=== PATIENT | male | born 1940 | race Caucasian/White ===

== ENCOUNTER 2022-04-26 09:21 | Outpatient (CLI) | payer MEDICARE, BC, SELFPAY | END 2022-04-26 09:22 | disposition home or self-care (01) | LOC: INJ CL 09:24 | PROVIDERS: PCP Family Medicine; Visit Provider Family Medicine | DX: M54.16 Radiculopathy, lumbar region (principal); M51.36 Other intervertebral disc degeneration, lumbar region | CPT/HCPCS: 64483; J1100; Q9966 ==

== ENCOUNTER 2022-07-14 05:36 | Inpatient (IN) | payer MEDICARE, BC, SELFPAY ==
[2022-07-14] VITALS (15 sets, daily range): BP systolic 120–146; BP diastolic 55–67; PULSE 73–105; RESP 16–24; TEMP 36.8–39.1; O2SAT 95–99; BMI 24.9
--- NOTE | 2022-07-14 05:47 | ED_ITS ---
HPI - General Adult General Time Seen by Provider: 05:48 Date Seen: 07/14/22 Chief complaint: Fever Stated complaint: Post Op fever Time Seen by Provider: 07/14/22 05:47 Source: patient, family, RN notes reviewed and old records reviewed Mode of arrival: ambulatory Limitations: no limitations History of Present Illness HPI narrative: The patient is a very pleasant 81-year-old male who is postop day 2. After a L3 4, L4-5 decompression diskectomy surgery at [facility] who comes to the emergency room for evaluation of fever. Patient noted that after his surgery on MondayJuly 11 he awoke on July 12 with the pain that had been present in his left leg resolved. He was very happy of that. States however he did not feel ready to go home but that he was discharged in spite of that. He notes that he started running a fever up as high as 102. Patient was intubated during his surgery. He does not think that there was a urinary cat heter placed however. Patient's fever has been associated with back pain and upon further discussion increased urination. Patient denies headache, runny nose, difficulty breathing or cough. Patient denies abdominal pain, pain with urination or blood in urine. He tested negative for COVID on MondayJuly 08. Patient denies vomiting. According to the operative report patient had the following procedures on July 11: Lateral recess L4-5 bilateral decompression L3 for bilateral decompression/tanner laminectomy/diskectomy Nine surgeries are none secondary to ooze lumbar stenosis with neurogenic claudication and lumbar radiculopathy Patient noted to have surgery in a prone position, intubated. Patient did receive antibiotics intravenously during the surgery. Related Data Home Medications Medication Instructions Recorded Confirmed acetaminophen 500 mg capsule 1,000 mg PO Q6H PRN 07/14/22 07/14/22 amlodipine 10 mg tablet 10 mg PO DAILY 07/14/22 07/14/22 aspirin 81 mg capsule 81 mg PO DAILY 07/14/22 07/14/22 atorvastatin 20 mg tablet 20 mg PO HS 07/14/22 07/14/22 blood sugar diagnostic (Contour 07/14/22 07/14/22 Next Test Strips) clopidogrel 75 mg tablet 75 mg PO DAILY 07/14/22 07/14/22 cyanocobalamin (vitamin B-12) 1,000 mcg PO DAILY 07/14/22 07/14/22 1,000 mcg tablet glimepiride 2 mg tablet 2 mg PO BID 07/14/22 07/14/22 lisinopril 20 mg tablet 20 mg PO DAILY 07/14/22 07/14/22 metformin 1,000 mg tablet 1,000 mg PO DAILY 07/14/22 07/14/22 methocarbamol 750 mg tablet 750 mg PO Q6H PRN 07/14/22 07/14/22 metoprolol succinate 100 mg 100 mg PO HS 07/14/22 07/14/22 tablet,extended release 24 hr nitroglycerin 0.4 mg sublingual 0.4 mg sublingual Q5M PRN 07/14/22 07/14/22 tablet oxycodone 10 mg tablet 10 mg PO Q4H PRN 07/14/22 07/14/22 tamsulosin 0.4 mg capsule 0.4 mg PO DAILY 07/14/22 07/14/22 Allergies Allergy/AdvReac Type Severity Reaction Status Date / Time No Known Drug Allergies Allergy Verified 07/14/22 05:53 Review of Systems Status of ROS: Reports: 10 or more systems reviewed and unremarkable except as noted in History and below Const: Reports: fever and chills Eyes: Denies: change in vision ENMT: Denies: throat pain, neck pain or difficulty swallowing Cardio: Denies: chest pain, swelling of feet/ankles or shortness of breath with exertion Resp: Denies: shortness of breath or cough GI: Denies: abdominal pain, vomiting, diarrhea or difficulty swallowing : Reports: urinary frequency and urinary urgency; Denies: painful urination or blood in urine Musculo: Reports: back pain; Denies: neck pain or extremity pain Neuro: Denies: headache or weakness in extremities PFSH PFS Medical History (Updated 07/14/22 @ 09:06 by Deyanira Hidalgo MD) Anemia of unknown etiology BPH with urinary obstruction CAD (coronary artery disease) Coronary artery disease involving [place] coronary artery of [place] heart without angina pectoris DJD (degenerative joint disease) of knee Herniation of nucleus pulposus, lumbar Hyperlipidemia Hypertension Loose right total knee arthroplasty Onychomycosis Spinal stenosis, lumbar region with neurogenic claudication Type 2 diabetes mellitus Vitamin B12 deficiency Surgical History (Updated 07/14/22 @ 06:48 by Cricket Lentz RN) H/O inguinal hernia repair H/O right knee surgery History of coronary artery stent placement History of laminectomy History of lumbar discectomy History of tonsillectomy Status post cataract extraction of both eyes with insertion of intraocular lens Social History Smoking Status: Never smoker Do you use any of these nicotine containing products: None Second hand tobacco smoke exposure: No How often do you have a drink containing alcohol: never How often do you have six or more drinks on one occasion: Never AUDIT-C Alcohol total score: 0 Non-prescribed substance use: denies use Exam Narrative: Exam Narrative: Patient is a very pleasant well-spoken gentleman. He is in no acute distress. Eyes are clear. Lips are dry but patient has moist mucous membranes. Neck is supple. Heart with a regular rate and rhythm at this time lungs are clear with the exception of few crackles in the left lower lung field that do clear with deep inspiration. Abdomen is soft nontender. Examination of the back shows surgical wound. We do uncover the dressing I do see that there is also a site of an injection at approximately L3 on the left this is not erythematous there is no drainage. I do leave Steri-Strips in place. No obvious purulent drainage and there is no excessive erythema. This area is covered once again with a clean sterile bandage. Lower extremities without edema. Patient was able to stand at the bedside to urinate. He is mentating normally. Const: Vital Signs, click to edit/add: Vital Signs - 24 hr 07/14/22 05:48 07/14/22 05:48 07/14/22 06:40 Temperature 102.2 F H 102.2 F H 102.2 F H Pulse Rate Pulse Rate [Left P ulse Oximeter] 105 H 105 H Pulse Rate [Right Pulse Oximeter] 95 Respiratory Rate 16 16 16 Blood Pressure Blood Pressure [Le ft Upper Arm] 141/66 H 141/66 H Blood Pressure [Ri ght Arm] 141/66 H Pulse Oximetry 98 98 96 Oxygen Delivery Me thod Room Air Room Air Room Air 07/14/22 06:31 07/14/22 07:00 07/14/22 07:30 Temperature 100 F H Pulse Rate 84 Pulse Rate [Left P ulse Oximeter] 80 75 Pulse Rate [Right Pulse Oximeter] Respiratory Rate 24 Blood Pressure 133/58 L Blood Pressure [Le ft Upper Arm] 140/65 H Blood Pressure [Ri ght Arm] Pulse Oximetry 96 99 95 Oxygen Delivery Me thod Room Air Room Air 07/14/22 08:50 Temperature Pulse Rate Pulse Rate [Left P ulse Oximeter] 84 Pulse Rate [Right Pulse Oximeter] Respiratory Rate Blood Pressure Blood Pressure [Le ft Upper Arm] 131/67 Blood Pressure [Ri ght Arm] Pulse Oximetry 98 Oxygen Delivery Me thod Room Air Documenting provider has reviewed patient's vital signs: yes Course Course Hospital Course: Patient is postoperative day 2. From orthopedic spinal surgery. No known complications during the surgery. Differential diagnosis includes but is not limited to for this fever includes aspiration pneumonia, bacterial pneumonia, COVID, urinary tract infection, sepsis, osteomyelitis. Our plan is to place an IV, obtain CBC, comprehensive panel, CRP, lactate, urinalysis as well as chest x-ray and COVID swab. I would like the chest x-ray to be a two view with recent intubation. 1 L of normal saline given. Patient has fever elevated to 102.2 upon his arrival with heart rate of 105. Blood pressure is appropriate and he is not hypotensive. Currently nontoxic in appearance but awaiting lactate and white count. Reevaluation(s) Reevaluation #1: Patient continues to be nontoxic and resting. He continues to have an elevated temp of greater than 100. At this time I do explain to him that is text x-ray shows no evidence of pneumonia, his urine shows no evidence of UTI but that I am of course concerned about his fever. I have spoken with hospitalist and we will be getting a CT of the lumbar spine. And will also start this patient on vancomycin and Zosyn pending blood cultures. Vital Signs Vital signs: Initial Vital Signs Temperature 102.2 F H 07/14/22 05:48 Temperature Source Temporal Artery Scan 07/14/22 05:48 Pulse Rate 105 H 07/14/22 05:48 Pulse Rhythm 07/14/22 05:48 Pulse Strength 3+ Normal 07/14/22 05:48 Respiratory Rate 16 07/14/22 05:48 Respiratory Effort Spontaneous 07/14/22 05:48 Respiratory Depth Normal 07/14/22 05:48 Respiratory Pattern 07/14/22 05:48 Blood Pressure 141/66 H 07/14/22 05:48 Blood Pressure Mean 91 07/14/22 05:48 Blood Pressure Position Sitting 07/14/22 05:48 Pulse Oximetry 98 07/14/22 05:48 Oxygen Delivery Method 07/14/22 05:48 Sepsis Recent Fever Within 48 Hours Yes 07/14/22 05:48 Sepsis New/Unexplained Change in Mental Status No 07/14/22 05:48 Sepsis Action Taken by Nursing Physician Notified 07/14/22 05:48 Vital Signs Temperature 102.2 F H 07/14/22 05:48 Pulse Rate 105 H 07/14/22 05:48 Respiratory Rate 16 07/14/22 05:48 Blood Pressure 141/66 H 07/14/22 05:48 Pulse Oximetry 98 07/14/22 05:48 Oxygen Delivery Method 07/14/22 05:48 Temperature 100 F H 07/14/22 07:00 Pulse Rate 84 07/14/22 08:50 Respiratory Rate 24 07/14/22 07:00 Blood Pressure 131/67 07/14/22 08:50 Pulse Oximetry 98 07/14/22 08:50 Oxygen Delivery Method 07/14/22 08:50 Medical Decision Making MDM Narrative Medical decision making narrative: 1. Fever of unknown origin-this occurs in the postoperative state. No identifiable source at this time. Currently clear are chest x-ray, urinalysis, benign abdominal exam. Patient will be admitted to our hospital and started on Zosyn 3.375 g and vancomycin 1.25 g. This was discussed with both pharmacy and the hospitalist. Blood cultures are pending. Fortunately white count and lactate are reassuring. We do have a 2nd lactate pending at this time. 2. Postoperative day 2 lumbar surgery-no hardware installed. This was a diskectomy/laminectomy surgery. I was able to speak to Dr. Turnre, 1 of the surgeons at [facility]. He does not note any complications during the surgery. His opinion is this is most likely not surgical related and this may be a postoperative fever. Patient currently on oxycodone and acetaminophen for discomfort. 3. Disposition-patient is admitted to the floor under the care of Dr. Blandon. At this time results of lumbar CT pending. Medical Records Medical records reviewed: Yes I reviewed the patient's medical records Lab Data Lab results reviewed: Yes I reviewed the patient's lab results Labs: Lab Results 07/14/22 07/14/22 07/14/22 Range/Units 06:00 06:00 06:00 WBC 10.89 (4.50-11.00) K/uL RBC 4.41 (4.30-5.90) m/uL Hgb 12.7 L (13.5-17.5) gm/dL Hct 37.9 (37.0-53.0) % MCV 86 (80-100) fL MCH 29 (26-34) pg MCHC 34 (32-36) gm/dL RDW Coeff of [place] 13.4 (11.5-15.5) % Plt Count 205 (140-440) K/uL Neut % (Auto) 76.6 H (42.0-72.0) % Lymph % (Auto) 12.4 L (20-44) % [place] % (Auto) 10.0 (0.0-11.0) % Eos % (Auto) 0.3 (0.0-7.0) % Baso % (Auto) 0.1 (0.0-3.0) % Neut # (Auto) 8.30 H (1.7-7.0) K/uL Lymph # (Auto) 1.40 (0.90-2.90) K/uL [place] # (Auto) 1.10 H (0.00-0.90) K/UL Eos # (Auto) 0.03 (0.00-0.50) K/uL Baso # (Auto) 0.01 (0.00-0.30) K/uL Abs Immat Gran (auto) 0.06 (0.00-0.30) K/uL Sodium 138 (135-149) mmol/L Potassium 3.9 (3.6-5.1) mmol/L Chloride 102 (96-114) mmol/L Carbon Dioxide 24 (20-32) mmol/L BUN 11 (7-30) mg/dL Creatinine 0.7 (0.5-1.5) mg/dL Estimated GFR 93 ml/min Glucose 183 H (60-115) mg/dL Venous Lactic Acid (Serial Order) Calcium 9.7 (8.4-10.6) mg/dL Total Bilirubin 0.7 (0.1-1.5) mg/dL AST 25 (12-35) U/L ALT 14 (4-50) U/L Alkaline Phosphatase 69 (40-150) U/L C-Reactive Protein 9.0 H (0.5-1.0) mg/dL Total Protein 7.3 (6.0-8.3) g/dL Albumin 4.2 (3.3-5.0) g/dL Procalcitonin Urine Color (Yellow) Urine Appearance (Clear) Urine pH (5.0-8.5) Ur Specific [place] (1.000-1.030) Urine Protein (Negative) Urine Glucose (UA) (Negative) Urine Ketones (Negative) Urine Blood (Negative) Urine Nitrite (Negative) Urine Bilirubin (Negative) Urine Urobilinogen (0.2-1.0) Ur Leukocyte Esterase (Negative) Urine RBC (0-2) Urine WBC (0-5) Ur Squamous Epith Cells (None-Few) Urine Bacteria (None) SARS-CoV-2 (PCR) (Negative) Influenza Type A (PCR) (Negative) Influenza Type B (PCR) (Negative) 07/14/22 07/14/22 07/14/22 Range/Units 06:00 06:26 07:02 WBC (4.50-11.00) K/uL RBC (4.30-5.90) m/uL Hgb (13.5-17.5) gm/dL Hct (37.0-53.0) % MCV (80-100) fL MCH (26-34) pg MCHC (32-36) gm/dL RDW Coeff of [place]am (11.5-15.5) % Plt Count (140-440) K/uL Neut % (Auto) (42.0-72.0) % Lymph % (Auto) (20-44) % [place] % (Auto) (0.0-11.0) % Eos % (Auto) (0.0-7.0) % Baso % (Auto) (0.0-3.0) % Neut # (Auto) (1.7-7.0) K/uL Lymph # (Auto) (0.90-2.90) K/uL [place] # (Auto) (0.00-0.90) K/UL Eos # (Auto) (0.00-0.50) K/uL Baso # (Auto) (0.00-0.30) K/uL Abs Immat Gran (auto) (0.00-0.30) K/uL Sodium (135-149) mmol/L Potassium (3.6-5.1) mmol/L Chloride (96-114) mmol/L Carbon Dioxide (20-32) mmol/L BUN (7-30) mg/dL Creatinine (0.5-1.5) mg/dL Estimated GFR ml/min Glucose (60-115) mg/dL Venous Lactic Acid (Serial Order) Calcium (8.4-10.6) mg/dL Total Bilirubin (0.1-1.5) mg/dL AST (12-35) U/L ALT (4-50) U/L Alkaline Phosphatase (40-150) U/L C-Reactive Protein (0.5-1.0) mg/dL Total Protein (6.0-8.3) g/dL Albumin (3.3-5.0) g/dL Procalcitonin Cancelled Urine Color Yellow (Yellow) Urine Appearance Clear (Clear) Urine pH 5.5 (5.0-8.5) Ur Specific [place] 1.015 (1.000-1.030) Urine Protein Negative (Negative) Urine Glucose (UA) Negative (Negative) Urine Ketones 2+ A (Negative) Urine Blood Negative (Negative) Urine Nitrite Negative (Negative) Urine Bilirubin Negative (Negative) Urine Urobilinogen 0.2 (0.2-1.0) Ur Leukocyte Esterase Negative (Negative) Urine RBC 0-2 (0-2) Urine WBC 0-2 (0-5) Ur Squamous Epith Cells None (None-Few) Urine Bacteria None (None) SARS-CoV-2 (PCR) Negative SARS-CoV-2 (Negative) Influenza Type A (PCR) Negative PCR FLU A (Negative) Influenza Type B (PCR) Negative PCR FLU B (Negative) Imaging Data Chest x-ray: Attestation: I have reviewed the pertinent imaging results. My impression: No obvious infiltrates. Radiologist's impression: HEART AND MEDIASTINUM: The heart size is normal. The mediastinal contour appears normal for patient age. LUNGS AND PLEURAL SPACES: The lungs appear normal.The pleural spaces are unremarkable. OSSEOUS STRUCTURES: Age-appropriate appearance. No acute focal finding. IMPRESSION: No evidence of active pulmonary disease. ECG Data Attestation: I personally reviewed and interpreted this ECG as follows: Interpretation: EKG by my read shows sinus rhythm at a rate of 83. I do not note any acute ST or T-wave changes. MS and QT intervals within normal limits Critical Care Time Critical Care Time Critical Care Time: Yes Attestation: The patient required my highest level preparedness to intervene emergently and I personally spent this critical care time directly and personally managing the patient. This critical care time included: Obtaining a history; Examining the patient; Pulse oximetry; Ordering and reviewing of studies; Arranging urgent treatment with development of a management plan; Evaluation of patients response to treatment; Frequent reassessment discussions with other providers. This critical care time was performed to assess and manage the high probability of imminent life-threatening deterioration that could result in multiorgan failure. It was exclusive of separate billable procedures and treating other patients and teaching time. Total Critical Care Time in Minutes: 60 Discharge Plan Discharge Clinical Impression: Fever of unknown origin Patient Disposition: Admitted As Inpatient Condition: Improved
--- NOTE | 2022-07-14 06:26 | CRLHL7_ITS ---
For Patients: As a result of the Cures Act, medical imaging exams and procedure reports are released immediately into your electronic medical record. You may view this report before your referring provider. If you have questions, please contact your health care provider. INDICATION: Postop fever COMPARISON: October 19, 2013 TECHNIQUE: Two views of the chest were acquired FINDINGS: TUBES AND LINES: None. HEART AND MEDIASTINUM: The heart size is normal. The mediastinal contour appears normal for patient age. LUNGS AND PLEURAL SPACES: The lungs appear normal.The pleural spaces are unremarkable. OSSEOUS STRUCTURES: Age-appropriate appearance. No acute focal finding. IMPRESSION: No evidence of active pulmonary disease. Dictated by Jairon Granger MD @ 07/14/2022 7:02:25 AM (Electronically Signed)
[2022-07-14 06:52] LABS: Basophils Absolute Auto 0.01 K/uL (0.00-0.30); Basophils Percent Auto 0.1 % (0.0-3.0); Eosinophils Absolute Auto 0.03 K/uL (0.00-0.50); Eosinophils Percent Auto 0.3 % (0.0-7.0); Hematocrit 37.9 % (37.0-53.0); Hemoglobin* 12.7 gm/dL (13.5-17.5); Immature Granulocytes Abs Auto 0.06 K/uL (0.00-0.30); Lymphocytes Percent Auto 12.4 % (20-44); Mean Corpuscular HGB Conc 34 gm/dL (32-36); Mean Corpuscular Hemoglobin 29 pg (26-34); Mean Corpuscular Volume 86 fL (80-100); Neutrophils Percent Auto 76.6 % (42.0-72.0); Platelet Count* 205 K/uL (140-440); RDW Coefficient of Variation % 13.4 % (11.5-15.5); Red Blood Count 4.41 m/uL (4.30-5.90); White Blood Count* 10.89 K/uL (4.50-11.00)
[2022-07-14 06:54] LABS: Slide Review Reflex No
[2022-07-14 07:01] LABS: Lactate Sepsis w/Reflex* 1.5 mmol/L (0.5-1.9)
[2022-07-14] MEDS: 0.9 % SODIUM CHLORIDE 1000 ml 1,000 ML IV ×2 (07:01→08:29)
--- NOTE | 2022-07-14 07:08 | ED.NURSE ---
Addendum entered by Fabienne Colorado RN 07/14/22 07:11: I concur, 23 oxycodone 10mg tablets, counted and passed on to Mark COBB on shift change. Original Note: pt. came with 23 tabs oxycodone 10mg. witnessed with Irma COBB.
[2022-07-14 07:14] LABS: Appearance Urine Clear (Clear); Bilirubin Urine Negative (Negative); Color Urine Yellow (Yellow); Glucose Urine Negative (Negative); Ketones Urine 2+ (Negative)
[2022-07-14 07:15] LABS: Blood Urine Negative (Negative); Leukocyte Esterase Urine Negative (Negative); Nitrite Urine Negative (Negative); Protein Urine Negative (Negative); RBC Urine 0-2 (0-2); Specific Gravity Urine 1.015 (1.000-1.030); Urobilinogen Urine 0.2 (0.2-1.0); WBC Urine 0-2 (0-5); pH Urine 5.5 (5.0-8.5)
--- NOTE | 2022-07-14 07:22 | ED.NURSE ---
was assisted to the side of the bed to stand and void. voided ~150 ml of urine. has pain with movement.
--- OUTSIDE RECORDS SUMMARY | 2022-07-14 07:27 | XMS_ITS | Encounter Summary ---
:1940 Author Organization [facility] Address [address] [place] [address] Care Team Providers Name Role Phone Clinic, [facility] Unavailable Unavail able Terry Junior Primary Care Provider Reason for Visit Inpatient Admission Specialty Diagnoses / Procedures Referred By Contact Refer red To Contact Procedures [id number] Referral ID Status Reason Start Date Expiration Date Visits Requ ested Visits Authorized [id number] 1 1 Encounter Details Date Type Department Care Team Description 05/04/2018 Surgery [facility] Low Hagen, PLACEMENT OF Hospital Operating MD MULTICOMPONENT PENILE Room [address] PROSTHESIS [address] [place], [place] [address] [place], [place] [phone] (Wo rk) Surgery Details Date/Time Status Location OR Service Patient Case Class Case Type Trauma Class Case? 05/04/18 7:30 AM Posted [facility] ORS 05 Urology Same Day SDS-Hold Surgery Panel 1 Procedure LRB Anes Op Region Wound Class Commen ts PLACEMENT OF MULTICOMPONENT N/A General Penis Clean Co ntaminated (II) PENILE PROSTHESIS Surgeon Surgeon Role Service Panel Low Hagen MD Primary Urology 1 documented in this encounter Social History Tobacco Use Types Packs/Day Years Used Date Smoking Tobacco: Former Cigarettes 10 04 Quit : 1979 Smokeless Tobacco: Never Alcohol Use Standard Drinks/Week Comments No 0 (1 standard drink = 0.6 oz pure alcoho l) Sex Assigned at Date Recorded Not on file documented as of this encounter Last Filed Vital Signs Vital Sign Reading Time Taken Comments Blood Pressure 109/52 05/04/2018 10:15 AM CDT Pulse 81 05/04/2018 10:15 AM CDT Temperature 36.5 ??C (97.7 ??F) 05/04/2018 9:45 AM CDT Respiratory Rate 12 05/04/2018 10:15 AM CDT Oxygen Saturation 96% 05/04/2018 10:15 AM CDT Inhaled Oxygen Concentration - - Weight 71.7 kg (158 lb) 05/04/2018 6:05 AM CDT Height 167.6 cm (5' 6) 05/02/2018 4:45 PM CDT Body Mass Index 25.5 05/02/2018 4:45 PM CDT documented in this encounter Discharge Summaries Low Hagen MD - 05/05/2018 1:20 PM CDT HOSPITAL DISCHARGE SUMMARY Patient Name: Roberto Cason Date of : 1940 Attending Provider: Low Hagen MD Admission Date: 05/04/2018 Discharge Date: 05/05/2018 He will be discharged on 05/05/2018 to home. PRINCIPAL DIAGNOSIS 1. Erectile dysfunction PROCEDURES PERFORMED DURING HOSPITALIZATION 1. Placement of a multi-component penile prosthesis BRIEF HOSPITAL COURSE: Stable postoperative course. Pt was also followed by the hospitalist for postop medical management. Pain was controlled. MARIBEL and maynard were removed on POD #1. Prior to discharge, pt was ambulating, tolerating diet, and voiding. He was thus discharged home later on POD #1 in stable condition. LABS: No Lab Results Found (last 72 hours) No Lab Results Found (last 72 hours) DISCHARGE MEDICATIONS Roberto Cason Home Medication Instructions MIRA:[id number] Printed on:05/07/18 4753 Medication Information amLODIPine (NORVASC) 10 mg oral tablet Take 10 mg by mouth at bedtime. aspirin 81 mg oral enteric coated tablet Take 81 mg by mouth once daily. atorvastatin (LIPITOR) 10 mg oral tablet Take 10 mg by mouth every morning. docusate sodium (COLACE) 100 mg oral capsule Take 1 capsule (100 mg) by mouth twice daily as needed for constipation doxycycline monohydrate (ADOXA) 100 mg oral tablet Take 1 tablet (100 mg) by mouth twice a day with breakfast and dinner. HYDROcodone-acetaminophen (NORCO) 5-325 mg oral tablet Take 1-2 tablets by mouth every 4 (four) hours as needed for Pain. lisinopril (PRINIVIL) 20 mg oral tablet Take 20 mg by mouth at bedtime. metFORMIN (GLUCOPHAGE) 1,000 mg oral tablet Take 1,000 mg by mouth twice a day with breakfast and dinner. metoprolol succinate, XL, (TOPROL XL) 100 mg oral extended release tablet 24 HR Take 100 mg by mouth at bedtime. nitroGLYCERIN (NITROSTAT) 0.4 mg sublingual tablet Take 0.4 mg under the tongue every 5 (five) minutes as needed for Chest Pain. tamsulosin (FLOMAX) 0.4 mg oral capsule Take 0.4 mg by mouth every other day. DISCHARGE PROCEDURES AND FOLLOW-UP Discharge Procedure Orders Notify Provider CONTACT the doctor if you have any of the following: Temperature of 101' or higher or chills. Prolonged nausea or vomiting. Increased drainage or bleeding. Increased tenderness or swelling. Pain not relieved by medication. Call 911 if symptoms are severe or life threatening. Discharge Instructions (Sedation/Anesthesia) Today you were given medicine for pain or sedation. This medicine can cause you to: be sleepy, not think clearly, feel less coordinated. For 24 hours after receiving the medicine: have an adult stay with you. Remain at home and rest during that time. You may not return to work. Do not smoke. Be careful when you bathe, shower, cook, or use electrical devices. Avoid rapid movement as dizziness may result. Begin eating light foods, such as cereal or toast. Resume usual diet. Do not drink alcohol for 24hours. Do not drive or operate any heavy equipment. Delay important decision-making. Don't sign any important papers. No pain meds or sleeping pills for 4 hours after last dose given before discharge. Discharge Instructions Plan on 2 full days of bed rest following surgery Remove scrotal support after 48 hrs NO LIFTING items heavier than 1 gallon of milk for 2 weeks following surgery Apply Ice Packs several times a day in 20 minute intervals for the first 4-5 days following surgery Keep MARIBEL drain site covered for 2 days---changed and needed--keep clean and dry Do NOT shower for first 48 hours following surgery------no direct water contact for 5-7 days following surgery Narcotic Pain Medication may cause constipation. Increase your water content and take stool softener--colace you have been prescribed You may experience difficulty urinating of find your stream is not of its usual strength. This is because of the inflammation in your penis and it will return to normal with time. PULL PUMP DOWN in the scrotum several times a day -this is part of rehabilitation. You will likely experience some soreness and swelling, NO SEXUAL CONTACT IS PERMITTED UNTIL GRANTED BY UROLOGIST Discharge Discharge Patient When Alert and Stable per Outpatient Criteria Disposition? Returning Home/Self Care Expected Discharge Date? 05/05/2018 Discharge Patient when Following Condition is Met: if ok with Dr Mitchell Urology Discharge Disposition? Returning Home/Self Care Expected Discharge Date? 05/05/2018 Diet: Regular Resume diabetic diet Follow Up Referral Priority: Routine Referred to Provider: LOW HAGEN Follow Up Referral Priority: Routine Referred to Provider: TERRY JUNIOR PA-C [facility] Office [phone] UROLOGY d/c note ABOVE NOTE Wilmer HAGEN MD [facility] [phone] documented in this encounter Discharge Instructions Discharge InstructionsHenrietta Fam RN - 05/05/2018 12:12 PM CDT Activity Your provider has recommended that your activity be: As ordered by your provider. Dietary Recommendations The diet that has been suggested for you is: Consistent Carbohydrate diet: In addition to a healthy diet, a consistent carbohydrate diet is recommended for people that are attempting to manage their blood sugar levels. The goal of this diet is to have a consistent amount of carbohydrates (sugars) planned for each meal. Meals should also be eaten at similar times each day to help maintain a steady blood sugar level. Guidelines for following a consistent carbohydrate diet include the following: Avoid large servings when eating the following foods: milk, fruit, starches (such as bread, cereal, potatoes and pasta); peas, corn, and sweets. Read food labels - 15 grams of carbohydrate is equal to 1 carb unit. Medications If your provider has ordered medications for you, make sure to take your medications as prescribed. Call your doctor within 24 hours if you have any of the following symptoms: ?? Increased or unexpected swelling ?? Increased or unexpected shortness of breath ?? Sudden or unexpected weight gain or loss ?? Nausea, vomiting, and/or diarrhea Seek care immediately or call 911 if: You have any of the following signs of a heart attack: ?? Squeezing, pressure, or pain in your chest that lasts longer than 5 minutes or returns ?? Discomfort or pain in your back, neck, jaw, stomach, or arm ?? Trouble breathing ?? Lightheadedness or a sudden cold sweat, especially with trouble breathing Monitor Your Weight Weigh yourself everyday in the morning and keep a record. If your weight has increased 2 pounds overnight or 4 pounds in one week, contact you primary care provider/MD. Discharge Weight Weight: 71.7 kg (158 lb) Weight: 158 lb Please keep any follow-up appointments that have been made for you. Smoking and second-hand smoke exposure: If you or anyone in your home smokes, we strongly recommend that you stop for your health and that of your family. Please talk with your health care provider about your best treatment options. No matter what your age or how long you've smoked, quitting will help you live longer. For further assistanceplease call the [employer] Helpline at 8-(161)-030-XSNL or go to their website [email or web address]. documented in this encounter Medications at Time of Discharge Medication Sig Dispensed Refills Start Date End Date amLODIPine (NORVASC) 10 Take 10 mg by mouth at 0 mg oral tablet bedtime. aspirin 81 mg oral Take 81 mg by mouth 0 enteric coated tablet once daily. atorvastatin (LIPITOR) Take 10 mg by mouth 0 10 mg oral tablet every morning. docusate sodium (COLACE) Take 1 capsule (100 60 capsule 0 100 mg oral capsule mg) by mouth twice daily as needed for constipation doxycycline monohydrate Take 1 tablet (100 mg) 20 tablet 0 05/04/2018 (ADOXA) 100 mg oral by mouth twice a day tablet with breakfast and dinner. HYDROcodone-acetaminophe Take 1-2 tablets by 40 tablet 0 n (NORCO) 5-325 mg oral mouth every 4 (four) tablet hours as needed for Pain. lisinopril (PRINIVIL) 20 Take 20 mg by mouth at 0 mg oral tablet bedtime. metFORMIN (GLUCOPHAGE) Take 1,000 mg by mouth 0 1,000 mg oral tablet twice a day with breakfast and dinner. metoprolol succinate, Take 100 mg by mouth 0 XL, (TOPROL XL) 100 mg at bedtime. oral extended release tablet 24 HR nitroGLYCERIN Take 0.4 mg under the 0 (NITROSTAT) 0.4 mg tongue every 5 (five) sublingual tablet minutes as needed for Chest Pain. tamsulosin (FLOMAX) 0.4 Take 0.4 mg by mouth 0 mg oral capsule every other day. documented as of this encounter Progress Notes Chapincito Randolph MD - 05/05/2018 1:20 PM CDT [facility] H[facility]PITAL SERVICE PROGRESS NOTE Chart reviewed. Patient is s/p penile prosthesis on 05/04/2018. SUBJECTIVE: PT doing well. Pain well controlled. ROS: Neg. OBJECTIVE: BP 119/53 Pulse 74 Temp 98.8 ??F (37.1 ??C) Resp 16 Ht 5' 6 (1.676 m) Wt 71.7 kg (158 lb) SpO2 94% BMI 25.50 kg/m?? O2 Delivery Source: Room Air Wt Readings from Last 2 Encounters: 05/04/18 71.7 kg (158 lb) Temp (24hrs), Av.5 ??F (36.9 ??C), Min:98 ??F (36.7 ??C), Max:98.8 ??F (37.1 ??C) Body mass index is 25.5 kg/m??. General Appearance: Patient is alert and oriented x3, in no apparent distress, pleasant and conversive, speaking in full sentences HEENT: Atraumatic/Normal cephalic, extraocular muscles intact, pupils equally round and reactive to light, mucous membranes are moist NECK: supple, no lymphadenopathy RESPIRATORY: Clear to auscultation bilaterally, good air movement CARDIOVASCULAR: Regular rate and rhythm, no murmurs, rubs or gallops, peripheral pulses intact GASTROINTESTINAL: Non-distended/Non tender, soft, bowel sounds present throughout, no masses or hepatosplenomegaly SKIN: Warm, dry, no rashes, mottling not present NEUROLOGIC: Without any focal deficits EXTREMITIES: Moves all extremities, no clubbing, cyanosis, or edema : Maynard in place LABS: No Lab Results Found (last 72 hours) PROCEDURES: Patient is s/p penile prosthesis on 05/04/2018. IMAGING: EKG on 05/04/2018: normal sinus rhythm Additional comments: I reviewed the patient's new clinical lab test results. I reviewed the patient's medications. ASSESSMENT: This is a 77 year old male with PMH significant for Coronary Artery Disease s/p stents to LAD and LCx, Diabetes Mellitus type 2, hypertension who is s/p penile prosthesis on 05/04/2018. PLAN: 1. Penile implant: Elective surgery on 05/04/18. Urology to manage post operative cares including diet, pain control, deep vein thrombosis prophylaxis. 2. Coronary Artery Disease: s/p JEWELS to LAD and LCx. Angiogram in 2013 with patent stents. Prior to admission Plavix and aspirin, restarted per urology. 3. Diabetes Mellitus type 2: Glucose 140s. prior to admission glimepiride, metfromin continue with SSI and accu checks. 4. Hypertension: BP stable. prior to admission on amlodipine, lisinopril, metoprolol. restart home meds at co. 5. HLD: prior to admission statin 6. Benign Prostatic Hypertrophy: prior to admission flomax 7. Clinically stable to co home. Chapincito Randolph MD [facility] Medicine Service Henrietta Fam RN - 05/05/2018 1:20 PM CDT Roberto Cason 1940 [id number] P: Discharge A: Discharged via wheelchair to home escorted by volunteer I: Discharge information and arrangements included: review of written discharge instructions, reviewof purpose and side effects of new medication, belongings list completed. R:Patient expressed understanding of information. Pt left in wheelchair. MARIBEL out. Pt voiding with no problems. Appetite good. Blood pressure stable. Pt alert and oriented. Pain meds helpful with pain. Knows when to call 911 and when to call MD. Verbalized understanding of all discharge instructions. Henrietta Fam Cliff Mitchell MD - 05/05/2018 12:09 PM CDT Urology Pain controlled Voiding without maynard AFVSS MARIBEL output low. A/ POD #1 IPP. Doing well P/ I removed dressing and MARIBEL. See discharge orders per Dr. Hagen.. Home today. Cliff Mitchell MD Susie Sanz RN - 05/05/2018 6:02 AM CDT [facility] Med-Surg Care Progression Note Type: Shift to shift summary Length of stay: 0 days Code Status: Full Code Reason for Admission: Surgery Post OP for Penile Prosthesis. F- Feeding Progression: Tolerating Diet- Diabetic diet Fluids Progression: Continue bolus and IVF- running at 125 mls/hr A- Analgesic Progression: Pain at goal with interventions, Prn Oxy given and scheduled Tylenol alongwith ice packs. Sling intact and bandages C/D/I. S- Skin Progression: Total Master Score 19: Maintaining Skin integrity Safety Progression: Hendrich II Total Score: 1; Falls risk - interventions in place Call light within reach, red slippers on. T- Telemetry Progression: Not applicable Treatment Progression: Infusions/titrating IV infusing bolus as needed D/C maynard in AM per orders, Bedrest for 48 hours. BP doing well overnight. Patient was concerned that it might be too low. E- Emotional Needs Progression: Participating in cares and Appropriate affect. A&O x3. Pleasant with staff Neuro Progression: Alert and Oriented R- Respiratory Needs Progression: On room air cont. to monitor H- Head OUT of Bed/Activity Progression: Bed Rest . Able to shift weight in bed. U- Ultimate Discharge Progression: Pain controlled and voiding Anticipated Disposition: Plan to: Home, D/C orders in for tomorrow. Friend is staying overnight andwill drive him home at discharge Anticipated Equipment/Supply Needs: None G- Glycemic Control Progression: BG QID. Will continue to monitor. B- Bowel and Bladder Care Progression: Last BM: 05/03/18; on bowel med's. Refused Colace in PM I- Indwelling/Invasive Devices Progression: Maynard catheter in place and draining clear yellow urine.PIV D- DVT/Anticoagulation Progression: SCDs Angelia Faulkner RN - 05/04/2018 10:55 PM CDT [facility] Med-Surg Care Progression Note Type: Shift to shift summary Length of stay: 0 days Code Status: Full Code Reason for Admission: Surgery Post OP for Penile Prosthesis. F- Feeding Progression: Tolerating Diet- Diabetic diet Fluids Progression: Continue bolus and IVF- running at 125 mls/hr A- Analgesic Progression: Pain at goal with interventions, Prn Oxy given and scheduled Tylenol alongwith ice packs. Sling intact and bandages C/D/I. S- Skin Progression: Total Master Score: 21: Maintaining Skin integrity Safety Progression: Hendrich II Total Score: 1; Falls risk - interventions in place Call light within reach, red slippers on. T- Telemetry Progression: Not applicable Treatment Progression: Infusions/titrating IV infusing bolus as needed D/C maynard in AM per orders, Bedrest for 48 hours. Refused scheduled metoprolol. Wanted BP cuff on for a few more readings to makesure his BP is ok overnight. E- Emotional Needs Progression: Participating in cares and Appropriate affect. A&O x3. Pleasant with staff Neuro Progression: Alert and Oriented R- Respiratory Needs Progression: On room air cont. to monitor H- Head OUT of Bed/Activity Progression: Bed Rest U- Ultimate Discharge Progression: Pain controlled and voiding Anticipated Disposition: Plan to: Home, D/C orders in for tomorrow. Friend is staying overnight andwill drive him home at discharge Anticipated Equipment/Supply Needs: None G- Glycemic Control Progression: Accuchecks before meals and HS and oral hypoglycemics. Refused PO Amaryl and Metformin and SS insulin. Told policy writer typist he isn't eating enough and his BG is low enough for overnight. He said it will drop overnight if he takes it. Will continue to monitor. B- Bowel and Bladder Care Progression: Last BM: 05/03/18; on bowel med's. Refused Colace in PM I- Indwelling/Invasive Devices Progression: Maynard catheter in place and draining clear yellow urine. D- DVT/Anticoagulation Progression: Seq Summary Henrietta Fam RN - 05/04/2018 4:16 PM CDT [facility] P. Admission A. Condition on Admit: alert. Patient/Family Concerns: Patient expressed concern about pain relief . I. Initial Interventions included: administered medication for blood pressure and pain . Orientation to Unit: Patient oriented to how to call for help, name of assigned neurocritical care physician, PatientInformation booklet, Handwashing, hourly rounding procedures. R. Patient expressed understanding of information.. Med-Surg Care Progression Note Type: Shift to shift summary Length of stay: 0 days Code Status: Full Code Reason for Admission: Surgery Post OP F- Feeding Progression: Tolerating Diet- Pt advanced as tolerated, ordered Dinner. Fluids Progression: Continue bolus and IVF- running A- Analgesic Progression: Pain at goal with interventions S- Skin Progression: Total Master Score: 21: Maintaining Skin integrity Safety Progression: Hendrich II Total Score: 1; Falls risk - interventions in place Call light within reach, red slippers on. T- Telemetry Progression: Not applicable Treatment Progression: Infusions/titrating IV infusing bolus as needed E- Emotional Needs Progression: Participating in cares and Appropriate affect. Neuro Progression: Alert and Oriented R- Respiratory Needs Progression: On room air cont. to monitor H- Head OUT of Bed/Activity Progression: Bed Rest U- Ultimate Discharge Progression: Pain controlled and voiding Anticipated Disposition: Plan to: Home Anticipated Equipment/Supply Needs: None G- Glycemic Control Progression: Accuchecks before meals and HS and oral hypoglycemics B- Bowel and Bladder Care Progression: Last BM: 05/03/18; on bowel meds. I- Indwelling/Invasive Devices Progression: Maynard catheter in place and draining clear yellow urine. D- DVT/Anticoagulation Progression: Seq Summary Pt admitted after penile implant today. His blood pressure low when arrived and MARIBEL with bloody drainage. Sand bag in place and removed at 1145. Pt having some pain ice in place and IV tylenol running now and does have dilaudid IV if needed. Tolerated lunch with no problems. called about IV fluids. Fluids ordered with boluses if needed. Blood pressure and urine output better with fluids. Ptalert and oriented. Dressing intact. MARIBEL with 60cc of bloody fluid. Chapincito Randolph MD - 05/04/2018 10:35 AM CDT [facility] HOSPITAL SERVICE PROGRESS NOTE Chart reviewed. Patient is s/p penile prosthesis on 05/04/2018. SUBJECTIVE: POD #0. Reports his pain is controlled. No nausea, vomiting, chest pain, shortness of breath, fever.He took his blood pressure medications last night. He is a former smoker, quit in . Does not drink alcohol. OBJECTIVE: BP 109/52 Pulse 81 Temp 97.7 ??F (36.5 ??C) Resp 12 Ht 5' 6 (1.676 m) Wt 71.7 kg (158 lb) SpO2 96% BMI 25.50 kg/m?? O2 Delivery Source: Face Mask Wt Readings from Last 2 Encounters: 05/04/18 71.7 kg (158 lb) Temp (24hrs), Av ??F (36.7 ??C), Min:97.7 ??F (36.5 ??C), Max:98.3 ??F (36.8 ??C) Body mass index is 25.5 kg/m??. General Appearance: Patient is alert and oriented x3, in no apparent distress, pleasant and conversive, speaking in full sentences HEENT: Atraumatic/Normal cephalic, extraocular muscles intact, pupils equally round and reactive to light, mucous membranes are moist NECK: supple, no lymphadenopathy RESPIRATORY: Clear to auscultation bilaterally, good air movement CARDIOVASCULAR: Regular rate and rhythm, no murmurs, rubs or gallops, peripheral pulses intact GASTROINTESTINAL: Non-distended/Non tender, soft, bowel sounds present throughout, no masses or hepatosplenomegaly SKIN: Warm, dry, no rashes, mottling not present NEUROLOGIC: Without any focal deficits EXTREMITIES: Moves all extremities, no clubbing, cyanosis, or edema : Maynard in place LABS: No Lab Results Found (last 72 hours) PROCEDURES: Patient is s/p penile prosthesis on 05/04/2018. IMAGING: EKG on 05/04/2018: normal sinus rhythm Additional comments: I reviewed the patient's new clinical lab test results. I reviewed the patient's medications. ASSESSMENT: This is a 77 year old male with PMH significant for Coronary Artery Disease s/p stents to LAD and LCx, Diabetes Mellitus type 2, hypertension who is s/p penile prosthesis on 05/04/2018. PLAN: 1. Penile implant: Elective surgery on 05/04/18. Urology to manage post operative cares including diet, pain control, deep vein thrombosis prophylaxis. 2. Coronary Artery Disease: s/p JEWELS to LAD and LCx. Angiogram in 2013 with patent stents. Prior to admission Plavix and aspirin, restarted per urology. 3. Diabetes Mellitus type 2: Glucose 140s. prior to admission glimepiride, metfromin continue with SSI and accu checks. 4. Hypertension: BP stable. prior to admission on amlodipine, lisinopril, metoprolol. ?? Continue metoprolol with holding parameters ?? Hold amlodipine and lisinopril, hold until tomorrow then continue with holding parameters. 5. HLD: prior to admission statin 6. Benign Prostatic Hypertrophy: prior to admission flomax Surgical Incision Lower Abdomen (Active) Incision Date/Incision Time: 05/04/18 0829 Type: Incision Orientation: Lower Location: Abdomen CODE STATUS: Full GI prophylaxis: Diet DVT prophylaxis: SCDs Disposition: Anticipated date of discharge per urology, Criteria for discharge is per urology Discussed care plan with patient and Dr Randolph Total Time: 35 minutes was spent evaluating, treating this patient with >50% spent in counsellingor coordination of care, see above Feli Cox PA-C [facility] Medicine Service Patient seen and examined by me. Agree with the PA note. A/P: 77 y.o. with 1. s/p urologic procedure: per urology. 2. CAD: cont BB 3. DM: SSI in adition to po meds. 4. HTN: cont BB, hold parameters for the others. 5. Rest per PA note. Chapincito Randolph MD [facility] Medicine Service documented in this encounter H&P Notes Rosa House MD - 05/04/2018 7:17 AM CDT History and Physical Update I have reviewed the patient's History and Physical and have examined the patient in the pre-op area.The patient denies any interval changes in medical condition since the H&P. Rosa House MD 05/04/2018 7:17 AM documented in this encounter Nursing Notes Susie Sanz RN - 05/05/2018 6:29 AM CDT Problem: Pain Goal: Exhibits reduction in pain to a level of acceptable comfort Outcome: Met this shift Patient pain /10 this shift after prn oxycodone given. Also had one dose of IV acetaminophen. Sleptmost of shift. Melissa Sandra RN - 05/04/2018 11:00 AM CDT Report given to floor nurse, and to remove sand bag at [address] Sal[place]. VSS Lungs clear sat 95% on RA Dressing to penis D/I documented in this encounter OR Notes OR Surgeon - Low Hagen MD - 05/04/2018 6:43 PM CDT CC: Date of Service: 05/04/2018 SURGEON: Low Hagen MD INDICATIONS FOR PROCEDURE: The patient is a 77-year-old gentleman who has a history of erectile dysfunction. He has failed multiple other treatments and wishes to proceed with placement of an inflatable penile prosthesis. I have discussed the risks, benefits, expected outcomes, complications and alternatives to this procedure. I have answered his questions to the best of my ability and to his satisfaction. He wished to proceed and signed consent. PREOPERATIVE DIAGNOSIS: Erectile dysfunction. POSTOPERATIVE DIAGNOSIS: Erectile dysfunction. PROCEDURE PERFORMED: Placement of a multi-component penile prosthesis. ANESTHESIA: General and pudendal nerve block and local. COMPLICATIONS: None. ESTIMATED BLOOD LOSS: 10 mL. FINDINGS: A Coloplast Titan multicomponent penile prosthesis was placed with 22 cm cylinders bilaterally with no rear tip extenders and a 125 mL reservoir placed ectopically on the left side, filled to125 mL. The Krystin pump was used and placed into the scrotum. SPECIMENS: None. The patient is stable and taken to the recovery room. ESTIMATED BLOOD LOSS: 10 mL. DRAINS: MARIBEL and Maynard catheter. OPERATIVE PROCEDURE: After proper identification of the patient, the patient was taken to the operating room and placed supine on the operating table. Next, after adequate general anesthesia, the patient was prepped and draped in sterile standard fashion per routine for penile prosthesis with the table hyperextended. The patient had voided prior to entering the operating room. After appropriate pausefor the cause, I performed bilateral pudendal nerve blocks in Alcock's canal with local anesthetic, including ropivacaine. Please see nurses' notes. Following this, I performed an artificial erection with normal saline and lidocaine mixture, approximately 40 mL. This was performed and demonstrated no e vidence of Peyronie's disease or penile curvature. I then proceeded and made an infrapubic incision approximately 3-5 cm in size. This was taken down through the subcutaneous tissue. A small amount of electrocautery was used for hemostasis. I then used blunt finger dissection down to the corpora bilaterally. I placed two stay sutures with 2-0 Monocryl, first on the right corpora, two stay sutures lateral to the dorsal nerve and vasculature. Then I identified the left corpora and placed two stay sutures on the left. Extreme care and caution was taken to denote the dorsal nerve and vasculature and stay well away from this area and place the sutures lateral to the dorsal nerve and vasculature. I thenused a 12 blade and performed a corporotomy, first on the left corpora. I then used the Felipe insertion tool to dilate and measure the proximal corpora on the left. I measured proximally on the left to be 9 cm. I then measured distally at 12 cm. Note, I first used the skye Mcdanieluer proximally tocreate the pathway. I then used the Felipe insertion tool by pulling up on the penis and measuring down and lateral and then I measured distally. Extreme care was taken in measuring the distal corpora by placing my thumb and middle finger over the fossa navicularis to avoid any chance of injury or crossover. The measurements again on the left were 9 cm proximal and 13 cm distal for a 22 cm cylinder on the left. In a similar fashion on the right, I performed a corporotomy. I then measured proximally 9 cm and 13 cm distally, again with extreme caution on an outstretched penis as I had done on the opposite side with protection of the distal urethra to avoid any crossover. I then irrigated. I then placed the 12 Hegar in the proximal corporotomy on the right on the outstretched penis and then the Felipe insertion tool on the left. This was done to denote good positioning and good goalpost orientation. I then switched it to the Felipe and the Hegar. This was also done to dilate proximally. I then irri gated copiously. I then proceeded with placement of the reservoir. I placed this in ectopically in the left lower quadrant. I used a three-inch nasal speculum to roman the transversalis fascia and then create a pocket with a 12 Hegar. This was extraperitoneal. I was able to palpate and create a nice pocket also with my middle finger. I then placed the reservoir ectopically within this location and Ifilled it to 125 mL. Again, there is no evidence that the reservoir was within the abdomen. It was placed outside the abdomen in an ectopic fashion. I then turned attention to placement of the penile prosthesis. I first changed gloves and used a copious amount of irrigation. I used the Felipe insertion tool with a Gonzales needle. I threaded the needle onto the Felipe insertion tool and then I placed the Felipe into the left corporotomy with an outstretched penis and with protection of the distal urethra by pressing on the fossa navicularis with my thumb and middle finger. I then placed a Felipe on the outstretched penis and then I deployed the needle, bringing it out the distal end of the penis through the glans well away from the meatus. I then pulled the needle through, thus bringing with it the suture which I then secured with a clamp. I then irrigated proximally and distally and then I pulled the cylinders through distally and then I placed it proximally with the aid of my finger and also by using a DeBakey. In a similar fashion, I placed the right cylinders, again with extreme care distallyto pinch the fossa navicularis and deployment of the needle. I pulled the suture through, securing it after I passed off the needle and then brought the device distal and then placed it proximally through the proximal corporotomy. Once this was done, I performed rapid inflation to evaluate function and cosmesis. I performed a rapid inflation. This demonstrated good function and cosmesis of the implant and no evidence of Peyronie's disease. I then deflated the implant and I closed the corporotomies with the stay sutures that had been placed distal to the exit tubing site. I had to place an additional suture on the left corporotomy. I did so with a 3-0 Monocryl using the safety device to protect thetubing and the device from piercing. Once I did this, I then closed all the corporotomies and there appeared to be a watertight closure. All the sutures were distal to the tubing. I then placed the pump, which was a Krystin type, in the posterior in the scrotum along Colles fascia, the median rhaphe in the most dependent portion. This was done by placing a three-inch nasal speculum down into the scrotum. I created a subdartos pouch and I pulled the pump down into this area. I then irrigated and thenconnected the tubing from the pump and the reservoir. I then copiously irrigated. I placed a drain exiting the right lower quadrant and going down into the left hemiscrotum. I then placed local anesthesia into the wound and down the left hemiscrotum. I then closed the wound with 3-0 Monocryl suture subcutaneously and then placed surgical clips to close the skin. Extreme care was done during closure to denote the position of the tubing and not roman this. I secured the drain with a Prolene suture and then one surgical clip at the skin. I then again palpated the pump in the most dependent portion ofthe scrotum. I then pumped up the prosthesis to look for cosmesis and appropriate placement and again, this looked to be in excellent position and cosmesis and good position of the implant. I palpated the cylinders on the glans, both equal. There was no evidence of meatal injury. I then deactivated the pump and placed dressings. I did pump up the prosthesis approximately 50%. I then placed a Maynard catheter at the end of the procedure, a 14 Burkinan coude, and there was clear urine noted. All sponge, lap and needle counts were correct. I did place dressings then and we also used medical surgical glue at the exit sites of where the sutures were brought through after they had been removed. Again, all lap, sponge and needle counts were correct. The patient tolerated the procedure without any complications. He received perioperative antibiotics. In addition, IV Tylenol at the end of the procedure. Estimated blood loss was 10 mL. The Coloplast Titan three-piece penile prosthesis was placed with 22 cm cylinders bilaterally. No rear tip extenders were used. The 125 mL reservoir was placed ectopically inthe left lower quadrant and this was filled. The patient was taken to the recovery room in stable condition with a ten pound sandbag. Note the MARIBEL drain was placed to bulb suction. Low Hagen MD, FACS /CW Dictation ID: [id number] OR Surgeon - Low Hagen MD - 05/04/2018 6:31 PM CDT POST-OPERATIVE NOTE Surgeon(s): Low Hagen MD Electrical Tech(s): Circulating nurse: Lis Boykin RN customer support technician: Monica Crespo Private Scrub: Jabier Tao Preoperative Diagnosis: dx: erectile dysfunction Postoperative Diagnosis: ED Procedure(s): ED Complications: None EBL: 10 ml Anesthesia: General Operative Findings: 3 piece IPP placed---22cm cylinder bilateral---no rte's 125cc reservoir-placed ectopically left lower quadrant--krystin pump in scrotum Specimen(s): * No specimens in log * Grafts and/or Implants: Implant Name Type Inv. Item Serial No. Cushion Installer Lot No. LRB No. Used Titan Assembly Kit [employer] [id number] N/A 1 Titan CL Wendell [employer] [id number] N/A 1 Titan Infrapubic Zero Degree Angle Cylinder Set with Pump [employer] [id number] N/A 1 Condition on Discharge from Operating Room: Satisfactory REPORT OF OPERATION/ PROCEDURE Please see dictated operative note. LOW HAGEN MD [facility] [phone] documented in this encounter Plan of Treatment Scheduled Referrals Name Type Priority Associated Diagnoses Order S chedule Follow Up Follow Up Routine Ordered: 2017 Follow Up Follow Up Routine Ordered: 2017 documented as of this encounter Procedures Procedure Name Priority Date/Time Associated Comments Diagnosis POCT GLU METER Routine 05/05/2018 8:05 Results fo r this AM CDT procedure are i n the results section. POCT GLU METER Routine 05/04/2018 8:48 Results fo r this PM CDT procedure are i n the results section. POCT GLU METER Routine 05/04/2018 12:33 Results f or this PM CDT procedure are i n the results section. POCT GLU METER Routine 05/04/2018 9:44 Results fo r this AM CDT procedure are i n the results section. INSERTION PENILE 05/04/2018 7:04 erectile PROSTHESIS AM CDT dysfunction POCT GLU METER STAT 05/04/2018 6:26 Results fo r this AM CDT procedure are i n the results section. ELECTROCARDIOGRAM Routine 05/04/2018 5:47 Results for this AM CDT procedure are i n the results section. documented in this encounter Results (ABNORMAL) POCT Glucose Meter (05/05/2018 8:05 AM CDT)Only the most recent of5 resultswithin the time period is included. P athologist Signature GLUCOSE WB 173 (H) 60 - 100 05/05/2018 [facility] METER mg/dL 9:15 AM CDT HEALTH LABORATORY Specimen Anatomical Collection Method Collection Time Receive d Time (Source) Location / / Volume Laterality Blood 05/05/2018 8:05 AM 8 9:15 CDT AM CDT Low Hagen MD LAB POINT OF CARE TEST RESUL TS Performing Organization Address City/State/ZIP Code Phon e Number [facility] [address] [place] [address] LABORATORY Electrocardiogram (05/04/2018 5:47 AM CDT) athologist Signature EKG [facility] Comment: ?N [facility] ? Test Date: ?2018-05-04 Pat Name: ? ROBERTO CASON ?Department: ?? [facility] ? Room: ? 528 Gender: ? M ?Medicaid Nurse: ?? [id number] : ?1940 ? Requested By: ALEJANDRA YANG MD Order Number: [id number] ?Reading : ?? A. MD Tanner ? Measurements Intervals ?[place] ? Rate: ? 75 ? P: ?12 UT: ? 150 ?QRS: ?23 QRSD: ? 88 ? T: ?24 QT: ? 353 ? QTc: ?395 ? Interpretive Statements SINUS RHYTHM No previous ECG available for comparison Electronically Signed On 05-15-2018 15:55 :39 CDT by Clive Hart MD Specimen (Source) Anatomical Collection Method Collection Time Re ceived Time Location / / Volume Laterality 05/04/2018 5:47 AM CDT Narrative This result has an attachment that is no t available. Alejandra Yang MD EKG ORDERABLE Performing Organization Address City[place]State[place] [facility] [place] [facility] [address] [facility] No [place] [id number] documented in this encounter Visit Diagnoses Not on filedocumented in this encounter Administered Medications Inactive Administered Medications - up to 3 most recent administrations Medication Order MAR Action Action Date Dose Rate Site saline FLUSH syringe 10 mL Given 05/04/2018 10:08 PM CDT 10 mL 10 mL, Intravenous, EVERY 8 HOURS, First dose on Mon05/04/18 at 0600, Until Discontinued saline FLUSH syringe 10 mL Given 05/04/2018 6:09 AM CDT 10 mL 10 mL, Intravenous, NEEDED, Starting on Mon05/04/18 at 0535, Until 05/05/18 at 1921, Line Care acetaminophen (OFIRMEV) IV infusion 1,000 Given 05/05/2018 8 :52 AM CDT 1,000 mg mg 1,000 mg, Intravenous, EVERY 6 HOURS, First dose on Mon05/04/18 at 1500, Until Discontinued, Administer over 15 Minutes Given 05/05/2018 3:12 AM CDT 1,000 mg Given 05/04/2018 10:01 PM CDT 1,000 mg amLODIPine (NORVASC) tablet 10 mg 10 mg, oral, AT BEDTIME, First dose (after last modifi cation) on Mon05/05/18 at 2200, Until Discontinued atorvastatin (LIPITOR) tablet 10 mg Given 05/05/2018 8:52 AM CDT 10 mg 10 mg, oral, EVERY MORNING, First dose on Mon05/04/18 at 1215, Until Discontinued Given 05/04/2018 2:34 PM CDT 10 mg bacitracin 50,000 Units in sodium chloride Given 05/04/2018 8:55 AM CDT 100 mL 0.9% Irrig 1,000 mL bottle INTRA-PROCEDURE NEEDED, Starting on Mon05/04/18 at 0855, Until Mon05/04/18 at 0946, Intra-Op bacitracin topical ointment Given 05/04/2018 9:24 AM CDT 1 Application INTRA-PROCEDURE NEEDED, Starting on Mon05/04/18 at 0924, Until Mon05/04/18 at 0946, Intra-Op ceFAZolin ( ANCEF ) 1 g in sodium chloride New Bag 05/04/2018 9:14 PM CDT 1 g 0.9% 100 mL IV piggyback 1 g, Intravenous, EVERY 8 HOURS (NS), 2 doses, First dose on Mon05/04/18 at 1300, Last dose on Mon05/04/18 at 2100, Post-Op, Administer over 30 Minutes New Bag 05/04/2018 2:09 PM CDT 1 g D50W IV syringe 25-50 mL 25-50 mL, Intravenous, NEEDED, Starting on 05/04 at 1222, Until Mon05/05/18 at 1921, hypoglycemia docusate sodium (COLACE) capsule 100 mg Given 05/05/2018 8:51 AM CDT 100 mg 100 mg, oral, TWICE A DAY, First dose on Mon05/04/18 at 1215, Until Discontinued, Post-Op Given 05/04/2018 2:28 PM CDT 100 mg fentaNYL (SUBLIMAZE) injection 25-50 mcg Given 05/04/2018 10:30 AM CDT 50 mcg 25-50 mcg, Intravenous, NEEDED, Starting on Mon05/04/18 at 1017, Until 05/05/18 at 1921, up to 200mcg in Pacu Given 05/04/2018 10:19 AM CDT 50 mcg gentamicin in NACL 0.9% for Given 05/04/2018 8:35 AM CDT 30 mg Procedural IRRIGATION - MIXTURE INTRA-PROCEDURE NEEDED, Starting on Mon05/04/18 at 0830, Until Mon05/04/18 at 0946, Intra-Op, per procedure Given 05/04/2018 8:30 AM CDT 30 mg Proce dural glimepiride (AMARYL) tablet 2 mg Given 05/05/2018 8:51 AM CDT 2 mg 2 mg, oral, TWICE A DAY WITH BREAKFAST AND DINNER, First dose on Mon05/04/18 at 1700, Until Discontinued Glucagon (Human Recombinant) injection ( conc: 1 mg/mL) 1 mg 1 mg, IntraMUSCULAR, EVERY 15 MINUTES NEEDED, 2 doses, Starting on Mon05/04/18 at 1222, Until 05/05/18 at 1921, for hypoglycemia insulin aspart (pen) (NovoLOG) pen Given 05/04/2018 2:16 PM CDT 2 Units Abdomen 0-10 Units 0-10 Units, Subcutaneous, THREE TIMES A DAY WITH MEALS, First dose on Mon05/04/18 at 1230, Until Discontinued insulin aspart (pen) (NovoLOG) pen 0-5 U nits 0-5 Units, Subcutaneous, AT BEDTIME, First dose on Mon05/04/18 at 2200, Until Discontinued lactated ringers (LR) IV BOLUS 500 mL 500 mL, Intravenous, ONCE NEEDED, 1 d ose, Starting on Mon05/04/18 at 1341, Until 05/05/18 at 1921, Administer over 30 Minutes lidocaine (LMX-4) topical cream 1 Applic ation topical, NEEDED, Starting on 05/04 at 0535, Until 05/05/18 at 1921, IV start or restart if patient prefers a needleless local anesthetic. lidocaine 1% / 8.4% sod bicarb (buffered lidocaine) syringe for IV starts 0.1-0.3 mL 0.1-0.3 mL, Intradermal, NEEDED, Starting on 07/12 at 0535, Until 05/05/18 at 1921, IV line placement, IV start or restar t lidocaine 1% injection (conc: 10 Given 05/04/2018 8:29 AM CDT 30 mL Procedural mg/mL) INTRA-PROCEDURE NEEDED, Starting on Mon05/04/18 at 0829, Until Mon05/04/18 at 0946, Intra-Op lidocaine 2% injection 0.1-0.3 mL Given 05/04/2018 6:11 AM CDT 0.1 mL Left Forearm 0.1-0.3 mL, Intradermal, NEEDED, Starting on Mon05/04/18 at 0535, Until 05/05/18 at 1921, IV start or restart lisinopril (PRINIVIL) tablet 20 mg 20 mg, oral, AT BEDTIME, First dose (after last modifi cation) on Mon05/05/18 at 2200, Until Discontinued metFORMIN (GLUCOPHAGE) tablet 1,000 mg Given 05/05/2018 8:51 AM CDT 1,000 mg 1,000 mg, oral, TWICE A DAY WITH BREAKFAST AND DINNER, First dose on Mon05/04/18 at 1700, Until Discontinued metoprolol succinate (XL) (TOPROL XL) ex tended release tablet 24 HR 100 mg 100 mg, oral, AT BEDTIME, First dose (af ter last modification) on Mon05/04/18 at 2200, Until Discontinued oxyCODONE (immediate release) (ROXICODONE) Given 05/05/2018 8:52 AM CDT 10 mg tablet 5-10 mg 5-10 mg, oral, EVERY 4 HOURS NEEDED, Starting on Mon05/04/18 at 1214, Until 05/05/18 at 1921, Post-Op, Pain, when taking PO Given 05/05/2018 3:13 AM CDT 10 mg Given 05/04/2018 10:11 PM CDT 5 mg rifamPIN (RIFADIN) injection (conc: 60 m g/mL) Given 05/04/2018 8:45 AM CDT 300 mg INTRA-PROCEDURE NEEDED, Starting on Mon05/04/18 at 0840, Until Mon05/04/18 at 0946, Intra-Op Given 05/04/2018 8:40 AM CDT 300 mg ropivacaine (PF) 5 mg/mL (0.5 %) Soln Given 05/04/2018 9:25 AM CDT 10 mL Proce dural INTRA-PROCEDURE NEEDED, Starting on Mon05/04/18 at 0829, Until Mon05/04/18 at 0946, Intra-Op Given 05/04/2018 8:29 AM CDT 10 mL sodium chloride 0.9 % IV solution New Bag 05/05/2018 1:21 AM CDT 125 mL/hr at 125 mL/hr, Intravenous, CONTINUOUS, Starting on Mon05/04/18 at 1415, Until 05/05/18 at 1921 New Bag 05/04/2018 2:28 PM CDT 125 mL/hr documented in this encounter Active and Recently Administered Medications Times are shown in CDT. Scheduled Medication Order 05/03/2018 05/04/2018 05/05/2018 saline FLUSH syringe 10 mL 0600 (Cance led Entry - Provider: Oma Gee RN)1400 (Canceled Entry - Provider: Henrietta Fam RN)2208 (Given - Provider: Clarissa Quintana, REZA) 0600 (Withheld - Provider: Susie santizo RN - Comment: IVF infusing) 10 mL, Intravenous, EVERY 8 HOURS, First dose on Mon05/04/18 at 0600, Until Discontinued acetaminophen (OFIRMEV) IV infusion 1,000 mg 1518 (Given - Provider: Henrietta Fam RN)2201 (Given - Provider: Clarissa Quintana RN) 0312 (Given - Provider: Susie Sanz RN)0852 (Given - Provider: Henrietta Fam RN) 1,000 mg, Intravenous, EVERY 6 HOURS, Fi rst dose on Mon05/04/18 at 1500, Until Discontinued, Administer over 15 Minutes amLODIPine (NORVASC) tablet 10 mg 10 mg, oral, AT BEDTIME, First dose on 05/05/18 at 2200, Until Discontinued atorvastatin (LIPITOR) tablet 10 mg 1434 (Given - Provider: Henrietta Fam RN) 0852 (Given - Provider: Henrietta Fam RN) 10 mg, oral, EVERY MORNING, First dose o n Mon05/04/18 at 1215, Until Discontinued ceFAZolin ( ANCEF ) 1 g in sodium chloride 0.9% 100 mL IV piggyback (COMPLETED) 1409 (New Bag - Provider: Henrietta Fam RN)2114 (New Bag - Provider: Clarissa Quintana RN) 1 g, Intravenous, EVERY 8 HOURS (NS), 2 doses, First dose on Mon05/04/18 at 1300, Last dose on Mon05/04/18 at 2100, Post-Op, Administer over 30 Minutes docusate sodium (COLACE) capsule 100 mg 1428 (Given - Provider: Henrietta Fam RN)1999 (Declined - Provider: Clarissa Quintana, REZA) 0851 (Given - Provider: Henrietta Fam RN) 100 mg, oral, TWICE A DAY, First dose on Mon05/04/18 at 1215, Until Discontinued, Post-Op gentamicin (GARAMYCIN) 110 mg in sodium chloride 0.9 % 100 mL IV piggyback (COMPLETED) 075 (New Bag - Provider: Evita Liao) 110 mg (rounded from 107.55 mg = 1.5 mg/ kg ? 71.7 kg Dosing weight), Intravenous, ONE TIME DOSE, 1 dose, Mon05/04/18 at 0900, Dosing Guidelines: 1 mg/kg (synergy dosing) 1.5 mg/kg (traditional dosing f or UTI's) 2 mg/kg (traditional dosing) 5 mg/kg (extended interval option) 7 mg/kg (extended interval option) glimepiride (AMARYL) tablet 2 mg 1700 (D eclined - Provider: Clarissa Quintana RN) 0851 (Given - Provider: Henrietta Fam RN) 2 mg, oral, TWICE A DAY WITH BREAKFAST A ND DINNER, First dose on Mon05/04/18 at 1700, Until Discontinued insulin aspart (pen) (NovoLOG) pen 0-10 Units(Linked Group 1 ) 1416 (Given - Provider: Henrietta Fam RN)1700 (Declined - Provider: Clarissa Quintana, REZA) 0853 (Declined - Provider: Henrietta Fam, REZA)1200 (Declined - Provider: Henrietta Fam RN) 0-10 Units, Subcutaneous, THREE TIMES A DAY WITH MEALS, First dose on Mon05/04/18 at 1230, Until Discontinued insulin aspart (pen) (NovoLOG) pen 0-5 Units(Linked Group 1) 2200 (Withheld - Provider: Clarissa Quintana RN) 0-5 Units, Subcutaneous, AT BEDTIME, Fir st dose on Mon05/04/18 at 2200, Until Discontinued lisinopril (PRINIVIL) tablet 20 mg 20 mg, oral, AT BEDTIME, First dose on Mon05/05/18 at 2200, Until Discontinued metFORMIN (GLUCOPHAGE) tablet 1,000 mg 1 700 (Declined - Provider: Clarissa Quintana, REZA) 0851 (Given - Provider: Henrietta Fam RN) 1,000 mg, oral, TWICE A DAY WITH BREAKFA ST AND DINNER, First dose on Mon05/04/18 at 1700, Until Discontinued metoprolol succinate (XL) (TOPROL XL) extended release table t 24 HR 100 mg 2200 (Declined - Provider: Clarissa Quintana RN) 100 mg, oral, AT BEDTIME, First dose on Mon05/04/18 at 2200, Until Discontinued tamsulosin (FLOMAX) capsule 0.4 mg 0.4 mg, oral, EVERY OTHER DAY, First dos e on Mon05/05/18 at 1700, Until Discontinued vancomycin (VANCOCIN) 1,000 mg in sodium chloride 0.9 % 250 mL IV piggyback (COMPLETED) 0751 (New Bag - Provider: Evita Liao) 1,000 mg, Intravenous, NUT CHOPPER TO OR, 1 dose, Starting Mon05/04/18 at 0738, Until Discontinued Continuous Medication Order 05/03/2018 05/04/2018 05/05/2018 sodium chloride 0.9 % IV solution 1428 ( New Bag - Provider: Henrietta Fam RN) 0121 (New Bag - Provider: Susie solis RN) at 125 mL/hr, Intravenous, CONTINUOUS, S tarting Mon05/04/18 at 1415, Until Mon05/05/18 at 1921 PRN Medication Order 05/03/2018 05/04/2018 05/05/2018 saline FLUSH syringe 10 mL 0609 (Given - Provi rica: Oma Gee RN) 10 mL, Intravenous, NEEDED, Starting Mon05/04/18 at 0535, Until 05/05/18 at 1921, Line Care bacitracin 50,000 Units in sodium chlori de 0.9% Irrig 1,000 mL bottle (CANCELED) 0855 (Given - Provider: Low jenkins MD) INTRA-PROCEDURE NEEDED, Starting Mon05/04/18 at 0855, Until Mon05/04/18 at 0946, Intra-Op bacitracin topical ointment (CANCELED) 0 924 (Given - Provider: Low Hagen MD) INTRA-PROCEDURE NEEDED, Starting Mon05/04/18 at 0924, Until Mon05/04/18 at 0946, Intra-Op bisacodyl (DULCOLAX) suppository 1 suppository 1 suppository, Rectal, DAILY NEEDED, Starting Mon05/04/18 at 1214, Until 05/05/18 at 1921, Post-Op, Constipation D50W IV syringe 25-50 mL 25-50 mL, Intravenous, NEEDED, Starti ng Mon05/04/18 at 1222, Until 05/05/18 at 1921, Hypoglycemia fentaNYL (SUBLIMAZE) injection 25-50 mcg 1019 (Given - Provider: Melissa Sandra, RN)1030 (Given - Provider: Melissa Sandra, RN) 25-50 mcg, Intravenous, NEEDED, Start ing Mon05/04/18 at 1017, Until 05/05/18 at 1921, up to 200mcg in Pacu gentamicin in NACL 0.9% for IRRIGATION - MIXTURE (CANCELED) 0830 (Given - Provider: Low Hagen MD - Comment: 30mg gentamicin + 300mg rifampin + 100mg fluconazole in 100ml NACL used to soak implants.)0835 (Given - Provider: Low Hagen MD - Comment: 30mg gentamicin + 300mg rifampin + 100mg fl INTRA-PROCEDURE NEEDED, Starting Mon05/04/18 at 0830, Until Mon05/04/18 at 0946, Intra-Op, per procedure uconazole in 400ml NACL used t o irrigation.) Glucagon (Human Recombinant) injection (conc: 1 mg/mL) 1 mg 1 mg, IntraMUSCULAR, EVERY 15 MINUTES NEEDED, 2 doses, Starting Mon05/04/18 at 1222, Until 05/05/18 at 1921, for hypoglycemia glycopyrrolate (ROBINUL) injection 0.1 mg 0.1 mg, IntraMUSCULAR, EVERY 4 HOURS NEEDED, Starting Mon05/04/18 at 1214, Until 05/05/18 at 1921, Post-Op, for bladder spasms glycopyrrolate (ROBINUL) tablet 1 mg 1 mg, oral, EVERY 4 HOURS NEEDED, Sta rting Mon05/04/18 at 1214, Until 05/05/18 at 1921, Post-Op, for bladder spasms HYDROmorphone (DILAUDID) 0.2-0.5 mg 0.2-0.5 mg, Intravenous, EVERY 2 HOURS A S NEEDED, Starting Mon05/04/18 at 1214, Until 05/05/18 at 1921, Post-Op, Pain, when NOT taking PO lactated ringers (LR) IV BOLUS 500 mL 500 mL, Intravenous, ONE TIME DOSE NE EDED, 1 dose, Starting Mon05/04/18 at 1341, Until 05/05/18 at 1921, Administer over 30 Minutes lidocaine (LMX-4) topical cream 1 Application Topical, NEEDED, Starting Mon05/04/18 at 0535, Until 05/05/18 at 192, IV start or restart if patient prefers a needleless local anesthetic. lidocaine 1% / 8.4% sod bicarb (buffered lidocaine) syringe for IV starts 0.1- 0.3 mL 0.1-0.3 mL, Intradermal, NEEDED, Star ting Mon05/04/18 at 0535, Until 05/05/18 at 1921, IV line placement, IV start or restart lidocaine 1% injection (conc: 10 mg/mL) (CANCELED) 0829 (Given - Provider: Low Hagen MD) INTRA-PROCEDURE NEEDED, Starting Mon05/04/18 at 0829, Until Mon05/04/18 at 0946, Intra-Op lidocaine 2% injection 0.1-0.3 mL 0611 (Given - Provider: Oma Gee RN) 0.1-0.3 mL, Intradermal, NEEDED, Star ting Mon05/04/18 at 0535, Until 05/05/18 at 1921, IV start or restart magnesium hydroxide (MILK OF MAGNESIA) suspension 30 mL 30 mL, oral, AT BEDTIME NEEDED, Start ing Mon05/04/18 at 2200, Until 05/05/18 at 1921, Post-Op, Constipation naloxone (NARCAN) injection 0.1 mg 0.1 mg, Intravenous, EVERY 1 MINUTE PRN, Starting Mon05/04/18 at 1214, Until 05/05/18 at 192, Post-Op, Opiate Reversal nitroGLYCERIN (NITROSTAT) tablet 0.4 mg 0.4 mg, Sublingual, EVERY 5 MINUTES N EEDED, Starting Mon05/04/18 at 1214, Until 05/05/18 at 1921, Chest Pain ondansetron (ZOFRAN) injection 4 mg 4 mg, Intravenous, EVERY 12 HOURS NEE DED, Starting Mon05/04/18 at 1214, Until 05/05/18 at 192, Post-Op, nausea oxyCODONE (immediate release) (ROXICODONE) tablet 5-10 mg 1815 (Given - Provider: Clarissa Quintana RN)2211 (Given - Provider: Clarissa Quintana RN) 0313 (Given - Provider: Susie Sanz RN)0852 (Given - Provider: Henrietta Fam RN) 5-10 mg, oral, EVERY 4 HOURS NEEDED, Starting Mon05/04/18 at 1214, Until 05/05/18 at 1921, Post-Op, Pain, when taking PO rifamPIN (RIFADIN) injection (conc: 60 mg/mL) (CANCELED) 0840 (Given - Provider: Low Hagen MD - Comment: 30mg gentamicin + 300mg rifampin + 100mg fluconazole in 100ml NACL used to soak implants.)0845 (Given - Provider: Low Hagen MD - Comment: 30mg gentamicin + 300mg rifampin + 100mg fl INTRA-PROCEDURE NEEDED, Starting Mon05/04/18 at 0840, Until Mon05/04/18 at 0946, Intra-Op uconazole in 400ml NACL used to irrigati on.) ropivacaine (PF) 5 mg/mL (0.5 %) Soln (CANCELED) 0829 (Given - Provider: Low Hagen MD)0925 (Given - Provider: Low Hagen MD) INTRA-PROCEDURE NEEDED, Starting Mon05/04/18 at 0829, Until Mon05/04/18 at 0946, Intra-Op Linked Groups Order Group 1: POCT Glucose Meter (CANCELED) Routine, 4 TIMES DAILY - BEFORE MEALS & BEDTIME, First occurrence on Mon05/04/18 at 1223, Until Specified, Ensure Accucheck completed 4 times daily, even if patient misses meal(s). And POCT Glucose Meter (CANCELED) Routine, PRN, Starting Mon05/04/18 at 12 22, Until Specified, Two Hours After Coverage of Blood Glucose 350 mg / dL or Greater, 30 Minutes After Blood Glucose Less Than 80 mg / dL; Patient is Not Symptom atic and More Than 30 Minutes Until Next Meal and For Symptoms of Hypoglycemia. And insulin aspart (pen) (NovoLOG) pen 0-10 UnitsJump to med 0-10 Units, Subcutaneous, THREE TIMES A DAY WITH MEALS, First dose on Mon05/04/18 at 1230, Until Discontinued And insulin aspart (pen) (NovoLOG) pen 0-5 UnitsJump to med 0-5 Units, Subcutaneous, AT BEDTIME, Fir st dose on Mon05/04/18 at 2200, Until Discontinued documented in this encounter Care Teams Academic Affairs Manager Relationship Specialty Start Date End Date [facility] PCP - Primary Care Clinic 04/30/18 Terry Casiano PCP - General Family Medicine 04/30/18 documented as of this encounter
--- OUTSIDE RECORDS SUMMARY | 2022-07-14 07:27 | XMS_ITS | Encounter Summary ---
:1940 Author Organization [facility] Address [address] [place] [address] Care Team Providers Name Role Phone Clinic, [facility] Unavailable Unavail able Terry Junoir Primary Care Provider Reason for Referral (Routine) - Closed Specialty Diagnoses / Procedures Referred By Contact Refer red To Contact Procedures Cliff Mitchell MD Discharge [address] [place], [place] [address] Referral ID Status Reason Start Date Expiration Date Visits Requ ested Visits Authorized [id number] Closed 05/05/2018 05/05/2019 1 1 (Routine) - Closed Specialty Diagnoses / Procedures Referred By Contact Refer red To Contact Chapincito Randolph MD Goodwin, Richard L [address] [place] [address] [address] [place] [address] [place], [place] [address] Referral ID Status Reason Start Date Expiration Date Visits Requ ested Visits Authorized [id number] Closed 05/05/2018 05/05/2019 1 1 Question Answer Specify time frame for follow up? As needed (Routine) - Closed Specialty Diagnoses / Procedures Referred By Contact Refer red To Contact Procedures Low Hagen MD Diet: Regular [address] [place], [place] [address] Referral ID Status Reason Start Date Expiration Date Visits Requ ested Visits Authorized [id number] Closed 05/04/2018 05/04/2019 1 1 (Routine) - Closed Specialty Diagnoses / Procedures Referred By Contact Refer red To Contact Procedures Low Hagen MD Discharge Instructions [address] [place], [place] [address] Referral ID Status Reason Start Date Expiration Date Visits Requ ested Visits Authorized [id number] Closed 05/04/2018 05/04/2019 1 1 (Routine) - Closed Specialty Diagnoses / Procedures Referred By Contact Refer red To Contact Procedures Low Hagen MD Discharge Instructions [address] (Sedation/Anesthesia) [address] [place], [place] [address] Referral ID Status Reason Start Date Expiration Date Visits Requ ested Visits Authorized [id number] Closed 05/04/2018 05/04/2019 1 1 (Routine) - Closed Specialty Diagnoses / Procedures Referred By Contact Refer red To Contact Low Hagen MD Tortorelis, Dean G, MD [address] [place], [place] [address] [place] [address] Fax: Referral ID Status Reason Start Date Expiration Date Visits Requ ested Visits Authorized [id number] Closed 05/04/2018 05/04/2019 1 1 Question Answer Specify time frame for follow up? 1 Week Comments Call for appt LOW HAGEN MD [facility] [phone] (Routine) - Closed Specialty Diagnoses / Procedures Referred By Contact Refer red To Contact Procedures Low Hagen MD Notify Provider [address] [place] [address] Referral ID Status Reason Start Date Expiration Date Visits Requ ested Visits Authorized [id number] Closed 05/04/2018 05/04/2019 1 1 (Routine) - Closed Specialty Diagnoses / Procedures Referred By Contact Refer red To Contact Procedures Low Hagen MD Discharge [address] [place] [address] Referral ID Status Reason Start Date Expiration Date Visits Requ ested Visits Authorized [id number] Closed 05/04/2018 05/04/2019 1 1 Reason for Visit Inpatient Admission Specialty Diagnoses / Procedures Referred By Contact Refer red To Contact Procedures [id number] Referral ID Status Reason Start Date Expiration Date Visits Requ ested Visits Authorized [id number] 1 1 Encounter Details Date Type Department Care Team Description 05/04/2018 - Hospital Encounter [facility]ugh Coronary artery 05/05/2018 3300 Ang Nugent MD disease involving N [address] am[place] coronary [place] [address] artery of [place] [address] [place] heart without [phone] angina pectoris Social History Tobacco Use Types Packs/Day Years Used Date Smoking Tobacco: Former Cigarettes 1 10 Quit : 1979 Smokeless Tobacco: Never Alcohol Use Standard Drinks/Week Comments No 0 (1 standard drink = 0.6 oz pure alcoho l) Sex Assigned at Date Recorded Not on file documented as of this encounter Last Filed Vital Signs Vital Sign Reading Time Taken Comments Blood Pressure 119/53 05/05/2018 11:50 AM CDT Pulse 74 05/05/2018 11:50 AM CDT Temperature 37.1 ??C (98.8 ??F) 05/05/2018 11:50 AM CDT Respiratory Rate 16 05/05/2018 11:50 AM CDT Oxygen Saturation 94% 05/05/2018 11:50 AM CDT Inhaled Oxygen Concentration - - Weight 71.7 kg (158 lb) 05/04/2018 6:05 AM CDT Height 167.6 cm (5' 6) 05/02/2018 4:45 PM CDT Body Mass Index 25.5 05/02/2018 4:45 PM CDT documented in this encounter Discharge Summaries Low Hagen MD - 05/05/2018 1:20 PM CDT HOSPITAL DISCHARGE SUMMARY Patient Name: Hugo La Date of : 1940 Attending Provider: Low [...] Results Found (last 72 hours) DISCHARGE MEDICATIONS Hugo La Home Medication Instructions MIRA:[id number] Printed on:05/07/18 2931 Medication Information amLODIPine (NORVASC) 10 mg oral [...] TERRY JUNIOR PA-C [facility] Office [phone] UROLOGY d/c note ABOVE NOTE Wilmer HAGEN MD [facility] [phone] documented in this encounter Discharge Instructions Discharge [...] live longer. For further assistanceplease call the [employer] Helpline at [phone] or go to their website [email or web address]. documented in this encounter Medications at Time [...] MD - 05/05/2018 1:20 PM CDT [facility] SERVICE PROGRESS NOTE [...] amlodipine, lisinopril, metoprolol. restart home meds at ok. 5. HLD: prior to admission statin 6. Benign Prostatic Hypertrophy: prior to admission flomax 7. Clinically stable to ok home. Chapincito Randolph MD [facility] Henrietta Fam RN - 05/05/2018 1:20 PM CDT Hugo La 1940 [id number] P: Discharge A: Discharged via wheelchair to [...] Amaryl and Metformin and SS insulin. Told field underwriter he isn't eating enough and his BG [...] to call for help, name of assigned child care team lead, PatientInformation booklet, Handwashing, hourly rounding procedures. R. [...] MD - 05/04/2018 10:35 AM CDT [facility] SERVICE PROGRESS NOTE [...] of care, see above Feli Cox PA-C [facility] Patient seen and examined by me. Agree with the PA note. A/P: 77 y.o. with 1. s/p urologic procedure: per urology. 2. CAD: cont BB 3. DM: SSI in adition to po meds. 4. HTN: cont BB, hold parameters for the others. 5. Rest per PA note. Chapincito Randolph MD [facility] Medicine Service documented in this encounter [...] comfort Outcome: Met this shift Patient pain 10/04 this shift after prn oxycodone given. Also [...] 12 cm. Note, I first used the pediatric Yankauer proximally tocreate the pathway. I then used [...] the end of the procedure, a 14 [place] coude, and there was clear urine noted. [...] Low Hagen MD, FACS /CW Dictation ID: [id number] OR Surgeon - Low Hagen MD - 05/04/2018 6:31 PM CDT POST-OPERATIVE NOTE Surgeon(s): Low Hagen MD Detective Bureau Chief(s): Circulating nurse: Lis Boykin RN fuel cell battery technician: Monica Crespo Private Scrub: Jabier Tao Preoperative Diagnosis: dx: erectile dysfunction Postoperative Diagnosis: ED Procedure(s): ED Complications: None EBL: 10 ml Anesthesia: General Operative Findings: 3 piece IPP placed---22cm cylinder bilateral---no rte's 125cc reservoir-placed ectopically left lower quadrant--krystin pump in scrotum Specimen(s): * No specimens in log * Grafts and/or Implants: Implant Name Type Inv. Item Serial No. Insurance Claims Analyst Lot No. [id number] No. Used Titan Assembly Kit [employer] [id number] N/A 1 Titan CL Ava [employer] [id number] N/A 1 Titan Infrapubic Zero Degree Angle Cylinder Set with Pump [employer] [id number] N/A 1 Condition on Discharge from Operating Room: Satisfactory REPORT OF OPERATION/ PROCEDURE Please see dictated operative note. LOW HAGEN MD [facility] [phone] documented in this encounter Plan of Treatment [...] WB 173 (H) 60 - 100 05/05/2018 [facility] mg/dL 9:15 AM CDT [facility] Specimen Anatomical Collection Method Collection Time Receive d Time (Source) Location / / Volume Laterality Blood 05/05/2018 8:05 AM 8 9:15 CDT AM CDT Low Hagen MD LAB POINT OF CARE TEST RESUL TS Performing Organization Address City/State/ZIP Code Phon e Number [facility] [address] [address] [phone] LABORATORY Electrocardiogram (05/04/2018 5:47 AM CDT) athologist Signature EKG HVI SAE Comment: ?N [facility] ? Test Date: ?2018-05-04 Pat Name: ? ALISACATRACHITOGARETT ANDERSENEEM ?Department: ?? PCC-Admit ? Room: ? 528 Gender: ? M ?Pearl Glue Operator: ?? [id number] : ?1940 ? Requested By: ALEJANDRA YANG MD Order Number: [id number] ?Reading : ?? A. MD Tanner ? Measurements Intervals ?[place] ? Rate: ? 75 ? P: ?12 AR: ? 150 ?QRS: ?23 QRSD: ? 88 [...] MD EKG ORDERABLE Performing Organization Address City/State/ZIP [facility] e Number [facility] [address] [facility] [place] [address] documented in this encounter Visit Diagnoses Diagnosis Coronary artery disease involving [place] coronary artery of ambler heart without angina pectoris Hypertension, unspecified type Diabetes mellitus (HCC) Type II or unspecified type diabetes austen litus without mention of complication, not stated as uncontrolled documented in this encounter Administered Medications Inactive Administered [...] Given 05/04/2018 2:34 PM CDT 10 mg ceFAZolin ( ANCEF ) 1 g in [...] NEEDED, Starting on 05/04 at 1222, Until 05/05/18 at 1921, hypoglycemia docusate sodium (COLACE) capsule [...] Given 05/04/2018 10:19 AM CDT 50 mcg glimepiride (AMARYL) tablet 2 mg Given 05/05/2018 [...] placement, IV start or restar t lidocaine 2% injection 0.1-0.3 mL Given 05/04/2018 6:11 AM CDT 0.1 mL Left Forearm 0.1-0.3 mL, Intradermal, NEEDED, Starting on Mon05/04/18 at 0535, Until 05/05/18 at 1921, IV start or restart lisinopril (PRINIVIL) tablet 20 mg 20 mg, oral, AT BEDTIME, First dose (after last modifi cation) on 05/05/18 at 2200, Until Discontinued metFORMIN (GLUCOPHAGE) tablet [...] Given 05/04/2018 10:11 PM CDT 5 mg sodium chloride 0.9 % IV solution New [...] Henrietta Fam RN)2208 (Given - Provider: Clarissa Quintana RN) 0600 (Withheld - Provider: Susie santizo RN - Comment: IVF infusing) 10 mL, Intravenous, EVERY 8 HOURS, First dose on Mon05/04/18 at 0600, Until Discontinued acetaminophen (OFIRMEV) IV infusion 1,000 mg 1518 (Given - Provider: Henrietta Fam RN)220 (Given - Provider: Clarissa Quintana RN) 0312 (Given - Provider: Susie Sanz RN)0852 (Given - Provider: Henrietta Fam RN) 1,000 mg, Intravenous, EVERY 6 HOURS, Fi rst dose on Mon05/04/18 at 1500, Until Discontinued, Administer over 15 Minutes amLODIPine (NORVASC) tablet 10 mg 10 mg, oral, AT BEDTIME, First dose on Mon05/05/18 at 2200, Until Discontinued atorvastatin [...] Henrietta Fam RN)1999 (Declined - Provider: Clarissa Quintana RN) 0851 (Given - Provider: Henrietta Fam RN) 100 mg, oral, TWICE A DAY, First dose on Mon05/04/18 at 1215, Until Discontinued, Post-Op gentamicin (GARAMYCIN) 110 mg in sodium chloride 0.9 % 100 mL IV piggyback (COMPLETED) 0759 (New Bag - Provider: Evita Liao) 110 [...] Henrietta Fam RN)1700 (Declined - Provider: Clarissa Quintana RN) 0853 (Declined - Provider: Henrietta Fam RN)1200 (Declined - Provider: Henrietta Fam RN) 0-10 [...] 1,000 mg 1 700 (Declined - Provider: Calrissa Quintana RN) 0851 (Given - Provider: Henrietta [...] - Provider: Evita Liao) 1,000 mg, Intravenous, ROLLOFF TRUCK DRIVER TO OR, 1 dose, Starting Mon05/04/18 at 0738, Until Discontinued Continuous Medication Order 05/03/2018 05/04/2018 05/05/2018 sodium chloride 0.9 % IV solution 1428 ( New Bag - Provider: Henrietta Fam, REZA) 0121 (New Bag - Provider: Susie solis RN) at 125 mL/hr, Intravenous, CONTINUOUS, S tarting 05/04/18 at 1415, Until 05/05/18 at 1921 PRN Medication Order 05/03/2018 05/04/2018 [...] mcg 1019 (Given - Provider: Melissa Sandra, REZA)1030 (Given - Provider: Melissa Sandra, REZA) 25-50 mcg, Intravenous, NEEDED, Start ing Mon05/04/18 [...] 0.1-0.3 mL 0611 (Given - Provider: Oma eGe RN) 0.1-0.3 mL, Intradermal, NEEDED, Star ting [...] at 1214, Until 05/05/18 at 1921, Post-Op, Opiate Reversal nitroGLYCERIN (NITROSTAT) tablet 0.4 mg 0.4 mg, Sublingual, EVERY 5 MINUTES N EEDED, Starting Mon05/04/18 at 1214, Until 05/05/18 at 1921, Chest Pain ondansetron (ZOFRAN) injection 4 mg 4 mg, Intravenous, EVERY 12 HOURS NEE DED, Starting Mon05/04/18 at 1214, Until 05/05/18 at 1921, Post-Op, nausea oxyCODONE (immediate release) (ROXICODONE) tablet 5-10 mg 181 (Given - Provider: Clarissa Quintana RN)221 (Given - Provider: Clarissa Quintana RN) 0313 [...] (PF) 5 mg/mL (0.5 %) Soln (CANCELED) 08 (Given - Provider: Low Hagen MD)0925 (Given [...] Discontinued documented in this encounter Care Teams Booking Agent Relationship Specialty Start Date End Date [facility] PCP - Primary Care Clinic 04/30/18 Terry Casiano PCP - General Family Medicine 04/30/18 documented as of this encounter
--- OUTSIDE RECORDS SUMMARY | 2022-07-14 07:27 | XMS_ITS | Clinical Summary ---
:1940 Author Organization [facility] Address [address] [place] [address] Care Team Providers Name Role Phone Clinic, [facility] Unavailable Unavail able Terry Junior Primary Care Provider Allergies No known active allergies Medications Medication Sig Dispensed Refills Start Date End Date Status metoprolol Take 100 mg by 0 Acti ve succinate, XL, mouth at bedtime. (TOPROL XL) 100 mg oral extended release tablet 24 HR lisinopril Take 20 mg by mouth 0 Active (PRINIVIL) 20 mg at bedtime. oral tablet amLODIPine (NORVASC) Take 10 mg by mouth 0 Active 10 mg oral tablet at bedtime. metFORMIN Take 1,000 mg by 0 Act alpesh (GLUCOPHAGE) 1,000 mouth twice a day mg oral tablet with breakfast and dinner. aspirin 81 mg oral Take 81 mg by mouth 0 Active enteric coated once daily. tablet atorvastatin Take 10 mg by mouth 0 Active (LIPITOR) 10 mg oral every morning. tablet tamsulosin (FLOMAX) Take 0.4 mg by 0 Active 0.4 mg oral capsule mouth every other day. nitroGLYCERIN Take 0.4 mg under 0 Active (NITROSTAT) 0.4 mg the tongue every 5 sublingual tablet (five) minutes as needed for Chest Pain. HYDROcodone-acetamin Take 1-2 tablets by 40 tablet 0 8 Active ophen (NORCO) 5-325 mouth every 4 mg oral tablet (four) hours as needed for Pain. docusate sodium Take 1 capsule (100 60 capsule 0 05/04/2018 Active (COLACE) 100 mg oral mg) by mouth twice capsule daily as needed for constipation doxycycline Take 1 tablet (100 20 tablet 0 05/04/2018 Active monohydrate (ADOXA) mg) by mouth twice 100 mg oral tablet a day with breakfast and dinner. Active Problems Problem Noted Date Diabetes mellitus 05/04/2018 Overview: 130-150 accu check/ A1C6.6-7.4 Coronary artery disease involving [place] coronary artery of [place] heart without angina pectoris Hypertension, unspecified type Social History Tobacco Use Types Packs/Day Years Used Date Smoking Tobacco: Former Cigarettes 1 10 Quit : 1979 Smokeless Tobacco: Never Alcohol Use Standard Drinks/Week Comments No 0 (1 standard drink = 0.6 oz pure alcoho l) Sex Assigned at Date Recorded Not on file Last Filed Vital Signs Vital Sign Reading [...] Mass Index 25.5 05/02/2018 4:45 PM CDT Plan of Treatment Health Maintenance Due Date Last Done Comments Colonoscopy 1940 Creatinine 1940 Eye Exam 1940 HgbA1C 1940 COVID-19 Vaccine (#1) 03/25/1941 Zoster Vaccine (2 of 3) 11/20/2013 2013 Yearly Review of HCD 03/19/2019 03/19/2018 Adult Tetanus Booster 10/19/2020 10/19/2010 Influenza Vaccine (#1) 2022 07/12/2016, 09/03/2015, 1 10/29/2013, Additional history exists Pneumococcal 65+ Completed 04/20/2016, 12/13/2013 Medical Devices Implanted Type Area Package Delivery Driver Device Shelf Model / Identifier Expiration Serial / Date Lot Atif Infrapubic Zero Degree Angle Cylinder Set With Pump N/A: Penis [employer] 02/04/2023 [id number] / Implanted: Qty: 1 on 05/04/[address] MD at [facility] / [id number] Description: bill with the pump Insurance Payer Benefit Plan / Subscriber ID Effective Phone Address T ype Group Dates MEDICARE MEDICARE PART [id number] 2018-Prese [address] Medicare A & B nt [place] [address] [employer] HOPI [id number] 2017-Prese [address] [place] [address] [place] [address] Advance Directives For more information, please contact: [phone] Latest Code Status on File Code Status Date Activated Date Inactivated Comments Full Code 05/04/2018 9:50 AM 05/05/2018 7:26 PM How was code status determined? Physician Determined Care Teams Manager Home Relationship Specialty Start Date End Date [facility] PCP - Primary Care Clinic 04/30/18 Irwin Terry Junior PCP - General Family Medicine 04/30/18
--- OUTSIDE RECORDS SUMMARY | 2022-07-14 07:28 | XMS_ITS | Encounter Summary ---
:1940 Author Care Team Providers Name Role Phone Terry Junior MD Primary Care Provider [phone] Reason for Visit Elevated PSA or Prostate Nodule Assessment and Plan Assessment Note 81 yoM with history of ED s/p IPP, BPH with LUTS s/p UroLift, and elevated PSA 1. Raised prostate specific antigen - PSA today 3.7 mg/mL -Recommend resuming PSA screening every 12 to 24 months ? PSA, serum or plasma 2. Lower urinary tract symptoms due to benign prostatic hypertrophy - Status post UroLift and doing great 3. Primary erectile dysfunction - Status post IPP and doing great Discussion Note: None recorded.Patient educational handouts: No information available. Plan of Care Reminders Provider Appointments Established 10 on or around [place], 06/02/2023 Lab PSA, Serum or Plasma 06/02/2022 [facility] Referral None recorded. ? ? Procedures None recorded. ? ? Surgeries None recorded. ? ? Imaging None recorded. ? ? Medications Name Start Date ? ? amlodipine 10 mg tablet ? ammonium lactate 12 % topical cream ? MASSAGE INTO INNER THIGH AND FACE ONCE TO TWICE DAILY atorvastatin 20 mg tablet ? clopidogrel 75 mg tablet ? Contour Next Test Strips ? USE 1 STRIP TO CHECK GLUCOSE TWICE DAILY cyanocobalamin (vit B-12) 1,000 mcg tablet ? glimepiride 2 mg tablet ? lisinopril 20 mg tablet ? metformin 1,000 mg tablet ? metoprolol succinate ER 100 mg tablet,extended release 24 hr ? tamsulosin 0.4 mg capsule ? Medications Administered None recorded. Vitals Height Weight BMI 5 ft 6 in 154 lbs 24.9 kg/m2 Results Lab Results Date Name Specimen Result Interpretation Description Value Range Status Address ? 06/02/2022 PSA, Serum or Serum ? Psa 3.7ng/ml 0-4.0 ? [facility]: [address] [place], [place] Allergies Code Code System Name Reaction Severity Onset NKDA ? ? ? Problems Name Status Onset Date Source ? Large Prostate Active 04/16/2018 History Impotence Active 04/17/2018 History Procedures Date Name Performed by ? ? Operative Procedure on Knee Information not available ? Tonsillectomy Information not avai lable ? Implantation of Penile Prosthesis Inform ation not available ? Hernia Repair Information not avai lable ? Cataract Surgery Information not avai lable Notes: urolift Vaccine List Vaccine Type COVID-19, mRNA, LNP-S, PF, 30 mcg/0.3 mL dose (Errund) 11/10/2020 12/01/2020 07/02/2021 COVID-19, mRNA, LNP-S, PF, 30 mcg/0.3 mL dose, sunni-sucrose (Errund) 03/25/2022 pneumococcal conjugate PCV 13 04/20/2016 pneumococcal polysaccharide PPV23 12/13/2013 Social History Tobacco Smoking Status Former Smoker What was the date of your most recent 06/02/2022 tobacco screening? What is your level of alcohol consumption? None When did you quit smoking? 16+yearssincelastcigarette Notes : 1980 Family History Relation Problem Onset Age of Age Notes Father No current problems or (No Information) N/A ( No Notes) disability Mother No current problems or (No Information) N/A ( No Notes) disability Functional Status Unknown. Past Encounters 06/02/2022 Raised Prostate Specific Antigen; Lower Urinary Tract Symptoms Due to Benign Prostatic Hypertrophy; Primary Erectile Dysfunction Fitz Preciado MD: [address] [place] [phone], Ph. History of Present Illness Note: <div>06/02/2022:</div><div>81 yoM who previously followed with Dr. Hagen s/p IPP and UroLift. Was seen by me in our [facility] office for elevated PSA to 4.51 ng/mL and normal KWAN. </div> Review of Systems ? Comprehensive General Adult ROS Reported By: Patient Constitutional: Constitutional: no fever, no chills Eyes: Eyes: no dry eyes, no vision change, no irritation Endocrine: Endocrine: no fatigue, no in creased thirst Cardiovascular: Cardiovascular: no chest yolanda n, no palpitations Integumentary: Skin: no rashes, no change i n skin color Respiratory: Respiratory: no wheezing, no cough, no shortness of breath Gastrointestinal: Gastrointestinal: no abdomin al pain, no nausea, no vomiting, no constipation, no GERD Musculoskeletal: Musculoskeletal: no neck yolanda n, no back pain Neurologic: Neurologic: no tremor, no di zziness, no numbness, no headaches Genitourinary: Genitourinary: no incontinen ce, no difficulty urinating ENMT: Ears: no ear pain. Mouth/Thr oat: no sore throat Allergic/Immunologic: Allergy/Immunologic: no itch ing, no hives Hematologic/Lymphatic: Hematologic/Lymphatic no swo llen glands, no excessive bleeding Psychiatric: Psych: no hallucinations, (n ormal) sleep disturbances: mismatch of sleep / wake diana edule with lifestyle needs Physical Exam ? Notes: <div>Constitutional: Well-no urished. No physical deformities. Normally developed. Good grooming. </ div><div>
</div><div>Neck: Neck symmetrical, not swollen. Normal tracheal position. </div><div>
</div><div>Respiratory: No labored breathing, no use of accessory muscles. </div><div>
</div><div>Sk in: No paleness, no jaundice, no cyanosis. No lesion, no ulcer, no rash. < /div><div>
</div><div>Neurologic / Psychiatric: Oriented to david e, oriented to place, oriented to person. No depression, no anxiety, no a gitation. </div><div>
</div><div>Eyes: Normal conjunctivae. Normal eyelids. </div><div>
</div><div>Ears, Nose, Mouth, and Throat: Left ear no scars, no lesions, no masses. Right ear no scars, no lesions, no masses . Nose no scars, no lesions, no masses. Normal hearing. Normal lips. </div> <div>
</div><div>Musculoskeletal: Normal gait and station of head and neck . </div><div>
</div><div>
</div>
--- OUTSIDE RECORDS SUMMARY | 2022-07-14 07:28 | XMS_ITS | Clinical Summary ---
:1940 Author Organization [facility] [place] [address] Care Team Providers Name Role Phone Terry Junior MD Primary Care Provider [phone] [facility], [place] Unavailable Allergies No known active allergies Medications Medication Sig Dispensed Refills Start End Status Date Date aspirin chewable Take 1 tablet by 90 tablet 12 Active 81 mg chewable mouth once daily 8 tabletIndications: with a meal. Coronary artery disease due to lipid rich plaque blood-glucose Inject 1 Device 0 Active meterIndications: subcutaneous. 1 Type 2 diabetes Dispense meter, mellitus without test strips, complication, lancets covered without long-term by pt ins. E11.9 current use of NIDDM type II - insulin (HC) Test 2 time/day. High A1C. lancetsIndications Dispense lancets 200 Each 3 Active : Type 2 diabetes covered by pt 1 mellitus without ins. E11.9 NIDDM complication, type II - Test 2 without long-term time/day. High current use of A1C. insulin (HC) blood sugar Dispense test 200 Each 3 Acti ve diagnostic (Blood strips covered by 1 Glucose Test) pt ins. E11.9 stripIndications: NIDDM type II - Type 2 diabetes Test 2 time/day. mellitus without High A1C. complication, without long-term current use of insulin (HC) cyanocobalamin Take 1 Tablet 90 Tablet 3 A ctive (Vitamin B-12) (1,000 mcg) by 1 1,000 mcg mouth once daily. tabletIndications: Vitamin B12 deficiency amLODIPine Take 1 Tablet (10 90 Tablet 3 A ctive (NORVASC) 10 mg mg) by mouth once 2 tabletIndications: daily. Hypertension, unspecified type ferrous sulfate Take 325 mg by 90 Tablet 3 Active 325 mg delayed mouth once every 2 release tablet other night. metFORMIN Take 1 Tablet 180 Tablet 1 Activ e (GLUCOPHAGE) 1,000 (1,000 mg) by 2 mg mouth in the tabletIndications: morning and 1 Type 2 diabetes Tablet (1,000 mg) mellitus without in the evening. complication, Take with meals. without long-term current use of insulin (HC) glimepiride TAKE 1 TABLET 180 Tablet 1 Act alpesh (AMARYL) 2 mg TWICE DAILY 2 tabletIndications: Type 2 diabetes mellitus without complication, without long-term current use of insulin (HC) metoprolol Take 1 Tablet 90 tablet. 3 Acti ve succinate (TOPROL (100 mg) by mouth 2 XL) 100 mg once daily. Sustained-Release tabletIndications: Essential hypertension lisinopriL Take 1 Tablet (20 90 tablet. 3 Active (PRINIVIL; mg) by mouth once 2 ZESTRIL) 20 mg daily. tabletIndications: Essential hypertension tamsulosin Take 1 Capsule 90 Capsule 3 Act alpesh (FLOMAX) 0.4 mg (0.4 mg) by mouth 2 capsuleIndications once daily after : BPH with urinary a meal. TAKE 1 obstruction CAPSULE ONE TIME DAILY AFTER A MEAL atorvastatin Take 1 Tablet (20 90 Tablet 3 Active (LIPITOR) 20 mg mg) by mouth at 2 tabletIndications: bedtime. Other hyperlipidemia nitroglycerin Place 1 tablet 25 tablet. 2 Active (NITROSTAT) 0.4 mg under tongue 2 sublingual every 5 minutes tabletIndications: if needed for Coronary artery chest pain. May disease involving repeat twice. pilot point heart without angina pectoris, unspecified vessel or lesion type acetaminophen Take 2 Tablets 112 Tablet 0 Active (TYLENOL EXTRA (1,000 mg) by 2 022 STRGTH) 500 mg mouth every 6 tabletIndications: hours for 14 Lumbar days. Max radiculopathy acetaminophen dose: 4000mg in 24 hrs. methocarbamoL Take 1 Tablet 30 Tablet 0 Ac tive (ROBAXIN) 750 mg (750 mg) by mouth 2 tabletIndications: every 6 hours if Lumbar needed for Muscle radiculopathy Spasm. oxyCODONE 10 mg Take 1 Tablet (10 25 Tablet 0 Active tabletIndications: mg) by mouth 2 Lumbar every 4 hours if radiculopathy needed for Pain (First choice for severe pain.). WalkerIndications: Walker with front 1 Each 0 Active Lumbar wheels for home 2 radiculopathy use for 3 months. clopidogreL Take 1 Tablet (75 0 Active (PLAVIX) 75 mg mg) by mouth once 2 tabletIndications: daily. ON HOLD Coronary artery AFTER SPINE disease due to SURGERY. Resume lipid rich plaque on post-op day #5, 07/17/[address] 1 tablet 25 tablet. 2 Discontinued (NITROSTAT) 0.4 mg under tongue 1 022 (Reorder sublingual every 5 minutes (E- cancel not tabletIndications: if needed for sent)) Coronary artery chest pain. May disease involving repeat twice. pilot point heart without angina pectoris, unspecified vessel or lesion type atorvastatin Take 1 Tablet (20 90 Tablet 3 Discontinued (LIPITOR) 20 mg mg) by mouth at 1 022 (Reorder tabletIndications: bedtime. ( E-cancel not Other sent)) hyperlipidemia clopidogreL Take 1 Tablet (75 90 tablet. 3 Discontinued (PLAVIX) 75 mg mg) by mouth 2 022 (R eorder tabletIndications: every morning. (E-cancel not Coronary artery sent )) disease due to lipid rich plaque acetaminophen Take 1,000 mg by 0 Discontinued (Tylenol Extra mouth 3 times 022 ( *IP Strength) 500 mg daily if needed. Discontinued) tablet Max acetaminophen dose: 4000mg in 24 hrs. Active Problems Problem Noted Date Spinal stenosis, lumbar region, with neurogenic claudi cation 07/12/2022 Coronary artery disease involving pilot point coronary stephanie ry of pilot point heart 07/12/2022 without angina pectoris Herniation of nucleus pulposus, lumbar, with radiculop athy 07/12/2022 Type 2 diabetes mellitus with hyperglycemia, without l hernan-term current use 07/12/2022 of insulin Lumbar radiculopathy 04/30/2022 Overview: ~ April 2022: L4-L5 epidural steroid in jection by Dr. Sykes. Bilateral lower extremity edema 09/15/2021 Anemia of unknown etiology 09/15/2021 Erectile dysfunction 09/04/2017 History of right knee joint replacement 01/19/2017 Urinary urgency 07/06/2016 Urgency incontinence 05/25/2016 Adenomatous colon polyp 10/22/2015 Overview: Colonoscopy 09/2015 polyp repeat in 5 yea rs Type 2 diabetes mellitus without complication 01/20/20 15 Hyperlipidemia 08/28/2014 Former smoker 12/03/2013 Onychomycosis 11/13/2012 Hemorrhoidal skin tag 11/13/2012 BPH with urinary obstruction 10/19/2010 CAD (coronary artery disease) 05/22/2008 Overview: -Stenting to mid LAD and mid LCx 06/2008 -PTCA to second OM 06/2008 -Stress Myoview 11/21/2013: Medium sized area of mild reversible is chemia in the anterior wall EF 65% Essential hypertension 06/06/2007 DJD (degenerative joint disease) of knee Resolved Problems Problem Noted Date Resolved Date Angina pectoris 12/03/2013 01/27/2015 Cerumen impaction 05/20/2013 11/17/2015 Inguinal hernia without mention of obstruction or gangrene, 09/20/2011 11/13/2012 unilateral or unspecified, (not specified as recurrent) Hypertriglyceridemia 05/12/2009 08/28/2014 Angina 06/26/2008 10/19/2010 ASCVD 06/26/2008 10/19/2010 Overview: 06/27/08: Angio/PCI: EF 55% Successful 2.75mm x 28mm PROMUS Stent to Mid LAD, post stenosis 0% Successful 3mm x 15mm PROMUS Stent to Mi d Circumflex, post stenosis 0% Successful 1.5mm x 6mm PTCA Balloon to 2 nd Marginal, post stenosis 20% Mixed hyperlipidemia 06/08/2007 05/12/2009 Overview: Basename 06/26/08 0945 CHOL 112 TRIGLYCER* 321H HDL 27L CHOLHDLRA* 4.15 LDLCHOL 21 Unspecified essential hypertension 06/06/200710/19 Diabetes mellitus, type 2 08/16/2002 01/19/2015 Encounters Date Type Specialty Care Team Description 07/13/2022 Telephone Mary Kay Ramirez Referral (Elly Tijerina, timber framer helper) 07/12/2022 Anesthesia Event Lilia Mosqueda, COUPLES THERAPIST Amelse, Jessica Courtney, COUPLES THERAPIST 07/12/2022 Surgery PEEWEE Perry- YESENIA Brown MD RECESS L4-5 CHECO ATERAL, DECOMPRESSION- HEMILAMINOTOMY/ DISCECTOMY L3-4 BILATATERA L 07/12/2022 - Hospital Encounter Mya Perry ra diculopathy (Primary Dx); 07/13/2022 MD Kevin Status post lum bar spine operative procedure for decompression of spinal cord; Coronary artery disease due to lipid rich plaque 07/11/2022 Travel 07/08/2022 Preop Visit Terry Junior Preoperativ e Exam (DOS: MD Sheryl 07/12/2022, DECOMPRESSION- LATERAL RECESS L4-5 CHECO ATERAL, DECOMPRESSION- HEMILAMINOTOMY/ DISCECTOMY L3-4 BILAT[address] L, Dr. Perry, [facility]) 07/07/2022 Orders Only Lab, [facility] 07/07/2022 Travel 07/05/2022 Telephone Terry Junior Lab MD Sheryl 07/04/2022 Travel 06/30/2022 Telephone Terry Junior Questions MD Sheryl 05/17/2022 Office Visit José Luis Villalba Musculoskeleta l Problem MD Greg (Follow up epid ural steroid injecti on ) 05/17/2022 Travel 04/26/2022 Office Visit Ld Sykes Procedure (Le ft L4-5 MD Abraham TFESI) 04/24/2022 Refill Terry Junior Refill Requ est MD Sheryl (Cyanocobalamin ) from Last 3 Months Immunizations Name Administration Dates Next Due AMB INFLUENZA IIV3 (AGE 65+ YRS) PF (Flu 07/26/2018, 018 Clinic Only) AMB Influenza, IIV3 (Age >=3 years)(Flu 10/24/2008 Clinic Only) COVID-19 vaccine (OTI [employer] 03/25/2022 30mcg/0.3mL) 12YO+ FINN-SUCROSE PF, MDV COVID-19 vaccine (OTI [employer] 07/02/2021 30mcg/0.3mL) PF, MDV Influenza, High-dose Inactivated 07/12/2016, 09/03/2015, 12/2013 Influenza, IIV3 (Age 6-35 mos) 10/19/2010 Influenza, IIV3 (Age >=3 years) 10/15/2013, 09/20/2011, 07/27 Influenza, Inactivated AIIV4 (Age 65+ 08/24/2021, 05/29/2020 Years) Preserv Free Influenza, Inactivated IIV3 (Age 65+ 07/04/2019, 07/27/2017 Years) Preserv Free Pneumococcal Poly,23-Valent (Pneumovax) 12/13/2013 Pneumococcal conj 13-Valent (Prevnar 13) 04/20/2016 Tdap 10/19/2010 Zoster (Zostavax-ZVL, live) 2013 Family History Medical History Relation Name Comments Hypertension Brother 3 Ali Other Brother 3 Ali PAD Stroke Brother 3 Ali Good Health Brother 4 Good Health Brother 5 Good Health Daughter 3 Good Health Daughter 4 Heart Disease Mother Good Health Sister 3 Good Health Sister 4 Good Health Son 2 Anesthesia Problem No Family History Relation Name Status Comments Brother 1 Alive Brother 2 Alive Brother 3 Ali (Age 63) Brother 4 Brother 5 Daughter 1 Alive Daughter 2 Alive Daughter 3 Daughter 4 Father (Age 83) Mother (Age 83) [place] Sister 1 Alive Sister 2 Alive Sister 3 Sister 4 Son 1 Alive Son 2 Social History Tobacco Use Types Packs/Day Years Used Date Former Smoker Cigarettes 10 04 1969 - 980 Smokeless Tobacco: Never Used Tobacco Cessation: Counseling Given: Yes Alcohol Use Standard Drinks/Week Comments No 0 (1 standard drink = 0.6 oz pure alcoho l) Sex Assigned at Date Recorded Not on file COVID-19 Exposure Response Date Recorded In the last 10 days, have you been in contact with No / Unsu re 07/11/2022 5:53 PM CDT someone who was confirmed or suspected to have Coronavirus/COVID-19? Obstetrics History Last Filed Vital Signs Vital Sign Reading Time Taken Comments Blood Pressure 115/68 07/13/2022 8:32 AM CDT Pulse 65 07/13/2022 7:50 AM CDT Temperature 36.8 ??C (98.3 ??F) 07/13/2022 7:50 AM CDT Respiratory Rate 18 07/13/2022 7:50 AM CDT Oxygen Saturation 98% 07/13/2022 7:50 AM CDT Inhaled Oxygen Concentration - - Weight 68.3 kg (150 lb 8 oz) 07/12/2022 12:28 PM CDT Height 167.6 cm (5' 6) 07/12/2022 12:28 PM CDT Body Mass Index 24.29 07/12/2022 12:28 PM CDT Plan of Treatment Health Maintenance Due Date Last Done Comments Zoster (shingles) series for age 0211/20/2013 2013 50+ (2 of 3) Tetanus booster 10/19/2020 10/19/2010 Medicare Wellness for age 65+ 03/25/2022 03/25/2021, 2018, 07/27/2017, Additional history exists COVID-19 vaccine series (5 - 05/20/2022 03/25/2022, 021, Booster for Pfizer series) 12/01/2020, Additiona l history exists Influenza for age 65+ 05/26/2022 08/24/2021, 05/29/2020, 07/04/2019, Additional history exists Depression screening for age 12+ 03/25/2023 03/25/2022, 09/2020, 01/09/2019, Additional history exists BMI (ht and wt on same day) for 07/08/2023 07/08/2022, 04/2021, age 18+ 03/25/2021, Additional history exists Tdap Completed 10/19/2010 Pneumococcal series for age 65+ Completed 04/20/2016, 11/24, 12/13/2013 Medical Devices Implanted Type Area Pricing Strategist Device Shelf Model / Identifier Expiration Serial / Lot Date Lens Iol 19.5 [employer]is - [id number] Right: Allergan 09/14/2021 [id number] / Implanted: Qty: 1 on 11/24/2015 by Nik Majano MD at [facility] [employer] 4 [id number] / Lens Iol 19.5 [employer] - [id number] Left: Allergan 02/27/2019 [id number] / Implanted: Qty: 1 on 12/29/2015 by Nik Majano MD at [facility] [employer] 5 [id number] / Procedures Procedure Name Priority Date/Time Associated Diagnosis Comme nts POTASSIUM Today 07/13/2022 3:22 Results for this PM CDT procedure are i n the results section. CREATININE Today 07/13/2022 3:22 Results for this PM CDT procedure are i n the results section. GLUCOSE METER Timed 07/13/2022 12:16 Results fo r this PM CDT procedure are i n the results section. GLUCOSE METER Timed 07/13/2022 7:10 Results for this AM CDT procedure are i n the results section. GLUCOSE METER Timed 07/12/2022 9:18 Results for this PM CDT procedure are i n the results section. GLUCOSE METER Timed 07/12/2022 8:13 Results for this PM CDT procedure are i n the results section. XR C-ARM EQUAL OR LESS Routine 07/12/2022 5:45 Re sults for this 1 HR PM CDT procedure are i n the results section. XR SPINE 1 VIEW Routine 07/12/2022 5:44 Results f or this PORTABLE PM CDT procedure are i n the results section. ENDOTRACHEAL TUBE Routine 07/12/2022 3:21 Results for this PM CDT procedure are i n the results section. ENDOTRACHEAL TUBE Routine 07/12/2022 3:21 Results for this PM CDT procedure are i n the results section. ENDOTRACHEAL TUBE Routine 07/12/2022 3:21 Results for this PM CDT procedure are i n the results section. LAMINECTOMY Tier 4 07/12/2022 2:34 Stenosis, Lumbar - MICRODISCECTOMY LEVEL PM CDT w/Neurogenic 02 Claudication M48.062 HNP w/ Radiculopathy, Lumbar M51.16 Case Notes C_Arm [facility] [facility] Special Needs WT 152 COVID 19 Routine 07/08/2022 2:45 PM Preop examination Resu lts for this CDT procedure are i n the results section. COVID 19 COLLECTION Routine 07/08/2022 2:45 PM Preop examinati on Results for this CDT procedure are i n the results section. OR ECG ROUTINE ECG Routine 07/08/2022 12:00 Coronary artery W/LEAST 12 LDS W/I&R AM CDT disease due to lipid rich plaque CBC WITH AUTO Routine 07/07/2022 11:16 Preop examination Resul ts for this DIFFERENTIAL AM CDT procedure are i n the results section. CBC WITH AUTO Routine 07/07/2022 11:16 Preop examination Resul ts for this DIFFERENTIAL AM CDT procedure are i n the results section. HEPATIC FUNCTION Routine 07/07/2022 11:16 Hyperlipidemia, Resu lts for this PANEL AM CDT unspecified procedure are i n hyperlipidemia type the resu lts section. URINE ALBUMIN TO Routine 07/07/2022 11:16 Type 2 diabetes Resu lts for this CREATININE RATIO, AM CDT mellitus without proced ure are in RANDOM complication, without the re sults long-term current use sectio n. of insulin (HC) BASIC METABOLIC Routine 07/07/2022 11:16 Type 2 diabetes Resul ts for this PANEL AM CDT mellitus without procedure a re in complication, without the re sults long-term current use sectio n. of insulin (HC) VITAMIN B12 Routine 07/07/2022 11:16 Iron deficiency Results for this AM CDT anemia, unspecified procedur e are in iron deficiency anemia the r esults type section. FERRITIN Routine 07/07/2022 11:16 Iron deficiency Results for this AM CDT anemia, unspecified procedur e are in iron deficiency anemia the r esults type section. IRON PLUS IRON Routine 07/07/2022 11:16 Iron deficiency Result s for this BINDING CAP AM CDT anemia, unspecified procedur e are in iron deficiency anemia the r esults type section. HEMOGLOBIN A1C Routine 07/07/2022 11:16 Type 2 diabetes Result s for this AM CDT mellitus without procedure a re in complication, without the re sults long-term current use sectio n. of insulin (HC) LIPID PANEL W REFLEX Routine 07/07/2022 11:16 Type 2 diabetes Results for this MEASURED LDL AM CDT mellitus without procedure a re in complication, without the re sults long-term current use sectio n. of insulin (HC) AMB EPIDURAL STEROID Routine 04/26/2022 8:01 AM Lumbar radicul opathy INJECTION CDT OR NJX AA&/STRD Routine 04/26/2022 12:00 Lumbar radiculo jakub Results for this TFRML EPI AM CDT DDD (degenerative disc proce dure are in LUMBAR/SACRAL 1 disease), lumbar the resu lts LEVEL section. from Last 3 Months Results Potassium TODAY (07/13/2022 3:22 PM CDT) athologist Signature POTASSIUM 3.7 3.5 - 5.0 07/13/2022 [email or web address] mmol/L 4:27 PM CDT LABORATORY-CENTR AL LABORATORY Specimen Anatomical Collection Method Collection Time Receive d Time (Source) Location / / Volume Laterality Blood BLOOD SPECIMEN / Line/Port / 07/13/2022 3:22 PM 07/13 4:02 Unknown Unknown CDT PM CDT Xi Dunlap MD CHEMISTRY Performing Organization Address City/State/[facility] Code Phon e Number [facility] [address] [place] [address] LABORATORY-CENTRAL 2000 LABORATORY (ABNORMAL) Creatinine TODAY (07/13/2022 3:22 PM CDT) athologist Signature CREATININE 0.80 0.72 - 1.25 07/13/2022 [email or web address] mg/dL 4:32 PM CDT LABORATORY-CENT RAL LABORATORY eGFR 89 (L) >90 07/13/2022 [facility] mL/min/1.73 4:32 PM CDT LABORATORY-CENT m2 RAL LABORATORY Comment: As of 2021, eGFR is calcu lated by the CKD-EPI creatinine equation without race adjustment. eGFR can be inf luenced by muscle mass, exercise, and diet. The reported eGFR is an estimation only and is only applicable if the renal function is stable. Specimen Anatomical Collection Method Collection Time Receive d Time (Source) Location / / Volume Laterality Blood BLOOD SPECIMEN / Line/Port / 07/13/2022 3:22 PM 07/13 4:02 Unknown Unknown CDT PM CDT Xi Dunlap MD CHEMISTRY Performing Organization Address City/State/ZIP Code Phon e Number [facility] [address] [place] [id number] LABORATORY-CENTRAL 1999 LABORATORY (ABNORMAL) GLUCOSE METER (07/13/2022 12:16 PM CDT)Only the most recent of4 resultswithin the time period is included. P athologist Signature GLUCOSE METER 138 (H) 65 - 100 07/13/2022 [facility] mg/dL 12:17 PM CDT LABORATORY-[facility] TRAL LABORATORY Specimen Anatomical Collection Method Collection Time Receive d Time (Source) Location / / Volume Laterality Blood BLOOD SPECIMEN / 07/13/2022 12:16 022 Unknown PM CDT 12:17 PM CDT Kevin Perry MD CHEMISTRY Performing Organization Address City/State/ZIP Code Phon e Number [facility] [address] [place] [address] LABORATORY-CENTRAL 1999 LABORATORY XR C-ARM EQUAL OR LESS 1 HR (07/12/2022 5:45 PM CDT) Anatomical Region Laterality Modality Other Specimen (Source) Anatomical Location Collection Method / Collectio n Time Received Time / Laterality Volume Narrative 07/12/2022 3:11 PM CDT 1 minute fluoroscopy time was provided. ??See operative/procedure report for further information. Kevin Perry MD FLUOROSCOPY XR SPINE 1 VIEW PORTABLE (07/12/2022 5:44 PM CDT) Anatomical Region Laterality Modality Spine, CERVICAL SPINE, THORACIC SPINE, LUMBAR SPINE Digital Radiography Specimen (Source) Anatomical Collection Method Collection Time Re ceived Time Location / / Volume Laterality 07/13/2022 10:51 AM CDT Narrative 07/13/2022 10:51 AM CDT For Patients: ??As a result of the Cures Act, medical imaging exams and procedure reports are released immediately into your electronic medical record. ??You may view this report before you r referring provider. ??If you have ques tions, please contact your health care provider. INDICATION: Spinal localization. TECHNIQUE: Single spot lateral image of the lower l umbar spine. FINDINGS: Assuming 5 lumbar vertebrae, posterior l ocalizers at L3 and L5. Dictated by Mark Kyle MD @ Jul 13 2022 10:51AM (Electronically Signed) ?? Procedure Note Mark Kyle MD - 2 For Patients: As a result of the ntury Cures Act, medical imaging exams and procedure reports are released immediately into your electronic medical record. You may view this report before your referring provider. If you have questions, please contact yo health care provider. INDICATION: Spinal localization. TECHNIQUE: Single spot lateral image of the lower l umbar spine. FINDINGS: Assuming 5 lumbar vertebrae, posterior l ocalizers at L3 and L5. Dictated by Mark Kyle MD @ Jul 13 2022 10:51AM (Electronically Signed) Kevin Perry MD GENERAL IMAGING HCHG TUBE PR1, HCHG STYLET PR1, HCHG MOUTHPIECE PR1 (07/12/2022 3:21 PM CDT) Narrative Lilia Mosqueda CRNA - 07/12/2022 3:2 1 PM CDT Lilia Mosqueda CRNA ? 07/12/2022 ??3:22 PM Procedure: ETT Patient location during procedure: OR ETT Properties Mask Ventilation: easy Final Technique: direct laryngoscopy and cricoid pressure Type: straight Location: oral Cuffed: yes Tube Size: 7.5 mm Stylet: yes Laryngoscope Blade: Mac Blade Size: 3 Cormack-Lehane Grade View: 1 Insertion Attempts: 1 Placement Verification: auscultation, en d tidal CO2 and symmetrical chest wall movement Assessment: pharynx clear, atraumatic an d dentition unchanged Secured at: 22 Measured From: lips Tooth guard used and removed: yes Bite Block: soft Difficulty: 0 (not difficult) Difficulty Comment: limited neck mobilit y Electronically signed by Lilia Mosqueda CRNA ? Brett Solis MD ANESTHESIA PX NOTE ORDERABLE S COVID 19 (07/08/2022 2:45 PM CDT) Analysis Performed At Patho logist Time Signature COVID 19 Negative Negative 07/10/2022 [facility] 6:32 PM CDT LABORATORY-[facility] MOLECULAR TRAL LABORATORY Specimen Anatomical Location / Collection Method Collection Pasha e Received Time (Source) Laterality / Volume Other SPECIMEN FROM Non-Blood / 07/08/2022 2:45 07/09/2022 NASOPHARYNGEAL Unknown PM CDT 12:12 PM CDT STRUCTURE / Unknown Narrative [facility] LABORATORY-CENTRAL LABORAT ORY - 07/10/2022 6:32 PM CDT All PCR tests are subject to false negative result due to variability in viral load and collection te chnique. A negative result does not rule out a SARS-CoV-2 infection. Clinical correlation required. This test has been authorized by FDA und er an Emergency Use Authorization (EUA). This test is only authorized for the duration of time the declaration that circumstances exist justifying the authorizati on of the emergency use of in vitro diag nostic tests for detection of SARS-CoV-2 virus and/or diagnosis of COVID-19 infection under section 564(b)(1) of the Act, 21 U.S.C. 360bbb-3(b) (1), unless the authorization is terminated or revoked sooner. Terry Junior MD MICROBIOLOGY Performing Organization Address City/State/ZIP Code Phon e Number [facility] [address] [place] [address] LABORATORY-CENTRAL 2000 LABORATORY COVID 19 COLLECTION (07/08/2022 2:45 PM CDT) [facility] gist Method Time Signature TESTING [facility] 07/09/2022 [facility] LABORATORY Laboratory 12:12 PM LABORATORY-CE CDT NTRAL LABORATORY Comment: Specimen submitted to [facility] for testing. Specimen Anatomical Location / Collection Method Collection Pasha e Received Time (Source) Laterality / Volume Other SPECIMEN FROM Non-Blood / 07/08/2022 2:45 07/08/2022 2:51 NASOPHARYNGEAL Unknown PM CDT PM CDT STRUCTURE / Unknown eTrry Junior MD SEND OUTS Performing Organization Address City/State/ZIP Code Phon e Number [facility] [address] [place] [address] LABORATORY-CENTRAL 2000 LABORATORY OR ECG ROUTINE ECG W/LEAST 12 LDS W/I&R (07/08/2022 12:00 AM CDT) Narrative This result has an attachment that is no t available. Terry Junior MD PB - CARDIOVASCULAR SYSTEM S ERVICES (ABNORMAL) CBC WITH AUTO DIFFERENTIAL (07/07/2022 11:16 AM CDT) [facility] Method Time Signature WHITE BLOOD 5.7 4.5 - 07/07/2022 [facility] COUNT 11.0 11:21 AM T [facility] mm RED BLOOD COUNT 4.68 4.30 - 07/07/2022 [facility] 5.90 11:21 AM T [facility] CLINIC HEMOGLOBIN 13.4 (L) 13.5 - 07/07/2022 [facility] 17.5 g/dL 11:21 AM [facility] HEMATOCRIT 39.5 37.0 - 07/07/2022 [facility] 53.0 % 11:21 AM [facility] MCV 84 80 - 100 07[facility]07/2022 [facility] fL 11:21 AM [facility] MCH 28.6 26.0 - 07/07/2022 [facility] 34.0 pg 11:21 AM [facility] MCHC 33.9 32.0 - 07/07/2022 [facility] 36.0 g/dL 11:21 AM [facility] RDW 13.8 11.5 - 07/07/2022 [facility] 15.5 % 11:21 AM [facility] PLATELET COUNT 198 140 - 440 [facility] MPV 10.6 6.5 - 07/07/2022 [facility] 11.0 fL 11:21 AM [facility] % NEUT 61.9 % 07/07/2022 [facility] 11:21 AM [facility] % LYMPH 26.8 % 07/07/2022 [facility] 11:21 AM [facility] % MONO 7.9 % 07/07/2022 [facility] 11:21 AM CDT [facility] % EOS 3.0 % 07/07/2022 [facility] 11:21 AM CDT [facility] % BASO 0.4 % 07/07/2022 [facility] 11:21 AM CDT [facility] ABSOLUTE 3.5 1.7 - 7.0 07/07/2022 [facility] NEUTROPHILS thou/cu 11:21 AM CDT [facility] ABSOLUTE 1.5 0.9 - 2.9 07/07/2022 [facility] LYMPHOCYTES thou/cu 11:21 AM CDT [facility] ABSOLUTE 0.5 <0.9 07/07/2022 [facility] MONOCYTES thou/cu 11:21 AM CDT [facility] ABSOLUTE 0.2 <0.5 07/07/2022 [facility] EOSINOPHILS thou/cu 11:21 AM CDT [facility] ABSOLUTE 0.0 <0.3 07/07/2022 [facility] BASOPHILS thou/cu 11:21 AM CDT [facility] Specimen Anatomical Collection Method / Collection Time Recei niels Time (Source) Location / Volume Laterality Blood BLOOD SPECIMEN / Venipuncture / 07/07/2022 11:16 07/07 Unknown Unknown AM CDT 11:17 AM CDT Terry Junior MD HEMATOLOGY Performing Organization Address City/State/ZIP Code Phon e Number [facility] [address] [place] [address] (ABNORMAL) LIPID PANEL W REFLEX MEASURED LDL (07/07/2022 11:16 AM CDT) [facility] Method Time Signature CHOLESTEROL,TOTAL 117 100 - 199 07/08/2022 [facility] mg/dL 3:42 PM CDT [facility] TRIGLYCERIDES 180 (H) <150 07/08/2022 [facility] mg/dL 3:42 PM CDT [facility] HDL CHOLESTEROL 33 (L) >40 mg/dL 07/08/2022 [facility] 3:42 PM CDT [facility] NON-HDL 84 <145 07/08/2022 [facility] CHOLESTEROL mg/dl 3:42 PM CDT [facility] CHOL/HDL RATIO 3.55 <4.50 07/08/2022 [facility] 3:42 PM CDT [facility] LDL CHOLESTEROL 48 <=130 07/08/2022 [facility] mg/dL 3:42 PM CDT [facility] VLDL CHOLESTEROL 36 (H) <=30 07/08/2022 [facility] mg/dL 3:42 PM CDT [facility] PROVIDER ORDERED RANDOM 07/08/2022 [facility] STATUS 3:42 PM CDT [facility] Specimen Anatomical Collection Method / Collection Time Recei niels Time (Source) Location / Volume Laterality Blood BLOOD SPECIMEN / Venipuncture / 07/07/2022 11:16 07/07 Unknown Unknown AM CDT 11:17 AM CDT Terry Junior MD CHEMISTRY Performing Organization Address [facility] Phon e Number [facility] [address] [place] [address] [place] [address] [facility] 2000 LABORATORY IRON PLUS IRON BINDING CAP (07/07/2022 11:16 AM CDT) athologist Signature IRON 120 31 - 144 07/08/2022 [facility] ug/dL 3:56 PM CDT [facility] UIBC 238 07/08/2022 [facility] (UNSATURATED) 3:56 PM CDT [facility] IRON BINDING 358 245 - 400 07/08/2022 [facility] CAPACITY ug/dL 3:56 PM CDT [facility] IRON,% 34 20 - 55 % 07/08/2022 [facility] SATURATION 3:56 PM CDT [facility] Specimen Anatomical Collection Method / Collection Time Recei niels Time (Source) Location / Volume Laterality Blood BLOOD SPECIMEN / Venipuncture / 07/07/2022 11:16 07/07 Unknown Unknown AM CDT 11:17 AM CDT Terry Junior MD CHEMISTRY Performing Organization Address City/State/ZIP Code Phon e Number [facility] [address] [place] [address] LABORATORY-CENTRAL 1999 LABORATORY MICROALBUMIN RANDOM URINE (07/07/2022 11:16 AM CDT) P athologist Signature ALB RAND URINE 10.7 mg/L 07/08/2022 [email or web address] 3:32 AM CDT [facility] CREATININE,URIN 0.78 g/L 07/08/2022 [email or web address] E 3:32 AM CDT [facility] ALBUMIN TO 13.7 <30.0 mg/g 07/08/2022 [facility] CREATININE creat 3:32 AM CDT LABORATORY-CENT RATIO,RAND UR RAL LABORATORY Specimen Anatomical Collection Method Collection Time Receive d Time (Source) Location / / Volume Laterality Urine URINE SPECIMEN / Non-Blood / 07/07/2022 11:16 022 Unknown Unknown AM CDT 11:17 AM CDT Narrative [facility] LABORATORY-CENTRAL LABORAT ORY - 07/08/2022 3:32 AM CDT If Albumin to Creatinine Ratio is elevated, consider the following: ? Elevations seen with incipient nephr opathy associated ?? with diabetes mellitus or hypertensi on. Stress, exercise, ?? hematuria, and urinary tract infecti on may also produce ?? elevated results. If clinically liz cated, confirm with ?? 24 Hour Albumin to Creatinine Ratio. Terry Junior MD URINE Performing Organization Address City/State/ZIP Code Phon e Number [facility] [address] [place], [place] [address] [address] LAB[facility]ATORY-CENTRAL 2000 LABORATORY (ABNORMAL) HEMOGLOBIN A1C MONITORING (POCT) (07/07/2022 11:16 AM CDT) Analysis Performed At Patho logist Time Signature HEMOGLOBIN A1C 7.0 (H) <=6.4 % 07/07/2022 [facility] MONITORING 11:39 AM CDT [facility] Specimen Anatomical Collection Method / Collection Time Recei niels Time (Source) Location / Volume Laterality Blood BLOOD SPECIMEN / Venipuncture / 07/07/2022 11:16 07/07 Unknown Unknown AM CDT 11:17 AM CDT Narrative [facility] - 2021 11:39 AM CDT ? (<=6.9%) ? Indicates good control ? (7.0% to 7.9%) ? Indicates fa ir control ? (>=8.0%) ? Indicates poor control ?? NOTE: ??These thresholds are guideli irma and ?individual targets may va ry. Falsely low levels may be seen with: Recent Transfusion, Recent Significant B lood Loss, Hemolytic Diseases, or Falsely elevated levels may be seen with : Untreated Anemias, Splenectomy ? Terry Junior MD CHEMISTRY Performing Organization Address City/[facility] Phon e Number [facility] [address] [place] [address] FERRITIN (07/07/2022 11:16 AM CDT) athologist Signature FERRITIN 60.2 22.0 - 07/08/2022 [facility] 275.0 ng/mL 3:41 PM CDT [facility]ENTR AL LABORATORY Specimen Anatomical Collection Method / Collection Time Recei niels Time (Source) Location / Volume Laterality Blood BLOOD SPECIMEN / Venipuncture / 07/07/2022 11:16 07/07 Unknown Unknown AM CDT 11:17 AM CDT Terry Junior MD CHEMISTRY Performing Organization Address [facility]/ZIP [facility] Phon e Number [facility] [address] [place] [address] LABORATORY-CENTRAL 2000 LABORATORY VITAMIN B12 (07/07/2022 11:16 AM CDT) athologist Signature VITAMIN B12 346 180 - 914 07/08/2022 [facility] pg/mL 1:56 PM CDT [facility] Specimen Anatomical Collection Method / Collection Time Recei niels Time (Source) Location / Volume Laterality Blood BLOOD SPECIMEN / Venipuncture / 07/07/2022 11:16 07/07 Unknown Unknown AM CDT 11:17 AM CDT Terry Junior MD CHEMISTRY Performing Organization Address City/[facility]/ZIP [facility] Phon e Number [facility] [address] [place] [address] LAB[facility]ATORY-CENTRAL 1999 LABORATORY HEPATIC FUNCTION PANEL (07/07/2022 11:16 AM CDT) athologist Signature ALBUMIN 4.2 3.2 - 4.6 07/08/2022 [email or web address] g/dL 3:42 PM CDT [facility] PROTEIN,TOTAL 7.0 6.0 - 8.0 07/08/2022 [email or web address] g/dL 3:42 PM CDT [facility] GLOBULIN 2.8 2.0 - 3.7 07/08/2022 [email or web address] g/dL 3:42 PM CDT [facility] A/G RATIO 1.5 1.0 - 2.0 07/08/2022 [email or web address] 3:42 PM CDT [facility] BILIRUBIN,TOTAL 0.6 0.2 - 1.2 07/08/2022 [email or web address] mg/dL 3:42 PM CDT [facility] BILIRUBIN,DIRECT 0.3 0.1 - 0.5 07/08/2022 [facility] mg/dL 3:42 PM CDT [facility] BILIRUBIN,INDIRE 0.3 0.2 - 0.8 [facility]08[facility] [facility]dL 3:42 PM CDT [facility] ALK PHOSPHATASE 67 50 - 136 07/08/2022 [facility] IU/L 3:42 PM CDT [facility] ALT (SGPT) 11 8 - 45 07/08/2022 [email or web address] IU/L 3:42 PM CDT [facility] AST (SGOT) 11 2 - 40 07/08/2022 [email or web address] IU/L 3:42 PM CDT [facility] Specimen Anatomical Collection Method / Collection Time Recei niels Time (Source) Location / Volume Laterality Blood BLOOD SPECIMEN / Venipuncture / 07/07/2022 11:16 07/07 Unknown Unknown AM CDT 11:17 AM CDT Terry Juinor MD CHEMISTRY Performing Organization Address City/State/ZIP Code Phon e Number [facility] [address] [place] [address] LABORATORY-CENTRAL 2000 LABORATORY (ABNORMAL) BASIC METABOLIC PANEL (07/07/2022 11:16 AM CDT) Analysis Performed At Patho logist Time Signature SODIUM 139 135 - 145 07/08/2022 [facility] mmol/L 3:41 PM CDT [facility] POTASSIUM 4.0 3.5 - 5.0 07/08/2022 [email or web address] mmol/L 3:41 PM CDT [facility] CHLORIDE 107 98 - 110 07/08/2022 [email or web address] mmol/L 3:41 PM CDT [facility] CO2,TOTAL 23 21 - 31 07/08/2022 [email or web address] mmol/L 3:41 PM CDT [facility] ANION GAP 9 5 - 18 07/08/2022 [email or web address] 3:41 PM CDT [facility] GLUCOSE 175 (H) 65 - 100 07/08/2022 [email or web address] mg/dL 3:41 PM CDT [facility] CALCIUM 9.5 8.5 - 10.5 07/08/2022 [email or web address] mg/dL 3:41 PM CDT [facility] BUN 14 8 - 25 07/08/2022 [email or web address] mg/dL 3:41 PM CDT [facility] CREATININE 0.72 0.72 - 07/08/2022 [email or web address] 1.25 mg/dL 3:41 PM CDT [facility] BUN/CREAT RATIO 19 10 - 20 07/08/2022 [email or web address] 3:41 PM CDT [facility] eGFR >90 >90 07/08/2022 [email or web address] mL/min/1.7 3:41 PM CDT [facility] 3m2 TRAL LABORATORY Comment: As of 2021, eGFR is calcu lated by the CKD-EPI creatinine equation without race adjustment. eGFR can be inf luenced by muscle mass, exercise, and diet. The reported eGFR is an estimation only and is only applicable if the renal function is stable. Specimen Anatomical Collection Method / Collection Time Recei niels Time (Source) Location / Volume Laterality Blood BLOOD SPECIMEN / Venipuncture / 07/07/2022 11:16 07/07 Unknown Unknown AM CDT 11:17 AM CDT Terry Junior MD CHEMISTRY Performing Organization Address City/State/ZIP Code Phon e Number [facility] [address] [place] [address] LABORATORY-CENTRAL 2000 LABORATORY OR NJX AA&/STRD TFRML EPI LUMBAR/SACRAL 1 LEVEL (04/26/2022 12:00 AM CDT) Narrative This result has an attachment that is no t available. Ld Sykes MD [facility] - NERVOUS SYSTEM SERVICES from Last 3 Months Insurance Payer Benefit Plan / Subscriber ID Effective Dates Phone Addre ss Type Group MEDICARE PART MEDICARE PART [id number] 2006-[place]S A - [place] USE A HB ONLY [place] [address] [place] [address] MEDICARE PPS HC MEDICARE [id number] 2006-Prese [address] X 2019 PPS nt [address] [place] [address] BLUE CROSS BLUE CROSS [id number] 2017-[place] [address] [address] [address] [place], [place] [id number] BLUE CROSS MR BLUE CROSS [id number] 2017-Presen [address] [address] [place], [place] [id number] Advance Directives Latest Code Status on File Code Status Date Activated Date Inactivated Comments Full Code 07/12/2022 7:48 PM 07/13/2022 6:33 PM Code Status Discussion: Unable to Assess Preferences, Provid er to review later Full Code 12/29/2015 7:10 AM 12/29/2015 11:13 AM Full Code 11/24/2015 7:42 AM 11/24/2015 12:22 PM Full Code 12/03/2013 7:11 AM 12/03/2013 1:25 PM Full Code 06/26/2008 8:20 AM 06/27/2008 3:46 PM Care Teams First Crusher Relationship Specialty Start Date End Date Terry Junior MD PCP - General Family Practice 06/16/17 [address] [place] [address] [address] [facility] 07/13/[address] [address]
--- OUTSIDE RECORDS SUMMARY | 2022-07-14 07:28 | XMS_ITS ---
:1940 Author Care Team Providers Name Role Phone PATRICIA SHARMA MD Primary Care Provider [phone] Allergies Code Code System Name Reaction Severity Status Onset NKDA ? Medications Name Status Start Date Stop Date ? ? amlodipine 10 mg tablet Active ? Not avai lable ammonium lactate 12 % topical cream Active ? Not available MASSAGE INTO INNER THIGH AND FACE ONCE TO TWICE DAILY atorvastatin 20 mg tablet Active ? Not av ailable clopidogrel 75 mg tablet Active ? Not miranda ilable Contour Next Test Strips Active ? Not miranda ilable USE 1 STRIP TO CHECK GLUCOSE TWICE DAILY cyanocobalamin (vit B-12) 1,000 mcg tablet Active ? Not available glimepiride 2 mg tablet Active ? Not avai lable lisinopril 20 mg tablet Active ? Not avai lable metformin 1,000 mg tablet Active ? Not av ailable metoprolol succinate ER 100 mg tablet,extended release 24 Active ? Not available hr tamsulosin 0.4 mg capsule Active ? Not av ailable Problems Name Status Onset Date Source ? Large Prostate Active 04/16/2018 History Impotence Active 04/17/2018 History Procedures Date Name Performed by ? ? Operative Procedure on Knee Information not available ? Tonsillectomy Information not avai lable ? Implantation of Penile Prosthesis Inform ation not available ? Hernia Repair Information not avai lable ? Cataract Surgery Information not avai lable Notes: [facility] Results Lab Results Date Name Specimen Result Interpretation Description Value Range Status Address ? 06/02/2022 PSA, Serum Serum ? Psa 3.7ng/ml 0-4.0 ? [facility]: [address] or [address] [facility] 06/02/2022 PSA, Serum ? No observation ? ? ? or Plasma recorded. Past Encounters 06/02/2022 Raised Prostate Specific Antigen; Lower Urinary Tract Symptoms Due to Benign Prostatic Hypertrophy; Primary Erectile Dysfunction Fitz Preciado MD: [address], [place] [address], Ph. Social History Tobacco Smoking Status Former Smoker Vaccine List Vaccine Type COVID-19, mRNA, LNP-S, PF, 30 mcg/0.3 mL dose ([employer]) 11/10/2020 12/01/2020 07/02/2021 COVID-19, mRNA, LNP-S, PF, 30 mcg/0.3 mL dose, sunni-sucrose ([employer]) 03/25/2022 pneumococcal conjugate PCV 13 04/20/2016 pneumococcal polysaccharide PPV23 12/13/2013 Plan of Care Reminders Provider Appointments None recorded. ? ? Lab None recorded. ? ? Referral None recorded. ? ? Procedures None recorded. ? ? Surgeries None recorded. ? ? Imaging None recorded. ? ? Vitals Height Weight BMI 5 ft 6 in 154 lbs 24.9 kg/m2
[2022-07-14 07:30] LABS: Albumin* 4.2 g/dL (3.3-5.0); Chloride* 102 mmol/L (96-114); Potassium* 3.9 mmol/L (3.6-5.1); Sodium* 138 mmol/L (135-149)
[2022-07-14 07:32] LABS: Creatinine* 0.7 mg/dL (0.5-1.5); Estimated Glomerular Filt Rate 93 ml/min
[2022-07-14 07:33] LABS: Alanine Aminotransferase* 14 U/L (4-50); Alkaline Phosphatase* 69 U/L (40-150); Aspartate Amino Transferase* 25 U/L (12-35); Bilirubin Total* 0.7 mg/dL (0.1-1.5); Blood Urea Nitrogen* 11 mg/dL (7-30); Carbon Dioxide* 24 mmol/L (20-32); Total Protein* 7.3 g/dL (6.0-8.3)
[2022-07-14 07:34] LABS: Calcium* 9.7 mg/dL (8.4-10.6); Glucose* 183 mg/dL (60-115)
--- NOTE | 2022-07-14 07:41 | CRLHL7_ITS ---
For Patients: As a result of the 21st Century Cures Act, medical imaging exams and procedure reports are released immediately into your electronic medical record. You may view this report before your referring provider. If you have questions, please contact your health care provider. Indication: LSPINE SURGERY ON THE 19 FEVER AND PAIN Technique: Noncontrast axial CT of the lumbar spine with coronal and sagittal reformats are provided. Comparison: No prior studies are available for comparison at this institution. Findings: There is straightening of the lumbar spine alignment. Vertebral body heights are maintained. Bilateral laminectomy postoperative changes at L3-4 level. Few foci of gas in the dorsal epidural space at L3-4 and L4-5 levels. No fractures. No lytic or blastic osseous lesion. Bilateral laminectomy postoperative changes at L3-4 level. No suspicious fluid collection along the incision site. Accessory articulation between the left L5 transverse process and sacrum. Atherosclerotic calcifications in the abdominal aorta. Partially visualized exophytic right renal cyst T11-12: No significant spinal canal stenosis or neural foramen narrowing. Bilateral facet arthrosis T12-L1: No significant spinal canal stenosis or neural foramen narrowing. L1-2: No significant spinal canal stenosis or neural foramen narrowing. L2-3: Mild disc bulge. No significant spinal canal stenosis or neural foramen narrowing. L3-4: Bilateral laminectomy postoperative changes. Bilateral facet arthrosis. Disc bulge. Few foci of gas in the dorsal epidural space. Significantly limited evaluation of the spinal canal due to loss of soft tissue contrast and potentially due to the presence of epidural fluid collection. Mild neural foramen narrowing bilaterally. L4-5: Disc bulge. Moderate left and mild right facet arthrosis. Disc bulge. Mild spinal canal stenosis. Few foci of gas in the dorsal epidural space. There is loss of normal epidural fat attenuation at the L4-5 level as well which may be due to inflammation or fluid in the epidural space. Moderate neural foramen narrowing bilaterally. L5-S1: Moderate interspace narrowing. Disc bulge. Moderate facet arthrosis. No significant spinal canal stenosis. Moderate neural foramen narrowing bilaterally. Impression: 1. Bilateral laminectomy postoperative changes at L3-4 level. Few foci of gas in the dorsal epidural space at L3-4 and L4-5 levels. Significantly limited evaluation of the spinal canal due to loss of soft tissue contrast and potentially due to the presence of epidural fluid collection. There is loss of normal epidural fat attenuation at the L4-5 level as well which may be due to inflammation or postoperative fluid in the epidural space. MRI lumbar spine is offered for further evaluation. 2. Moderate bilateral neural foramen narrowing at L4-5 and L5-S1. 3. No fractures. No aggressive osseous lesions Please note that all CT scans at this facility use dose modulation, iterative reconstruction, and/or weight-based dosing when appropriate to reduce radiation dose to as low as reasonably achievable. Dictated by Nik Colon MD @ 07/14/2022 9:23:19 AM (Electronically Signed)
[2022-07-14 07:55] LABS: PCR FLU A Negative PCR FLU A (Negative); PCR FLU B Negative PCR FLU B (Negative)
[2022-07-14 07:59] LABS: SARS PCR* Negative SARS-CoV-2 (Negative)
[2022-07-14] MEDS: PIPERACILLIN/TAZOBACTAM 3.375 GM in 0.9 % SODIUM CHLORIDE Mini-bag 100 ML IVPB ×3 (08:39→20:35)
--- NOTE | 2022-07-14 08:45 | W.PC.EDHO ---
Primary Language: Preferred Language: Orientation Status: [] Alert & Oriented [] Slight Confusion [] Known Dx Dementia Transfers By: [] Assist of 1 [] Assist of 2 [] Lift Active Medications Generic Name Dose Route Start Last Admin Trade Name Freq PRN Reason Stop Dose Admin Vancomycin HCl 1,250 mg/ 262.5 mls @ 175 mls/hr 07/14/22 08:15 07/14/22 08:17 Sodium Chloride IVPB 07/14/22 09:44 175 mls/hr ONCE ONE Administration Protocol Sodium Chloride 1,000 mls @ 1,000 mls/hr 07/14/22 07:50 07/14/22 08:29 0.9 % Sodium Chloride 1000 Ml IV 07/14/22 08:49 1,000 mls/hr .Q1H JASON Administration Discontinued Medications Generic Name Dose Route Start Last Admin Trade Name Freq PRN Reason Stop Dose Admin Sodium Chloride 1,000 mls @ 1,000 mls/hr 07/14/22 06:27 07/14/22 08:29 0.9 % Sodium Chloride 1000 Ml IV 07/14/22 07:26 Infused .Q1H JASON Infusion Piperacillin Sod/Tazobactam 100 mls @ 200 mls/hr 07/14/22 07:47 07/14/22 08:39 Sod 3.375 gm/ Sodium Chloride IVPB 07/14/22 07:48 200 mls/hr ONCE ONE Administration Description of Symptoms ED Triage Present Problem surgery 07/12 for L4-L5 decompression, Description medial facetectomy, disectomy of L3-L4 bilat. states fever 101.x. presents to this ED concerned of pain control and fever of 101.2. Pain Pain Description [Lower Medial Acute Back] Pain Intensity [Lower Medial 8 Back] Pain Intensity [Lower Medial 8 Back] Pain Intensity 7 Pain Intensity 7 Pain Intensity 7 Pain Scale Used [Lower Medial Clay-Griffith (Faces) Back] Pain Scale Used [Lower Medial Clay-Griffith (Faces) Back] Pain Scale Used Numeric (1 - 10) Pain Scale Used Clay-Griffith (Faces) Pain Scale Used Clay-Griffith (Faces) IV Insertion/Site Date of IV Line Insertion [ 07/14/22 Left Forearm] Date of IV Line Insertion [ 07/14/22 Right Wrist] Date of IV Line Insertion [ 07/14/22 Right Wrist] Oxygen Administration Pulse Oximetry 99 Pulse Oximetry 96 Pulse Oximetry 96 Pulse Oximetry 98 Pulse Oximetry 98 Oxygen Delivery Method Room Air Oxygen Delivery Method Room Air Oxygen Delivery Method Room Air Oxygen Delivery Method Room Air Cardiac Monitoring EKG Method 12 Lead
--- NOTE | 2022-07-14 09:24 | ED.NURSE ---
report was called to nikkie davis on m/s.
--- NOTE | 2022-07-14 09:27 | CRLHL7_ITS ---
For Patients: As a result of the 21st Century Cures Act, medical imaging exams and procedure reports are released immediately into your electronic medical record. You may view this report before your referring provider. If you have questions, please contact your health care provider. Indication: BACK PAIN, FOLLOW UP CT. LUMBAR LAMINECTOMY 07/12 Technique: Noncontrast sagittal and axial T1, T2, and sagittal STIR sequences are provided. Postcontrast sagittal and axial T1 weighted images were obtained after administration of 15 ml gadolinium based IV contrast. Comparison: CT lumbar spine 07/14/2022 Findings: There is straightening of cervical lordosis. Grade 1 anterolisthesis at L3-4. Vertebral body heights are maintained. No fracture. Laminectomy postoperative changes at L3-4 and L4-5. There is a epidural fluid collection at the measuring 5 cm craniocaudal that demonstrates mild rim enhancement there are 5 lumbar-type vertebral bodies. The conus medullaris is normal in signal and located at L1. Partially visualized exophytic right renal cyst T12-L1: No significant spinal canal stenosis or neural foramen narrowing. L1-2: No significant spinal canal stenosis or neural foramen narrowing. L2-3: Mild disc bulge. Mild spinal canal stenosis. Small subdural hematoma on the right side. No neural foramina narrowing L3-4: Laminectomy postoperative changes. Discectomy postoperative changes. There is an epidural fluid collection resulting in severe effacement of the thecal sac. Mild neural foramen narrowing bilaterally L4-5: Laminectomy postoperative changes. Epidural fluid collections result in severe effacement of the thecal sac. Moderate left and mild right neural foramen narrowing L5-S1: Disc bulge. Moderate left facet arthrosis. Mild right neural foramina narrowing. Findings called to Dr. Blandon at 12:52 pm Impression : 1. Postoperative changes of laminectomies at L3-4 and L4-5, and discectomy at L3-4. Epidural fluid collection at the laminectomy sites measuring 5 cm craniocaudal results in severe effacement of the thecal sac at the L3-4 and L4-5 levels. The collection demonstrates rim enhancement and could represent epidural hematoma or infected collection/abscess. Small subdural hematoma on the right side at L2-3 level. Small fluid collection tracking along the incision site to the skin surface without significant mass effect. 2. Enhancement of the epidural space at the L3-4 level likely due to posttreatment changes and venous engorgement 3. Moderate left and mild right neural from narrowing L4-5 and mild bilateral neural from narrowing at L3-4. Dictated by Nik Colon MD @ 07/14/2022 12:56:41 PM (Electronically Signed)
--- NOTE | 2022-07-14 10:41 | P.IMHP_ITS ---
Hospitalist- H&P: HPI History of Present Illness Date Seen: 07/14/22 Chief complaint: Post Op fever Narrative: Hugo La is a 81 year old male who presented to the Emergency Room this morning for evaluation of a fever. Mr. La has been checking his temperature at home, since he began feeling poorly last night. His T-max at home was 101.6 orally. He was discharged from [facility] yesterday after an uncomplicated bilateral decompression at L4-L5, hemilaminotomy/discectomy bilaterally at L3-L4 by Dr. Kevin Perry (performed 07/12). There were no operative or anesthetic complications noted during stay. ER Course and Findings: - Tmax of 102.2 - normal lactate, WBC 10.8 with PMN predominance - reassuring UA and CXR - CT results below (MRI recommended) - ER physician discussed the case with Dr. Perry's assistant printer floor covering, who did not feel that patient required transfer to [facility] for further workup/treatment - Zosyn and Vancomycin initiated Patient has a history of coronary artery disease, he had 2 stents placed in 2007 and is on lifelong Plavix per Cardiology. He is also a non-insulin dependent type 2 diabetic. His last A1c was 7.0 Other medical conditions include and essential hypertension, hyperlipidemia, DJD of knee, and spinal stenosis of lumbar region as noted above. Previous surgeries include a rate TKA, coronary stent placement, cataract extractions, inguinal hernia repairs. He has never had anesthetic or operative complications. 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 He is a nonsmoker, nonETOH user, fully COVID vaccinated. Daughter Lara Anthony would be medical decision maker if needed, he requests Full Code status. Review of Systems Status of ROS: Reports: 10 or more systems reviewed and unremarkable except as noted in History and below Narrative: + Urinary frequency. Specifically denies: headache, tooth pain, chest pain, cough, dyspnea, dysuria, diarrhea, or abdominal pain. No skin concerns or rashes. No recent dental visits. [facility] Medical History Anemia of unknown etiology BPH with urinary obstruction CAD (coronary artery disease) Coronary artery disease involving chitimacha coronary artery of chitimacha heart without angina pectoris DJD (degenerative joint disease) of knee Herniation of nucleus pulposus, lumbar Hyperlipidemia Hypertension Loose right total knee arthroplasty Onychomycosis Spinal stenosis, lumbar region with neurogenic claudication Type 2 diabetes mellitus Vitamin B12 deficiency Surgical History (Updated 07/14/22 @ 14:23 by Mikala Blandon MD) H/O inguinal hernia repair H/O right knee surgery History of coronary artery stent placement History of laminectomy History of lumbar discectomy History of tonsillectomy Status post cataract extraction of both eyes with insertion of intraocular lens Social History Highest level of school completed/degree received: Doctoral degree Smoking Status: Never smoker Do you use any of these nicotine containing products: None Second hand tobacco smoke exposure: No How often do you have a drink containing alcohol: never How often do you have six or more drinks on one occasion: Never AUDIT-C Alcohol total score: 0 Non-prescribed substance use: denies use Caffeine: Yes Meds Home Medications and Allergies Home Medications Medication Instructions Recorded Confirmed Type acetaminophen 500 mg capsule 1,000 mg PO Q6H PRN 07/14/22 07/14/22 History amlodipine 10 mg tablet 10 mg PO DAILY 07/14/22 07/14/22 History aspirin 81 mg tablet,delayed 81 mg PO DAILY 07/14/22 07/14/22 History release (Adult Aspirin Regimen) atorvastatin 20 mg tablet 20 mg PO HS 07/14/22 07/14/22 History blood sugar diagnostic (Contour 07/14/22 07/14/22 History Next Test Strips) clopidogrel 75 mg tablet 75 mg PO DAILY 07/14/22 07/14/22 History cyanocobalamin (vitamin B-12) 1,000 mcg PO DAILY 07/14/22 07/14/22 History 1,000 mcg tablet glimepiride 2 mg tablet 2 mg PO BID 07/14/22 07/14/22 History lisinopril 20 mg tablet 20 mg PO HS 07/14/22 07/14/22 History metformin 1,000 mg tablet 1,000 mg PO BIDWM 07/14/22 07/14/22 History methocarbamol 750 mg tablet 750 mg PO Q6H PRN 07/14/22 07/14/22 History metoprolol succinate 100 mg 100 mg PO HS 07/14/22 07/14/22 History tablet,extended release 24 hr nitroglycerin 0.4 mg sublingual 0.4 mg sublingual Q5M PRN 07/14/22 07/14/22 History tablet oxycodone 10 mg tablet 10 mg PO Q4H PRN 07/14/22 07/14/22 History tamsulosin 0.4 mg capsule 0.4 mg PO DAILY 07/14/22 07/14/22 History Home Medication Comments: Confirmed - Oxycodone is new (postoperatively). Holding Plavix postoperatively. Allergies Allergy/AdvReac Type Severity Reaction Status Date / Time No Known Drug Allergies Allergy Verified 07/14/22 05:53 Exam Narrative: Exam Narrative: GEN: Alert HEENT: Normal external ears, EOMIs bilaterally, no scleral icterus CV: RRR, soft systolic murmur without concerning features or radiation R: LCTA bilaterally without concerning wheezing, rales, or rhonchi Back: Mild blood-tinged drainage from surgical wound, no crepitus over this area. + ttp Ext: wwp, no concerning edema. No back discomfort with straight leg raise Skin: No concerning skin lesions or rashes on exposed skin Neuro: Nonfocal Psych: Appropriate Const: Vital Signs, click to edit/add: Vital Signs - 24 hr 07/14/22 05:48 07/14/22 05:48 07/14/22 06:40 Temperature 102.2 F H 102.2 F H 102.2 F H Pulse Rate Pulse Rate [Left P ulse Oximeter] 105 H 105 H Pulse Rate [Right Pulse Oximeter] 95 Respiratory Rate 16 16 16 Blood Pressure Blood Pressure [Le ft Upper Arm] 141/66 H 141/66 H Blood Pressure [Ri ght Arm] 141/66 H Pulse Oximetry 98 98 96 [facility] Room Air Room Air 07/14/22 06:31 07/14/22 07:00 07/14/22 07:30 Temperature 100 F H Pulse Rate 84 Pulse Rate [Left P ulse Oximeter] 80 75 Pulse Rate [Right Pulse Oximeter] Respiratory Rate 24 Blood Pressure 133/58 L Blood Pressure [Le ft Upper Arm] 140/65 H Blood Pressure [Ri ght Arm] Pulse Oximetry 96 99 95 Oxygen Delivery La thod Room Air Room Air 07/14/22 08:50 07/14/22 10:02 Temperature 102.4 F H Pulse Rate Pulse Rate [Left P ulse Oximeter] 84 Pulse Rate [Right Pulse Oximeter] 92 Respiratory Rate 20 Blood Pressure Blood Pressure [Le ft Upper Arm] 131/67 Blood Pressure [Ri ght Arm] 137/62 Pulse Oximetry 98 96 Oxygen Delivery Me thod Room Air Room Air Hospitalist - H&P: Result Labs Labs: Short CBC 07/14/22 Range/Units 06:00 WBC 10.89 (4.50-11.00) K/uL Hgb 12.7 L (13.5-17.5) gm/dL Hct 37.9 (37.0-53.0) % Plt Count 205 (140-440) K/uL BMP 07/14/22 06:00 Sodium 138 Potassium 3.9 Chloride 102 Carbon Dioxide 24 BUN 11 Creatinine 0.7 Glucose 183 H Calcium 9.7 Liver Function 07/14/22 Range/Units 06:00 Total Bilirubin 0.7 (0.1-1.5) mg/dL AST 25 (12-35) U/L ALT 14 (4-50) U/L Alkaline Phosphatase 69 (40-150) U/L Albumin 4.2 (3.3-5.0) g/dL Urine 07/14/22 Range/Units 06:26 Urine Color Yellow (Yellow) Urine Appearance Clear (Clear) Urine pH 5.5 (5.0-8.5) Ur Specific Odin 1.015 (1.000-1.030) Urine Protein Negative (Negative) Urine Glucose (UA) Negative (Negative) [place] [address] Diagnostic Imaging Report Patient: Hugo La MR#: [id number] : 1940 Acct:[id number] Loc: [id number] Service Date: 07/14/[address]: Mikala Blandon M.D. Ordering Physician: Deyanira Hidalgo MD Date of Service: 07/14/22 Procedure(s): CT lumbar spine wo con Accession Number(s): [id number] cc: Deyanira Hidalgo MD; Terry Junior MD~ For Patients:? As a result of the Cures Act, medical imaging exams and procedure reports are released immediately into your electronic medical record.? You may view this report before your referring provider.? If you have questions, please contact your health care provider. Indication: LSPINE SURGERY ON THE 18TH FEVER AND PAIN Technique: Noncontrast axial CT of the lumbar spine with coronal and sagittal reformats are provided. Comparison: No prior studies are available for comparison at this institution. Findings: There is straightening of the lumbar spine alignment. Vertebral body heights are maintained. Bilateral laminectomy postoperative changes at L3-4 level. Few foci of gas in the dorsal epidural space at L3-4 and L4-5 levels.? No fractures. No lytic or blastic osseous lesion.? Bilateral laminectomy postoperative changes at L3-4 level. No suspicious fluid collection along the incision site. Accessory articulation between the left L5 transverse process and sacrum. Atherosclerotic calcifications in the abdominal aorta. Partially visualized exophytic right renal cyst T11-12: No significant spinal canal stenosis or neural foramen narrowing. Bilateral facet arthrosis T12-L1: No significant spinal canal stenosis or neural foramen narrowing. L1-2: No significant spinal canal stenosis or neural foramen narrowing. L2-3: Mild disc bulge. No significant spinal canal stenosis or neural foramen narrowing. L3-4: Bilateral laminectomy postoperative changes. Bilateral facet arthrosis. Disc bulge. Few foci of gas in the dorsal epidural space. Significantly limited evaluation of the spinal canal due to loss of soft tissue contrast and potentially due to the presence of epidural fluid collection. Mild neural foramen narrowing bilaterally. L4-5: Disc bulge. Moderate left and mild right facet arthrosis. Disc bulge. Mild spinal canal stenosis. Few foci of gas in the dorsal epidural space. There is loss of normal epidural fat attenuation at the L4-5 level as well which may be due to inflammation or fluid in the epidural space. Moderate neural foramen narrowing bilaterally. L5-S1: Moderate interspace narrowing. Disc bulge. Moderate facet arthrosis. No significant spinal canal stenosis. Moderate neural foramen narrowing bilaterally. Impression: 1. Bilateral laminectomy postoperative changes at L3-4 level. Few foci of gas in the dorsal epidural space at L3-4 and L4-5 levels. Significantly limited evaluation of the spinal canal due to loss of soft tissue contrast and potentially due to the presence of epidural fluid collection. There is loss of normal epidural fat attenuation at the L4-5 level as well which may be due to inflammation or postoperative fluid in the epidural space. MRI lumbar spine is offered for further evaluation. 2. Moderate bilateral neural foramen narrowing at L4-5 and L5-S1. 3. No fractures. No aggressive osseous lesions Please note that all CT scans at this facility use dose modulation, iterative reconstruction, and/or weight-based dosing when appropriate to reduce radiation dose to as low as reasonably achievable. Dictated by Nik Colon MD @ 07/14/2022 9:23:19 AM (Electronically Signed) Assessment and Plan Assessment and plan (1) Fever of unknown origin: Status: Acute Assessment and Plan: - reassuring UA and chest x-ray in the ER. Negative COVID and influenza. - MRI results below - vancomycin and Zosyn initiated in the ER, will continue these given unknown fever origin and radiographic concern for infection on MRI - will also obtain BLE ultrasounds to evaluate for DVT and obtain TTE given murmur (2) History of lumbar discectomy: Problem comment: bilateral L3-L4, 07/12/22 Status: Acute Assessment and Plan: - MRI obtained: exhibits an epidural fluid collection at laminectomy sites measuring 5cm craniocaudal, resulting in severe effacement of the thecal sac at L3-L4 and L4-L5 levels, epidural hematoma vs abscess - discussed the case with Dr. Turner at [facility], he felt that the fluid collection represented blood given recent surgery. He did not feel that patient required antibiotic therapy or repeat imaging - continue to follow clinically (3) Type 2 diabetes mellitus: Status: Acute Assessment and Plan: - accuchecks and SSI Plan - per above - Lovenox for ppx - continue home medications for comorbidities as noted above - Full Code
[2022-07-14] MEDS: MORPHINE 4 MG/ML INJ IVP ×3 (10:50→19:49)
[2022-07-14] MEDS: ACETAMINOPHEN 325 MG TABLET 975 MG PO (10:51)
--- NOTE | 2022-07-14 14:30 | PC.NURSE ---
End of Shift Note: Patient was admitted this am from the ER. Patient was recently at [facility] for back surgery. Comes to us today for pain and fever. See MAR for medications given for pain and fever. He is moving a lot better since he had pain medication. he did go down for a MRI which he was able to tolerate also after having pain medication. Does appear to have trouble urinating only voids a very small amount. Will continue to monitor.
--- NOTE | 2022-07-14 14:45 | CRLHL7_ITS ---
For Patients: As a result of the Century Cures Act, medical imaging exams and procedure reports are released immediately into your electronic medical record. You may view this report before your referring provider. If you have questions, please contact your health care provider. INDICATION: FUO, LEG PAIN, RECENT SX TECHNIQUE: Ultrasound venous duplex lower extremity bilateral. Compression venous exam was performed using lópez scale, color Doppler, and spectral Doppler imaging. COMPARISON: None. FINDINGS: Sonographic imaging demonstrates the common femoral, deep femoral, superficial femoral, popliteal, posterior tibial and greater saphenous veins to be fully compressible with normal color Doppler blood flow in both lower extremities. IMPRESSION: Normal bilateral lower extremity venous ultrasound, no sign of deep venous thrombosis. Dictated by: Nik Aguilar MD @ 07/14/2022 15:53:19 (Electronically Signed)
[2022-07-14 15:17] LABS: Procalcitonin* 0.16 ng/mL (<0.50)
[2022-07-14] MEDS: OXYCODONE 5 MG TABLET PO (17:11)
[2022-07-14] MEDS: ACETAMINOPHEN 500 MG TABLET PO (17:25)
--- NOTE | 2022-07-14 19:34 | PC.NURSE ---
Patient has temp of 100.6 upon assessment. Tylenol given as ordered with some releif. PRN oxycodone/morphine given for back pain. Pt up to the BR freqently with SBA and walker.
[2022-07-14] MEDS: SODIUM CHLORIDE 0.9 % (FLUSH) 10 ML SYRINGE IVF ×2 (20:35→20:36)
[2022-07-14] MEDS: METOPROLOL SUCCINATE (XL) 100 MG TAB PO (20:36)
[2022-07-14] MEDS: ATORVASTATIN 10 MG TABLET 20 MG PO (20:36)
[2022-07-14] MEDS: TAMSULOSIN HCL 0.4 MG CAPSULE PO (20:36)
[2022-07-14] MEDS: lisinopriL 20 MG TABLET PO (20:36)
[2022-07-14] MEDS: ENOXAPARIN 40 MG/0.4 ML INJ SUBCUT (20:37)
[2022-07-15] VITALS (14 sets, daily range): BP systolic 103–133; BP diastolic 41–55; PULSE 71–78; RESP 16–18; TEMP 36.7–39.3; O2SAT 91–99
[2022-07-15] MEDS: PIPERACILLIN/TAZOBACTAM 3.375 GM in 0.9 % SODIUM CHLORIDE Mini-bag 100 ML IVPB ×4 (02:28→20:09)
[2022-07-15] MEDS: ACETAMINOPHEN 500 MG TABLET PO ×3 (03:46→23:06)
--- NOTE | 2022-07-15 05:32 | PC.NURSE ---
pt complained of pain of 7 and discomfort but unable to specify the ;location of pain. Asked to go to bathroom but unable to urinate. Bladder scan performed recorded 795 ml. Straight catheter done and 1150 ml of clear urine drained. Pt verbalized feeling comfortable and refused PRN pain medication. At 0230, temperature recorded 102.8. PRN Tylenol 500 mg given. Drainage to the dressing of lower back remained within the port gamble. A1, ROSANNE rosas.
[2022-07-15 08:03] LABS: Basophils Absolute Auto 0.02 K/uL (0.00-0.30); Basophils Percent Auto 0.2 % (0.0-3.0); Eosinophils Absolute Auto 0.08 K/uL (0.00-0.50); Eosinophils Percent Auto 0.8 % (0.0-7.0); Hematocrit 32.7 % (37.0-53.0); Hemoglobin* 10.9 gm/dL (13.5-17.5); Immature Granulocytes Abs Auto 0.02 K/uL (0.00-0.30); Lymphocytes Percent Auto 12.5 % (20-44); Mean Corpuscular HGB Conc 33 gm/dL (32-36); Mean Corpuscular Hemoglobin 29 pg (26-34); Mean Corpuscular Volume 87 fL (80-100); Monocytes Percent Auto 7.8 % (0.0-11.0); Neutrophils Percent Auto 78.5 % (42.0-72.0); Platelet Count* 158 K/uL (140-440); RDW Coefficient of Variation % 13.5 % (11.5-15.5); Red Blood Count 3.77 m/uL (4.30-5.90); White Blood Count* 9.89 K/uL (4.50-11.00)
[2022-07-15 08:04] LABS: Lactate* 0.9 mmol/L (0.5-1.9)
--- NOTE | 2022-07-15 08:04 | PM.IMPN1 ---
Progress Note: A&P Assessment and plan (1) Fever of unknown origin: Status: Acute Assessment and Plan: - source unclear, although concern for abscess on admission MRI. Surgeon felt that fluid collection represented a postoperative hematoma, not an abscess. - Blood cultures are currently no growth to date, chest x-ray and TTE reassuring, no DVT in bilateral lower extremity ultrasounds. - lactate and procalcitonin within normal limits, reassuring - Fever continues to wax and wane, blood pressure on the lower side this morning without any tachycardia, will initiate IV fluids and follow closely - Continue Vancomycin and Zosyn while awaing formal culture results (2) History of lumbar discectomy: Problem details: bilateral L3-L4, 07/12/22 Status: Acute (3) Type 2 diabetes mellitus: Status: Acute Assessment and Plan: - continue Accu-Cheks and sliding scale insulin (4) CAD (coronary artery disease): Problem details: PCI x2 2007, lifelong Plavix per Cardiology (holding postop until 07/17). Status: Acute Assessment and Plan: - quiescent Plan - per above - Lovenox for prophylaxis - restart Plavix on 07/17 - PT and OT - patient lives with son locally, plans to go back to his home when medically stable Subjective Date Seen: 07/15/22 Interval history: Tmax 102.8 overnight. Patient has no concerns for me this morning. His back pain from admission has improved. He has no chest pain or dyspnea. Echocardiogram performed yesterday, results below. Bilateral lower extremity ultrasounds negative for DVT. Hemoglobin 10.9 (12.7 on admission), white blood count 9 with PMN predominance. TTE Final Impressions: 1. Technically limited exam. 2. Normal left ventricular size, normal wall thickness, normal global systolic function, calculated EF of 74 %. 3. Right ventricular cavity size is normal, global systolic RV function is normal. 4. Moderately enlarged left atrium. 5. The aortic valve is calcified, mild stenosis and trivial regurgitation. 6. The mitral valve is normal, trace mitral regurgitation. 7. Tricuspid valve is normal. 8. Mildly increased estimated pulmonary pressures by tricuspid regurgitation velocity and right atrial pressure (33 mmHg plus RAP). 9. No pericardial effusion. Exam Narrative: Exam Narrative: GEN: Alert HEENT: Normal external ears, EOMIs bilaterally, no scleral icterus CV: RRR, No concerning murmurs, rubs, or gallops R: LCTA bilaterally without concerning wheezing, rales, or rhonchi Ext: wwp, no concerning edema Skin: No concerning skin lesions or rashes on exposed skin Neuro: Nonfocal Psych: Appropriate Const: Vital Signs, click to edit/add: Vital Signs - 24 hr 07/14/22 08:50 07/14/22 10:02 07/14/22 10:51 Temperature 102.4 F H 102.4 F H Pulse Rate Pulse Rate [Left P ulse Oximeter] 84 Pulse Rate [Right Pulse Oximeter] 92 Respiratory Rate 20 Blood Pressure [Le ft Upper Arm] 131/67 Blood Pressure [Ri ght Arm] 137/62 Pulse Oximetry 98 96 Oxygen Delivery Me thod Room Air Room Air 07/14/22 10:29 07/14/22 12:40 07/14/22 17:25 Temperature 99.4 F 100.6 F H Pulse Rate 73 Pulse Rate [Left P ulse Oximeter] Pulse Rate [Right Pulse Oximeter] Respiratory Rate Blood Pressure [Le ft Upper Arm] Blood Pressure [Ri ght Arm] Pulse Oximetry Oxygen Delivery Me thod 07/14/22 15:00 07/14/22 15:00 07/14/22 19:36 Temperature 100.6 F H 100.1 F H Pulse Rate Pulse Rate [Left P ulse Oximeter] Pulse Rate [Right Pulse Oximeter] 93 93 84 Respiratory Rate 20 20 18 Blood Pressure [Le ft Upper Arm] Blood Pressure [Ri ght Arm] 146/65 H 120/55 L Pulse Oximetry 98 95 Oxygen Delivery Me thod Room Air Room Air 07/14/22 15:00 07/14/22 23:50 07/14/22 23:50 Temperature 98.2 F Pulse Rate 73 Pulse Rate [Left P ulse Oximeter] Pulse Rate [Right Pulse Oximeter] 88 88 Respiratory Rate 20 20 Blood Pressure [Le ft Upper Arm] Blood Pressure [Ri ght Arm] 134/64 Pulse Oximetry 96 Oxygen Delivery Me thod Room Air 07/15/22 03:00 07/15/22 03:46 07/14/22 23:00 Temperature 102.8 F H 102.8 F H Pulse Rate 86 Pulse Rate [Left P ulse Oximeter] Pulse Rate [Right Pulse Oximeter] 77 Respiratory Rate 18 Blood Pressure [Le ft Upper Arm] Blood Pressure [Ri ght Arm] 120/55 L Pulse Oximetry 91 Oxygen Delivery Me thod Room Air 07/15/22 04:42 Temperature 99.7 F H Pulse Rate Pulse Rate [Left P ulse Oximeter] Pulse Rate [Right Pulse Oximeter] Respiratory Rate Blood Pressure [Le ft Upper Arm] Blood Pressure [Ri ght Arm] Pulse Oximetry Oxygen Delivery Me thod Labs Labs: Laboratory Results - last 24 hr 07/14/22 06:00 Procalcitonin 0.16
[2022-07-15 08:08] LABS: Slide Review Reflex No
[2022-07-15] MEDS: SODIUM CHLORIDE 0.9 % (FLUSH) 10 ML SYRINGE IVF ×2 (08:24→20:51)
[2022-07-15 08:25] LABS: Albumin* 3.2 g/dL (3.3-5.0); Chloride* 103 mmol/L (96-114); Sodium* 136 mmol/L (135-149)
[2022-07-15 08:26] LABS: Potassium* 3.5 mmol/L (3.6-5.1)
[2022-07-15 08:28] LABS: Bilirubin Total* 0.7 mg/dL (0.1-1.5); Creatinine* 0.7 mg/dL (0.5-1.5); Est. Creatinine Clearance* 53.17; Estimated Glomerular Filt Rate 93 ml/min
[2022-07-15 08:29] LABS: Alanine Aminotransferase* 10 U/L (4-50); Alkaline Phosphatase* 55 U/L (40-150); Aspartate Amino Transferase* 17 U/L (12-35); Blood Urea Nitrogen* 11 mg/dL (7-30); Calcium* 8.5 mg/dL (8.4-10.6); Carbon Dioxide* 23 mmol/L (20-32); Glucose* 155 mg/dL (60-115); Total Protein* 5.9 g/dL (6.0-8.3)
[2022-07-15 08:47] LABS: C Reactive Protein* 25.1 mg/dL (0.5-1.0)
[2022-07-15] MEDS: TAMSULOSIN HCL 0.4 MG CAPSULE PO (09:11)
--- NOTE | 2022-07-15 10:11 | NUTR.NU ---
VIPULN with nutrition screen related to diabetic diet and hx of diabetes type 2. RDN visited with patient whom reported he has been managing his diabetes well at home. He reports his recent A1C level was ~6.7%. RDN offered diet education related to diabetes, however he declined at this time. RDN encourage patient to let staff know if he has any questions or concerns.
[2022-07-15] MEDS: 0.9 % SODIUM CHLORIDE 1000 ml 1,000 ML 125 ML IV ×2 (11:04→18:57)
[2022-07-15] MEDS: OXYCODONE 5 MG TABLET PO ×2 (15:27→20:10)
[2022-07-15 15:37] LABS: Erythrocyte SedimentationRate* 40 mm/hr (2-15)
--- NOTE | 2022-07-15 17:25 | PC.NURSE ---
Addendum entered by Joie Nguyen RN 07/15/22 19:18: Patient refusing PRN docusate , passing gas frequently, bowel sounds active. Reyes cath placed @ 1840 due to poor urine output. Original Note: Shift Summary: Patient pleasant and cooperative. Denied back pain most of day, c/o pain 5/10 x1, relieved with PRN oxycodone. Patient voiding small amounts, bladder scan done around 1500 and showed 444cc, patient refusing straight cath, verbalized he's still having pain from when he last had a straight cath placed, the pain is causing him to hold his urine. Has voided since bladder scan. Bp soft earlier with poor urine output, updated and ordered IV fluids. T-max 100.4, managed with PRN acetaminophen and encouraged oral fluid intake. Up with SBA and walker. Tolerating regular diet.
[2022-07-15] MEDS: MORPHINE 4 MG/ML INJ IVP (18:28)
[2022-07-15] MEDS: lidocaine HCL 2 % JELLY (TOP) STERILE 6 ML UR (18:31)
[2022-07-15] MEDS: ENOXAPARIN 40 MG/0.4 ML INJ SUBCUT (20:47)
[2022-07-15] MEDS: ATORVASTATIN 10 MG TABLET 20 MG PO (20:49)
[2022-07-15] MEDS: METOPROLOL SUCCINATE (XL) 100 MG TAB PO (20:50)
[2022-07-16] VITALS (9 sets, daily range): BP systolic 113–146; BP diastolic 50–73; PULSE 63–91; RESP 16–18; TEMP 37–37.5; O2SAT 93–97
[2022-07-16] MEDS: PIPERACILLIN/TAZOBACTAM 3.375 GM in 0.9 % SODIUM CHLORIDE Mini-bag 100 ML IVPB ×4 (02:34→20:42)
[2022-07-16] MEDS: 0.9 % SODIUM CHLORIDE 1000 ml 1,000 ML 125 ML IV (04:48)
--- NOTE | 2022-07-16 06:40 | PC.NURSE ---
END OF SHIFT NOTE: PT PLEASANT AND COOPERATIVE WITH CARES. PT ANXIOUS ABOUT MEDICATIONS. THIS NURSE UTILIZED THERAPEUTIC COMMUNICATION TO EDUCATE PT AND EASE NERVES; THIS WAS EFFECTIVE. PT RATES LOWER BACK PAIN 0/10 AT REST AND 5/10 WITH MOVEMENT. PRN OXYCODONE GIVEN AT HS TO RELIEVE BACK PAIN AND ALLOW PT TO SLEEP. PRN TYLENOL ADMINISTERED FOR SLIGHTLY ELEVATED TEMP OF 100.2. PT TEMP 99.5, 99.6.
[2022-07-16 07:15] LABS: Lactate* 0.7 mmol/L (0.5-1.9)
[2022-07-16 07:18] LABS: Basophils Absolute Auto 0.02 K/uL (0.00-0.30); Basophils Percent Auto 0.3 % (0.0-3.0); Eosinophils Absolute Auto 0.13 K/uL (0.00-0.50); Eosinophils Percent Auto 1.8 % (0.0-7.0); Hematocrit 29.3 % (37.0-53.0); Hemoglobin* 9.8 gm/dL (13.5-17.5); Immature Granulocytes Abs Auto 0.02 K/uL (0.00-0.30); Mean Corpuscular HGB Conc 33 gm/dL (32-36); Mean Corpuscular Hemoglobin 29 pg (26-34); Mean Corpuscular Volume 86 fL (80-100); Monocytes Percent Auto 8.1 % (0.0-11.0); Neutrophils Percent Auto 78.5 % (42.0-72.0); Platelet Count* 149 K/uL (140-440); RDW Coefficient of Variation % 13.3 % (11.5-15.5); Red Blood Count 3.42 m/uL (4.30-5.90); White Blood Count* 7.15 K/uL (4.50-11.00)
[2022-07-16 07:32] LABS: Slide Review Reflex No
[2022-07-16 07:35] LABS: Albumin* 2.9 g/dL (3.3-5.0); Chloride* 104 mmol/L (96-114); Sodium* 134 mmol/L (135-149)
[2022-07-16 07:36] LABS: Potassium* 3.3 mmol/L (3.6-5.1)
[2022-07-16 07:37] LABS: Creatinine* 0.6 mg/dL (0.5-1.5); Est. Creatinine Clearance* 53.17; Estimated Glomerular Filt Rate 98 ml/min
[2022-07-16 07:38] LABS: Alanine Aminotransferase* 9 U/L (4-50); Alkaline Phosphatase* 51 U/L (40-150); Aspartate Amino Transferase* 15 U/L (12-35); Bilirubin Total* 0.5 mg/dL (0.1-1.5); Blood Urea Nitrogen* 8 mg/dL (7-30); Carbon Dioxide* 19 mmol/L (20-32); Total Protein* 5.6 g/dL (6.0-8.3)
[2022-07-16 07:39] LABS: Calcium* 7.7 mg/dL (8.4-10.6); Glucose* 138 mg/dL (60-115)
[2022-07-16 07:52] LABS: C Reactive Protein* 20.1 mg/dL (0.5-1.0)
[2022-07-16 08:25] LABS: Erythrocyte SedimentationRate* 58 mm/hr (2-15)
[2022-07-16] MEDS: AMLODIPINE 10 MG TABLET PO (08:30)
[2022-07-16] MEDS: TAMSULOSIN HCL 0.4 MG CAPSULE PO (08:30)
[2022-07-16] MEDS: SODIUM CHLORIDE 0.9 % (FLUSH) 10 ML SYRINGE IVF ×2 (08:31→20:56)
[2022-07-16] MEDS: OXYCODONE 5 MG TABLET PO ×4 (08:31→22:16)
--- NOTE | 2022-07-16 14:54 | P.IMPN_ITS ---
Progress Note: A&P Assessment and plan (1) Fever of unknown origin: Status: Acute Assessment and Plan: ?- concern for abscess on admission MRI.? Surgeon felt that fluid collection represented postoperative hematoma, not abscess. ?- Blood cultures remain no growth to date, chest x-ray and TTE reassuring, no DVT on bilateral lower extremity ultrasounds. ?- lactate and procalcitonin within normal limits, reassuring ?- Fever continues, last noted 07/15 am ?- Continue Vancomycin and Zosyn (2) History of lumbar discectomy: Problem details: bilateral L3-L4, 07/12/[address] Perry at [facility] Status: Acute (3) Type 2 diabetes mellitus: Status: Acute Assessment and Plan: - sugars 150-200 (4) CAD (coronary artery disease): Problem details: PCI x2 2007, lifelong Plavix per Cardiology (holding postop until 07/17). Status: Acute Assessment and Plan: - restart Plavix 07/17 (5) Urinary retention: Status: Acute Assessment and Plan: - discussed indications for catheter; after discussion, patient is amenable to removing this today. He was able to urinate after removal without difficulty - continue Flomax Subjective Date Seen: 07/16/22 Interval history: Tmax 100.2 overnight. Hemoglobin 9.8 (12.7 on admission, then 10.9) Back pain continues to improve. Mr. La had some urinary retention requiring catheterization on hospital night 1, requested a maynard last night. TTE Final Impressions: 1. Technically limited exam. 2. Normal left ventricular size, normal wall thickness, normal global systolic function, calculated EF of 74 %. 3. Right ventricular cavity size is normal, global systolic RV function is normal. 4. Moderately enlarged left atrium. 5. The aortic valve is calcified, mild stenosis and trivial regurgitation. 6. The mitral valve is normal, trace mitral regurgitation. 7. Tricuspid valve is normal. 8. Mildly increased estimated pulmonary pressures by tricuspid regurgitation velocity and right atrial pressure (33 mmHg plus RAP). 9. No pericardial effusion. Exam Narrative: Exam Narrative: GEN: Alert HEENT: Normal external ears, EOMIs bilaterally CV: RRR, soft systolic murmur without concerning features R: LCTA bilaterally without concerning wheezing, rales, or rhonchi Back: Surgical wound covered with no change to dressing (small amount of blood tinged fluid), no crepitus to area around wound, no fluid collection or tenderness to palpation over incision site Ext: wwp, no concerning edema Skin: No concerning skin lesions or rashes on exposed skin Neuro: Nonfocal Psych: Appropriate Const: Vital Signs, click to edit/add: Vital Signs - 24 hr 07/15/22 15:30 07/15/22 16:11 07/15/22 20:00 Temperature 98.4 F 99.1 F Pulse Rate 78 Pulse Rate [Right Pulse Oximeter] 74 78 Respiratory Rate 16 18 Blood Pressure [Ri ght Arm] 120/55 L 133/54 L Pulse Oximetry 99 98 Oxygen Delivery Me thod Room Air Room Air 07/15/22 23:06 07/15/22 23:00 07/15/22 23:00 Temperature 100.2 F H 100.2 F H Pulse Rate Pulse Rate [Right Pulse Oximeter] 71 71 Respiratory Rate 16 16 Blood Pressure [Ri ght Arm] 116/44 L Pulse Oximetry 95 Oxygen Delivery Me thod Room Air 07/16/22 00:45 07/16/22 00:10 07/16/22 03:00 Temperature 99.5 F 99.5 F Pulse Rate 63 Pulse Rate [Right Pulse Oximeter] 69 Respiratory Rate 16 Blood Pressure [Ri ght Arm] 113/50 L Pulse Oximetry 94 Oxygen Delivery Me thod Room Air 07/16/22 08:01 07/16/22 09:16 07/16/22 11:40 Temperature 98.6 F 98.9 F Pulse Rate 91 Pulse Rate [Right Pulse Oximeter] 78 69 Respiratory Rate 18 18 Blood Pressure [Ri ght Arm] 146/58 H 125/57 L Pulse Oximetry 95 93 Oxygen Delivery Me thod Room Air Room Air Labs Labs: Laboratory Results - last 24 hr 07/15/22 07/16/22 07/16/22 07:50 07:03 07:03 WBC 7.15 RBC 3.42 L Hgb 9.8 L Hct 29.3 L MCV 86 MCH 29 MCHC 33 RDW Coeff of Poonam 13.3 Plt Count 149 Neut % (Auto) 78.5 H Lymph % (Auto) 11.0 L [place] % (Auto) 8.1 Eos % (Auto) 1.8 Baso % (Auto) 0.3 Neut # (Auto) 5.60 Lymph # (Auto) 0.80 L [place] # (Auto) 0.60 Eos # (Auto) 0.13 Baso # (Auto) 0.02 Abs Immat Gran (auto) 0.02 ESR 40 H 58 H Sodium Potassium Chloride Carbon Dioxide BUN Creatinine Estimated Creat Clear Estimated GFR Glucose Lactate Calcium Total Bilirubin AST ALT Alkaline Phosphatase C-Reactive Protein Total Protein Albumin 07/16/22 07/16/22 07:03 07:03 WBC RBC Hgb Hct MCV MCH MCHC RDW Coeff of Pooanm Plt Count Neut % (Auto) Lymph % (Auto) [place] % (Auto) Eos % (Auto) Baso % (Auto) Neut # (Auto) Lymph # (Auto) [place] # (Auto) Eos # (Auto) Baso # (Auto) Abs Immat Gran (auto) ESR Sodium 134 L Potassium 3.3 L Chloride 104 Carbon Dioxide 19 L BUN 8 Creatinine 0.6 Estimated Creat Clear 53.17 Estimated GFR 98 Glucose 138 H Lactate 0.7 Calcium 7.7 L Total Bilirubin 0.5 AST 15 ALT 9 Alkaline Phosphatase 51 C-Reactive Protein 20.1 H Total Protein 5.6 L Albumin 2.9 L
--- NOTE | 2022-07-16 17:13 | PC.NURSE ---
Addendum entered by Joie Nguyen RN 07/16/22 18:47: patient c/o nausea after dinner. ate 25% of pizza and stated it wasn't sitting well with him. Denied need for medication or aroma therapy patch at this time, accepted diet radha jean claude and placed back in bed in high fowlers. Original Note: Shift Summary: patient pleasant and cooperative. IV saline locked now, maynard cath removed this AM and patient has been voiding small frequent amounts. States pain with urination is much better compared to yesterday. Patient able to use urinal per self and calls staff when it needs to be emptied. Up walking in halls with SBA and walker. Dressing over lower back remains the same as yesterday.
[2022-07-16] MEDS: POTASSIUM CHLORIDE 10 MEQ CAPSULE ER 20 MEQ PO (17:41)
[2022-07-16] MEDS: ATORVASTATIN 10 MG TABLET 20 MG PO (20:54)
[2022-07-16] MEDS: METOPROLOL SUCCINATE (XL) 100 MG TAB PO (20:54)
[2022-07-16] MEDS: lisinopriL 20 MG TABLET PO (20:54)
[2022-07-16] MEDS: ENOXAPARIN 40 MG/0.4 ML INJ SUBCUT (20:56)
[2022-07-17] VITALS (7 sets, daily range): BP systolic 118–129; BP diastolic 43–65; PULSE 64–80; RESP 16–18; TEMP 36.9–37.6; O2SAT 94–97
[2022-07-17] MEDS: PIPERACILLIN/TAZOBACTAM 3.375 GM in 0.9 % SODIUM CHLORIDE Mini-bag 100 ML IVPB ×2 (02:37→08:35)
--- NOTE | 2022-07-17 06:11 | PC.NURSE ---
END OF SHIFT NOTE: PT PLEASANT AND COOPERATIVE. VSS ON RA; TEMP 99.3, 98.9, 99.6; LOWER BACK PAIN RATED 3-5/10 WITH RELIEF FROM PRN OXYCODONE x1. PT CONCERNED ABOUT DISCOMFORT WITH MICTURITION; NO HEMATURIA NOTED; PT ALL RECENTLY D/C?D (07/16). PT WALKED HALLWAY x1 THIS SHIFT.
[2022-07-17 07:23] LABS: Lactate* 1.2 mmol/L (0.5-1.9)
[2022-07-17 07:24] LABS: Basophils Absolute Auto 0.01 K/uL (0.00-0.30); Basophils Percent Auto 0.2 % (0.0-3.0); Eosinophils Absolute Auto 0.16 K/uL (0.00-0.50); Eosinophils Percent Auto 2.5 % (0.0-7.0); Hematocrit 31.3 % (37.0-53.0); Hemoglobin* 10.6 gm/dL (13.5-17.5); Immature Granulocytes Abs Auto 0.02 K/uL (0.00-0.30); Mean Corpuscular HGB Conc 34 gm/dL (32-36); Mean Corpuscular Hemoglobin 29 pg (26-34); Mean Corpuscular Volume 84 fL (80-100); Monocytes Percent Auto 8.6 % (0.0-11.0); Neutrophils Percent Auto 72.4 % (42.0-72.0); Platelet Count* 208 K/uL (140-440); Red Blood Count 3.71 m/uL (4.30-5.90)
[2022-07-17 07:31] LABS: Slide Review Reflex No
[2022-07-17 07:40] LABS: Chloride* 103 mmol/L (96-114); Potassium* 3.9 mmol/L (3.6-5.1); Sodium* 134 mmol/L (135-149)
[2022-07-17 07:43] LABS: Creatinine* 0.6 mg/dL (0.5-1.5); Est. Creatinine Clearance* 53.17; Estimated Glomerular Filt Rate 98 ml/min
[2022-07-17 07:44] LABS: Blood Urea Nitrogen* 7 mg/dL (7-30); Calcium* 8.5 mg/dL (8.4-10.6); Carbon Dioxide* 24 mmol/L (20-32); Glucose* 193 mg/dL (60-115)
[2022-07-17 08:02] LABS: C Reactive Protein* 17.3 mg/dL (0.5-1.0)
[2022-07-17] MEDS: AMLODIPINE 10 MG TABLET PO (08:35)
[2022-07-17] MEDS: TAMSULOSIN HCL 0.4 MG CAPSULE PO (08:35)
[2022-07-17] MEDS: CLOPIDOGREL 75 MG TABLET PO (08:35)
[2022-07-17] MEDS: POTASSIUM CHLORIDE 10 MEQ CAPSULE ER 20 MEQ PO ×2 (08:35→17:43)
[2022-07-17] MEDS: SODIUM CHLORIDE 0.9 % (FLUSH) 10 ML SYRINGE IVF ×2 (08:35→21:11)
[2022-07-17] MEDS: OXYCODONE 5 MG TABLET PO ×2 (08:43→16:33)
--- NOTE | 2022-07-17 14:48 | PM.IMPN1 ---
Progress Note: A&P Assessment and plan (1) Fever of unknown origin: Problem details: Differential diagnosis: Postoperative fever, abscess at surgical site, other unrelated conditions. Status: Acute Assessment and Plan: 1. Currently on piperacillin with tazobactam, plus vancomycin IV. 2. Will presently discontinue both of these medications and monitor his response. 3. If fever recurs, we may need to re-culture and restart antibiotics and possibly look for another source. 4. If fever does not recur, then he may be in a position to be discharged home possibly as early as tomorrow. (2) History of lumbar discectomy: Problem details: bilateral L3-L4, 07/12/[address] Perry at [facility] Status: Acute (3) Type 2 diabetes mellitus: Status: Acute Assessment and Plan: 1. Continue with monitoring and interventions. (4) CAD (coronary artery disease): Problem details: PCI x2 2007, lifelong Plavix per Cardiology (holding postop until 07/17). Status: Acute (5) Urinary retention: Status: Acute Assessment and Plan: This has been more of a problem since postoperative state. Plan 1. Patient agreeable with above stated plans and recommendations. 2. Patient it rates the entire history of how he eventually was admitted here to this hospital. I did recommend that he consider speaking with the patient advocate at [facility]. 3. Patient agreeable with above stated plans and recommendations. Time Spent With Patient Total time spent: 40 Subjective Time Seen by Provider: 12:00 Date Seen: 07/17/22 Interval history: Hospital day 4. He beginning to feel little better than when he 1st presented to the hospital. Has not had a fever in the last 24+ hours. Pain under slightly better control. Able to care for himself with more certainty and confidence now. Tolerating oral intake without nausea or vomiting. Passing stool and urine. Still has a sense of sudden urinary urgency which he is now able to respond to more appropriately such as by transferring himself from supine position in bed to sitting at bedside to standing at bedside and use the bedside urinal. Denies dyspnea at rest, paroxysmal nocturnal dyspnea, or orthopnea. Denies chest heaviness, pressure, tightness, or pain. Denies syncope, near syncope, orthostasis, lightheadedness. Exam Narrative: Exam Narrative: Appears comfortable and in no acute distress. Alert, oriented to self, place, time, situation. Rather talkative, articulate, cooperative. Mood and affect are congruent. Lungs remain clear to auscultation. Heart tones with regular rhythm, normal S1-S2. Abdomen with active bowel sounds, soft, nontender. No CVA discomfort. Extremities without edema. Skin is warm, dry, intact. Independent transfers, station, and gait. No focal motor neurologic symptoms or signs. Const: Vital Signs, click to edit/add: Vital Signs - 24 hr 07/16/22 15:35 07/16/22 20:50 07/16/22 23:10 Temperature 99 F 99.3 F Pulse Rate [Right Pulse Oximeter] 76 81 65 Respiratory Rate 16 18 18 Blood Pressure [Ri ght Arm] 124/54 L 142/73 H Pulse Oximetry 93 97 Oxygen Delivery Me thod Room Air Room Air 07/16/22 23:10 07/17/22 03:00 07/17/22 09:00 Temperature 98.9 F 99.6 F 98.5 F Pulse Rate [Right Pulse Oximeter] 65 67 72 Respiratory Rate 18 16 16 Blood Pressure [Ri ght Arm] 128/56 L 128/59 L 118/52 L Pulse Oximetry 97 94 94 Oxygen Delivery Me thod Room Air Room Air Room Air 07/17/22 12:00 Temperature 98.6 F Pulse Rate [Right Pulse Oximeter] 64 Respiratory Rate 16 Blood Pressure [Ri ght Arm] 129/58 L Pulse Oximetry 95 Oxygen Delivery Me thod Room Air Documenting provider has reviewed patient's vital signs: yes Labs Labs: Laboratory Results - last 24 hr 07/17/22 07/17/22 07/17/22 07:12 07:12 07:12 WBC 6.30 RBC 3.71 L Hgb 10.6 L Hct 31.3 L MCV 84 MCH 29 MCHC 34 RDW Coeff of Poonam 13.0 Plt Count 208 Neut % (Auto) 72.4 H Lymph % (Auto) 16.0 L [place] % (Auto) 8.6 Eos % (Auto) 2.5 Baso % (Auto) 0.2 Neut # (Auto) 4.60 Lymph # (Auto) 1.00 [place] # (Auto) 0.50 Eos # (Auto) 0.16 Baso # (Auto) 0.01 Abs Immat Gran (auto) 0.02 Sodium 134 L Potassium 3.9 Chloride 103 Carbon Dioxide 24 BUN 7 Creatinine 0.6 Estimated Creat Clear 53.17 Estimated GFR 98 Glucose 193 H Lactate 1.2 Calcium 8.5 C-Reactive Protein 17.3 H
--- NOTE | 2022-07-17 17:31 | PC.NURSE ---
Shift Summary: Patient pleasant and cooperative. Up independently in room, walks with SBA in hallway for safety. Pain well managed with T&R side to side in bed and PRN oxycodone. Voiding well today with minimal pain this morning. Tolerating regular diet, blood glucose elevated however patient refused insulin, education given on importance of managing blood glucose. Patients abdomen is distended and chart states no BM since 07/11, has been refusing stool softener for past three days, encouraged prune juice with meals and has been refusing as well. Bowel sounds active and passing gas, patient denies any abdominal pain. Given education on constipation treatment however patient still refuses treatment.
[2022-07-17] MEDS: ATORVASTATIN 10 MG TABLET 20 MG PO (21:05)
[2022-07-17] MEDS: METOPROLOL SUCCINATE (XL) 100 MG TAB PO (21:05)
[2022-07-17] MEDS: lisinopriL 20 MG TABLET PO (21:05)
[2022-07-17] MEDS: ENOXAPARIN 40 MG/0.4 ML INJ SUBCUT (21:06)
[2022-07-17] MEDS: ACETAMINOPHEN 500 MG TABLET PO (21:06)
[2022-07-18 01:30] VITALS: TEMP 36.8
[2022-07-18 03:00] VITALS: BP 131/53; PULSE 68; RESP 16; TEMP 37.5; O2SAT 95
--- NOTE | 2022-07-18 05:30 | PC.NURSE ---
END OF SHIFT NOTE: PT PLEASANT AND COOPERATIVE. USES BEDSIDE URINAL INDEPENDENTLY. AMBULATES WITH WALKER INDEPENDENTLY. VSS ON RA; TEMPS 98.2-99.7. PT DENIES CP, SOB, N/V. UNEVENTFUL NIGHT. PT STATES NO BM SINCE 07/11; PT REFUSED PRUNE JUICE AND STOOL SOFTENER. PT EDUCATED ON CONSTIPATION, INACTIVITY, INCREASED NARCOTIC MED USE. PT AGREED TO ?THINK ABOUT? HAVING PRUNE JUICE IN THE MORNING.
[2022-07-18 07:00] VITALS: BP 154/70; PULSE 77; RESP 16; RESP 18; TEMP 36.8; O2SAT 97
[2022-07-18] MEDS: POTASSIUM CHLORIDE 10 MEQ CAPSULE ER 20 MEQ PO (09:36)
[2022-07-18] MEDS: CLOPIDOGREL 75 MG TABLET PO (09:36)
[2022-07-18] MEDS: TAMSULOSIN HCL 0.4 MG CAPSULE PO (09:36)
[2022-07-18] MEDS: AMLODIPINE 10 MG TABLET PO (09:37)
[2022-07-18] MEDS: SODIUM CHLORIDE 0.9 % (FLUSH) 10 ML SYRINGE IVF (09:37)
[2022-07-18] MEDS: OXYCODONE 5 MG TABLET PO (09:42)
[2022-07-18] MEDS: lidocaine HCL 2 % JELLY (TOP) STERILE 6 ML UR (10:43)
[2022-07-18] MEDS: MORPHINE 4 MG/ML INJ IVP (10:57)
[2022-07-18 11:00] VITALS: BP 150/56; PULSE 78; RESP 18; TEMP 36.8; O2SAT 98
--- NOTE | 2022-07-18 11:24 | PC.NURSE ---
16F coude 30 cc catheter placed via sterile technique at 1100 with a total of 1075 clear yellow urine out with insertion. Towel Weaver emptied bag for 500 cc, clamped tube and allowed 20 minutes before emptying bladder. pt tolerated procedure well. oxy 5mg given 1 hr prior and morphine 4mg IV given just prior to insertin. Lidocaine jelly used and allowed to sit in urethra x15 minutes before procedure. a #20 IV was inserted to LAC for IV pain medication per patient request. Pt resting comfortably in bed after procedure. .
--- NOTE | 2022-07-18 11:29 | PC.SOCIAL ---
Met with pt. to discuss discharge plans. Pt. lives with his in their own home in [place]. Pt. had just discharged from [place] last week. Pt. states [facility] out of [place] was set up for nursing, PT and OT from his [place] discharge. Called [facility] at [phone] and they never opened pt. to home care as when they contacted pt. he was already back in the hospital in [place]. They need new orders to open pt. to home care but can send a nurse, PT and OT out. Orders to [facility] should be faxed to [phone]. Updated the physician that a new face to face order is needed.
--- NOTE | 2022-07-18 17:33 | PC.NURSE ---
Magaly RN to assist with d/c education. Reyes cath in place at d/c and reviewed changing to leg bag and proper cleaning techniques for cath. Son present at d/c. pt monique lane further concerns, Home health to follow up with cath. pt d/c'd at [phone]
--- NOTE | 2022-07-25 13:19 | PM.DS1 ---
DS: Providers Provider Time Seen by Provider: 10:00 Date Seen: 07/18/22 Date of admission: 07/14/22 10:29 Primary care physician: Terry Junior MD Admitting Clinician: Mikala Blandon MD Consults: 07/14/22 10:29 Consult to Physical Therapy [CONS] Routine Comment: Reason(s) for PT Consult:: Evaluate and Treat Any Restrictions?:: Wt Bearing as Tolerated 07/14/22 10:34 Consult to Occupational Therapy [CONS] Routine Comment: Reason(s) for OT Consult:: Evaluate and Treat Any Restrictions?:: Wt Bearing as Tolerated Attending Physician on discharge: Teodoro Jarrell MD Date of Discharge: 07/18/22 DS: Diagnosis Discharge Diagnosis (1) Fever of unknown origin: Status: Acute Problem details: Differential diagnosis: Postoperative fever, abscess at surgical site, other unrelated conditions. (2) History of lumbar discectomy: Status: Acute Problem details: bilateral L3-L4, 07/12/[address] Perry at [facility] (3) Urinary retention: Status: Acute Problem details: Occurred postoperatively status post neurosurgery on 07/12/2022. Reyes catheter placed 07/18/2022. (4) CAD (coronary artery disease): Status: Acute Problem details: PCI x2 2007, lifelong Plavix per Cardiology. Due to bleeding will hold antiplatelet therapy temporarily (5) Hypertension: Status: Acute Problem details: Blood pressure is relatively low so will withhold amlodipine for now (6) Type 2 diabetes mellitus: Status: Acute (7) Hyperlipidemia: Status: Acute DS: Summary Hospital Course Hospital Course: Hugo La is a 81 year old male who presented to the Emergency Room this morning for evaluation of a fever.? Mr. La has been checking his temperature at home, since he began feeling poorly last night.? His T-max at home was 101.6 orally. He was discharged from [facility] yesterday after an uncomplicated bilateral decompression at L4-L5, hemilaminotomy/discectomy bilaterally at L3-L4 by Dr. Kevin Perry (performed 07/12). There were no operative or anesthetic complications noted during stay. ER Course and Findings: ?- Tmax of 102.2 ?- normal lactate, WBC 10.8 with PMN predominance ?- reassuring UA and CXR ?- CT results below (MRI recommended) ?- ER physician discussed the case with Dr. Perry's neurosurgical nurse practitioner, who did not feel that patient required transfer to [facility] for further workup/treatment ?- Zosyn and Vancomycin initiated Patient has a history of coronary artery disease, he had 2 stents placed in 2007 and is on lifelong Plavix per Cardiology. He is also a non-insulin dependent type 2 diabetic.? His last A1c was 7.0 Other medical conditions include and essential hypertension, hyperlipidemia, DJD of knee, and spinal stenosis of lumbar region as noted above. Previous surgeries include a rate TKA, coronary stent placement, cataract extractions, inguinal hernia repairs.? He has never had anesthetic or operative complications. 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 He is a nonsmoker, nonETOH user, fully COVID vaccinated. Daughter Lara Anthony would be medical decision maker if needed, he requests Full Code status. ?- MRI obtained: exhibits an epidural fluid collection at laminectomy sites measuring 5cm craniocaudal, resulting in severe effacement of the thecal sac at L3-L4 and L4-L5 levels, epidural hematoma vs abscess ?- discussed the case with Dr. Turner at [facility], he felt that the fluid collection represented blood given recent surgery. He did not feel that patient required antibiotic therapy or repeat imaging - vancomycin and Zosyn initiated in the ER, will continue these given unknown fever origin and radiographic concern for infection on MRI. His fever resolved while in hospital. We then stopped the IV antibiotics. He continued to be afebrile thereafter. He had urinary retention on admission. Intial straight cath remarkable for post-void residual volume of 700 ml. Reyes cath placed, but removed within 24 hours. H again developed urinary retention with post-void residual volume of 900 ml. We placed Reyes cath again prior to discharge, and he will need follow-up with his primary care physician in next 5-10 days. We continued his Tamsulosin while in hospital. Urinanylis was unremarkable and urine culture has been negative while in hospital. Status at Discharge Functional status at discharge: independent ambulation Overall status at discharge: patient is progressing back to baseline Time Spent with Patient Time attestation: Total time spent providing and/or coordinating discharge services: Time spent: Greater than 30 minutes Exam Narrative: Exam Narrative: Appears comfortable and in no acute distress. Alert, oriented to self, place, time, situation.? Rather talkative, articulate, cooperative.? Mood and affect are congruent. Lungs remain clear to auscultation.? Heart tones with regular rhythm, normal S1-S2.? Abdomen with active bowel sounds, soft, nontender.? No CVA discomfort. Extremities without edema.? Skin is warm, dry, intact. Independent transfers, station, and gait. No focal motor neurologic symptoms or signs. Const: Documenting provider has reviewed patient's vital signs: yes Discharge Plan Discharge Disposition: Home Health Service Date of Admission: 07/14/22 10:29 Attending Provider on Discharge: Teodoro Jarrell Primary Care Provider: Terry Junior Condition: Improved Anticipated Discharge Date/Time: 07/18/22 15:30 Discharge Medications: New docusate sodium 100 mg Capsule 100 mg PO BID PRN (Reason: Constipation) 30 Days Qty: 100 0RF Continued methocarbamol 750 mg tablet 750 mg PO Q6H PRN oxycodone 10 mg tablet 10 mg PO Q4H PRN acetaminophen 500 mg capsule 1,000 mg PO Q6H PRN amlodipine 10 mg tablet 10 mg PO DAILY atorvastatin 20 mg tablet 20 mg PO HS clopidogrel 75 mg tablet 75 mg PO DAILY Hold Instructions: s/p surgery resume 07/17/22 Label Comments: start on 07/17/2022 cyanocobalamin (vitamin B-12) 1,000 mcg tablet 1,000 mcg PO DAILY glimepiride 2 mg tablet 2 mg PO BID lisinopril 20 mg tablet 20 mg PO HS metformin 1,000 mg tablet 1,000 mg PO BIDWM metoprolol succinate 100 mg tablet extended release 24 hr 100 mg PO HS nitroglycerin 0.4 mg tablet, sublingual 0.4 mg sublingual Q5M PRN tamsulosin 0.4 mg capsule 0.4 mg PO DAILY aspirin [Adult Aspirin Regimen] 81 mg tablet,delayed release (DR/EC) 81 mg PO DAILY No Action (DME) Contour Next Test Strips Strip MISCELLANEOUS Label Comments: USE 1 STRIP TO CHECK GLUCOSE TWICE DAILY ferrous sulfate 325 mg (65 mg iron) tablet,delayed release (DR/EC) 325 mg PO Q OTHER DAY Discharge Orders: Discharge Order (Routine); Ordered 07/18/22 Ordered By: Teodoro Jarrell Patient Education: Laxative, Stimulant Combination (By mouth), Urinary Retention in Men (GEN), Enlarged Prostate (BPH) (GEN), Fever in Adults (GEN), Reyes Catheter Placement and Care (GEN) Additional Instructions: Hugo La is a 81 year old male who presented to the Emergency Room this morning for evaluation of a fever.? Mr. La has been checking his temperature at home, since he began feeling poorly last night.? His T-max at home was 101.6 orally. He was discharged from [facility] yesterday after an uncomplicated bilateral decompression at L4-L5, hemilaminotomy/discectomy bilaterally at L3-L4 by Dr. Kevin Perry (performed 07/12). There were no operative or anesthetic complications noted during stay. ER Course and Findings: ?- Tmax of 102.2 ?- normal lactate, WBC 10.8 with PMN predominance ?- reassuring UA and CXR ?- CT results below (MRI recommended) ?- ER physician discussed the case with Dr. Perry's neurosurgical nurse practitioner, who did not feel that patient required transfer to [facility] for further workup/treatment ?- Zosyn and Vancomycin initiated Patient has a history of coronary artery disease, he had 2 stents placed in 2007 and is on lifelong Plavix per Cardiology. He is also a non-insulin dependent type 2 diabetic.? His last A1c was 7.0 Other medical conditions include and essential hypertension, hyperlipidemia, DJD of knee, and spinal stenosis of lumbar region as noted above. Previous surgeries include a rate TKA, coronary stent placement, cataract extractions, inguinal hernia repairs.? He has never had anesthetic or operative complications. 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 He is a nonsmoker, nonETOH user, fully COVID vaccinated. Daughter Lara Anthony would be medical decision maker if needed, he requests Full Code status. ?- MRI obtained: exhibits an epidural fluid collection at laminectomy sites measuring 5cm craniocaudal, resulting in severe effacement of the thecal sac at L3-L4 and L4-L5 levels, epidural hematoma vs abscess ?- discussed the case with Dr. Turner at [facility], he felt that the fluid collection represented blood given recent surgery. He did not feel that patient required antibiotic therapy or repeat imaging - vancomycin and Zosyn initiated in the ER, will continue these given unknown fever origin and radiographic concern for infection on MRI. His fever resolved while in hospital. We then stopped the IV antibiotics. He continued to be afebrile thereafter. He had urinary retention on admission. Intial straight cath remarkable for post-void residual volume of 700 ml. Reyes cath placed, but removed within 24 hours. H again developed urinary retention with post-void residual volume of 900 ml. We placed Reyes cath again prior to discharge, and he will need follow-up with his primary care physician in next 5-10 days. We continued his Tamsulosin while in hospital. Urinanylis was unremarkable and urine culture has been negative while in hospital. Activity Level: Activity as Tolerated Activity Detail: Activity restrictions per neurosurgery Discharge Diet: Diabetic Follow Up Appointments: Terry Junior MD [Primary Care Provider] - 07/28/22 1:40 pm (Follow-up in 5-10 days, regarding post op urinary retention and possible Reyes catheter removal.) Forms: [employer] [facility] Info Instructions Hospital Course: Hugo La is a 81 year old male who presented to the Emergency Room this morning for evaluation of a fever.? Mr. La has been checking his temperature at home, since he began feeling poorly last night.? His T-max at home was 101.6 orally. He was discharged from [facility] yesterday after an uncomplicated bilateral decompression at L4-L5, hemilaminotomy/discectomy bilaterally at L3-L4 by Dr. Kevin Perry (performed 07/12). There were no operative or anesthetic complications noted during stay. ER Course and Findings: ?- Tmax of 102.2 ?- normal lactate, WBC 10.8 with PMN predominance ?- reassuring UA and CXR ?- CT results below (MRI recommended) ?- ER physician discussed the case with Dr. Perry's neurosurgical nurse practitioner, who did not feel that patient required transfer to [facility] for further workup/treatment ?- Zosyn and Vancomycin initiated Patient has a history of coronary artery disease, he had 2 stents placed in 2007 and is on lifelong Plavix per Cardiology. He is also a non-insulin dependent type 2 diabetic.? His last A1c was 7.0 Other medical conditions include and essential hypertension, hyperlipidemia, DJD of knee, and spinal stenosis of lumbar region as noted above. Previous surgeries include a rate TKA, coronary stent placement, cataract extractions, inguinal hernia repairs.? He has never had anesthetic or operative complications. 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 He is a nonsmoker, nonETOH user, fully COVID vaccinated. Daughter Lara Anthony would be medical decision maker if needed, he requests Full Code status. ?- MRI obtained: exhibits an epidural fluid collection at laminectomy sites measuring 5cm craniocaudal, resulting in severe effacement of the thecal sac at L3-L4 and L4-L5 levels, epidural hematoma vs abscess ?- discussed the case with Dr. Turner at [facility], he felt that the fluid collection represented blood given recent surgery. He did not feel that patient required antibiotic therapy or repeat imaging - vancomycin and Zosyn initiated in the ER, will continue these given unknown fever origin and radiographic concern for infection on MRI. His fever resolved while in hospital. We then stopped the IV antibiotics. He continued to be afebrile thereafter. He had urinary retention on admission. Intial straight cath remarkable for post-void residual volume of 700 ml. Reyes cath placed, but removed within 24 hours. H again developed urinary retention with post-void residual volume of 900 ml. We placed Reyes cath again prior to discharge, and he will need follow-up with his primary care physician in next 5-10 days. We continued his Tamsulosin while in hospital. Urinanylis was unremarkable and urine culture has been negative while in hospital.
== END 2022-07-18 16:32 | disposition home health service (06) | DRG 864 ==
LOC: ED 09:06 → MEDSURG 09:21
PROVIDERS: Admitting Provider Family Medicine; Emergency Provider Family Medicine; PCP Family Medicine; Visit Provider Family Medicine
DX: R50.9 Fever, unspecified (principal); N13.8 Other obstructive and reflux uropathy; Z98.890 Other specified postprocedural states; N40.1 Benign prostatic hyperplasia with lower urinary tract symptoms; I25.10 Atherosclerotic heart disease of native coronary artery without angina pectoris; E78.5 Hyperlipidemia, unspecified; M48.062 Spinal stenosis, lumbar region with neurogenic claudication; E53.8 Deficiency of other specified B group vitamins; Z96.651 Presence of right artificial knee joint; R33.9 Retention of urine, unspecified; E11.9 Type 2 diabetes mellitus without complications; Z79.84 Long term (current) use of oral hypoglycemic drugs; I10 Essential (primary) hypertension; Z95.818 Presence of other cardiac implants and grafts; Z79.02 Long term (current) use of antithrombotics/antiplatelets
CPT/HCPCS: 36415; 51702; 51798; 71046; 72131; 72158; 80048; 80053; 81001; 82947; 82962; 83605; 84145; 85025; 85651; 86140; 87040; 87631; 93005; 93306; 93970; 97116; 97161; 97165; 97530; 97535; 99285; 99291; G0378; A9270; A9575; J1650; J2270; J2543; J3370; J7030; J7050

== ENCOUNTER 2022-07-21 02:50 | Inpatient (IN) | payer MEDICARE, BC, SELFPAY ==
[2022-07-21] VITALS (13 sets, daily range): BP systolic 115–174; BP diastolic 50–97; PULSE 63–103; RESP 16–20; TEMP 36.1–36.9; O2SAT 90–100; BMI 24.7; BMI 23.7
--- OUTSIDE RECORDS SUMMARY | 2022-07-21 04:18 | XMS_ITS | Clinical Summary ---
:1940 Author Organization [facility] Address [address] [place] [address] Care Team Providers Name Role Phone Clinic, [facility] Unavailable Unavail able Terry Junior Primary Care [...] accu check/ A1C6.6-7.4 Coronary artery disease involving navajo coronary artery of navajo heart without angina pectoris Hypertension, unspecified type [...] 04/20/2016, 12/13/2013 Medical Devices Implanted Type Area Youth Ministry Director Device Shelf Model / Identifier Expiration Serial / Date Lot Atif Infrapubic Zero Degree Angle Cylinder Set With Pump N/A: Penis [employer] 02/04/2023 [id number] / Implanted: Qty: 1 on 05/04/[address] MD at [facility] / [id number] Description: bill with the pump Insurance Payer Benefit Plan / Subscriber ID Effective Phone Address T ype Group Dates MEDICARE MEDICARE PART [id number] 2018-Prese [address] Medicare A & B nt ATTN [place] [address] BLUE CROSS BCBS [id number] 2017-Prese [address] [place] [address] [place] [address] Advance Directives For more information, please contact: [phone] Latest Code Status on File Code Status Date Activated Date Inactivated Comments Full Code 05/04/2018 9:50 AM 05/05/2018 7:26 PM How was code status determined? Physician Determined Care Teams Canvas Worker Relationship Specialty Start Date End Date [facility] PCP - Primary Care Clinic 04/30/18 [place] Terry Junior PCP - General Family Medicine 04/30/18
--- OUTSIDE RECORDS SUMMARY | 2022-07-21 04:18 | XMS_ITS | Encounter Summary ---
:1940 Author Organization [facility] Address [address] [place] [address] Care Team Providers Name Role Phone Clinic, [facility] Unavailable Unavail able Terry Junior Primary Care Provider Reason for Referral (Routine) - Closed Specialty Diagnoses / Procedures Referred By Contact Refer red To Contact Procedures Cliff Mitchell MD Discharge [address] [place], [place] [address] Referral ID Status Reason Start Date Expiration Date Visits Requ ested Visits Authorized [id number] Closed 05/05/2018 05/05/2019 1 1 (Routine) - Closed Specialty Diagnoses / Procedures Referred By Contact Refer red To Contact Chapincito Randolph MD Goodwin, Richard L [address] [place] [address] [address] [place] [address] [place], [place] [address] Referral ID Status Reason Start Date Expiration Date Visits Requ ested Visits Authorized [id number] Closed 05/05/2018 05/05/2019 1 1 Question Answer Specify time frame for follow up? As needed (Routine) - Closed Specialty Diagnoses / Procedures Referred By Contact Refer red To Contact Procedures Low Hagen MD Diet: Regular [address] [place], [place] [address] Referral ID Status Reason Start Date Expiration Date Visits Requ ested Visits Authorized [id number] Closed 05/04/2018 05/04/2019 1 1 (Routine) - Closed Specialty Diagnoses / Procedures Referred By Contact Refer red To Contact Procedures Low Hagen MD Discharge Instructions [address] [place], [place] [address] Referral ID Status Reason Start Date Expiration Date Visits Requ ested Visits Authorized [id number] Closed 05/04/2018 05/04/2019 1 1 (Routine) - Closed Specialty Diagnoses / Procedures Referred By Contact Refer red To Contact Procedures Low Hagen MD Discharge Instructions [address] (Sedation/Anesthesia) [address] [place], [place] [address] Referral ID Status Reason Start Date Expiration Date Visits Requ ested Visits Authorized [id number] Closed 05/04/2018 05/04/2019 1 1 (Routine) - Closed Specialty Diagnoses / Procedures Referred By Contact Refer red To Contact Low Hagen MD Tortorelis, Dean G, MD [address] [place], [place] [address] [place] [address] Fax: Referral ID Status Reason Start Date Expiration Date Visits Requ ested Visits Authorized [id number] Closed 05/04/2018 05/04/2019 1 1 Question Answer Specify time frame for follow up? 1 Week Comments Call for appt LOW HAGEN MD [facility] [phone] (Routine) - Closed Specialty Diagnoses / Procedures Referred By Contact Refer red To Contact Procedures Low Hagen MD Notify Provider [address] [place] [address] Referral ID Status Reason Start Date Expiration Date Visits Requ ested Visits Authorized [id number] Closed 05/04/2018 05/04/2019 1 1 (Routine) - Closed Specialty Diagnoses / Procedures Referred By Contact Refer red To Contact Procedures Low Hagen MD Discharge [address] [place] [id number] Referral ID Status Reason Start Date Expiration Date Visits Requ ested Visits Authorized [id number] Closed 05/04/2018 05/04/2019 1 1 Reason for Visit Inpatient Admission Specialty Diagnoses / Procedures Referred By Contact Refer red To Contact Procedures [id number] Referral ID Status Reason Start Date Expiration Date Visits Requ ested Visits Authorized [id number] 1 1 Encounter Details Date Type Department Care Team Description 05/04/2018 - Hospital Encounter [facility] Coronary artery 05/05/2018 3300 Ang Nugent MD disease involving N [address] [place] coronary ASE ID [address] artery of [place] [address] [place] heart without [phone] [address] angina pectoris Social History Tobacco Use Types [...] DISCHARGE MEDICATIONS Hugo La Home Medication Instructions MIAR:[id number] Printed on:05/07/18 8843 Medication Information amLODIPine (NORVASC) 10 mg oral [...] TERRY JUNIOR PA-C [facility] Office [phone] UROLOGY d/c note ABOVE NOTE Wilmer HAGEN MD [facility] [phone] documented in this encounter Discharge Instructions Discharge [...] live longer. For further assistanceplease call the [email or web address] Helpline at [phone] or go to their website [email or web address] documented in this encounter Medications at Time [...] MD - 05/05/2018 1:20 PM CDT [facility] INTERNAL MEDICINE HOSPITAL SERVICE PROGRESS NOTE [...] amlodipine, lisinopril, metoprolol. restart home meds at or. 5. HLD: prior to admission statin 6. Benign Prostatic Hypertrophy: prior to admission flomax 7. Clinically stable to or home. Chapincito Randolph MD [facility] Medicine Service Henrietta Fam RN - 05/05/2018 1:20 PM CDT Hugo La 1940 [id number] P: Discharge A: Discharged via wheelchair to [...] Amaryl and Metformin and SS insulin. Told technical writer and editor he isn't eating enough and his BG [...] to call for help, name of assigned care manager, PatientInformation booklet, Handwashing, hourly rounding procedures. R. [...] MD - 05/04/2018 10:35 AM CDT [facility] INTERNAL MEDICINE HOSPITAL SERVICE PROGRESS NOTE [...] of care, see above Feli Cox PA-C [facility] Patient seen and examined by me. Agree with the PA note. A/P: 77 y.o. with 1. s/p urologic procedure: per urology. 2. CAD: cont BB 3. DM: SSI in adition to po meds. 4. HTN: cont BB, hold parameters for the others. 5. Rest per PA note. Chapincito Randolph MD [facility] documented in this encounter H&P [...] the end of the procedure, a 14 Eritre[place] coude, and there was clear urine noted. [...] Low Hagen MD, FACS /CW Dictation ID: [id number] OR Surgeon - Low Hagen MD - 05/04/2018 6:31 PM CDT POST-OPERATIVE NOTE Surgeon(s): Low Hagen MD Supervisor Histology(s): Circulating nurse: Lis Boykin RN chemical waste management technician: Monica Crespo Private Scrub: Jabier Tao Preoperative Diagnosis: dx: erectile dysfunction Postoperative Diagnosis: ED Procedure(s): ED Complications: None EBL: 10 ml Anesthesia: General Operative Findings: 3 piece IPP placed---22cm cylinder bilateral---no rte's 125cc reservoir-placed ectopically left lower quadrant--krystin pump in scrotum Specimen(s): * No specimens in log * Grafts and/or Implants: Implant Name Type Inv. Item Serial No. Dump Operator Lot No. [id number] No. Used Titan Assembly Kit [employer] [id number] N/A 1 Titan CL [place] [employer] [id number] N/A 1 Titan Infrapubic Zero Degree Angle Cylinder Set with Pump [employer] [id number] N/A 1 Condition on Discharge from Operating Room: Satisfactory REPORT OF OPERATION/ PROCEDURE Please see dictated operative note. LOW HAGEN MD [facility] [phone] documented in this encounter Plan of Treatment [...] 173 (H) 60 - 100 05/05/2018 [facility] METER mg/dL 9:15 AM CDT [facility] Specimen Anatomical Collection Method Collection Time Receive d Time (Source) Location / / Volume Laterality Blood 05/05/2018 8:05 AM 8 9:15 CDT AM CDT Low Hagen MD LAB POINT OF CARE TEST RESUL TS Performing Organization Address City/State/ZIP Code Phon e Number [facility] [address] [address] LABORATORY Electrocardiogram (05/04/2018 5:47 AM CDT) athologist Signature EKG HVI SAE Comment: ?[facility] ? Test Date: ?2018-05-04 Pat Name: ? ALISACATRACHITOGARETT ANDERSENEEM ?Department: ?? PCC-Admit ? Room: ? 528 Gender: ? M ?Dimension Mill Worker: ?? [id number] : ?1940 ? Requested By: ALEJANDRA YANG MD Order Number: [id number] ?Reading : ?? A. MD Tanner ? Measurements Intervals ?[place] ? Rate: ? 75 ? P: ?12 ID: ? 150 ?QRS: ?23 QRSD: ? 88 [...] MD EKG ORDERABLE Performing Organization Address City/State/ZIP [facility] e Number [facility] [address] [facility] [place] [address] documented in this encounter Visit Diagnoses Diagnosis Coronary artery disease involving [place] coronary artery of [place] heart without angina pectoris Hypertension, unspecified type [...] Clarissa Quintana RN) 0312 (Given - Provider: Suise Sanz RN)0852 (Given - Provider: Henrietta Fam [...] mg 1 700 (Declined - Provider: Clarissa Quintana RN) 0851 [...] - Provider: Evita Liao) 1,000 mg, Intravenous, TEACHER MUSIC TO OR, 1 dose, Starting Mon05/04/18 at [...] Discontinued documented in this encounter Care Teams Sales Representative Supervisor Relationship Specialty Start Date End Date [facility] PCP - Primary Care Clinic 04/30/18 Terry Casiano PCP - General Family Medicine 04/30/18 documented as of this encounter
--- OUTSIDE RECORDS SUMMARY | 2022-07-21 04:19 | XMS_ITS | Clinical Summary ---
:1940 Author Organization [employer] [facility] [place] [address] Care Team Providers Name Role Phone Terry Junior MD Primary Care Provider [phone] [facility], [place] Unavailable [phone] [facility], [place] Unavailable [phone] Allergies No known active allergies Medications Medication [...] chest pain. May disease involving repeat twice. eklutna heart without angina pectoris, unspecified vessel or [...] rich plaque on post-op day #5, 07/17/2022 docusate (COLACE) Take 100 mg by 0 Active 100 mg capsule mouth at bedtime 2 if needed for Constipation. nitroglycerin Place 1 tablet 25 tablet. 2 Discontinued (NITROSTAT) 0.4 mg under tongue 1 022 (Reorder sublingual every 5 minutes (E- cancel not tabletIndications: if needed for sent)) Coronary artery chest pain. May disease involving repeat twice. eklutna heart without angina pectoris, unspecified vessel or [...] claudi cation 07/12/2022 Coronary artery disease involving eklutna coronary stephanie ry of eklutna heart 07/12/2022 without angina pectoris Herniation of [...] Encounters Date Type Specialty Care Team Description 07/21/2022 Nurse Triage Cindy Fay, jailer 07/20/2022 Home Care Visit Nik Dutta, PT - OA SIS START OF PT CARE 07/20/2022 Telephone Nik Dutta, PT 07/20/2022 Travel 07/19/2022 Nurse Triage Ayleen Ramirez, jailer 07/19/2022 Telephone [facility] (Ref erral Navigation) 07/19/2022 Transcribe Orders Teodoro Jarrell MD 07/16/2022 Home Care Visit Clarissa Garcia, NOT DURGA EN UNDER HOME RN CARE 07/15/2022 Home Care Visit Clarissa Garcia, CARE CO ORDINATION RN 07/15/2022 Home Care Visit Clarissa Garcia, CARE CO ORDINATION RN 07/15/2022 Home Care Visit Caleb Carpenter CARE CO ORDINATION Pablo, RN 07/14/2022 Orders Only <No scans attac hed> 07/14/2022 Orders Only Scanner <No scans attac hed> 07/14/2022 Orders Only Scanner <No scans attac hed> 07/14/2022 Orders Only Scanner <No scans attac hed> 07/13/2022 Telephone Mary Kay Ramirez, Referral (Liaison clothes drier assembler) 07/12/2022 Anesthesia Event Lilia Mosqueda, NETWORK LIAISON Indira, Jessica Courtney, NETWORK LIAISON 07/12/2022 Surgery Kevin Perry, DECOMPRES LESIA- LATERAL MD RECESS L4-5 CHECO ATERAL, DECOMPRESSION- HEMILAMINOTOMY/ DISCECTO MY L3-4 BILATAT ERAL 07/12/2022 - Hospital Encounter Kevin Perry, Lum bar radiculopathy (Primary Dx); 07/13/2022 MD Status post lum bar spine operative procedure for decompression of spinal cord; Coronary artery disease due to lipid rich plaque Discharge Summary - George Turner MD - 07/13/2022 4:32 PM CDT Images from the original not e were not included. HOSPITAL DISCHARGE SUMMARY Patient Name: Roberto hugo Date of : 1940 Age: 81 y.o. [id number] Primary Physician: Terry Junior MD Admission Date: 07/12/2022 Discharge Date: 07/13/2022 Mr. Roberto Cason is a 9 0 y.o. who underwent DECOMPRESSION- LATERAL RECESS L4-5 BILATERAL, DECOMPRESSION- HEMILAMINOTOMY/DISCECTOMY L3-4 BILATATERAL on 07/12/2022 by Kevin Theodore MD; anest hesia General, EBL 25 ml, OR time 3 Hr 7 Min 1 Sec with no immediate complications. He will be discharged from [facility] to home. 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 oxyCODONE 10 mg tablet For diagnoses: Lumbar radicu lopathy Take 1 Tablet (10 mg) by mo uth every 4 hours if needed for Pain (First choice for severe pain.). Walker For diagnoses: Lumbar radicu lopathy Walker with front wheels fo r home use for 3 months. CHANGE how you take these me dicines Instructions acetaminophen 500 mg tablet For diagnoses: Lumbar radicu lopathy What changed: ?? when to take this ?? reasons to take this Commonly known as: TYLENOL E XTRA CATRACHITOH Take 2 Tablets (1,000 mg) b y mouth every 6 hours for 14 days. Max acetaminophen dose: 4000mg in 24 hrs. CONTINUE taking these medici irma Instructions Blood Glucose Test strip For diagnoses: Type 2 diabet es mellitus without complication, without long-term current use of insulin (HC) Generic drug: blood sugar di agnostic Dispense test strips covere d by pt ins. E11.9 NIDDM type II - Test 2 time/day. High A1C. Doctor's comments: 02/11/2021 This Rx replaces all other Rxs for this medication blood-glucose meter For diagnoses: Type 2 diabet es mellitus without complication, without long-term current use of insulin (HC) Inject subcutaneous. Dispen se meter, test strips, lancets covered by pt ins. E11.9 NIDDM type II - Test 2 time/day. High A1C. lancets For diagnoses: Type 2 diabet es mellitus without complication, without long-term current use of insulin (HC) Dispense lancets covered by pt ins. E11.9 NIDDM type II - Test 2 time/day. High A1C. KEEP taking these medicines which have NOT changed and were NOT talked about during your hospital visit. If you have questions about these medicines, please make an appointment with your regular health care provider or specialist. Instructions amLODIPine 10 mg tablet For diagnoses: Hypertension, unspecified type Commonly known as: NORVASC Take 1 Tablet (10 mg) by mo uth once daily. aspirin chewable 81 mg chewa ble tablet For diagnoses: Coronary stephanie ry disease due to lipid rich plaque Take 1 tablet by mouth once daily with a meal. atorvastatin 20 mg tablet For diagnoses: Other hyperli pidemia Commonly known as: LIPITOR Take 1 Tablet (20 mg) by mo uth at bedtime. clopidogreL 75 mg tablet For diagnoses: Coronary stephanie ry disease due to lipid rich plaque Commonly known as: PLAVIX Take 1 Tablet (75 mg) by mo uth every morning. cyanocobalamin 1,000 mcg tab let For diagnoses: Vitamin B12 d eficiency Commonly known as: Vitamin B -12 Take 1 Tablet (1,000 mcg) b y mouth once daily. ferrous sulfate 325 mg (65 m g iron) 325 mg EC tablet Take 325 mg by mouth once e very other night. Doctor's comments: 1 tablet every other day glimepiride 2 mg tablet For diagnoses: Type 2 diabet es mellitus without complication, without long-term current use of insulin (HC) Commonly known as: AMARYL TAKE 1 TABLET TWICE DAILY lisinopriL 20 mg tablet For diagnoses: Essential hyp ertension Commonly known as: PRINIVIL; ZESTRIL Take 1 Tablet (20 mg) by mo uth once daily. metFORMIN 1,000 mg tablet For diagnoses: Type 2 diabet es mellitus without complication, without long-term current use of insulin (HC) Commonly known as: GLUCOPHAG E Take 1 Tablet (1,000 mg) by mouth in the morning and 1 Tablet (1,000 mg) in the evening. Take with meals. metoprolol succinate 100 mg Sustained-Release tablet For diagnoses: Essential hyp ertension Commonly known as: TOPROL XL Take 1 Tablet (100 mg) by m outh once daily. nitroglycerin 0.4 mg subling ual tablet For diagnoses: Coronary stephanie ry disease involving eklutna heart without angina pectoris, unspecified vessel or lesion type Commonly known as: NITROSTAT Place 1 tablet under tongue every 5 minutes if needed for chest pain. May repeat twice. tamsulosin 0.4 mg capsule For diagnoses: BPH with urin yissel obstruction Commonly known as: FLOMAX Take 1 Capsule (0.4 mg) by mouth once daily after a meal. TAKE 1 CAPSULE ONE TIME DAILY AFTER A MEAL Where to get your medicines These medications were sent to [facility] [address] [place] [id number] Hours: Open 24 Hours ?? acetaminophen 500 mg tabl et ?? methocarbamoL 750 mg tabl et ?? oxyCODONE 10 mg tablet You have received printed pr escription(s) for these medicines or supplies. Take these to your preferred pharmacy. Bring a paper prescription f or each of these medications ?? Raj FOLLOW-UP: He should return to clinic i n 6 weeks or as scheduled Additional followup: NA BRIEF HOSPITAL COURSE: This 81 y.o. male was [facility] Procedure(s): DECOMPRESSION- LATERAL RECES S L4-5 BILATERAL, DECOMPRESSION- HEMILAMINOTOMY/DISCECTOMY L3-4 BILATATERAL. The patient had a stable post operative course. Standard prophylactic antibiotics were administer ed for 24 hours post surgery and the patient received DVT prophylaxis per service protocol. The patient's pain was initially controlled on intravenous pain medications and then weaned to oral medication s prior to discharge. The hipolito de la rosa pain was well controlled and they met mobility expectations appropriate for the discharge location. The patient has normal bowel and bladder function. The incision is clean, dry and intact. Physical Examination: Appears comfortable Alert and oriented. Appropri ate. Pleasant mood. Incision covered - clean and dry Motor exam: Grossly intact symmetrically against moderate resistance in BLE along: Quads/Hamsrings/TA/ EHL/GS Sensory exam: Intact to light touch symmet rically throughout the BLE. Vascular exam: Distal pedal pulses intact t o palpation symmetrically in BLE. No significant distal edema in BLE. Abdomen: soft, non-tender No sustained beats of ankle clonus. No calf tenderness to palpat ion. SCDs in place. PROCEDURES PERFORMED DURING HOSPITALIZATION: Procedure(s): DECOMPRESSION- LATERAL RECES S L4-5 BILATERAL, DECOMPRESSION- HEMILAMINOTOMY/DISCECTOMY L3-4 BILATATERAL COMPLICATIONS IN HOSPITAL: N A IMPORTANT PENDING TEST RESUL TS: NA PERTINENT FINDINGS/RESULTS A T DISCHARGE: NA After Discharge Orders and I nstructions Additional information abou t your medicines: Prescription Pain Medicine: - When at home, alternate Ty lenol and your prescription pain medication (oxycodone, hydromorphone, morphine, tramadol) for better control of breakthrough pain. Alternating between the two types of medications helps control pain better. - Do not drink alcohol while taking prescription pain medicine. - Do not drive any motor veh icles while taking prescription pain medicines or any medicines that make you sleepy. - Take the medicine at the t david of the day when you most often feel pain. This may be: when you wake up in the morning, before you start certain activities, or when you are ready for bed. Cutting back strategies: - As your pain decreases, yo u can go for longer times between doses (from 4 hours to 6 or 8 hours). - Reduce dose by taking a sm aller amount per dose, such as 1 pill instead of 2 or ?? instead of 1, especially for Opioid medications. - Start decreasing pain medi cine as your pain decreases. Tylenol: (acetaminophen) - When at home, alternate Ty lenol and your prescription pain medication (oxycodone, hydromorphone, morphine, tramadol) for better control of breakthrough pain. Alternating the two medications helps with breakthrough pain. - Many pain medicines have a cetaminophen in them. Do not take more than 3,000 to 4,000 milligrams (3-4 grams) of acetaminophen in 24 hours (more than that could damage your liver) - Acetaminophen is also foun d in cough and cold medicines. What if the above strategies do not control your pain? If the above solutions do not help, contact your surgeon. Additional information abou t your medicines: Make sure you are taking st ool softeners while you are taking prescription pain medications (narcotics), to prevent constipation. After Hospital Follow Up Ap pointment(s) Please follow up with Kevin Zhou MD at [facility] in 4-6 weeks. If you follow with your surg tanvir at [facility], call [phone] for questions, or to make an appointment. If you follow with your surg tanvir at [facility], please call [facility] at [phone] When to follow up: 4 to 6 w eeks Caring for your wound or in cision: - Steri Strips will fall of f on their own; do not remove them. - No need to cover your inci lesia. - You may take a shower. It is okay to get the incision wet. Do not scrub the incision. Gently pat it dry. - Do not soak, rub, or scrat ch the incision. - DO NOT put any ointment, c ream, or lotions on the incision for 6 weeks. - IF the incision starts dr claire, do not get it wet. Please cover it with gauze and call the surgeon at [phone]. Information about NSAIDS NSAIDs (Non-Steroidal Anti- Inflammatories): A) For fusion surgeries: - If your surgeon approves u se of NSAIDs, you may take non steroid anti- inflammatory drugs such as Ibuprofen (Advil??, Motrin??), Relafen??, Naproxen (Aleve??) for a period of 3-5 days for breakthrough pain especially after supply of Opioid medications is completed. Do not take these medications unless your surgeon approved it, as these medicines may interfere with bone healing. B) For decompression surgeri es: - If you took medications goodrich ch as Ibuprofen (Advil??, Motrin??), Relafen??, Naproxen (Aleve??), Celebrex?? before surgery, this can be resumed 72 hours after surgery. Do not take if you have been told by a physician to avoid these medications. Information about smoking a nd healing: - DO NOT SMOKE - nicotine interferes with t he healing process - accept help from family an d friends Information about your medi cation refills: For Opioid medication refil ls: - Be sure to call your surge on for refills at least 24 hours prior to need (prescription pain medications may need more time, as a written prescription is needed for refills). MEDICATIONS cannot be refi lled on weekends or holidays , or after 4:00 p.m. during the week. Moving around after your ho spital visit: - do not bend, twist, lift or sit for long periods of time - No lifting more than 5 ebony nds - do not put your head below the level of your heart - walking is a very importan t part of your recovery - walk a little further each day - it is best to walk on leve l ground - do not use stair climbing for exercise - you may climb stairs as ne eded, but not for exercise - YOUR ONLY EXERCISE PROGRAM RIGHT NOW IS WALKING - follow your physical thera py or rehabilitation program as instructed by your surgeon - follow specific exercise p rogram outlined in the spine manual by your surgeon, therapist, grain mill products inspector - stay away from hot tubs, t ub baths, pools, lakes until your surgeon has given you the OK - shower as directed by your health care provider Patient Instruction post bl adder scan Same Day Discharge patients If unable to urinate in 6-8 hours after discharge, return to Emergency Room with your discharge instructions. Primary Care Provider follo w up appointment(s) Follow up with your Primary Care Provider in 5 days When to follow up: 1 to 5 d ays Recommendations for outpati ent provider Specific recommendations to be addressed at the follow up visit - routine post-op visit Reason(s) medications were s topped or changed - Anticoagulation/Oxygen Recom mendations - Tests and Studies needed - Remove dressing, then leave open to air: If you leave the hospital w ith a dressing over your incision, you can remove this when you get home. If your incision begins to drain, cover and call the office for further instructions. What you may eat and drink after your hospital stay: DIET: - eat a nutritionally well-b alanced diet - eat small amounts more oft en - less physical activity, goodrich rgery and medication can cause constipation - increase fiber (fruits, wh ole grains and raw vegetables) and fluids - drink 6-8 glasses of water per day to prevent constipation When should you be concerne d? Your surgeon is Austin Perry MD Please call your surgeon if you have any of the following: - temperature above 101.6 de grees Fahrenheit - nausea and vomiting that w ill not stop - severe uncontrolled pain - redness, tenderness, drain age from the incisional area that will not stop, or signs of infection (pain, swelling, redness, unpleasant odor, warmth, or green or yellow discharge around the site) - severe headache - visual disturbances - dizziness or lightheadedne ss that will not stop - hives (itchy raised rash) - difficulty breathing - extreme fatigue (cannot ge t out of bed) - any change in sensation goodrich ch as new numbness or tingling - any change in movement suc h as new weakness or inability to move arms or legs as usual - new confusion - any change or loss in lashae l or bladder function - burning or urgency on urin ation - if no bowel movement in th ree (3) days - chest pain - if any worries about the f it of your brace - any other questions or wor viral you may have after discharge - in an emergency, CALL 911 or go to an Emergency Department at a nearby hospital [facility] The reason you were in the hospital is for spine surgery. Your incision was closed wi th: - Steri Strips; they will f all off on their own; do not remove them. Total time spent for dischar ge on date of discharge: 20 minutes Gama Turner MD [facility] 07/11/2022 Travel 07/08/2022 Preop Visit Terry Junior, Pre operative Exam (DOS: 07/12/2022, DEC OMPRESSION- LATERAL RECESS L4-5 BILATERAL, DECOMPRESSION- HEMILAMINOTOMY/ DISCECTOMY L3-4 [address], Dr Lorena Perry, [facility]) 07/07/2022 Orders Only Lab, [facility] 07/07/2022 Travel 07/05/2022 Telephone Terry Junior Lab MD 07/04/2022 Travel 06/30/2022 Telephone Terry Junior Que stions MD 05/17/2022 Office Visit José Luis Villalba MD Mus culoskeletal Problem (Follow up epidural shona roid injection ) 05/17/2022 Travel 04/26/2022 Office Visit Ld Sykes MD Proc edure (Left L4-5 TFESI) 04/24/2022 Refill Terry Junior, Ref ill Request (Cyanocobalamin) from Last 3 Months Immunizations Name Administration Dates Next Due AMB INFLUENZA IIV3 (AGE 65+ YRS) PF (Flu 07/26/2018, 018 Clinic Only) AMB Influenza, IIV3 (Age >=3 years)(Flu 10/24/2008 Clinic Only) COVID-19 vaccine ([employer] 03/25/2022 30mcg/0.3mL) 12YO+ FINN-SUCROSE PF, MDV COVID-19 vaccine ([employer] 07/02/2021 30mcg/0.3mL) PF, MDV Influenza, High-dose Inactivated [...] 4 Father (Age 83) Mother (Age 83) ID Sister 1 Alive Sister 2 Alive Sister 3 Sister 4 Son 1 Alive Son 2 Social History Tobacco Use Types Packs/Day Years Used Date Former Smoker Cigarettes 1 1969 - 980 Smokeless Tobacco: Never Used Tobacco Cessation: Counseling Given: Yes Alcohol Use Standard Drinks/Week Comments No 0 (1 standard drink = 0.6 oz pure alcoho l) Sex Assigned at Date Recorded Not on file COVID-19 Exposure Response Date Recorded In the last 10 days, have you been in contact with No / Unsu re 07/20/2022 9:28 AM CDT someone who was confirmed or suspected to have Coronavirus/COVID-19? Obstetrics History Last Filed Vital Signs Vital Sign Reading Time Taken Comments Blood Pressure 148/60 07/20/2022 10:28 AM CDT Pulse 66 07/20/2022 10:23 AM CDT Temperature 36.4 ??C (97.5 ??F) 07/20/2022 10:23 AM CDT Respiratory Rate 16 07/20/2022 10:23 AM CDT Oxygen Saturation 99% 07/20/2022 10:23 AM CDT Inhaled Oxygen Concentration - - Weight 68.3 kg (150 lb 8 oz) 07/12/2022 12:28 PM CDT Height 167.6 cm (5' 6) 07/12/2022 12:28 PM CDT Body Mass Index 24.29 07/12/2022 12:28 PM CDT Plan of Treatment Upcoming Encounters Date Type Specialty Care Team Description 07/27/2022 Home Care Visit Nik Dutta , PT [address], [place] [phone] (Wo rk) 07/28/2022 Office Visit Terry Junior MD [facility] [address] [place], [place] [address] (Wo rk) 08/03/2022 Home Care Visit Nik Dutta , PT [address] [place] [address] (Wo rk) 08/10/2022 Appointment Nik Dutta , PT [address], [place] [phone] (Wo rk) Health Maintenance Due Date Last Done Comments [...] wt on same day) for 07/08/2023 07/08/2022, 1004/2021, age 18+ 03/25/2021, Additional history exists Tdap Completed 10/19/2010 Pneumococcal series for age 65+ Completed 04/20/2016, 11/24, 12/13/2013 Medical Devices Implanted Type Area Black Studies Professor Device Shelf Model / Identifier Expiration Serial / Lot Date Lens Iol 19.5 [employer]is - [id number] Right: Allergan 09/14/2021 [id number] / Implanted: Qty: 1 on 11/24/2015 by Nik Majano MD at [facility] [employer] 4 [id number] / Lens Iol 19.5 [employer] - [id number] Left: Allergan 02/27/2019 [id number] / Implanted: Qty: 1 on 12/29/2015 by Nik Majano MD at [facility] [employer] 5 [id number] / Procedures Procedure Name Priority Date/Time Associated Diagnosis Comme nts ECHO COMPLETE WO Routine 07/14/2022 4:41 FUO (fever of Results for this CONTRAST PM CDT unknown origin) procedure ar e in the results section. SCAN-ULTRASOUND REPORT 07/14/2022 12:00 R esults for this AM CDT procedure are i n the results section. SCAN-CT INTERPRETATION 07/14/2022 12:00 AM CDT SCAN-RADIOLOGY REPORT 07/14/2022 12:00 Re sults for this AM CDT procedure are i n the results section. POTASSIUM Today 07/13/2022 3:22 Results for this [...] procedure are i n the results section. CA ECG ROUTINE ECG Routine 07/08/2022 12:00 Coronary [...] 8:01 AM Lumbar radicul opathy INJECTION CDT CA NJX AA&/STRD Routine 04/26/2022 12:00 Lumbar radiculo jakub Results for this TFRML EPI AM CDT DDD (degenerative disc proce dure are in LUMBAR/SACRAL 1 disease), lumbar the resu lts LEVEL section. from Last 3 Months Results ECHO COMPLETE WO CONTRAST (07/14/2022 4:41 PM CDT) P athologist Signature AORTIC VALVE 12 mmHg MEAN PG EJECTION 74 % FRACTION PEAK TR 2.9 m/s VELOCITY LVEDD 4.2 cm Anatomical Region Laterality Modality HEART Ultrasound Specimen (Source) Anatomical Collection Method Collection Time Re ceived Time Location / / Volume Laterality 07/14/2022 4:07 PM CDT Narrative 07/14/2022 4:59 PM CDT ECHOCARDIOGRAM HORACIOAFNitza CASON ?Accessio n#: ?? [id number] : ?1940 81 years Study Date: ?? 07/14/2022 4:07:34 PM Gender: M ? BP: ? 132/62 mmHg Height: 168.00 cm ? BSA: ?1.79 m? ?? Weight: 70.00 kg ?Tech: ? MJW ?R spike ELLER: MIKALA DE GUZMAN [facility] Reading Location: [facility] Procedure: 2D, Color Doppler and Spectra l Doppler. Indication for study: Fever of Unknown s ource, ASHD Cardiac Rhythm: Regular.Study quality: T echnically limited. Final Impressions: 1. Technically limited exam. 2. Normal left ventricular size, normal wall thickness, normal global systolic function, calculated EF of 74 %. 3. Right ventricular cavity size is nor mal, global systolic RV function is normal. 4. Moderately enlarged left atrium. 5. The aortic valve is calcified, mild stenosis and trivial regurgitation. 6. The mitral valve is normal, trace mi tral regurgitation. 7. Tricuspid valve is normal. 8. Mildly increased estimated pulmonary pressures by tricuspid regurgitation velocity and right atrial pressure (33 mmHg plus RAP). 9. No pericardial effusion. Chamber Sizes and Function Normal left ventricular size, normal wal l thickness, normal global systolic function, calculated EF of 74 %. Left atrial size is moderately enlarged. Right ventricular cavity size is normal, global syst olic RV function is normal. RV wall thic kness is normal. The right atrium is normal. Right atrial volume index is 18 ml/m? ??. Right atrial area is 14 cm? ??. The pulmonary artery is of normal size and origin. The sinus of Valsalva is normal sized. The ascending aorta is normal sized. Valves, RV Pressures and Diastolic Funct ion The aortic valve is calcified, mild sten osis and trivial regurgitation. The mitral valve is normal in structure, trace mitral regurgitation. Diastolic function assessment not performed. The tricuspid va lve is normal in structure. Tricuspid re gurgitation is mild regurgitation. The tricuspid regurgitant velocity is 2.9 m/s, the estimated right ventricular systolic pressure is 33 mmHg plus right atrial p ressure. There is mildly increased estim ated pulmonary pressure by tricuspid regurgitation velocity and right atrial pressure. The pulmonic valve is normal. No pulmonary regurgitation. Masses, Effusion, Shunts There is no pericardial effusion. The in ferior vena cava is normal sized, respiratory size variation greater than 50%. Interatrial septum is not well visualized. MEASUREMENTS AND CALCULATIONS 2-D Measurements and LV Function: LVID (d) 4.2 cm Planimetered EF 74 % LVID (s) 2.7 cm LV FS% (2D) ? 36 % IVS (d) ??0.9 cm LVOT diameter ?? 2.4 cm LVPW (d) 0.8 cm HR ?8 8 bpm Ao Sinus 3.3 cm LA Vol index ?36 ml/ m2 Asc Ao ?? 3.3 cm RA Vol index ?18 ml /m2 LA ? 4.2 cm RA area ? 1 4 cm?RV Max 4C (d) ?? 3.8 cm Diastology: Mitral ?Tissue Doppler ?Pulmonary veins E Peak 1.3 m/s ??e', Septum ? 0.07 m /s Pulm s ?77.5 cm/s A Peak 0.6 m/s ??e', Lateral ?0.14 m /s Pulm d ?92.5 cm/s E/A ?2.1 ?E/e' Average ?? 12. 94 ?Pulm s/d ratio ??0.84 DT ? 145 msec IVRT ?? 68 msec Aortic Valve: Vmax ? 2.2 m/s ??MARIAELENA (V) ?? 2.54 cm? ?? VTI ?0.40 m ?? MARIAELENA (I ) ?? 2.56 cm? ?? LVOT V max ? 1.3 m/s ??Max PG ?19 mmHg LVOT VTI ? 0.23 m ?? Mean PG ? ? 12 mmHg SV ? 103 ml ?? Dim In dex 0.58 SV index ? 57 ml/m? ?? CO ?9.0 l/min AV Ejection Time 0.26 sec CI ? 5.0 l/min/m? ?? AV Flow Rate ? 381 ml/s Mitral Valve: MVA ?5.2 cm? ?? MV P 1/2 42 msec Tricuspid Valve and estimated PA pressur es: TR Vmax 2.9 m/s TAPSE 2.1 cm TR maxG 33 mmHg . This study [facility]. CC: Med/Surg - IP [facility] [place]. ??Final ?? Procedure Note Shantel Mccauley, [facility] - 07/14/2022Formatt ing of this note might be different from the original. ECHOCARDIOGRAM ROBERTO CASON : 1940 81 years Study Date: 07/14 4:07:34 PM Gender: M BP: 132/62 mmHg Height: 168.00 cm BSA: 1.79 m? ?? Weight: 70.00 kg Tech: DARA Referring MD: MIKALA DE GUZMAN Site: [facility] [place] Location: [facility] Procedure: 2D, Color Doppler and Spectra l Doppler. Indication for study: Fever of Unknown s ource, ASHD Cardiac Rhythm: Regular.Study quality: T echnically limited. Final Impressions: 1. Technically limited exam. 2. Normal left ventricular size, normal wall thickness, normal global systolic function, calculated EF of 74 %. 3. Right ventricular cavity size is nor mal, global systolic RV function is normal. 4. Moderately enlarged left atrium. 5. The aortic valve is calcified, mild stenosis and trivial regurgitation. 6. The mitral valve is normal, trace mi tral regurgitation. 7. Tricuspid valve is normal. 8. Mildly increased estimated pulmonary pressures by tricuspid regurgitation velocity and right atrial pressure (33 mmHg plus RAP). 9. No pericardial effusion. Chamber Sizes and Function Normal left ventricular size, normal wal l thickness, normal global systolic function, calculated EF of 74 %. Left atrial size is moderately enlarged. Right ventricular cavity size is normal, global systolic RV function is normal. RV wall thickness is normal. The right atrium is normal. Right atrial volume index is 18 ml/m? ??. Right atrial area is 14 cm? ??. The pulmonary artery is of normal size and origin. The sinus of Valsalva is normal sized. The ascending aorta is normal sized. Valves, RV Pressures and Diastolic Funct ion The aortic valve is calcified, mild sten osis and trivial regurgitation. The mitral valve is normal in structure, trace mitral regurgitation. Diastolic function assessment not performed. The tricuspid valve is normal in structure. Tricuspid regurgitation is mild regurgitation. The tricuspid regurgitant velocity is 2.9 m/s, the estimated right ventricular systolic pressure is 33 mmHg plus right atrial pressure. There is mildly increased estimated pulmonary pressure by tricuspi d regurgitation velocity and right atrial pressure. The pulmonic valve is normal. No pulmonary regurgitation. Masses, Effusion, Shunts There is no pericardial effusion. The in ferior vena cava is normal sized, respiratory size variation greater than 50%. Interatrial septum is not well visualized. MEASUREMENTS AND CALCULATIONS 2-D Measurements and LV Function: LVID (d) 4.2 cm Planimetered EF 74 % LVID (s) 2.7 cm LV FS% (2D) 36 % IVS (d) 0.9 cm LVOT diameter 2.4 cm LVPW (d) 0.8 cm HR 88 bpm Ao Sinus 3.3 cm LA Vol index 36 ml/m2 Asc Ao 3.3 cm RA Vol index 18 ml/m2 LA 4.2 cm RA area 14 cm? ?? RV Max 4C (d) 3.8 cm Diastology: Mitral Tissue Doppler Pulmonary veins E Peak 1.3 m/s e', Septum 0.07 m/s Pulm s 77.5 cm/s A Peak 0.6 m/s e', Lateral 0.14 m/s Pulm d 92.5 cm/s E/A 2.1 E/e' Average 12.94 Pulm s/d rati o 0.84 DT 145 msec IVRT 68 msec Aortic Valve: Vmax 2.2 m/s MARIAELENA (V) 2.54 cm? ?? VTI 0.40 m MARIAELENA (I) 2.56 cm? ?? LVOT V max 1.3 m/s Max PG 19 mmHg LVOT VTI 0.23 m Mean PG 12 mmHg SV 103 ml Dim Index 0.58 SV index 57 ml/m? ?? CO 9.0 l/min AV Ejection Time 0.26 sec CI 5.0 l/min/m ? ?? AV Flow Rate 381 ml/s Mitral Valve: MVA 5.2 cm? ?? MV P 1/2 42 msec Tricuspid Valve and estimated PA pressur es: TR Vmax 2.9 m/s TAPSE 2.1 cm TR maxG 33 mmHg . This study was interpreted by an [facility] facility. CC: Med/Surg - IP [facility] [place]. Final Mikala De Guzman MD ECHO ORD SCAN-RADIOLOGY REPORT (07/14/2022 12:00 AM CDT) Narrative This result has an attachment that is no t available. Scanner OTHER SCAN-ULTRASOUND REPORT (07/14/2022 12:00 AM CDT) Narrative This result has an attachment that is no t available. Scanner OTHER SCAN-CT INTERPRETATION (07/14/2022 12:00 AM CDT) Narrative This result has an attachment that is no t available. Scanner OTHER Potassium TODAY (07/13/2022 3:22 PM CDT) athologist Signature POTASSIUM 3.7 3.5 - 5.0 07/13/2022 [facility] mmol/L 4:27 PM CDT LABORATORY-CENTR AL LABORATORY Specimen Anatomical Collection Method Collection Time Receive d Time (Source) Location / / Volume Laterality Blood BLOOD SPECIMEN / Line/Port / 07/13/2022 3:22 PM 07/13 4:02 Unknown Unknown CDT PM CDT Xi Dunlap MD CHEMISTRY Performing Organization Address City/State/ZIP Code Phon e Number [facility] [address] [place], [place] [address] [address] LABORATORY-CENTRAL 2000 LABORATORY (ABNORMAL) Creatinine TODAY (07/13/2022 3:22 PM CDT) athologist Signature CREATININE 0.80 0.72 - 1.25 07/13/2022 [facility] mg/dL 4:32 PM CDT LABORATORY-CENT RAL LABORATORY eGFR 89 (L) >90 07/13/2022 [facility] mL/min/1.73 4:32 PM CDT LABORATORY-CENT m2 RAL [...] Organization Address City/State/ZIP Code Phon e Number [facility] [address] [place] [address] LABORATORY-CENTRAL 2000 LABORATORY (ABNORMAL) GLUCOSE METER (07/13/2022 12:16 PM CDT)Only the most recent of4 resultswithin the time period is included. P athologist Signature GLUCOSE METER 138 (H) 65 - 100 07/13/2022 [facility] mg/dL 12:17 PM CDT LABORATORY-EVELYNE TRAL LABORATORY Specimen Anatomical Collection Method Collection Time Receive d Time (Source) Location / / Volume Laterality Blood BLOOD SPECIMEN / 07/13/2022 12:16 022 Unknown PM CDT 12:17 PM CDT Kevin Perry MD CHEMISTRY Performing Organization Address City/[facility]/ZIP Code Phon e Number [facility] [address] [place] [address] LABORATORY-CENTRAL 2000 LABORATORY XR C-ARM EQUAL OR LESS 1 [...] For Patients: ??As a result of the Century Cures Act, medical imaging exams and procedure [...] (07/08/2022 2:45 PM CDT) Analysis Performed At [facility] Time Signature COVID 19 Negative Negative 07/10/2022 [facility] 6:32 PM CDT LABORATORY-EVELYNE MOLECULAR TRAL LABORATORY Specimen Anatomical Location / Collection Method Collection Pasha e Received Time (Source) Laterality / Volume Other SPECIMEN FROM Non-Blood / 07/08/2022 2:45 07/09/2022 NASOPHARYNGEAL Unknown PM CDT 12:12 PM CDT STRUCTURE / Unknown Narrative [facility] LABORATORY-CENTRAL LABORAT ORY - 07/10/2022 6:32 PM [...] Organization Address City/State/ZIP Code Phon e Number [facility] [address] [place] [address] LABORATORY-CENTRAL 2000 LABORATORY COVID 19 COLLECTION (07/08/2022 2:45 PM CDT) [facility] Method Time Signature TESTING [facility] 07/09/2022 [facility] LABORATORY Laboratory 12:12 PM LABORATORY-CE CDT NTRAL LABORATORY Comment: Specimen submitted to [facility] for testing. Specimen Anatomical Location / Collection Method Collection Pasha e Received Time (Source) Laterality / Volume Other SPECIMEN FROM Non-Blood / 07/08/2022 2:45 07/08/2022 2:51 NASOPHARYNGEAL Unknown PM CDT PM CDT STRUCTURE / Unknown Terry Junior MD SEND OUTS Performing Organization Address City/State/ZIP Code Phon e Number [facility] [address] [place] [address] LABORATORY-CENTRAL 2000 LABORATORY CA ECG ROUTINE ECG W/LEAST 12 LDS W/I&R (07/08/2022 12:00 AM CDT) Narrative This result has an attachment that is no t available. Terry Junior MD PB - CARDIOVASCULAR SYSTEM S ERVICES (ABNORMAL) CBC WITH AUTO DIFFERENTIAL (07/07/2022 11:16 AM CDT) [facility] Method Time Signature WHITE BLOOD 5.7 4.5 - 07/07/2022 [facility] COUNT 11.0 11:21 AM CDT [facility] thou/ CLINIC mm RED BLOOD COUNT 4.68 4.30 - 07/07/2022 [facility] 5.90 11:21 AM CDT [facility] mil/ mm CLINIC HEMOGLOBIN 13.4 (L) 13.5 - 07/07/2022 [facility] 17.5 g/dL 11:21 AM T [facility] HEMATOCRIT 39.5 37.0 - 07/07/2022 [facility] 53.0 % 11:21 AM T [facility] MCV 84 80 - 100 07/07/2022 [facility] fL 11:21 AM CDT [facility] MCH 28.6 26.0 - 07/07/2022 [facility] 34.0 pg 11:21 AM T [facility] MCHC 33.9 32.0 - 07/07/2022 [facility] 36.0 g/dL 11:21 AM T [facility] RDW 13.8 11.5 - 07/07/2022 [facility] 15.5 % 11:21 AM T [facility] PLATELET COUNT 198 140 - 440 07/07/2022 [facility] HEALTH thou/cu 11:21 AM CDT [facility] MPV 10.6 6.5 - 07/07/2022 [facility] 11.0 fL 11:21 AM T [facility] % NEUT 61.9 % 07/07/2022 [facility] 11:21 AM T [facility] % LYMPH 26.8 % 07/07/2022 [facility] 11:21 AM T [facility] % MONO 7.9 % 07/07/2022 [facility] 11:21 AM T [facility] % EOS 3.0 % 07/07/2022 [facility] 11:21 AM T [facility] % BASO 0.4 % 07/07/2022 [facility] 11:21 AM CDT [facility] ABSOLUTE 3.5 1.7 - 7.0 07/07/2022 [facility] NEUTROPHILS thou/cu 11:21 AM CDT [facility] CLINIC ABSOLUTE 1.5 0.9 - 2.9 07/07/2022 [facility] LYMPHOCYTES thou/cu 11:21 AM CDT [facility] CLINIC ABSOLUTE 0.5 <0.9 07/07/2022 [facility] MONOCYTES thou/cu 11:21 AM CDT [facility] CLINIC ABSOLUTE 0.2 <0.5 07/07/2022 [facility] EOSINOPHILS thou/cu 11:21 AM CDT [facility] CLINIC ABSOLUTE 0.0 <0.3 07/07/2022 [facility] BASOPHILS thou/cu 11:21 AM CDT [facility] CLINIC Specimen Anatomical Collection Method / Collection Time Recei niels Time (Source) Location / Volume Laterality Blood BLOOD SPECIMEN / Venipuncture / 07/07/2022 11:16 07/07 Unknown Unknown AM CDT 11:17 AM CDT Terry Junior MD HEMATOLOGY Performing Organization Address City/State/ZIP Code Phon e Number [facility] [address] [place] [address] (ABNORMAL) LIPID PANEL W REFLEX MEASURED LDL (07/07/2022 11:16 AM CDT) [facility] Method Time Signature CHOLESTEROL,TOTAL 117 100 - 199 07/08/[address] [facility] mg/dL 3:42 PM CDT LABORATORY-EVELYNE TRAL LABORATORY TRIGLYCERIDES 180 (H) <150 07/08/2022 [facility] mg/dL 3:42 PM CDT LABORATORY-[facility]ELYNE TRAL LABORATORY HDL CHOLESTEROL 33 (L) >40 mg/dL 07/08/2022 [facility] 3:42 PM CDT LABORATORY-[facility] TRAL LABORATORY NON-HDL 84 <145 07/08/2022 [facility] CHOLESTEROL mg/dl 3:42 PM CDT LABORATORY-[facility] TRAL LABORATORY CHOL/HDL RATIO 3.55 <4.50 07/08/2022 [facility] 3:42 PM CDT LABORATORY-[facility]NE TRAL LABORATORY LDL CHOLESTEROL 48 <=130 07/08/2022 [facility] mg/dL 3:42 PM CDT LABORATORY-[facility] TRAL LABORATORY VLDL CHOLESTEROL 36 (H) <=30 07/08/[address] [facility]/dL 3:42 PM CDT LABORATORY-[facility]ELYNE TRAL LABORATORY PROVIDER ORDERED RANDOM 07/08/[address] [facility] STATUS 3:42 PM CDT LABORATORY-EVELYNE TRAL LABORATORY Specimen Anatomical Collection Method / Collection Time Recei niels Time (Source) Location / Volume Laterality Blood BLOOD SPECIMEN / Venipuncture / 07/07/2022 11:16 07/07 Unknown Unknown AM CDT 11:17 AM CDT Terry Junior MD CHEMISTRY Performing Organization Address City/State/ZIP Code Phon e Number [facility] [address] [place] [address] LABORATORY-CENTRAL 2000 LABORATORY IRON PLUS IRON BINDING CAP (07/07/2022 11:16 AM CDT) P athologist Signature IRON 120 31 - 144 07/08/2022 [facility] ug/dL 3:56 PM CDT LABORATORY-CENT RAL LABORATORY UIBC 238 07/08/2022 [facility] (UNSATURATED) 3:56 PM CDT LABORATORY-EVELYNE T RAL LABORATORY IRON BINDING 358 245 - 400 07/08/2022 [facility] ug/dL 3:56 PM CDT LABORATORY-CENT RAL LABORATORY IRON,% 34 20 - 55 % 07/08/2022 [facility] SATURATION 3:56 PM CDT LABORATORY-CENT RAL LABORATORY Specimen Anatomical Collection Method / Collection Time Recei niels Time (Source) Location / Volume Laterality Blood BLOOD SPECIMEN / Venipuncture / 07/07/2022 11:16 07/07 Unknown Unknown AM CDT 11:17 AM CDT Terry Junior MD CHEMISTRY Performing Organization Address City/[facility]/ZIP Code Phon e Number [facility] [address] [place] [address] LABORATORY-CENTRAL 2000 LABORATORY MICROALBUMIN RANDOM URINE (07/07/2022 11:16 AM CDT) P athologist Signature ALB RAND URINE 10.7 mg/L 07/08/2022 [facility] 3:32 AM CDT LABORATORY-CENT RAL LABORATORY CREATININE,URIN 0.78 g/L 07/08/2022 [facility] E 3:32 AM CDT LABORATORY-CENT RAL LABORATORY ALBUMIN TO 13.7 <30.0 mg/g 07/08/2022 [facility] CREATININE creat 3:32 AM CDT LABORATORY-CENT RATIO,RAND UR RAL LABORATORY Specimen Anatomical Collection Method Collection Time Receive d Time (Source) Location / / Volume Laterality Urine URINE SPECIMEN / Non-Blood / 07/07/2022 11:16 022 Unknown Unknown AM CDT 11:17 AM CDT Narrative [facility] LABORATORY-CENTRAL LABORAT ORY - 07/08/2022 3:32 AM [...] Terry Junior MD URINE Performing Organization Address City/[facility] Code Phon e Number [facility] [address] [place] [address] LABORATORY-CENTRAL 2000 LABORATORY (ABNORMAL) HEMOGLOBIN A1C MONITORING (POCT) (07/07/2022 11:16 AM CDT) Analysis Performed At Patho logist Time Signature HEMOGLOBIN A1C 7.0 (H) <=6.4 % 07/07/2022 [facility] MONITORING 11:39 AM CDT [facility] (POCT) CLINIC Specimen Anatomical Collection Method / Collection Time Recei niels Time (Source) Location / Volume Laterality Blood BLOOD SPECIMEN / Venipuncture / 07/07/2022 11:16 07/07 Unknown Unknown AM CDT 11:17 AM CDT [facility] - 2021 11:39 AM CDT ? (<=6.9%) [...] Terry Junior MD CHEMISTRY Performing Organization Address City/[facility]/ZIP Code Phon e Number [facility] [address] [place] [address] FERRITIN (07/07/2022 11:16 AM CDT) athologist Signature [...] Organization Address City/State/ZIP Code Phon e Number [facility] [address] [place] [address] LABORATORY-CENTRAL 2000 LABORATORY VITAMIN B12 (07/07/2022 11:16 AM CDT) P athologist Signature VITAMIN B12 346 692 - 914 07/08/2022 [facility] pg/mL 1:56 PM CDT LAB[facility] LAB[facility] Specimen Anatomical Collection Method / Collection Time Recei niels Time (Source) Location / Volume Laterality Blood BLOOD SPECIMEN / Venipuncture / 07/07/2022 11:16 07/07 Unknown Unknown AM CDT 11:17 AM CDT Terry Junior MD CHEMISTRY Performing Organization Address City/State/ZIP Code Phon e Number [facility] [address] [place], [place] [address] [address] LABORATORY-CENTRAL 2000 LABORATORY HEPATIC FUNCTION PANEL (07/07/2022 11:16 AM CDT) P athologist Signature ALBUMIN 4.2 3.2 - 4.6 07/08/2022 [facility] g/dL 3:42 PM CDT LABORATORY-EVELYNE TRAL LABORATORY PROTEIN,TOTAL 7.0 6.0 - 8.0 07/08/2022 [facility] g/dL 3:42 PM CDT LABORATORY-[facility]ELYNE TRAL LABORATORY GLOBULIN 2.8 2.0 - 3.7 07/08/2022 [facility] g/dL 3:42 PM CDT LABORATORY-[facility] TRAL LABORATORY A/G RATIO 1.5 1.0 - 2.0 07/08/2022 [facility] 3:42 PM CDT LABORATORY-[facility]NE TRAL LABORATORY BILIRUBIN,TOTAL 0.6 0.2 - 1.2 07/08/2022 [facility] mg/dL 3:42 PM CDT LABORATORY-[facility]ELY[facility] TRAL LABORATORY BILIRUBIN,DIRECT 0.3 0.1 - 0.5 07/08/2022 [facility] mg/dL 3:42 PM CDT LABORATORY-[facility]ELYNE TRAL LABORATORY BILIRUBIN,INDIRE 0.3 0.2 - 0.8 07/08/[address] [facility] [address] mg/dL 3:42 PM CDT LABORATORY-EVELYNE TRAL LABORATORY ALK PHOSPHATASE 67 50 - 136 07/08/2022 [facility] IU/L 3:42 PM CDT LABORATORY-[facility] TRAL LABORATORY ALT (SGPT) 11 8 - 45 07/08/2022 [facility] IU/L 3:42 PM CDT LABORATORY-[facility] TRAL LABORATORY AST (SGOT) 11 2 - 40 07/08/2022 [facility] IU/L 3:42 PM CDT LABORATORY-[facility]ELY[facility] TRAL LABORATORY Specimen Anatomical Collection Method / Collection Time Recei niels Time (Source) Location / Volume Laterality Blood BLOOD SPECIMEN / Venipuncture / 07/07/2022 11:16 07/07 Unknown Unknown AM CDT 11:17 AM CDT Terry Junior MD CHEMISTRY Performing Organization Address City/State/ZIP Code Phon e Number [facility] [address] [place] [address] LABORATORY-CENTRAL 2000 LABORATORY (ABNORMAL) BASIC METABOLIC PANEL (07/07/2022 11:16 AM CDT) Analysis Performed At Patho [facility]ist Time Signature SODIUM 139 135 - 145 07/08/2022 [facility] mmol/L 3:41 PM CDT LABORATORY-EVELYNE TRAL LABORATORY POTASSIUM 4.0 3.5 - 5.0 07/08/2022 [facility] mmol/L 3:41 PM CDT LABORATORY-[facility]ELYNE TRAL LABORATORY CHLORIDE 107 98 - 110 07/08/2022 [facility] mmol/L 3:41 PM CDT LABORATORY-[facility]ELYNE TRAL LABORATORY CO2,TOTAL 23 21 - 31 07/08/2022 [facility] mmol/L 3:41 PM CDT LABORATORY-[facility]ELYNE TRAL LABORATORY ANION GAP 9 5 - 18 07/08/2022 [facility] 3:41 PM CDT LABORATORY-[facility]ELYNE TRAL LABORATORY GLUCOSE 175 (H) 65 - 100 07/08/2022 [facility] mg/dL 3:41 PM CDT LABORATORY-[facility]ELY[facility] TRAL LABORATORY CALCIUM 9.5 8.5 - 10.5 07/08/2022 [facility] mg/dL 3:41 PM CDT LABORATORY-[facility]ELY[facility] TRAL LABORATORY BUN 14 8 - 25 07/08/2022 [facility] mg/dL 3:41 PM CDT LABORATORY-[facility] TRAL LABORATORY CREATININE 0.72 0.72 - 07/08/2022 [facility] 1.25 mg/dL 3:41 PM CDT LABORATORY-[facility] TRAL LABORATORY BUN/CREAT RATIO 19 10 - 20 07/08/2022 [facility] 3:41 PM CDT LABORATORY-[facility]ELY[facility] TRAL LABORATORY eGFR >90 >90 07/08/2022 [facility] mL/min/1.7 3:41 PM CDT LABORATORY-EVELYNE 3m2 TRAL [...] Organization Address City/State/ZIP Code Phon e Number [facility] [address] [place] [address] LABORATORY-CENTRAL 2000 LABORATORY CA NJX AA&/STRD TFRML EPI LUMBAR/SACRAL 1 LEVEL (04/26/2022 12:00 AM CDT) Narrative This result has an attachment that is no t available. Ld Sykes MD PB - NERVOUS SYSTEM SERVICES from Last 3 Months Insurance Payer Benefit Plan / Subscriber ID Effective Dates Phone Addre ss Type Group MEDICARE PART MEDICARE PART [id number] 2006-[place] A [place] USE A HB ONLY nt [address] [place] [address] MEDICARE PART MEDICARE PART [id number] 2006-[place]: [place] B - [place] USE B HB ONLY nt [address] [place] [address] MEDICARE PPS HC MEDICARE [id number] 2006-Prese [address] X 2019 PPS nt [address] [place] [address] BLUE CROSS BLUE CROSS [id number] 2017-[place] [address] [address] [place] ONLY [id number] BLUE CROSS MR BLUE CROSS [id number] 2017-Presen [address] [address] [place] ONLY [id number] Advance Directives Latest Code Status on File [...] 8:20 AM 06/27/2008 3:46 PM Care Teams Sheet Manufacturing Supervisor Relationship Specialty Start Date End Date Terry Junior MD PCP - General Family Practice 06/16/17 [address] [place] [address] [facility] 07/13/[address] [place] [address] [facility] 07/19/[address] [place] [address]
--- OUTSIDE RECORDS SUMMARY | 2022-07-21 04:19 | XMS_ITS ---
:1940 Author Care Team Providers Name Role Phone PATRICIA SHARMA MD Primary Care Provider [phone] Allergies Code Code System Name Reaction Severity [...] Fitz Preciado MD: [address], [place] [address], Ph. Social History Tobacco Smoking Status Former Smoker Vaccine List Vaccine Type COVID-19, mRNA, LNP-S, PF, 30 mcg/0.3 mL dose ([facility]) 11/10/2020 12/01/2020 07/02/2021 COVID-19, mRNA, LNP-S, PF, 30 mcg/0.3 mL dose, sunni-sucrose ([place]) 03/25/2022 pneumococcal conjugate PCV 13 04/20/2016 pneumococcal [...]
--- OUTSIDE RECORDS SUMMARY | 2022-07-21 04:19 | XMS_ITS | Encounter Summary ---
:1940 Author Care Team Providers Name Role Phone Terry Junior MD Primary Care Provider [phone] Reason for Visit Elevated PSA or Prostate [...] mRNA, LNP-S, PF, 30 mcg/0.3 mL dose ([employer]) 11/10/2020 12/01/2020 07/02/2021 COVID-19, mRNA, LNP-S, PF, 30 mcg/0.3 mL dose, sunni-sucrose ([employer]) 03/25/2022 pneumococcal conjugate PCV 13 04/20/2016 pneumococcal [...] Hypertrophy; Primary Erectile Dysfunction Fitz Preciado MD: [address] [place] [phone], Ph. History of Present Illness Note: <div>06/02/2022:</div><div>81 [...]
--- OUTSIDE RECORDS SUMMARY | 2022-07-21 04:19 | XMS_ITS | Encounter Summary ---
:1940 Author Organization [facility] Address [address] [place] [address] Care Team Providers Name Role Phone Clinic, [facility] Unavailable Unavail able Terry Junior Primary Care Provider Reason for Visit Inpatient Admission Specialty Diagnoses / Procedures Referred By Contact Refer red To Contact Procedures [id number] Referral ID Status Reason Start Date Expiration Date Visits Requ ested Visits Authorized [id number] 1 1 Encounter Details Date Type Department Care Team Description 05/04/2018 Surgery [facility] Low Hagen, PLACEMENT OF Hospital Operating MD MULTICOMPONENT PENILE Room [address] PROSTHESIS [address] [place], [place] [address] [place], [place] [phone] (Wo rk) Surgery Details Date/Time Status Location OR Service Patient Case Class Case Type Trauma Class Case? 05/04/18 7:30 AM Posted [facility] ORS 05 Urology Same Day SDS-Hold Surgery [...] DISCHARGE MEDICATIONS Roberto Cason Home Medication Instructions MIRA:[id number] Printed on:05/07/18 0423 Medication Information amLODIPine (NORVASC) 10 mg oral [...] TERRY JUNIOR PA-C [facility] Office [phone] UROLOGY d/c note ABOVE NOTE Wilmer HAGEN MD [facility] [phone] documented in this encounter Discharge Instructions Discharge [...] live longer. For further assistanceplease call the Declara Helpline at [phone] or go to their website [email or web address] documented in this encounter Medications at Time [...] MD - 05/05/2018 1:20 PM CDT [facility] SERVICE PROGRESS NOTE Chart [...] amlodipine, lisinopril, metoprolol. restart home meds at in. 5. HLD: prior to admission statin 6. Benign Prostatic Hypertrophy: prior to admission flomax 7. Clinically stable to in home. Chapincito Randolph MD [facility] Henrietta Fam RN - 05/05/2018 1:20 PM CDT Roberto Cason 1940 [id number] P: Discharge A: Discharged via wheelchair to [...] Amaryl and Metformin and SS insulin. Told credit underwriter he isn't eating enough and his [...] to call for help, name of assigned daycare assistant, PatientInformation booklet, Handwashing, hourly rounding procedures. R. [...] MD - 05/04/2018 10:35 AM CDT [facility] SERVICE PROGRESS NOTE Chart [...] of care, see above Feli Cox PA-C [facility] Patient seen and examined by me. Agree with the PA note. A/P: 77 y.o. with 1. s/p urologic procedure: per urology. 2. CAD: cont BB 3. DM: SSI in adition to po meds. 4. HTN: cont BB, hold parameters for the others. 5. Rest per PA note. Chapincito Randolph MD [facility] documented in this encounter [...] the end of the procedure, a 14 [place] Citizen coude, and there was clear urine noted. [...] Low Hagen MD, FACS /CW Dictation ID: [id number] OR Surgeon - Low Hagen MD - 05/04/2018 6:31 PM CDT POST-OPERATIVE NOTE Surgeon(s): Low Hagen MD Canal Tender(s): Circulating nurse: Lis Boykin RN diagnostic tech: Monica Crespo Private Scrub: Jabier Tao Preoperative Diagnosis: dx: erectile dysfunction Postoperative Diagnosis: ED Procedure(s): ED Complications: None EBL: 10 ml Anesthesia: General Operative Findings: 3 piece IPP placed---22cm cylinder bilateral---no rte's 125cc reservoir-placed ectopically left lower quadrant--krystin pump in scrotum Specimen(s): * No specimens in log * Grafts and/or Implants: Implant Name Type Inv. Item Serial No. Injection Specialist Lot No. [id number] No. Used Titan Assembly Kit [employer] [facility] [employer] [id number] N/A 1 Titan CL [place] [employer] [id number] N/A 1 Titan Infrapubic Zero Degree Angle Cylinder Set with Pump [employer] [id number] N/A 1 Condition on Discharge from Operating Room: Satisfactory REPORT OF OPERATION/ PROCEDURE Please see dictated operative note. LOW HAGEN MD [facility] [phone] documented in this encounter Plan of Treatment [...] WB 173 (H) 60 - 100 05/05/2018 [facility] METER mg/dL 9:15 AM CDT HEALTH LABORATORY Specimen Anatomical Collection Method Collection Time Receive d Time (Source) Location / / Volume Laterality Blood 05/05/2018 8:05 AM 8 9:15 CDT AM CDT Low Hagen MD LAB POINT OF CARE TEST RESUL TS Performing Organization Address City/State/ZIP Code Phon e Number [facility] [address] [place] [address] [phone] LABORATORY Electrocardiogram (05/04/2018 5:47 AM CDT) athologist Signature EKG [facility] Comment: ?N [facility] ? Test Date: ?2018-05-04 Pat Name: ? ROBERTO CASON ?Department: ?? PCC-Admit ? Room: ? 528 Gender: ? M ?Floor Representative: ?? [id number] : ?1940 ? Requested By: ALEJANDRA YANG MD Order Number: [id number] ?Reading : ?? A. MD Tanner ? Measurements Intervals ?[place] ? Rate: ? 75 ? P: ?12 [place]: ? 150 ?QRS: ?23 QRSD: ? 88 [...] MD EKG ORDERABLE Performing Organization Address City/State/ZIP [facility] Phon e Number [facility] [address] [facility] No [place] Que[place] [id number] documented in this encounter Visit Diagnoses Not [...] - Provider: Evita Liao) 1,000 mg, Intravenous, CIRCULAR SAW EDGE FUSER TO OR, 1 dose, Starting Mon05/04/18 at [...] Discontinued documented in this encounter Care Teams Forestry Farm Laborer Relationship Specialty Start Date End Date [facility] PCP - Primary Care Clinic 04/30/18 Terry Casiano PCP - General Family Medicine 04/30/18 documented as of this encounter
[2022-07-21] MEDS: TRANEXAMIC ACID 100 MG/ML INJ 1000 MG TOPICAL (04:50)
--- NOTE | 2022-07-21 05:14 | ED.NURSE ---
pt helped to restroom via wheelchair to have bowel movement.
[2022-07-21] MEDS: fentaNYL 100 MCG/2 ML inj 25 MCG IVP ×3 (05:54→09:27)
[2022-07-21] MEDS: lidocaine HCL 2 % JELLY (TOP) STERILE 6 ML UR ×2 (06:15→10:35)
--- NOTE | 2022-07-21 06:48 | ED.NURSE ---
~250ml near blood urine was removed from home maynard leg bag from initially. Bleeding was also coming out of end of penis around catheter. Ledger Clerk did assist care RN with sterile irrigation of 1000ml saline into existing maynard catheter. 1000ml of eid colored saline and clots were flushed from bladder with irrigation, bleeding did not seem much less. After txa, urine stopped flowing to new leg bag, irrigating difficult with blood clot. Maynard catheter from home removed and 24F three way catheter placed.
--- NOTE | 2022-07-21 07:27 | ED.MALEGU ---
HPI - Male Genitourinary General Chief complaint: Urogenital Problems, Male Stated complaint: Blood in urine Time Seen by Provider: 07/21/22 03:31 History of Present Illness HPI Narrative: 81-year-old man presenting to the emergency department accompanied by son with concern of hematuria and potential urinary tract infection. Was admitted on July 14 to this facility with a fever and concern of postoperative abscess following a lumbar diskectomy. Conclusion ultimately appears to have been postoperative hematoma. Mr. aL did have urinary retention during that time of hospitalization and left with a Reyes catheter. With history of coronary artery disease is maintained on Plavix and aspirin status post stenting. At this time not complaining of pain. Has not had new fever. This hematuria has developed overnight. Related Data Home Medications Medication Instructions Recorded Confirmed acetaminophen 500 mg capsule 1,000 mg PO Q6H PRN 07/14/22 07/21/22 amlodipine 10 mg tablet 10 mg PO DAILY 07/14/22 07/21/22 aspirin 81 mg tablet,delayed 81 mg PO DAILY 07/14/22 07/21/22 release (Adult Aspirin Regimen) atorvastatin 20 mg tablet 20 mg PO HS 07/14/22 07/21/22 blood sugar diagnostic (Contour 07/14/22 07/14/22 Next Test Strips) clopidogrel 75 mg tablet 75 mg PO DAILY 07/14/22 07/21/22 cyanocobalamin (vitamin B-12) 1,000 mcg PO DAILY 07/14/22 07/21/22 1,000 mcg tablet glimepiride 2 mg tablet 2 mg PO BID 07/14/22 07/21/22 lisinopril 20 mg tablet 20 mg PO HS 07/14/22 07/21/22 metformin 1,000 mg tablet 1,000 mg PO BIDWM 07/14/22 07/21/22 methocarbamol 750 mg tablet 750 mg PO Q6H PRN 07/14/22 07/21/22 metoprolol succinate 100 mg 100 mg PO HS 07/14/22 07/21/22 tablet,extended release 24 hr nitroglycerin 0.4 mg sublingual 0.4 mg sublingual Q5M PRN 07/14/22 07/21/22 tablet oxycodone 10 mg tablet 10 mg PO Q4H PRN 07/14/22 07/21/22 tamsulosin 0.4 mg capsule 0.4 mg PO DAILY 07/14/22 07/21/22 ferrous sulfate 325 mg (65 mg 325 mg PO Q OTHER DAY 07/21/22 07/21/22 iron) tablet,delayed release Previous Rx's Medication Instructions Recorded docusate sodium 100 mg capsule 100 mg PO BID PRN Constipation 30 07/18/22 days #100 caps Allergies Allergy/AdvReac Type Severity Reaction Status Date / Time No Known Drug Allergies Allergy Verified 07/14/22 05:53 Review of Systems Status of ROS: Reports: 6 or more systems reviewed and unremarkable except as noted in History and below [facility] Medical History (Updated 07/21/22 @ 08:01 by Nik Villafana MD) Anemia of unknown etiology BPH with urinary obstruction CAD (coronary artery disease) Coronary artery disease involving [place] coronary artery of [place] heart without angina pectoris DJD (degenerative joint disease) of knee Herniation of nucleus pulposus, lumbar Hyperlipidemia Hypertension Loose right total knee arthroplasty Onychomycosis Spinal stenosis, lumbar region with neurogenic claudication Type 2 diabetes mellitus Vitamin B12 deficiency Surgical History (Updated 07/16/22 @ 15:20 by Mikala Blandon MD) H/O inguinal hernia repair H/O right knee surgery History of coronary artery stent placement History of laminectomy History of lumbar discectomy History of tonsillectomy Status post cataract extraction of both eyes with insertion of intraocular lens Social History Highest level of school completed/degree received: Doctoral degree Smoking Status: Never smoker Do you use any of these nicotine containing products: None Second hand tobacco smoke exposure: No How often do you have a drink containing alcohol: never How often do you have six or more drinks on one occasion: Never AUDIT-C Alcohol total score: 0 Non-prescribed substance use: denies use Caffeine: Yes service: No Exam Narrative: Exam Narrative: Is pleasant. Heavily accented Greek. NAD. Breathing easily. Cardiovascular with regular rate rhythm Abdomen is soft and nontender at this time. Genitourinary with Reyes in place. There is blood at the penile meatus and quite red urine in the leg bag. Moving all extremities without difficulty. Well perfused. Const: Vital Signs, click to edit/add: Vital Signs - 24 hr 07/21/22 03:04 07/21/22 07:00 07/21/22 06:42 Temperature 98.1 F 97.0 F L Pulse Rate [Left P ulse Oximeter] 77 79 Respiratory Rate 16 20 16 Blood Pressure [Ri ght Upper Arm] 140/62 H 135/73 171/97 H Pulse Oximetry 99 97 97 Oxygen Delivery Me thod Room Air Room Air 07/21/22 05:55 07/21/22 06:30 Temperature Pulse Rate [Left P ulse Oximeter] 79 97 Respiratory Rate 18 16 Blood Pressure [Ri ght Upper Arm] 115/58 L 134/72 Pulse Oximetry 97 100 Oxygen Delivery Me thod Room Air Room Air Documenting provider has reviewed patient's vital signs: yes Course Course Hospital Course: We made attempts at irrigation but unable to clear bloody fluid. Cystic TXA placed. Given fentanyl and Uroject. Changed to a larger Reyes catheter and this ultimately clotted off as well. Increasingly uncomfortable bladder scanned for over 300 mL and some abdominal pain improved with bowel movement. Reyes swapped for [address] Continued to clot off and anticipating potential transfer but now finally improved and slightly clearing flow and will move ahead with plan for admission to continue with bladder irrigation. Further fentanyl for pain. Vital Signs Vital signs: Initial Vital Signs Temperature 98.1 F 07/21/22 03:04 Temperature Source Temporal Artery Scan 07/21/22 03:04 Pulse Rate 77 07/21/22 03:04 Pulse Rhythm 07/21/22 03:04 Respiratory Rate 16 07/21/22 03:04 Blood Pressure 140/62 H 07/21/22 03:04 Blood Pressure Mean 88 07/21/22 03:04 Blood Pressure Position Semi-Fowlers 07/21/22 03:04 Pulse Oximetry 99 07/21/22 03:04 Oxygen Delivery Method 07/21/22 03:04 Vital Signs Temperature 98.1 F 07/21/22 03:04 Pulse Rate 77 07/21/22 03:04 Respiratory Rate 16 07/21/22 03:04 Blood Pressure 140/62 H 07/21/22 03:04 Pulse Oximetry 99 07/21/22 03:04 Oxygen Delivery Method 07/21/22 03:04 Temperature 97.0 F L 07/21/22 07:00 Pulse Rate 79 07/21/22 07:00 Respiratory Rate 20 07/21/22 07:00 Blood Pressure 135/73 07/21/22 07:00 Pulse Oximetry 97 07/21/22 07:00 Oxygen Delivery Method 07/21/22 06:42 Discharge Plan Discharge Clinical Impression: Hematuria, Acute urinary retention Patient Disposition: Admitted As Inpatient Condition: Improved
--- NOTE | 2022-07-21 08:13 | ED.NURSE ---
Spoke with Dr. Villafana about IV TXA. Patient's urine output in catheter is improving/clearing. No longer teodoro blood but like dilute cranberry juice. We will hold on the TXA IV at this time per Dr. Villafana.
--- NOTE | 2022-07-21 08:16 | W.PC.EDHO ---
Primary Language: Occitan Preferred Language: Orientation Status: [x] Alert & Oriented [] Slight Confusion [] Known Dx Dementia Transfers By: [x] Assist of 1 [] Assist of 2 [] Lift Active Medications Generic Name Dose Route Start Last Admin Trade Name Freq PRN Reason Stop Dose Admin Fentanyl 25 mcg 07/21/22 05:45 07/21/22 05:54 Fentanyl 100 Mcg/2 Ml Inj IVP 25 mcg ONCE PRN Administration Pain Lidocaine HCl 6 ml 07/21/22 05:44 07/21/22 06:15 Lidocaine Hcl 2 % Jelly (Top) Sterile UR 6 ml ONCE PRN Administration Discontinued Medications Generic Name Dose Route Start Last Admin Trade Name Freq PRN Reason Stop Dose Admin Fentanyl 25 mcg 07/21/22 07:28 07/21/22 07:35 Fentanyl 100 Mcg/2 Ml Inj IVP 07/21/22 07:29 25 mcg ONCE ONE Administration Tranexamic Acid 1,000 mg 07/21/22 04:19 07/21/22 04:50 Tranexamic Acid 100 Mg/Ml Inj TOPICAL 07/21/22 04:20 1,000 mg ONCE ONE Administration Description of Symptoms ED Triage Present Problem pt was seen on the for elevated temperature. Description pt was discharged with a maynard cath placed. pt has blood in the cath bag. pt son is worried about a possible infection. pt has no complaints of pain or shortness of breath. pt noticed the blood at midnight tonight. pt did empty the leg bag prior to arrival, about 300cc of bloody urine was emptied. Pain Pain Description [Lower Pressure,Cramping,Heaviness Abdomen] Pain Intensity [Lower Abdomen] 7 Pain Intensity 7 Pain Intensity 7 Pain Intensity 3 Pain Intensity 2 Pain Scale Used [Lower Abdomen Numeric (1 - 10) ] Pain Scale Used Numeric (1 - 10) Pain Scale Used Numeric (1 - 10) Pain Scale Used Numeric (1 - 10) Pain Scale Used Numeric (1 - 10) Oxygen Administration Pulse Oximetry 97 Pulse Oximetry 97 Pulse Oximetry 100 Pulse Oximetry 97 Pulse Oximetry 99 Oxygen Delivery Method Room Air Oxygen Delivery Method Room Air Oxygen Delivery Method Room Air Oxygen Delivery Method Room Air
[2022-07-21 08:41] LABS: SARS PCR* Negative SARS-CoV-2 (Negative)
[2022-07-21] MEDS: HYDROmorphone 0.5 mg/0.5 ml inj 1 MG IVP (10:30)
--- NOTE | 2022-07-21 14:44 | PC.SOCIAL ---
Pt. had just had [facility] arranged for nursing, PT and OT at discharge from his last hospital stay. If pt. needs home care at discharge this will need to be arranged again.
--- NOTE | 2022-07-21 16:48 | PM.IMHP1 ---
Hospitalist- H&P: [facility] History of Present Illness Time Seen by Provider: 12:30 Date Seen: 07/21/22 Chief complaint: Blood in urine Narrative: Hugo La is a 81 year old man presents to the hospital with blood-tinged urine. He has a Reyes catheter in place due to urinary retention postoperatively. On 07/12/2022 patient underwent diskectomy and laminectomy the lumbar spine at [facility]. He presented to our hospital 2 days postoperatively with fever, temperature as high as 102? F. MR scan of spine suggested the possibility of an abscess verses infected hematoma versus a hematoma versus a seroma. Cultures obtained at that time of the blood were negative. He was treated empirically with piperacillin and tazobactam plus vancomycin. After remaining afebrile on antibiotics we did stop the antibiotics and he continued to be afebrile. We then discharged him home. Prior to discharge home patient had obvious urinary retention with volumes as high as 1 L postvoid residuals. Thus he was discharged home with a Reyes catheter earlier this week. Takes aspirin and clopidogrel daily due to his coronary artery disease. Had been doing well in his home until last night. He noticed the blood tinged urine. It was not getting any better. He finally came in to the hospital for assessment. Upon assessing him it was apparent that he had blood clots that were not passing and in fact his catheter became obstructed. They attempted to irrigate this unsuccessfully. Subsequently the change the catheter twice still without relief. Eventually there with get a 3 way catheter in which For while functioned well but then it clotted off by the time he arrived to the hospital floor. We changed that catheter once again and that catheter has been functioning since. Had significant pain in association with the obstruction similar to what he had previously when he is having large postvoid volume residuals. Pain almost entirely resolved with functional Reyes catheter. Review of Systems Status of ROS: Reports: 10 or more systems reviewed and unremarkable except as noted in History and below Narrative: Acknowledges anxiety. Denies chest heaviness, pressure, tightness, or pain. Denies cough, shortness of breath, dyspnea at rest, paroxysmal nocturnal dyspnea, orthopnea. Denies syncope or near-syncope. Denies nausea vomiting. Denies palpitations or fluttering. Denies abdominal discomfort. Denies diarrhea or constipation. Has been taking his stool softeners. No focal motor neurologic deficits. No trauma or injury. [facility] Medical History Anemia of unknown etiology BPH with urinary obstruction CAD (coronary artery disease) Coronary artery disease involving [place] coronary artery of [place] heart without angina pectoris DJD (degenerative joint disease) of knee Herniation of nucleus pulposus, lumbar Hyperlipidemia Hypertension Loose right total knee arthroplasty Onychomycosis Spinal stenosis, lumbar region with neurogenic claudication Type 2 diabetes mellitus Urinary retention Vitamin B12 deficiency Surgical History H/O inguinal hernia repair H/O right knee surgery History of coronary artery stent placement History of laminectomy History of lumbar discectomy History of tonsillectomy Status post cataract extraction of both eyes with insertion of intraocular lens Social History Highest level of school completed/degree received: Doctoral degree Smoking Status: Never smoker Do you use any of these nicotine containing products: None Second hand tobacco smoke exposure: No How often do you have a drink containing alcohol: never How often do you have six or more drinks on one occasion: Never AUDIT-C Alcohol total score: 0 Non-prescribed substance use: denies use Caffeine: Yes service: No Meds Home Medications and Allergies Home Medications Medication Instructions Recorded Confirmed Type acetaminophen 500 mg capsule 1,000 mg PO Q6H PRN 07/14/22 07/21/22 History amlodipine 10 mg tablet 10 mg PO DAILY 07/14/22 07/21/22 History aspirin 81 mg tablet,delayed 81 mg PO DAILY 07/14/22 07/21/22 History release (Adult Aspirin Regimen) atorvastatin 20 mg tablet 20 mg PO HS 07/14/22 07/21/22 History blood sugar diagnostic (Contour 07/14/22 07/14/22 History Next Test Strips) clopidogrel 75 mg tablet 75 mg PO DAILY 07/14/22 07/21/22 History cyanocobalamin (vitamin B-12) 1,000 mcg PO DAILY 07/14/22 07/21/22 History 1,000 mcg tablet glimepiride 2 mg tablet 2 mg PO BID 07/14/22 07/21/22 History lisinopril 20 mg tablet 20 mg PO HS 07/14/22 07/21/22 History metformin 1,000 mg tablet 1,000 mg PO BIDWM 07/14/22 07/21/22 History methocarbamol 750 mg tablet 750 mg PO Q6H PRN 07/14/22 07/21/22 History metoprolol succinate 100 mg 100 mg PO HS 07/14/22 07/21/22 History tablet,extended release 24 hr nitroglycerin 0.4 mg sublingual 0.4 mg sublingual Q5M PRN 07/14/22 07/21/22 History tablet oxycodone 10 mg tablet 10 mg PO Q4H PRN 07/14/22 07/21/22 History tamsulosin 0.4 mg capsule 0.4 mg PO DAILY 07/14/22 07/21/22 History ferrous sulfate 325 mg (65 mg 325 mg PO Q OTHER DAY 07/21/22 07/21/22 History iron) tablet,delayed release Allergies Allergy/AdvReac Type Severity Reaction Status Date / Time No Known Drug Allergies Allergy Verified 07/14/22 05:53 Exam Narrative: Exam Narrative: By the time I see him he is comfortable in no acute distress. Alert, oriented to self, place, time, situation. Articulate, cooperative and friendly. Mood and affect are congruent. Neck is supple. Midline trachea. Number thyroid. No no JVD, hepatojugular reflux, or carotid bruits. No lymphadenopathy. Lungs are clear to auscultation. No wheezing rhonchi or rales. No CVA tenderness. Heart tones with regular rhythm, normal S1-S2, without murmur gallop or rub. Abdomen with active bowel sounds, soft, nontender. Extremities without edema. Independent with transfer, station, gait. Skin is warm, dry, intact. Reyes catheter in place with pink-tinged effluent with irrigation. Const: Vital Signs, click to edit/add: Vital Signs - 24 hr 07/21/22 03:04 07/21/22 07:00 07/21/22 06:42 Temperature 98.1 F 97.0 F L Pulse Rate [Left P ulse Oximeter] 77 79 Pulse Rate [Right Pulse Oximeter] Respiratory Rate 16 20 16 Blood Pressure [Le ft Arm] Blood Pressure [Ri ght Upper Arm] 140/62 H 135/73 171/97 H Pulse Oximetry 99 97 97 Oxygen Delivery Me thod Room Air Room Air 07/21/22 05:55 07/21/22 06:30 07/21/22 09:30 Temperature Pulse Rate [Left P ulse Oximeter] 79 97 102 H Pulse Rate [Right Pulse Oximeter] Respiratory Rate 18 16 Blood Pressure [Le ft Arm] Blood Pressure [Ri ght Upper Arm] 115/58 L 134/72 160/72 H Pulse Oximetry 97 100 100 Oxygen Delivery Me thod Room Air Room Air 07/21/22 09:00 07/21/22 08:00 07/21/22 07:30 Temperature Pulse Rate [Left P ulse Oximeter] 103 H 100 100 Pulse Rate [Right Pulse Oximeter] Respiratory Rate Blood Pressure [Le ft Arm] Blood Pressure [Ri ght Upper Arm] 170/89 H 174/87 H 134/72 Pulse Oximetry 100 100 100 Oxygen Delivery Me thod Room Air 07/21/22 07:00 07/21/22 13:00 07/21/22 13:00 Temperature 97.4 F L Pulse Rate [Left P ulse Oximeter] Pulse Rate [Right Pulse Oximeter] Respiratory Rate 20 20 Blood Pressure [Le ft Arm] 160/69 H Blood Pressure [Ri ght Upper Arm] 135/73 Pulse Oximetry 90 90 Oxygen Delivery Me thod Room Air Room Air 07/21/22 15:00 Temperature 97.6 F Pulse Rate [Left P ulse Oximeter] Pulse Rate [Right Pulse Oximeter] 74 Respiratory Rate 20 Blood Pressure [Le ft Arm] 135/57 L Blood Pressure [Ri ght Upper Arm] Pulse Oximetry 94 Oxygen Delivery Me thod Room Air Assessment and Plan Assessment and plan (1) Hematuria: Status: Acute Assessment and Plan: 1. Efforts were made to transfer patient to the [facility]. Unfortunately they have no beds available throughout the [facility]. 2. For now we will admit patient and irrigate the bladder. The hope is that the effluent will clear over time. 3. For now I am holding his clopidogrel and aspirin. 4. Unfortunately we because of his urinary retention we need to leave the Reyes catheter in place at this time. If need be we might consider discontinuation of the Reyes catheter over time. (2) Urinary retention: Problem comment: Occurred postoperatively status post neurosurgery on 07/12/2022. Reyes catheter placed 07/18/2022. Status: Acute (3) History of lumbar discectomy: Problem comment: bilateral L3-L4, 07/12/[address] Perry at [facility] Status: Acute (4) CAD (coronary artery disease): Problem comment: PCI x2 2007, lifelong Plavix per Cardiology (holding postop until 07/17). Status: Acute (5) Type 2 diabetes mellitus: Status: Acute (6) Hypertension: Status: Acute (7) Hyperlipidemia: Status: Acute Plan 1. Reviewed with patient and his daughter. 2. Answered their questions. 3. They are agreeable to above stated plans and recommendations. 4. Continue with other supportive efforts.
[2022-07-21] MEDS: ACETAMINOPHEN 325 MG TABLET 650 MG PO ×2 (17:56→22:03)
[2022-07-21 18:15] LABS: Hemoglobin* 11.2 gm/dL (13.5-17.5)
--- NOTE | 2022-07-21 19:42 | PC.NURSE ---
Pt up with walker and SBA to BR. Pt states he is feeling extra weak. Hbg returns @11.2 up from last draw of 10.6 on 07/17. Refused DM meds at meal stating I have not eaten all day. Continuous bladder irrigation was clotted off when arrived to floor. After attempting to irrigate without success, replaced placed 3 way 24french cath. and has continued to flow freely light pink to eid urine since 1040.
[2022-07-21] MEDS: ATORVASTATIN 10 MG TABLET 20 MG PO (22:03)
[2022-07-21] MEDS: METOPROLOL SUCCINATE (XL) 100 MG TAB PO (22:04)
[2022-07-22 03:00] VITALS: BP 121/54; PULSE 60; RESP 18; TEMP 36.7; O2SAT 95
--- NOTE | 2022-07-22 05:49 | PC.NURSE ---
Shift note: CBI continue, eid colored urine is draining and only one little clot seen. Denied abd/teodoro pain. Pt accepted 3 unit of novolog insulin instead of 6 unit per sliding scale and refused Lisinopril.
[2022-07-22 07:22] LABS: HCO3 VBG 29 mmol/L (21-28); PCO2 VBG 39 mmHG (40-50); PO2 VBG 67.6 mmHG (25-47); pH VBG 7.473 (7.32-7.43)
[2022-07-22 07:30] LABS: Basophils Absolute Auto 0.03 K/uL (0.00-0.30); Basophils Percent Auto 0.3 % (0.0-3.0); Eosinophils Absolute Auto 0.15 K/uL (0.00-0.50); Eosinophils Percent Auto 1.5 % (0.0-7.0); Hematocrit 29.1 % (37.0-53.0); Hemoglobin* 9.7 gm/dL (13.5-17.5); Immature Granulocytes Abs Auto 0.13 K/uL (0.00-0.30); Lymphocytes Percent Auto 14.6 % (20-44); Mean Corpuscular HGB Conc 33 gm/dL (32-36); Mean Corpuscular Hemoglobin 28 pg (26-34); Mean Corpuscular Volume 85 fL (80-100); Monocytes Percent Auto 6.5 % (0.0-11.0); Neutrophils Percent Auto 75.8 % (42.0-72.0); Platelet Count* 372 K/uL (140-440); RDW Coefficient of Variation % 13.5 % (11.5-15.5); Red Blood Count 3.42 m/uL (4.30-5.90); White Blood Count* 10.23 K/uL (4.50-11.00)
[2022-07-22 07:33] LABS: Slide Review Reflex No
[2022-07-22 07:48] LABS: Chloride* 102 mmol/L (96-114); Potassium* 4.2 mmol/L (3.6-5.1); Sodium* 137 mmol/L (135-149)
[2022-07-22 07:50] LABS: Creatinine* 0.5 mg/dL (0.5-1.5); Est. Creatinine Clearance* 53.17; Estimated Glomerular Filt Rate 103 ml/min
[2022-07-22 07:51] LABS: Blood Urea Nitrogen* 12 mg/dL (7-30); Carbon Dioxide* 25 mmol/L (20-32); Glucose* 214 mg/dL (60-115)
[2022-07-22 07:52] LABS: Calcium* 8.9 mg/dL (8.4-10.6); Magnesium* 1.9 mg/dL (1.5-2.6); Phosphorus* 3.4 mg/dL (2.5-4.5)
[2022-07-22 08:00] VITALS: BP 118/56; PULSE 82; RESP 18; TEMP 36.9; O2SAT 98
[2022-07-22 08:00] LABS: NT Pro B Type NatriureticPept* 115 PG/mL (0-450)
[2022-07-22] MEDS: CLOPIDOGREL 75 MG TABLET PO (09:01)
[2022-07-22] MEDS: ASPIRIN 81 MG TABLET EC PO (09:01)
[2022-07-22] MEDS: METFORMIN 1,000 MG TABLET 1000 MG PO ×2 (09:02→18:29)
[2022-07-22] MEDS: FERROUS SULFATE 325 MG TABLET PO (09:02)
[2022-07-22] MEDS: ACETAMINOPHEN 325 MG TABLET 650 MG PO ×3 (09:02→22:31)
[2022-07-22] MEDS: TAMSULOSIN HCL 0.4 MG CAPSULE PO (09:02)
[2022-07-22] MEDS: GLIMEPIRIDE 1 MG TABLET 2 MG PO ×2 (09:02→18:29)
[2022-07-22 11:00] VITALS: BP 118/47; PULSE 60; RESP 16; TEMP 36.9; O2SAT 98
[2022-07-22 14:44] LABS: Hemoglobin* 10.1 gm/dL (13.5-17.5)
--- NOTE | 2022-07-22 14:47 | PC.NURSE ---
Shift Summary: Patient pleasant and cooperative. Up with one assist. Denies pain, has been refusing insulin despite high blood glucose. This morning urine started to look better and less red, patient up to bathroom and started having eid red output again, denies pain with this. Continues to have CBI running at this time. Advanced to regular diet.
[2022-07-22 15:00] VITALS: BP 98/50; PULSE 65; RESP 16; TEMP 36.9; O2SAT 100
[2022-07-22 19:00] VITALS: BP 131/60; PULSE 75; RESP 20; TEMP 37.2; O2SAT 97
--- NOTE | 2022-07-22 21:17 | PM.IMPN1 ---
Progress Note: A&P Assessment and plan (1) Hematuria: Problem details: Most likely due to trauma from catheter placement. Continue bladder irrigation. Unable to transfer for urologic care. Probably will get outpatient urologic care if this resolves. Consider transfer for outpatient cystoscopy if not resolving Status: Acute (2) Urinary retention: Problem details: Occurred postoperatively status post neurosurgery on 07/12/2022. Reyes catheter placed 07/18/2022. Status: Acute (3) History of lumbar discectomy: Problem details: bilateral L3-L4, 07/12/[address] Perry at [facility] Status: Acute (4) CAD (coronary artery disease): Problem details: PCI x2 2007, lifelong Plavix per Cardiology. Due to bleeding will hold antiplatelet therapy temporarily Status: Acute (5) Type 2 diabetes mellitus: Status: Acute (6) Hypertension: Problem details: Blood pressure is relatively low so will withhold amlodipine for now Status: Acute (7) Cerumen impaction: Problem details: Ear drops to soften his dry wax. Eventually would benefit from irrigation Status: Acute Plan Continue in-hospital to get bleeding to stop. Time Spent With Patient Total time spent: Total time spent today is 40 minutes, 25 minutes in coordination of care discussing with patient evaluation and management of hematuria as well as history of elevated PSA, urinary retention and cerumen in the ears Subjective Date Seen: 07/23/22 Interval history: 81-year-old male seen in followup of hospitalization for postoperative urinary retention, urinary catheter placement, hematuria and plugging of catheter and now bladder irrigation. Patient reports since his surgery at [place] last week that he has had some problems with urinary retention. He was hospitalized here for fever which was thought to be benign postoperative fever. While he was here he was noted to have urinary retention so catheter was placed. He has now had obstruction of that catheter and as required bladder irrigation. He is continued on bladder irrigation with ongoing bloody urine being present. He is not having significant pain associated with this any longer. He has a couple other concerns. He has had dark green stools that he is concerned about will check a guaiac on that. He is not having any abdominal pain or diarrhea. No history of GI bleeding. He also reports that his right ear feels plugged. Exam Narrative: Exam Narrative: Right ear has moderate cerumen and appears pushed up to the area around the tympanic membrane. Left canal has moderate cerumen is well. No obstruction in either ear canal. Respirations are clear to auscultation. Cardiovascular: S1, S2, regular and rhythm. Abdomen is soft without tenderness or mass. Catheter drainage is bloody with tiny clots. Const: Vital Signs, click to edit/add: Vital Signs - 24 hr 07/21/22 23:00 07/21/22 23:00 07/22/22 03:00 Temperature 98.3 F 98.1 F Pulse Rate [Right Pulse Oximeter] 63 66 60 Respiratory Rate 18 18 18 Blood Pressure [Le ft Arm] 130/50 L 121/54 L Pulse Oximetry 97 95 Oxygen Delivery Me thod Room Air Room Air 07/22/22 08:00 07/22/22 11:00 07/22/22 15:00 Temperature 98.4 F 98.5 F Pulse Rate [Right Pulse Oximeter] 82 60 65 Respiratory Rate 18 16 16 Blood Pressure [Le ft Arm] 118/56 L 118/47 L Pulse Oximetry 98 98 Oxygen Delivery Me thod Room Air Room Air 07/22/22 15:00 Temperature 98.5 F Pulse Rate [Right Pulse Oximeter] 65 Respiratory Rate 16 Blood Pressure [Le ft Arm] 98/50 L Pulse Oximetry 100 Oxygen Delivery Me thod Room Air Documenting provider has reviewed patient's vital signs: yes Labs Labs: Laboratory Results - last 24 hr 07/22/22 07/22/22 07/22/22 07:00 07:00 07:00 WBC 10.23 RBC 3.42 L Hgb 9.7 L Hct 29.1 L MCV 85 MCH 28 MCHC 33 RDW Coeff of Poonam 13.5 Plt Count 372 Neut % (Auto) 75.8 H Lymph % (Auto) 14.6 L Buchanan % (Auto) 6.5 Eos % (Auto) 1.5 Baso % (Auto) 0.3 Neut # (Auto) 7.80 H Lymph # (Auto) 1.50 Buchanan # (Auto) 0.70 Eos # (Auto) 0.15 Baso # (Auto) 0.03 Abs Immat Gran (auto) 0.13 VBG pH 7.473 H VBG pCO2 39 L VBG pO2 67.6 H VBG HCO3 29 H Sodium 137 Potassium 4.2 Chloride 102 Carbon Dioxide 25 BUN 12 Creatinine 0.5 Estimated Creat Clear 53.17 Estimated GFR 103 Glucose 214 H Lactate 1.0 Calcium 8.9 Phosphorus 3.4 Magnesium 1.9 C-Reactive Protein 8.0 H NT-Pro-B Natriuret Pep 115 Blood Type Antibody Screen 07/22/22 07/22/22 07:00 14:38 WBC RBC Hgb 10.1 L Hct MCV MCH MCHC RDW Coeff of Poonam Plt Count Neut % (Auto) Lymph % (Auto) Buchanan % (Auto) Eos % (Auto) Baso % (Auto) Neut # (Auto) Lymph # (Auto) Buchanan # (Auto) Eos # (Auto) Baso # (Auto) Abs Immat Gran (auto) VBG pH VBG pCO2 VBG pO2 VBG HCO3 Sodium Potassium Chloride Carbon Dioxide BUN Creatinine Estimated Creat Clear Estimated GFR Glucose Lactate Calcium Phosphorus Magnesium C-Reactive Protein NT-Pro-B Natriuret Pep Blood Type AB Positive Antibody Screen NEGATIVE
[2022-07-22] MEDS: ATORVASTATIN 10 MG TABLET 20 MG PO (22:24)
[2022-07-22] MEDS: METOPROLOL SUCCINATE (XL) 100 MG TAB PO (22:25)
[2022-07-22] MEDS: lisinopriL 5 MG TABLET PO (22:25)
[2022-07-22 23:00] VITALS: BP 124/55; PULSE 65; RESP 16; TEMP 36.9; O2SAT 96
[2022-07-23 03:00] VITALS: PULSE 72; RESP 16; O2SAT 95
--- NOTE | 2022-07-23 06:47 | PC.NURSE ---
Shift note: CBI drain is bright pink color, no retention calculated from drainage. Pt rested comfortably throughout the night, no concerns verbalized or noted by RN
[2022-07-23 07:00] VITALS: BP 136/64; PULSE 68; RESP 16; TEMP 36.8; O2SAT 97
[2022-07-23 07:06] LABS: Hemoglobin* 9.6 gm/dL (13.5-17.5); Mean Corpuscular HGB Conc 32 gm/dL (32-36); Mean Corpuscular Hemoglobin 28 pg (26-34); Mean Corpuscular Volume 88 fL (80-100); Platelet Count* 365 K/uL (140-440); Red Blood Count 3.43 m/uL (4.30-5.90); White Blood Count* 8.05 K/uL (4.50-11.00)
[2022-07-23 07:09] LABS: Slide Review Reflex No
[2022-07-23 07:12] LABS: Chloride* 105 mmol/L (96-114)
[2022-07-23 07:13] LABS: Albumin* 3.3 g/dL (3.3-5.0); Potassium* 4.4 mmol/L (3.6-5.1); Sodium* 139 mmol/L (135-149)
[2022-07-23 07:15] LABS: Creatinine* 0.7 mg/dL (0.5-1.5); Est. Creatinine Clearance* 53.17; Estimated Glomerular Filt Rate 93 ml/min
[2022-07-23 07:16] LABS: Blood Urea Nitrogen* 14 mg/dL (7-30); Calcium* 8.7 mg/dL (8.4-10.6); Carbon Dioxide* 27 mmol/L (20-32); Glucose* 149 mg/dL (60-115); Phosphorus* 3.2 mg/dL (2.5-4.5)
[2022-07-23] MEDS: METFORMIN 1,000 MG TABLET 1000 MG PO (09:24)
[2022-07-23] MEDS: TAMSULOSIN HCL 0.4 MG CAPSULE PO (09:24)
[2022-07-23] MEDS: ACETAMINOPHEN 325 MG TABLET 650 MG PO ×4 (09:24→20:26)
[2022-07-23] MEDS: GLIMEPIRIDE 1 MG TABLET 2 MG PO (09:24)
[2022-07-23] MEDS: AMLODIPINE 10 MG TABLET 5 MG PO (09:24)
[2022-07-23 11:00] VITALS: BP 103/50; PULSE 64; RESP 16; TEMP 36.8; O2SAT 97
--- NOTE | 2022-07-23 15:15 | PC.NURSE ---
Shift note: CBI drain is bright pink color, no retention calculated from drainage. Pt rested comfortably throughout the shift. Pt. alert and oriented and pleasant.
[2022-07-23 15:40] VITALS: BP 127/52; PULSE 71; RESP 16; TEMP 36.7; O2SAT 97
[2022-07-23 19:05] VITALS: BP 138/60; PULSE 80; RESP 18; TEMP 36.8; O2SAT 98
[2022-07-23] MEDS: METOPROLOL SUCCINATE (XL) 100 MG TAB PO (20:26)
[2022-07-23] MEDS: ATORVASTATIN 10 MG TABLET 20 MG PO (20:27)
--- NOTE | 2022-07-23 22:40 | PC.NURSE ---
Shift [id number]- Patient is pleasant and cooperative. He denies pain throughout shift. CBI remain patent with watermelon-strawberry colored output. Guaiac is negative. He is up to chair this evening. Appetite is intact.
[2022-07-23 23:00] VITALS: BP 113/58; PULSE 76; RESP 18; TEMP 36.9; O2SAT 95
[2022-07-24] VITALS (7 sets, daily range): BP systolic 122–140; BP diastolic 54–72; PULSE 65–86; RESP 16–18; TEMP 36.6–36.8; O2SAT 95–99
[2022-07-24 06:52] LABS: Basophils Absolute Auto 0.03 K/uL (0.00-0.30); Basophils Percent Auto 0.4 % (0.0-3.0); Eosinophils Absolute Auto 0.24 K/uL (0.00-0.50); Eosinophils Percent Auto 3.2 % (0.0-7.0); Hematocrit 29.5 % (37.0-53.0); Hemoglobin* 9.5 gm/dL (13.5-17.5); Immature Granulocytes Abs Auto 0.22 K/uL (0.00-0.30); Lymphocytes Percent Auto 15.5 % (20-44); Mean Corpuscular HGB Conc 32 gm/dL (32-36); Mean Corpuscular Hemoglobin 28 pg (26-34); Mean Corpuscular Volume 87 fL (80-100); Monocytes Percent Auto 6.4 % (0.0-11.0); Neutrophils Absolute Auto 5.39 K/uL (1.7-7.0); Neutrophils Percent Auto 71.6 % (42.0-72.0); Platelet Count* 359 K/uL (140-440); RDW Coefficient of Variation % 13.4 % (11.5-15.5); Red Blood Count 3.38 m/uL (4.30-5.90); White Blood Count* 7.53 K/uL (4.50-11.00)
[2022-07-24 07:02] LABS: Slide Review Reflex No
[2022-07-24] MEDS: TAMSULOSIN HCL 0.4 MG CAPSULE PO (09:02)
[2022-07-24] MEDS: ACETAMINOPHEN 325 MG TABLET 650 MG PO ×4 (09:02→22:51)
[2022-07-24] MEDS: GLIMEPIRIDE 1 MG TABLET 2 MG PO ×2 (09:02→17:38)
[2022-07-24] MEDS: FERROUS SULFATE 325 MG TABLET PO (09:02)
[2022-07-24] MEDS: METFORMIN 1,000 MG TABLET 1000 MG PO ×2 (09:02→17:38)
--- NOTE | 2022-07-24 10:49 | P.IMPN_ITS ---
Progress Note: A&P Assessment and plan (1) Hematuria: Problem details: Most likely due to trauma from catheter placement. Continue bladder irrigation. Unable to transfer for urologic care. Probably will get outpatient urologic care if this resolves. Consider transfer for outpatient cystoscopy if not resolving Status: Acute (2) Urinary retention: Problem details: Occurred postoperatively status post neurosurgery on 07/12/2022. Reyes catheter placed 07/18/2022. Status: Acute (3) History of lumbar discectomy: Problem details: bilateral L3-L4, 07/12/[address] Perry at [facility] Status: Acute (4) Hyperlipidemia: Status: Acute (5) Hypertension: Problem details: Blood pressure is relatively low so will withhold amlodipine for now Status: Acute (6) CAD (coronary artery disease): Problem details: PCI x2 2007, lifelong Plavix per Cardiology. Due to bleeding will hold antiplatelet therapy temporarily Status: Acute (7) Type 2 diabetes mellitus: Status: Acute Plan continues to have hematuria; have attempted to transfer [facility] for Urology consult; so far has been rejected by YASIR, , Jeremie Sanchez, Moses Weiss continue CBI hemoglobin remains stable will attempt at transfer tomorrow and discuss with Urology Time Spent With Patient Total time spent: 25 Subjective Date Seen: 07/24/22 Interval history: patient admitted with urinary retention and hematuria he noted some passage of clots in catheter bag continues to have 3 way CBI which remains red/orange colored no abdominal pain no other complaints Exam Narrative: Exam Narrative: Gen: no acute distress HEENT: NCAT EOMI MMM CV: RRR s1 s2 LCTAB ABd: Soft, nt, nd : CBI with catheter w/red-orange tinged urine Const: Vital Signs, click to edit/add: Vital Signs - 24 hr 07/23/22 11:00 07/23/22 15:40 07/23/22 19:05 Temperature 98.3 F 98.1 F 98.3 F Pulse Rate [Right Pulse Oximeter] 64 71 80 Respiratory Rate 16 16 18 Blood Pressure [Le ft Arm] 103/50 L 127/52 L 138/60 Pulse Oximetry 97 97 98 Oxygen Delivery Me thod Room Air Room Air Room Air 07/23/22 23:00 07/23/22 23:00 07/24/22 03:00 Temperature 98.5 F 98 F Pulse Rate [Right Pulse Oximeter] 76 66 Respiratory Rate 18 18 18 Blood Pressure [Le ft Arm] 113/58 L 137/72 Pulse Oximetry 95 97 Oxygen Delivery Me thod Room Air Room Air 07/24/22 07:00 07/24/22 07:00 Temperature 98.3 F Pulse Rate [Right Pulse Oximeter] 65 65 Respiratory Rate 16 16 Blood Pressure [Le ft Arm] 137/58 L Pulse Oximetry 95 Oxygen Delivery Me thod Room Air Labs Labs: Laboratory Results - last 24 hr 07/24/22 06:38 WBC 7.53 RBC 3.38 L Hgb 9.5 L Hct 29.5 L MCV 87 MCH 28 MCHC 32 RDW Coeff of Poonam 13.4 Plt Count 359 Neut % (Auto) 71.6 Lymph % (Auto) 15.5 L Karnes % (Auto) 6.4 Eos % (Auto) 3.2 Baso % (Auto) 0.4 Neut # (Auto) 5.39 Lymph # (Auto) 1.20 Karnes # (Auto) 0.50 Eos # (Auto) 0.24 Baso # (Auto) 0.03 Abs Immat Gran (auto) 0.22
--- NOTE | 2022-07-24 18:17 | PC.NURSE ---
end of shift. Pt has been pleasant. no pain. CBI has been adjust to keep urine a watermelon-strawberry colored output. no clots. No BM.? He is up to chair, he walked in the halls. he is eating and drinking. BS where 164 and 178 he said no to a supper BS and to any insulin today. teds are on and off. SL was patent. tape applied to IV siteMD . tied to transfer pt but there where no beds
[2022-07-24] MEDS: METOPROLOL SUCCINATE (XL) 100 MG TAB PO (22:51)
[2022-07-24] MEDS: ATORVASTATIN 10 MG TABLET 20 MG PO (22:52)
[2022-07-25 03:00] VITALS: BP 128/63; PULSE 72; RESP 16; TEMP 36.8; O2SAT 99
[2022-07-25 06:18] LABS: Basophils Absolute Auto 0.01 K/uL (0.00-0.30); Basophils Percent Auto 0.1 % (0.0-3.0); Eosinophils Absolute Auto 0.21 K/uL (0.00-0.50); Eosinophils Percent Auto 2.3 % (0.0-7.0); Hematocrit 30.2 % (37.0-53.0); Immature Granulocytes Abs Auto 0.18 K/uL (0.00-0.30); Lymphocytes Percent Auto 18.5 % (20-44); Mean Corpuscular HGB Conc 33 gm/dL (32-36); Mean Corpuscular Hemoglobin 29 pg (26-34); Mean Corpuscular Volume 87 fL (80-100); Neutrophils Absolute Auto 6.43 K/uL (1.7-7.0); Neutrophils Percent Auto 71.1 % (42.0-72.0); Platelet Count* 441 K/uL (140-440); RDW Coefficient of Variation % 13.2 % (11.5-15.5); Red Blood Count 3.49 m/uL (4.30-5.90); White Blood Count* 9.04 K/uL (4.50-11.00)
[2022-07-25 06:25] LABS: Slide Review Reflex No
[2022-07-25 06:27] LABS: Chloride* 107 mmol/L (96-114); Sodium* 138 mmol/L (135-149)
[2022-07-25 06:28] LABS: Potassium* 3.8 mmol/L (3.6-5.1)
[2022-07-25 06:30] LABS: Carbon Dioxide* 23 mmol/L (20-32); Creatinine* 0.6 mg/dL (0.5-1.5); Est. Creatinine Clearance* 53.17; Estimated Glomerular Filt Rate 98 ml/min
[2022-07-25 06:31] LABS: Blood Urea Nitrogen* 11 mg/dL (7-30); Calcium* 8.7 mg/dL (8.4-10.6); Glucose* 152 mg/dL (60-115)
--- NOTE | 2022-07-25 06:50 | PC.NURSE ---
Patient continues on CBI. At start of shift, patient complained of feeling like he needed to go and reported pain in his bladder. Pt was bladder scanned for 680. Reyes catheter irrigated and able to dislodge clots. No further complications for the rest of the night. CBI remains running with rust colored output. Pt had copious amount of dark loose stool last evening. Was not bloody in appearance.
[2022-07-25 07:30] VITALS: BP 142/62; PULSE 62; RESP 16; TEMP 37.1; O2SAT 97
[2022-07-25] MEDS: ACETAMINOPHEN 325 MG TABLET 650 MG PO ×3 (08:21→23:30)
[2022-07-25] MEDS: TAMSULOSIN HCL 0.4 MG CAPSULE PO (08:22)
[2022-07-25] MEDS: GLIMEPIRIDE 1 MG TABLET 2 MG PO ×2 (08:23→19:33)
[2022-07-25] MEDS: METFORMIN 1,000 MG TABLET 1000 MG PO ×2 (08:23→19:33)
[2022-07-25 11:00] VITALS: BP 163/71; PULSE 63; RESP 16; TEMP 36.8; O2SAT 95
--- NOTE | 2022-07-25 12:49 | PM.IMPN1 ---
Progress Note: A&P Assessment and plan (1) Urinary retention: Problem details: Occurred postoperatively status post neurosurgery on 07/12/2022. Maynard catheter placed 07/18/2022. Status: Acute (2) Hematuria: Problem details: Most likely due to trauma from catheter placement. Continue bladder irrigation. Unable to transfer for urologic care. Probably will get outpatient urologic care if this resolves. Consider transfer for outpatient cystoscopy if not resolving Status: Acute (3) Acute urinary retention: Status: Acute (4) Hyperlipidemia: Status: Acute (5) Hypertension: Problem details: Blood pressure is relatively low so will withhold amlodipine for now Status: Acute (6) CAD (coronary artery disease): Problem details: PCI x2 2007, lifelong Plavix per Cardiology. Due to bleeding will hold antiplatelet therapy temporarily Status: Acute (7) Type 2 diabetes mellitus: Status: Acute Plan on waitlist [place] [facility] [facility]; otherwise other hospitals have no open beds Will try to transfer again tomorrow Subjective Date Seen: 07/25/22 Interval history: patient continues to have intermittent hematuria and clots no other complaints on waitlist at [facility], declined with [facility] and other hospitals Exam Narrative: Exam Narrative: Gen: NAD HEENT: NCAT EOMI MMM CV: RRR s1 s2 LCTAB Abd: soft, nt, nd : maynard hematuria Const: Vital Signs, click to edit/add: Vital Signs - 24 hr 07/24/22 15:54 07/24/22 15:45 07/24/22 19:00 Temperature 98.1 F 98 F Pulse Rate [Right Pulse Oximeter] 71 71 69 Respiratory Rate 16 16 16 Blood Pressure [Le ft Arm] 140/61 H 136/71 Pulse Oximetry 98 97 Oxygen Delivery Me thod Room Air Room Air 07/24/22 23:00 07/24/22 23:00 07/25/22 03:00 Temperature 98 F 98.3 F Pulse Rate [Right Pulse Oximeter] 69 86 72 Respiratory Rate 16 16 16 Blood Pressure [Le ft Arm] 122/64 128/63 Pulse Oximetry 99 99 Oxygen Delivery Me thod Room Air 07/25/22 07:30 Temperature 98.8 F Pulse Rate [Right Pulse Oximeter] 62 Respiratory Rate 16 Blood Pressure [Le ft Arm] 142/62 H Pulse Oximetry 97 Oxygen Delivery Me thod Room Air Labs Labs: Laboratory Results - last 24 hr 07/25/22 07/25/22 05:48 05:48 WBC 9.04 RBC 3.49 L Hgb 10.0 L Hct 30.2 L MCV 87 MCH 29 MCHC 33 RDW Coeff of Poonam 13.2 Plt Count 441 H Neut % (Auto) 71.1 Lymph % (Auto) 18.5 L Callahan % (Auto) 6.0 Eos % (Auto) 2.3 Baso % (Auto) 0.1 Neut # (Auto) 6.43 Lymph # (Auto) 1.70 Callahan # (Auto) 0.50 Eos # (Auto) 0.21 Baso # (Auto) 0.01 Abs Immat Gran (auto) 0.18 Sodium 138 Potassium 3.8 Chloride 107 Carbon Dioxide 23 BUN 11 Creatinine 0.6 Estimated Creat Clear 53.17 Estimated GFR 98 Glucose 152 H Calcium 8.7
[2022-07-25 15:00] VITALS: BP 149/78; PULSE 67; RESP 18; TEMP 36.8; O2SAT 95
[2022-07-25 19:30] VITALS: BP 164/72; PULSE 74; RESP 18; TEMP 36.7; O2SAT 99
--- NOTE | 2022-07-25 19:56 | PC.NURSE ---
shift note: pt up sba to bathroom. pt denies abd pain. No distention to abd. Pt has eid to light eid urine. rate of CBI adjusted per output color. Irrigation needed @ 1800 due to multiple lg long clots. Patency to catheter returned after. LS clr. SL patent to rt hand. Pt tolerated meal.Pt refused blood sugar monitoring and insulin. Dr. Stevenson notified.
[2022-07-25] MEDS: METOPROLOL SUCCINATE (XL) 100 MG TAB PO (20:48)
[2022-07-25] MEDS: lisinopriL 5 MG TABLET PO (20:48)
[2022-07-25] MEDS: ATORVASTATIN 10 MG TABLET 20 MG PO (20:49)
[2022-07-25 23:00] VITALS: BP 155/77; PULSE 65; RESP 18; TEMP 36.5; O2SAT 98
[2022-07-26 03:00] VITALS: BP 121/71; PULSE 64; RESP 16; TEMP 36.5; O2SAT 97
--- NOTE | 2022-07-26 04:25 | P.CCN_ITS ---
Assessment and Plan Assessment and plan (1) Hematuria: Problem comment: Most likely due to trauma from catheter placement. Continue bladder irrigation. Unable to transfer for urologic care. Probably will get outpatient urologic care if this resolves. Consider transfer for outpatient cystoscopy if not resolving Status: Acute Plan [facility]ist Note: Received call that the patient has been accepted to [facility] for transfer and consultation with urology for his ongoing hematuria. Chart reviewed, status reviewed with bedside REZA Watson and handoff provided to the accepting hosptialist Dr. Mehta. Melissa Goetz MD
--- NOTE | 2022-07-26 05:15 | PC.NURSE ---
[id number] Pt rested well during night, Continues to have light to strawberry colored output from CBI. large Clot x1, irrigated with increased CBI flow at which time clot came out and maynard patent and draining. Bed found at [facility], EMS will arrive approx [phone], nurse to nurse report given to REZA Elliott ([phone]) at 0500. Pt informed and is agreeable, belongings gathered. denies pain
--- NOTE | 2022-07-26 06:53 | PM.DS1 ---
DS: Providers Provider Date Seen: 07/26/22 Date of admission: 07/22/22 19:00 Primary care physician: Terry Junior MD Admitting Clinician: Teodoro Jarrell MD Date of Discharge: 07/26/22 DS: Diagnosis Discharge Diagnosis (1) Hematuria: Status: Acute Problem details: Patient had urinary retention following lumbar spine surgery. Reyes catheter placed. Subsequently developed hematuria plugging his catheter. Admitted for bladder irrigation. Bladder irrigation did not resolve hematuria. Pending transfer for urologic evaluation. (2) History of lumbar discectomy: Status: Acute Problem details: bilateral L3-L4, 07/12/[address] Perry at [facility] (3) Acute urinary retention: Status: Acute (4) Type 2 diabetes mellitus: Status: Acute (5) CAD (coronary artery disease): Status: Acute Problem details: PCI x2 2007, lifelong Plavix per Cardiology. Due to bleeding will hold antiplatelet therapy temporarily (6) Hypertension: Status: Acute Problem details: Blood pressure is relatively low so will withhold amlodipine for now (7) Hyperlipidemia: Status: Acute DS: Summary Hospital Course Hospital Course: 81-year-old male had lumbar surgery at [facility] 2 weeks ago. Postoperatively he developed urinary retention and had a Reyes catheter placed. Subsequently developed hematuria. Admitted to the hospital for bladder irrigation. Aspirin and clopidogrel were held. Despite several days of bladder irrigation hematuria persists. No other active medical problems or complications are identified. Status at Discharge Functional status at discharge: independent ambulation Overall status at discharge: patient is back to baseline Time Spent with Patient Time attestation: Total time spent providing and/or coordinating discharge services: Time spent: Less than 30 minutes Exam Narrative: Exam Narrative: He is alert and in no distress. Breathing is unlabored. Urine is light red in color. Const: Vital Signs, click to edit/add: Vital Signs - 24 hr 07/25/22 07:30 07/25/22 11:00 07/25/22 15:00 Temperature 98.8 F 98.3 F Pulse Rate [Right Pulse Oximeter] 62 63 67 Respiratory Rate 16 16 18 Blood Pressure [Le ft Arm] 142/62 H 163/71 H Pulse Oximetry 97 95 Oxygen Delivery Me thod Room Air Room Air 07/25/22 15:00 07/25/22 19:30 07/25/22 23:00 Temperature 98.3 F 98.1 F Pulse Rate [Right Pulse Oximeter] 67 74 65 Respiratory Rate 18 18 18 Blood Pressure [Le ft Arm] 149/78 H 164/72 H Pulse Oximetry 95 99 Oxygen Delivery Me thod Room Air Room Air 07/25/22 23:00 07/26/22 03:00 Temperature 97.7 F 97.7 F Pulse Rate [Right Pulse Oximeter] 65 64 Respiratory Rate 18 16 Blood Pressure [Le ft Arm] 155/77 H 121/71 Pulse Oximetry 98 97 Oxygen Delivery Me thod Room Air Room Air Documenting provider has reviewed patient's vital signs: yes Discharge Plan Discharge Disposition: Xfer Other Date of Admission: 07/22/22 19:00 Primary Care Provider: Terry Junior Condition: Improved Discharge Medications: Continued methocarbamol 750 mg tablet 750 mg PO Q6H PRN oxycodone 10 mg tablet 10 mg PO Q4H PRN acetaminophen 500 mg capsule 1,000 mg PO Q6H PRN amlodipine 10 mg tablet 10 mg PO DAILY atorvastatin 20 mg tablet 20 mg PO HS (DME) Contour Next Test Strips Strip MISCELLANEOUS Label Comments: USE 1 STRIP TO CHECK GLUCOSE TWICE DAILY cyanocobalamin (vitamin B-12) 1,000 mcg tablet 1,000 mcg PO DAILY glimepiride 2 mg tablet 2 mg PO BID lisinopril 20 mg tablet 20 mg PO HS metformin 1,000 mg tablet 1,000 mg PO BIDWM metoprolol succinate 100 mg tablet extended release 24 hr 100 mg PO HS nitroglycerin 0.4 mg tablet, sublingual 0.4 mg sublingual Q5M PRN tamsulosin 0.4 mg capsule 0.4 mg PO DAILY docusate sodium 100 mg Capsule 100 mg PO BID PRN (Reason: Constipation) 30 Days Qty: 100 0RF ferrous sulfate 325 mg (65 mg iron) tablet,delayed release (DR/EC) 325 mg PO Q OTHER DAY Discontinued clopidogrel 75 mg tablet 75 mg PO DAILY Hold Instructions: s/p surgery resume 07/17/22 Label Comments: start on 07/17/2022 aspirin [Adult Aspirin Regimen] 81 mg tablet,delayed release (DR/EC) 81 mg PO DAILY Discharge Orders: Discharge Order (Routine); Ordered 07/26/22 Ordered By: Cristiano Stevenson Follow Up Appointments: Terry Junior MD [Primary Care Provider] - Forms: [facility] Info Instructions Hospital Course: 81-year-old male had lumbar surgery at [facility] 2 weeks ago. Postoperatively he developed urinary retention and had a Reyes catheter placed. Subsequently developed hematuria. Admitted to the hospital for bladder irrigation. Aspirin and clopidogrel were held. Despite several days of bladder irrigation hematuria persists. No other active medical problems or complications are identified.
[2022-07-26 08:41] VITALS: BP 146/64; PULSE 64; RESP 16; TEMP 36.7; O2SAT 98
--- NOTE | 2022-07-28 13:01 | P.IMPN_ITS ---
Progress Note: A&P Assessment and plan (1) Hematuria: Problem details: Patient had urinary retention following lumbar spine surgery. Reyes catheter placed. Subsequently developed hematuria plugging his catheter. Admitted for bladder irrigation. Bladder irrigation did not resolve hematuria. Pending transfer for urologic evaluation. Status: Acute (2) History of lumbar discectomy: Problem details: bilateral L3-L4, 07/12/[address] Perry at [facility] Status: Acute (3) Acute urinary retention: Status: Acute (4) Type 2 diabetes mellitus: Status: Acute (5) CAD (coronary artery disease): Problem details: PCI x2 2007, lifelong Plavix per Cardiology. Due to bleeding will hold antiplatelet therapy temporarily Status: Acute (6) Hypertension: Problem details: Blood pressure is relatively low so will withhold amlodipine for now Status: Acute (7) Hyperlipidemia: Status: Acute Plan Continue in-hospital for bladder irrigation. Continue to work on a plan for transfer or outpatient cystoscopy. Subjective Date Seen: 07/23/22 Interval history: 81-year-old male seen in followup of bladder outlet obstruction and hematuria. Patient reports generally doing well except ongoing hematuria. He is getting bladder irrigation but continues to have grossly bloody urine despite the irrigation. He is having no abdominal pain or fever he is eating well. He has no other concerns today. Exam Narrative: Exam Narrative: He is alert and appears in no distress. Abdomen is soft and nontender. Blood is seen in the urinary catheter tube. Const: Documenting provider has reviewed patient's vital signs: yes
== END 2022-07-26 10:22 | disposition short-term general hospital (02) | DRG 696 ==
LOC: ED 08:03 → MEDSURG 08:24
PROVIDERS: Family Medicine; Hospitalist; Admitting Provider Internal Medicine; Emergency Provider Family Medicine; PCP Family Medicine; Visit Provider Internal Medicine
DX: R31.9 Hematuria, unspecified (principal); R33.8 Other retention of urine; H61.23 Impacted cerumen, bilateral; I10 Essential (primary) hypertension; E11.9 Type 2 diabetes mellitus without complications; Z98.890 Other specified postprocedural states; N40.1 Benign prostatic hyperplasia with lower urinary tract symptoms; N13.8 Other obstructive and reflux uropathy; M48.062 Spinal stenosis, lumbar region with neurogenic claudication; I25.10 Atherosclerotic heart disease of native coronary artery without angina pectoris; E78.5 Hyperlipidemia, unspecified
CPT/HCPCS: 36415; 51702; 51798; 80048; 80069; 82803; 82947; 82962; 83605; 83735; 83880; 84100; 85018; 85025; 85027; 86140; 86850; 86900; 86901; 87635; 99283; 99284; 99285; A9270; G0378; J1170; J3010

== ENCOUNTER 2022-07-26 10:07 | Outpatient (CLI) | payer MEDICARE, BC, SELFPAY ==
--- OUTSIDE RECORDS SUMMARY | 2022-08-12 07:36 | XMS_ITS | Clinical Summary ---
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 02/04/2023 [id number] / Implanted: Qty: 1 on 05/04/[address] MD at [facility] / [id number] Description: bill with the pump Insurance Payer Benefit Plan / Subscriber ID Effective Phone Address T ype Group Dates MEDICARE MEDICARE PART [id number] 2018-Prese [address] Medicare A & B nt ATTN CLAIMS [place] [address] [employer] [place] [id number] 2017-Prese [address] [place] [id number] [place] [address] Advance Directives For more information, please contact: [phone] Latest Code Status on File Code Status Date Activated Date Inactivated Comments Full Code 05/04/2018 9:50 AM 05/05/2018 7:26 PM Question Answer Comments How was code status determined? Physician Determined Care Teams Business Affairs Manager Relationship Specialty Start Date End Date [facility] PCP - Primary Care Clinic 04/30/18 [place] Terry Junior PCP - General Family Medicine 04/30/18
--- OUTSIDE RECORDS SUMMARY | 2022-08-12 07:37 | XMS_ITS | Encounter Summary ---
:1940 Author Organization [facility] Address [address] [place] [address] Care Team Providers Name Role Phone Clinic, [facility] Unavailable Unavail able Terry Junior Primary Care Provider Reason for Visit Inpatient Admission Specialty Diagnoses / Procedures Referred By Contact Refer red To Contact Procedures [id number] Referral ID Status Reason Start Date Expiration Date Visits Requ ested Visits Authorized [id number] 1 1 Encounter Details Date Type Department Care Team Description 05/04/2018 Surgery [facility] Low Hagen, PLACEMENT OF Hospital Operating MD MULTICOMPONENT PENILE Room [address] PROSTHESIS [address] [place], [place] [address] [place], [place] [phone] (Wo rk) Surgery Details Date/Time Status Location OR Service Patient Case Class Case Type Trauma Class Case? 05/04/18 7:30 AM Posted [facility] ORS 05 Urology Same Day [...] DISCHARGE MEDICATIONS Roberto Cason Home Medication Instructions MIRA:[id number] Printed on:05/07/18 9619 Medication Information amLODIPine (NORVASC) 10 mg oral [...] TERRY JUNIOR PA-C [facility] Office [phone] UROLOGY d/c note ABOVE NOTE Wilmer HAGEN MD [facility] [phone] documented in this encounter Discharge Instructions Discharge [...] live longer. For further assistanceplease call the [employer] Helpline at [phone] or go to their website [email or web address]. documented in this encounter Medications at Time [...] PM CDT [facility] SERVICE PROGRESS NOTE Chart [...] amlodipine, lisinopril, metoprolol. restart home meds at md. 5. HLD: prior to admission statin 6. Benign Prostatic Hypertrophy: prior to admission flomax 7. Clinically stable to md home. Chapincito Randolph MD [facility] Medicine Service Henrietta Fam RN - 05/05/2018 1:20 PM CDT Roberto Cason 1940 [id number] P: Discharge A: Discharged via wheelchair to [...] Amaryl and Metformin and SS insulin. 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 R. [...] AM CDT [facility] SERVICE PROGRESS NOTE Chart [...] of care, see above Feli Cox PA-C [facility] Medicine Service Patient seen and examined by me. Agree with the PA note. A/P: 77 y.o. with 1. s/p urologic procedure: per urology. 2. CAD: cont BB 3. DM: SSI in adition to po meds. 4. HTN: cont BB, hold parameters for the others. 5. Rest per PA note. Chapincito Randolph MD [facility] Medicine Service documented in this encounter [...] the end of the procedure, a 14 [place] coude, and there was clear urine noted. [...] Low Hagen MD, FACS /CW Dictation ID: [id number] OR Surgeon - Low Hagen MD - 05/04/2018 6:31 PM CDT POST-OPERATIVE NOTE Surgeon(s): Low Hagen MD [employer] Brakes(s): Circulating nurse: Lis Boykin RN cath lab technologist: Monica Crespo Private Scrub: Jabier Tao Preoperative Diagnosis: dx: erectile dysfunction Postoperative Diagnosis: ED Procedure(s): ED Complications: None EBL: 10 ml Anesthesia: General Operative Findings: 3 piece IPP placed---22cm cylinder bilateral---no rte's 125cc reservoir-placed ectopically left lower quadrant--krystin pump in scrotum Specimen(s): * No specimens in log * Grafts and/or Implants: Implant Name Type Inv. Item Serial No. Staff Pharmacist Hospital Lot No. LRB No. Used Titan [employer] Kit [email or web address] [id number] N/A 1 Titan CL [place] [employer] [id number] N/A 1 Titan Infrapubic Zero Degree Angle Cylinder Set with Pump [employer] [id number] N/A 1 Condition on Discharge from Operating Room: Satisfactory REPORT OF OPERATION/ PROCEDURE Please see dictated operative note. LOW HAGEN MD [facility] [phone] documented in this encounter Plan of Treatment [...] WB 173 (H) 60 - 100 05/05/[address] [facility] METER mg/dL 9:15 AM CDT [facility] Specimen Anatomical Collection Method Collection Time Receive d Time (Source) Location / / Volume Laterality Blood 05/05/2018 8:05 AM 8 9:15 CDT AM CDT Low Hagen MD LAB POINT OF CARE TEST RESUL TS Performing Organization Address City/State/ZIP Code Phon e Number [facility] [address] [place] [address] LABORATORY Electrocardiogram (05/04/2018 5:47 AM CDT) athologist Signature EKG [facility] Comment: ?N [facility] ? Test Date: ?2018-05-04 Pat Name: ? ROBERTO CASON ?Department: ?? PCC-Admit ? Room: ? 528 Gender: ? M ?Industrial Relations Officer: ?? [id number] : ?1940 ? Requested By: ALEJANDRA YANG MD Order Number: [id number] ?Reading : ?? A. MD Tanner ? Measurements Intervals ?[place] ? Rate: ? 75 ? P: ?12 SD: ? 150 ?QRS: ?23 QRSD: ? 88 [...] City Phon e Number [facility] [address] [facility] No [place] [address] [phone] documented in this encounter Visit Diagnoses Not [...] - Provider: Evita Liao) 1,000 mg, Intravenous, GAS SINGER TO OR, 1 dose, Starting Mon05/04/18 at [...] Discontinued documented in this encounter Care Teams Farm Mechanic Relationship Specialty Start Date End Date [facility] PCP - Primary Care Clinic 04/30/18 Terry Casiano PCP - General Family Medicine 04/30/18 documented as of this encounter
--- OUTSIDE RECORDS SUMMARY | 2022-08-12 07:37 | XMS_ITS | Encounter Summary ---
:1940 Author Care Team Providers Name Role Phone Terry Junior MD Primary Care Provider [phone] Reason for Visit Elevated PSA or Prostate [...] available. Plan of Care Reminders Provider Appointments Return to Office on or around U[place] 11/11/2022 ? Established 10 on or around Fitz ag[place], [...] tablet ? metformin 1,000 mg tablet ? methocarbamol 750 mg tablet ? metoprolol succinate ER 100 mg tablet,extended release 24 hr ? nitroglycerin 0.4 mg sublingual tablet ? oxycodone 10 mg tablet ? tamsulosin 0.4 mg capsule ? Medications Administered None recorded. Vitals Height Weight BMI 5 ft 6 in 154 lbs 24.9 kg/m2 Results Lab Results Date Name Specimen Result Interpretation Description Value Range Status Address ? 06/02/2022 PSA, Serum or Serum ? Psa 3.7ng/ml 0-4.0 ? [facility]: [address], [place] Allergies Code Code System Name Reaction [...] mRNA, LNP-S, PF, 30 mcg/0.3 mL dose (urturn) 11/10/2020 12/01/2020 07/02/2021 COVID-19, mRNA, LNP-S, PF, 30 mcg/0.3 mL dose, sunni-sucrose (urturn) 03/25/2022 pneumococcal conjugate PCV 13 04/20/2016 pneumococcal polysaccharide PPV23 12/13/2013 Social History Tobacco Smoking Status Former Smoker What was the date of your most recent 08/11/2022 tobacco screening? What is your level of [...] Erectile Dysfunction Fitz Preciado MD: [address] [place] [address], Ph. History of Present Illness Note: <div>06/02/2022:</div><div>81 [...] sleep disturbances: mismatch of sleep / wake idana edule with lifestyle needs Physical Exam ? [...]
--- OUTSIDE RECORDS SUMMARY | 2022-08-12 07:37 | XMS_ITS | Encounter Summary ---
:1940 Author Care Team Providers Name Role Phone Terry Junior MD Primary Care Provider [phone] Reason for Visit Urinary Retention Assessment and Plan Assessment Note 81 yoM with history of ED s/p IPP, BPH with LUTS s/p UroLift, and elevated PSA 1. Raised prostate specific antigen - PSA at last visit was 3.7 mg/mL -Recommend resuming PSA screening every 12 to 24 months 2. Lower urinary tract symptoms due to benign prostatic hypertrophy - Status post UroL[place] [address] Hagen - Recent clot retention 3. Primary erectile dysfunction - Status post IPP and doing great 4. Retention of urine - Likely related to hematuria which pro niels to be from prostatic/bladder neck varices - Will obtain UroCuff to establish curre nt degree of obstruction Discussion Note: None recorded.Patient educational handouts: No information available. Plan of Care Reminders Provider Appointments Return to Office on or around 11/11/2022 Uroc uff ? Established 10 on or around 06/02/2023 Fitz Preciado MD Lab None recorded. ? ? Referral None [...] 154 lbs 24.9 kg/m2 Results Lab Results None recorded. Allergies Code Code System Name Reaction Severity [...] mRNA, LNP-S, PF, 30 mcg/0.3 mL dose ([place]) 11/10/2020 12/01/2020 07/02/2021 COVID-19, mRNA, LNP-S, PF, 30 mcg/0.3 mL dose, sunni-sucrose (Aibo) 03/25/2022 pneumococcal conjugate PCV 13 04/20/2016 pneumococcal [...] Notes) disability Functional Status Unknown. Past Encounters 08/11/2022 Raised Prostate Specific Antigen; Lower Urinary Tract Symptoms Due to Benign Prostatic Hypertrophy; Primary Erectile Dysfunction; Retention of Urine Fitz Preciado MD: [address] [place] [address], Ph. History of Present Illness Note: <div>06/02/2022:</div><div>81 yoM who previously followed with Dr. Hagen s/p IPP and UroLift. Was seen by me in our [facility] office for elevated PSA to 4.51 ng/mL and normal KWAN. </di v><div>
</div><div>08/11/2022:</div><div>Here for follow up elevated PSA, BPH with LUTS s/p UroLift, ED s/p IPP, and recent clot retention episode. Was taken to OR for cystoscopy and clot evacuation by my partner, Dr. Buchanan. Bleeding source was prostate/bladder neck. No other intravesical pathology identified.</div> Review of Systems ? Comprehensive General Adult [...]
--- OUTSIDE RECORDS SUMMARY | 2022-08-12 07:37 | XMS_ITS | Clinical Summary ---
:1940 Author Organization [facility] [place] [address] Care Team Providers Name Role Phone Terry Junior MD Primary Care Provider [facility], [place] Unavailable [phone] [facility] [place] Unavailable [phone] Allergies No known active allergies Medications [...] mouth once daily. tabletIndications: Vitamin B12 deficiency ferrous sulfate Take 325 mg by 90 [...] chest pain. May disease involving repeat twice. mohegan heart without angina pectoris, unspecified vessel or lesion type methocarbamoL Take 1 Tablet 30 Tablet 0 [...] at bedtime 2 if needed for Constipation. ammonium lactate ammonium lactate 12 % topical cream 0 Active 12% (LACHYDRIN) 12 MASSAGE INTO INNER THIGH AND FACE ONCE TO TWICE DA TY % cream amLODIPine TAKE 1 TABLET 90 Tablet 1 Activ e (NORVASC) 10 mg EVERY DAY 2 tabletIndications: Hypertension, unspecified type amLODIPine Take 1 Tablet (10 90 Tablet 3 D iscontinued (NORVASC) 10 mg mg) by mouth once 2 022 tabletIndications: daily. Hypertension, unspecified type acetaminophen Take 2 Tablets 112 Tablet 0 Discontinued (TYLENOL EXTRA (1,000 mg) by 2 022 ( *IP STRGTH) 500 mg mouth every 6 D iscontinued) tabletIndications: hours for 14 Lumbar days. Max radiculopathy acetaminophen dose: 4000mg in 24 hrs. Active Problems Problem Noted Date Gross hematuria 07/29/2022 Spinal stenosis, lumbar region, with neurogenic claudi cation 07/12/2022 Coronary artery disease involving mohegan coronary stephanie ry of mohegan heart 07/12/2022 without angina pectoris Herniation of [...] Encounters Date Type Specialty Care Team Description 08/10/2022 Home Care Visit Nik Dutta, PT - DI SCIPLINE PT DISCHARGE 08/10/2022 Travel 08/09/2022 Home Care Visit Codi Busch, REZA SN - JASMYNE E VISIT 08/08/2022 Home Care Visit Stephany Mitchell, OT - IN ITIAL OT ASSESSMENT 08/07/2022 Refill Terry Junior Refsenia Requ chichi Saucedo MD (Amlodipine) 08/04/2022 Home Care Visit Socorro Watkins HCC CODERS - M ISSED VISIT M, HCC CODERS 08/01/2022 Home Care Visit Nik Dutta, PT - IN ITIAL PT ASSESSMENT 08/01/2022 Office Visit [facility] F/U SIRIA Frankel 08/01/2022 Telephone Nik Dutta, Home Care PT 08/01/2022 Home Care Visit Codi Busch RN CARE QUANTOMETER OPERATOR RDINATION 08/01/2022 Travel 08/01/2022 Patient Outreach Chasity Velasquez Prim yissel RN Care RN Management; Hos pital F/U (LACE 34) 07/31/2022 Home Care Visit Codi Busch RN SN - OAS IS RESUMPTION OF CARE 07/31/2022 Telephone Codi Busch RN Home Care 07/27/2022 Anesthesia Event Gino Boggs MD Kessler, Alex Reed, SUCTION PLATE CARRIER CLEANER 07/27/2022 Surgery Jose Luis Buchanan CYSTOSCOPY E VACUATION MD Cabrera BLADDER CLOTS; FULGURATION OF BLEEDING 07/27/2022 Telephone Carmenza Miller, Referral ( Liaison Open RN Patient Communi cation) 07/26/2022 - Hospital Encounter [facility] Type 2 di abetes 07/30/2022 Internal mellitus with eNo Dejesus hyperglycemi a, without MD Jovi long-term curre nt use of insulin (HC) (Primary Dx) Discharge Summary - Katina Dejesus MD - 07/30/2022 1:57 PM CDT Images from the original not e were not included. HOSPITALIST DISCHARGE SUMMAR Y ? ? [facility] Admission Date: 07/26/2022 Discharge Date: 07/30/2022 Discharge Plan: Hugo hackett was discharged to home. Principal Diagnosis Gross hematuria Hospital Problem List Active Problems: Gross hematuria ADDITIONAL COMMENTS REGARDIN G DIAGNOSIS SPECIFICITY Additional Diagnosis Informa tion ?? Hospital Course Hugo Cason is a 81 y. o. male with a history of??spinal stenosis status post lumbar laminectomy/discectomy, CAD, hypertension, hyperlipidemia, type 2 diabetes, and BPH. ??He presents from [facility] as a direct admi t for evaluation of hematuria. He is status post cystoscopy, hematuria resolved. Hemoglobin is stable. Aspirin and Plavix resumed. Patient will discharge home, no follow-up with his PCP and his primary urologist. #Hematuria -resolved s/p cys toscopy #Urinary retention #BPH Patient with known history o f BPH presented as a direct admit from outside hospital with hematuria. ??Onset of hematuria after he was discharged from hospital with Reyes catheter.?He was on aspirin a nd Plavix. ??No other previo us history of coagulopathy. ??Not on any other anticoagulants. ??Suspect Reyes trauma in the setting of dual antiplatelets. S/p cystoscopy and clot evac uation Hematuria has resolved. Aspi rin and Plavix resumed. Hemoglobin remained stable Patient did not pass his voi ding trial. Therefore urology recommended discharging with Reyes, and outpatient urology follow-up -Follow-up with urology out patient ? #Coronary artery disease, s/ p percutaneous coronary intervention #hypertension #HLD ?- ??Current home med ications include: amLODIPine, lisinopriL, and metoprolol succinate,??nitroglycerin,??aspirin chewable and clopidogreL ?- ??Adjustments made during hospital stay: ??none ? #Diabetes mellitus??Type 2 ?- ??Associated with: none ?- ??Monitor accuchec k intensively, cover with corrective dose insulin as indicated ?- ??Home treatment r egimen: glimepiride and metFORMIN ?- ??Adjustments made during hospital stay: none ?- ??HbA1C = 7.0 () - Follow up with PCP for ro utine care ? #Lumbar stenosis, s/p narciso ctomy/discectomy ?-PT OT evaluated -Patient stable -Pain is controlled Recommendations for Outpatie nt Provider ? ? PCP: Terry Junior MD Recommendations for the Out patient Provider Specific recommendations to be addressed at the follow up visit: no specific recommendations , routine post-hospital and medical follow-up. - recommend repeat Hgb chec k Medication regimen changes: see Hospital Course above. Follow-up labs/imaging: samira mmend repeat Hgb check at follow up Other specialty follow-up no t included in DC orders: urology follow up Special considerations: none . Functional evaluations: Fall Risk: Total Score (If 5 or > is High Risk): 5 (07/29/22804) NuDESC (>/=2 abnormal): 0 ( 07/29/22804) MOCA: // SLUMS: Discharge Medications Your Home Medicines TAKE THE MEDICINE(S) PRES CRIBED BELOW. The provider has reviewed how you said you take these medicine(s) and wants you to take them as prescribed, not as how you reported taking them. Instructions atorvastatin 20 mg tablet For diagnoses: Other hyperli pidemia Commonly known as: LIPITOR Take 1 Tablet (20 mg) by mo uth at bedtime. lisinopriL 20 mg tablet For diagnoses: Essential hyp ertension Commonly known as: PRINIVIL; ZESTRIL Take 1 Tablet (20 mg) by mo uth once daily. metoprolol succinate 100 mg Sustained-Release tablet For diagnoses: Essential hyp ertension Commonly known as: TOPROL XL Take 1 Tablet (100 mg) by m outh once daily. CONTINUE taking these medici irma Instructions amLODIPine 10 mg tablet For diagnoses: Hypertension, unspecified type Commonly known as: NORVASC Take 1 Tablet (10 mg) by mo uth once daily. aspirin chewable 81 mg chewa ble tablet For diagnoses: Coronary stephanie ry disease due to lipid rich plaque Take 1 tablet by mouth once daily with a meal. Blood Glucose Test strip For diagnoses: Type [...] II - Test 2 time/day. High A1C. clopidogreL 75 mg tablet For diagnoses: Coronary stephanie ry disease due to lipid rich plaque Commonly known as: PLAVIX Take 1 Tablet (75 mg) by [facility] once daily. ON HOLD AFTER SPINE SURGERY. Resume on post-op day #5, 07/17/2022 cyanocobalamin 1,000 mcg tab let For diagnoses: Vitamin B12 d eficiency Commonly known as: Vitamin B -12 Take 1 Tablet (1,000 mcg) b y mouth once daily. docusate 100 mg capsule Commonly known as: COLACE Take 100 mg by mouth at bed time if needed for Constipation. ferrous sulfate 325 mg (65 m g iron) 325 mg EC tablet Take 325 mg by mouth once e very other night. Doctor's comments: 1 tablet every other day glimepiride 2 mg tablet For diagnoses: Type 2 diabet es mellitus without complication, without long-term current use of insulin (HC) Commonly known as: AMARYL TAKE 1 TABLET TWICE DAILY lancets For diagnoses: Type 2 diabet es mellitus without complication, without long-term current use of insulin (HC) Dispense lancets covered by pt ins. E11.9 NIDDM type II - Test 2 time/day. High A1C. metFORMIN 1,000 mg tablet For diagnoses: Type 2 diabet es mellitus without complication, without long-term current use of insulin (HC) Commonly known as: GLUCOPHAG E Take 1 Tablet (1,000 mg) by mouth in the morning and 1 Tablet (1,000 mg) in the evening. Take with meals. methocarbamoL 750 mg tablet For diagnoses: Lumbar radicu lopathy Commonly known as: ROBAXIN Take 1 Tablet (750 mg) by m out every 6 hours if needed for Muscle Spasm. nitroglycerin 0.4 mg subling ual tablet For diagnoses: Coronary stephanie ry disease involving mohegan heart without angina pectoris, unspecified vessel or lesion type Commonly known as: NITROSTAT Place 1 tablet under tongue every 5 minutes if needed for chest pain. May repeat twice. oxyCODONE 10 mg tablet For diagnoses: Lumbar radicu lopathy Take 1 Tablet (10 mg) by mo [facility] every 4 hours if needed for Pain (First choice for severe pain.). tamsulosin 0.4 mg capsule For diagnoses: BPH with urin yissel obstruction Commonly known as: FLOMAX Take 1 Capsule (0.4 mg) by mouth once daily after a meal. TAKE 1 CAPSULE ONE TIME DAILY AFTER A MEAL Walker For diagnoses: Lumbar radicu lopathy Walker with front wheels fo r home use for 3 months. STOP taking these medicines acetaminophen 500 mg tablet Commonly known as: TYLENOL E XTRA STRGTH Pertinent Findings / Procedu res First weight: Last weight: Consultants Encounter Notes Consults from Carmen Wright NP (Surgery - Urology) Diet / Activity / Follow-Up After Discharge Orders and I nstructions AMB CONSULT TO HOME longterm Health Certification/F en to Face Attestation: I certify that this patient is confined to his/her home and needs intermittent retirement care, physical therapy and/or speech therapy or continues to need occupational therapy. A plan of care has been established and will be reviewed periodically by a physician or allowed practitioner. Services will be furnished while the patient is under the care of a physician or allowed practitioner. The jose armando ent had a dnya-ac-bnmw encou nter with a physician or an allowed non-physician practitioner and the encounter was related to the primary reason for home health. Date of the Face to Face Enc ounter: 07/29/2022 Based on my findings, review of the medical records, and/or collaboration with the other providers, the following services are medically necessary home health services: Longterm and Physical Therapy This patient is confined to his/her home because: There is a taxing effort to leave the home due to Hematuria - s/p cystoscopy Patient requires the assista nce of another individual in order to leave the home. Provider following for home care services: Terry Junior MD Electronically signed, Neo Dejesus MD 07/29/2022 Caring for your ostomy and or urinary drain You have a Reyes catheter. You will need to see your do ctor to have the drain removed. To care for the dressing at your ostomy, urinary drain or tube: Call your health care provider if you are concerned about the amount of drainage or blood on the dressing. See the education for how to empty or flush your drain or pouch. Look at the appearance and a mount of drainage that comes from the drain or pouch. Call your health care provider if the drain falls out, the drainage has bright red blood, or you have concerns about the drainage. You can put the contents fro m your drain or pouch in the toilet. Consistent Carbohydrate t: Your body struggles to tolentino ge carbohydrates into energy. Carbohydrates are milks, fru its, starches (such as bread, cereal, potatoes and pasta); peas and corn; and sweets and desserts. Eat these foods in moderation. Tips for health: - eat balanced meals with fr uits, vegetables, starches, meats and milk products - limit foods high in calori es like cake, candy, cookies, pie and regular soda - choose sugar-free beverage s - build a plate that is one- half vegetables, one-quarter starch, and one- quarter meat or other protein source - consider fruit for dessert - choose foods that have fib er, such as whole grains - eat healthful fats such as olive oil or canola oil PATIENT COMMUNICATION Upon discharge, your primar y clinic provider, Terry Junior MD, will be responsible for your ongoing medical care. However, if you need further assistance from your hospital physician in the next 72 hours, you may conta ct them by calling [phone]. [facility] POST HOSP[facility] VISIT [facility] in [place] in a few weeks to be sure emptying bladder ok. Clinic will call to arrange appointment [phone] Physical Therapy uSmmer rebolledo Primary Care Provider brad w up appointment(s) Terry Junior MD When to follow up: 1 to 5 d ays Rehab Potential: Fair Longterm Eval and Tr eat Treatment Options: Full Res uscitation Up as tolerated Get regular activity and tr y to walk for a total of 30 minutes per day. Start by walking for 5 to 10 minutes at one time and slowly build to walking for 30 minutes one time. Rest is also an important pa rt of healing. Slowly return to your regular level of activity. Save your energy by spreading out activities that make you tired. Rest as needed. When should you be concerne d? Your health care provider i s: Terry Junior MD Please call your health care provider if: - you feel you are getting w orse or having an increase in problems - fever greater than 101 deg yoselin - increasing shortness of br eath - any signs of infection (in creasing redness, swelling, tenderness, warmth, change in appearance, or increased drainage) - blood in your urine or sto ol - coughing or vomiting blood - nausea (upset stomach) and vomiting and/or diarrhea that will not stop - severe pain that is not re lieved by medicine, rest or ice Call 911 if you feel you are having a medical emergency. [facility] You were in the hospital fo r Hematuria - s/p cystoscopy. Pending Studies Lab results that may not be resulted at time of discharge: (From admission through now) None Total time spent on discharg e coordination: 35 minutes. Patient was seen and examined today. Neo Dejesus MD Hospitalist, [facility] ? ? [phone] 07/26/2022 Travel 07/25/2022 Home Care Visit Nik Dutta, PT - OA SIS TRANSFER PT 07/22/2022 Home Care Visit Nik Dutta, CARE CO ORDINATION PT 07/21/2022 Home Care Visit Codi Busch, RN SN - MIS SED VISIT 07/21/2022 Nurse Triage Cindy Fay dinkey engine operator 07/20/2022 Home Care Visit Nik Dutta, PT - OA SIS START OF CARE PT 07/20/2022 Telephone Nik Dutta, PT 07/20/2022 Travel 07/19/2022 Nurse Triage Ayleen Ramirez dinkey engine operator 07/19/2022 Telephone [facility] (Ref [...] 07/13/2022 Telephone Mary Kay Ramirez, Referral (Liaison top steep tender) 07/12/2022 Anesthesia Event Lilia Mosqueda, JENNIFER Jacobson, Jessica Courtney, SUCTION PLATE CARRIER CLEANER 07/12/2022 Surgery Kevin Perry, DECOMPRES FLORENTIN- LATERAL MD RECESS L4-5 CHECO ATERAL, DECOMPRESSION- HEMILAMINOTOMY/ DISCECTOM Y L3-4 BILATATE RAL 07/12/2022 - Hospital Encounter Kevin Perry, Lum bar radiculopathy (Primary Dx); 07/13/2022 MD Status post lum bar spine operative procedure for decompression of spinal cord; Coronary artery disease due to lipid rich plaque Discharge Summary - George Turner MD - 07/13/2022 4:32 PM CDT Images from the original not e were not included. HOSPITAL DISCHARGE SUMMARY Patient Name: Hugo hugo Date of : 1940 Age: 81 y.o. [id number] Primary Physician: Terry Junior MD Admission Date: 07/12/2022 Discharge Date: 07/13/2022 Mr. Hugo Cason is a 9 0 y.o. who underwent DECOMPRESSION- LATERAL RECESS L4-5 BILATERAL, DECOMPRESSION- HEMILAMINOTOMY/DISCECTOMY L3-4 BILATATERAL on 07/12/2022 by Kevin Theodore MD; curry rubio General, EBL 25 ml, OR time 3 Hr 7 Min 1 Sec with no immediate complications. He will be discharged from [facility] to home. PRINCIPAL DIAGNOSIS CAUSING ADMISSION: Stenosis, [...] this Commonly known as: TYLENOL E XTRA STRGTH Take 2 Tablets (1,000 mg) b y [...] Take 1 Tablet (20 mg) by mo ut once daily. metFORMIN 1,000 mg tablet For [...] For diagnoses: Coronary stephanie ry disease involving mohegan heart without angina pectoris, unspecified vessel or [...] your medicines These medications were sent to [facility] [address] [place] [id number], [facility] [id number] Hours: Open 24 Hours ?? acetaminophen 500 mg tabl et ?? methocarbamoL 750 mg tabl et ?? oxyCODONE 10 mg tablet You have received printed pr escription(s) for these medicines or supplies. Take these to your preferred pharmacy. Bring a paper prescription f or each of these medications ?? Walker FOLLOW-UP: He should return to clinic i [...] oral medication s prior to discharge. The pa tients pain was well controlled and they met [...] follow up with Kevin Zhou MD at [facility] in 4-6 weeks. If you follow with your surg tanvir at [facility], call [phone] for questions, or to make an appointment. If you follow with your surg tanvir at [facility], please call [facility] at [phone] When to follow up: 4 to 6 w eeks Caring for your wound or in cision: - Steri Strips will fall of f on their own; do not remove them. - No need to cover your inci florentin. - You may take a shower. It [...] with gauze and call the surgeon at [phone]. Information about NSAIDS NSAIDs (Non-Steroidal Anti- Inflammatories): [...] your surgeon - follow specific exercise p joanna outlined in the spine manual by your surgeon, therapist, mass communications instructor - stay away from hot tubs, t ub baths, pools, lakes until your surgeon has given you the OK - shower as directed by your health care provider Patient Instruction post bl adder scan Same Day Discharge patients If unable to urinate in 6-8 hours after discharge, return to Emergency Room with your discharge instructions. Primary Care Provider woodyo w up appointment(s) Follow up with your [...] nearby hospital [facility] The reason you were in the hospital is for spine surgery. Your incision was closed wi th: - Steri Strips; they will f all off on their own; do not remove them. Total time spent for dischar ge on date of discharge: 20 minutes Gama Turner MD [facility] 07/11/2022 Travel 07/08/2022 Preop Visit Terry Junior, Pre operative Exam (DOS: 07/12/2022, DEC OMPRESSION- LATERAL RECESS L4-5 BILATERAL, DECOMPRESSION- HEMILAMINOTOMY/ DISCECTOMY L3-4 BIL[address]AL, Dr Lorena Perry, [facility] [place]) 07/07/2022 Orders Only Lab, [facility] 07/07/2022 Travel 07/05/2022 Telephone Terry Junior, Lab 07/04/2022 Travel 06/30/2022 Telephone Terry Junior Que stions MD 05/17/2022 Office Visit José Luis Villalba MD Mus culoskeletal Problem (Follow up epidural shona roid injection ) 05/17/2022 Travel from Last 3 Months Immunizations Name Administration Dates Next Due AMB INFLUENZA IIV3 (AGE 65+ YRS) PF (Flu 07/26/2018, 018 Clinic Only) AMB Influenza, IIV3 (Age >=3 years)(Flu 10/24/2008 Clinic Only) COVID-19 vaccine (Bang[employer] 03/25/2022 30mcg/0.3mL) 12YO+ FINN-SUCROSE ROSALIE DAY COVID-19 vaccine ([employer]ang[employer] 07/02/2021 30mcg/0.3mL) PF, MDV Influenza, High-dose Inactivated [...] 4 Father (Age 83) Mother (Age 83) [place] Sister 1 Alive Sister 2 Alive Sister [...] in contact with No / Unsu re 08/10/2022 3:06 PM MULTISKILL OPERATOR someone who was confirmed or suspected to have Coronavirus/COVID-19? Obstetrics History Last Filed Vital Signs Vital Sign Reading Time Taken Comments Blood Pressure 118/52 08/10/2022 3:09 PM MULTISKILL OPERATOR Pulse 74 08/10/2022 3:09 PM MULTISKILL OPERATOR Temperature 36.6 ??C (97.8 ??F) 08/10/2022 3:09 PM MULTISKILL OPERATOR Respiratory Rate 16 08/10/2022 3:09 PM MULTISKILL OPERATOR Oxygen Saturation 97% 08/10/2022 3:09 PM MULTISKILL OPERATOR Inhaled Oxygen Concentration - - Weight 68 kg (149 lb 14.4 oz) 08/01/2022 11:49 AM MULTISKILL OPERATOR Height 167.6 cm (5' 6) 07/12/2022 12:28 PM CDT Body Mass Index 24.19 07/12/2022 12:28 PM CDT Plan of Treatment Upcoming Encounters Date Type Specialty Care Team Description 08/12/2022 Home Care Visit Codi Busch, RN [address], [place] [address] (Wo rk) 08/17/2022 Home Care Visit Codi Busch RN [address] [place] [address] (Wo rk) 08/24/2022 Home Care Visit Codi Busch RN [address] [place] [address] (Wo rk) 08/31/2022 Home Care Visit Codi Busch RN [address] [place] [address] (Wo rk) 09/07/2022 Home Care Visit Codi Busch RN [address] [place] [address] (Wo rk) 10/03/2022 Office Visit Terry Junior MD [address] [place] [address] (Wo rk) Health Maintenance Due Date Last [...] 11/24, 12/13/2013 Medical Devices Implanted Type Area Etl Database Developer Device Shelf Model / Identifier Expiration Serial / Lot Date Lens Iol 19.5 [employer] - [id number] Right: Allergan 09/14/2021 [id number] / Implanted: Qty: 1 on 11/24/2015 by Nik Majano MD at [facility] [employer] 4 [id number] / Lens Iol 19.5 [employer] - [id number] Left: Allergan 02/27/2019 [id number] / Implanted: Qty: 1 on 12/29/2015 by Nik Majano MD at [facility] [employer] 5 [id number] / Procedures Procedure Name Priority Date/Time Associated Diagnosis Comme nts HEMOGLOBIN Routine 08/01/2022 11:45 Gross hematuria Results for this AM MULTISKILL OPERATOR procedure are i n the results section. GLUCOSE METER Timed 07/30/2022 11:51 Results fo r this AM CDT procedure are i n the results section. HEMOGLOBIN Today 07/30/2022 9:24 Results for this AM CDT procedure are i n the results section. GLUCOSE METER Timed 07/30/2022 7:52 Results for this AM CDT procedure are i n the results section. GLUCOSE METER Timed 07/29/2022 9:22 Results for this PM CDT procedure are i n the results section. GLUCOSE METER Timed 07/29/2022 5:03 Results for this PM CDT procedure are i n the results section. GLUCOSE METER Timed 07/29/2022 2:40 Results for this PM CDT procedure are i n the results section. HEMOGLOBIN Today 07/29/2022 1:16 Results for this PM CDT procedure are i n the results section. GLUCOSE METER Timed 07/29/2022 7:59 Results for this AM CDT procedure are i n the results section. GLUCOSE METER Timed 07/28/2022 9:20 Results for this PM CDT procedure are i n the results section. GLUCOSE METER Timed 07/28/2022 5:07 Results for this PM CDT procedure are i n the results section. GLUCOSE METER Timed 07/28/2022 1:07 Results for this PM CDT procedure are i n the results section. GLUCOSE METER Timed 07/28/2022 11:31 Results fo r this AM CDT procedure are i n the results section. GLUCOSE METER Timed 07/28/2022 7:55 Results for this AM CDT procedure are i n the results section. GLUCOSE METER Timed 07/27/2022 8:51 Results for this PM CDT procedure are i n the results section. GLUCOSE METER Timed 07/27/2022 4:21 Results for this PM CDT procedure are i n the results section. GLUCOSE METER Timed 07/27/2022 3:11 Results for this PM CDT procedure are i n the results section. CYSTOSCOPY EVACUATION 07/27/2022 2:17 hematuria BLADDER CLOTS PM CDT HEMOGLOBIN Today 07/27/2022 2:16 Results for this PM CDT procedure are i n the results section. GLUCOSE METER Timed 07/27/2022 11:57 Results fo r this AM CDT procedure are i n the results section. GLUCOSE METER Timed 07/27/2022 8:17 Results for this AM CDT procedure are i n the results section. GLUCOSE METER Timed 07/26/2022 6:20 Results for this PM CDT procedure are i n the results section. CT ABDOMEN PELVIS WO Routine 07/26/2022 5:22 Resu lts for this PM CDT procedure are i n the results section. COVID 19 Timed 07/26/2022 1:03 Results for this PM CDT procedure are i n the results section. CBC WITH AUTO Today 07/26/2022 1:03 Results for this DIFFERENTIAL PM CDT procedure are i n the results section. COVID 19 COLLECTION Today 07/26/2022 1:03 Resul ts for this PM CDT procedure are i n the results section. BASIC METABOLIC PANEL Today 07/26/2022 1:03 Res ults for this PM CDT procedure are i n the results section. CBC WITH AUTO Today 07/26/2022 1:03 Results for this DIFFERENTIAL PM CDT procedure are i n the results section. GLUCOSE METER Timed 07/26/2022 12:53 Results fo r this PM CDT procedure are i n the results section. ECHO COMPLETE WO Routine 07/14/2022 4:41 FUO [...] procedure are i n the results section. OK ECG ROUTINE ECG Routine 07/08/2022 12:00 Coronary [...] current use sectio n. of insulin (HC) from Last 3 Months Results (ABNORMAL) HEMOGLOBIN (08/01/2022 11:45 AM MULTISKILL OPERATOR)Only the most recent of4 results within the time period is included. athologist Signature HEMOGLOBIN 11.0 (L) 13.5 - 08/01/2022 [facility] 17.5 g/dL 11:51 AM MULTISKILL OPERATOR [facility] MCV 86 80 - 100 08/01/2022 [facility] fL 11:51 AM [facility] Specimen Anatomical Collection Method / Collection Time Recei niels Time (Source) Location / Volume Laterality Blood BLOOD SPECIMEN / Venipuncture / 08/01/2022 11:45 08/01 Unknown Unknown AM MULTISKILL OPERATOR 11:45 AM MULTISKILL OPERATOR Jaleesa BEVERLY HEMATOLOGY Performing Organization Address City/State/ZIP Code Phon e Number [facility] [address] [place] [address] (ABNORMAL) GLUCOSE METER (07/30/2022 11:51 AM CDT)Only the most recent of22 resultswithin the time period is included. athologist Signature GLUCOSE METER 294 (H) 65 - 100 07/30/2022 [facility] mg/dL 11:53 AM CDT LABORATORY Specimen Anatomical Collection Method Collection Time Receive d Time (Source) Location / / Volume Laterality Blood BLOOD SPECIMEN / 07/30/2022 11:51 022 Unknown AM CDT 11:53 AM CDT Neo Dejesus MD CHEMISTRY Performing Organization Address City/State/ZIP Code Phon e Number [facility] LABORATORY INTERNAL ZIP [address] [place] [address] ABDOMEN PELVIS WO (07/26/2022 5:22 PM CDT) Anatomical Region Laterality Modality Abdomen, Pelvis, AORTA, LIVER, SPLEEN Co mputed Tomography Specimen (Source) Anatomical Collection Method Collection Time Re ceived Time Location / / Volume Laterality 07/26/2022 5:22 PM CDT Impressions 07/26/2022 5:58 PM CDT 1. ??Large bladder clot. No definite evidence of bladder mass. 2. ??No evidence of renal calculi or hyd ronephrosis. 3. ??Enlarged prostate gland. Narrative 07/26/2022 5:58 PM CDT For Patients: As a result of the Cures Act, medical imaging exams and procedure reports are released immediately into [facility]. You may view this report before your referring provider. If you have questions, please contact your health care provider. EXAM: CT ABDOMEN PELVIS WO LOCATION: [facility] DATE/TIME: 07/26/2022 5:22 PM INDICATION: Gross hematuria. COMPARISON: None. TECHNIQUE: CT scan of the abdomen and pe lvis was performed without IV contrast. Multiplanar reformats were obtained. Dose reduction techniques were used. CONTRAST: None. FINDINGS: LOWER CHEST: Normal. HEPATOBILIARY: Normal. PANCREAS: Normal. SPLEEN: Normal. ADRENAL GLANDS: Normal. KIDNEYS/BLADDER: No significant mass, st ones, or hydronephrosis. There are simple or benign cysts. No follow up is needed. Reyes catheter is in place. There is a 5 .2 x 7.4 x 4.4 cm high attenuation mass in the right bladder that has the appearance of a blood clot. No definite evidence of bladder wall mass or wall thickening. BOWEL: Normal. LYMPH NODES: Normal. VASCULATURE: Unremarkable. PELVIC ORGANS: Enlarged prostate gland. Left inguinal penile reservoir. MUSCULOSKELETAL: Normal. Procedure Note Jv Quintana MD - 07/26/2022Forma tting of this note might be different from the original. For Patients: As a result of the Cures Act, medical imaging exams and procedure reports are released immediately into your electronic medical record. You may view this report before your referring provider. If you have questions, please contact [facility] health care provider. EXAM: CT ABDOMEN PELVIS WO LOCATION: [facility] DATE/TIME: 07/26/2022 5:22 PM INDICATION: Gross hematuria. COMPARISON: None. TECHNIQUE: CT scan of the abdomen and pe lvis was performed without IV contrast. Multiplanar reformats were obtained. Dose reduction techniques were used. CONTRAST: None. FINDINGS: LOWER CHEST: Normal. HEPATOBILIARY: Normal. PANCREAS: Normal. SPLEEN: Normal. ADRENAL GLANDS: Normal. KIDNEYS/BLADDER: No significant mass, st ones, or hydronephrosis. There are simple or benign cysts. No follow up is needed. Reyes catheter is in place. There is a 5 .2 x 7.4 x 4.4 cm high attenuation mass in the right bladder that has the appearance of a blood clot. No definite evidence of bladder wall mass or wall thickening. BOWEL: Normal. LYMPH NODES: Normal. VASCULATURE: Unremarkable. PELVIC ORGANS: Enlarged prostate gland. Left inguinal penile reservoir. MUSCULOSKELETAL: Normal. IMPRESSION: 1. Large bladder clot. No definite evide nce of bladder mass. 2. No evidence of renal calculi or hydro nephrosis. 3. Enlarged prostate gland. Carmen Wright NP CT COVID 19 (07/26/2022 1:03 PM CDT) Analysis Performed At Patho logist Time Signature COVID 19 Negative Negative 07/26/2022 [facility] 1:54 PM CDT LABORATORY MOLECULAR Comment: All PCR tests are subject to fa lse negative result due to variability in viral load and collection technique. A n egative result does not rule out a SARS-CoV-2 infection. Clinical correlation required . Specimen Anatomical Location / Collection Method Collection Pasha e Received Time (Source) Laterality / Volume Other SPECIMEN FROM Non-Blood / 07/26/2022 1:03 07/26/2022 1:20 NASOPHARYNGEAL Unknown PM CDT PM CDT STRUCTURE / Unknown Narrative [facility] LABORATORY - 07/26/2022 1 :54 PM CDT This test has been authorized by FDA und er an Emergency Use Authorization (EUA). This test is only authorized for the duration of time the declaration that circumstances exist justifying the authorization of th e emergency use of in vitro diagnostic tests for detection of SARS-CoV-2 virus and/or diagnosis of COVID-19 infection under section 564(b)(1) of the Act, 21 U.S.C. 360bbb-3(b) (1), unless the authorization is terminated or revoked sooner. Neo Dejesus MD MICROBIOLOGY Performing Organization Address City/[facility]/ZIP Code [facility] LABORATORY INTERNAL ZIP [address] [place] [address] [place] [address] COVID 19 COLLECTION (07/26/2022 1:03 PM CDT)Only the most recent of2 results within the time period is included. [facility] Method Time Signature TESTING [facility] 07/26/2022 [facility] LABORATORY Laboratory 1:20 PM CDT HOSPITAL LABORATORY Comment: Specimen submitted to [facility] for testing. Specimen Anatomical Location / Collection Method Collection Pasha e Received Time (Source) Laterality / Volume Other SPECIMEN FROM Non-Blood / 07/26/2022 1:03 07/26/2022 1:07 NASOPHARYNGEAL Unknown PM CDT PM CDT STRUCTURE / Unknown Neo Dejesus MD SEND OUTS Performing Organization Address City/[facility]/ZIP Code [facility] LABORATORY [place]NAL [place]IP [address] [place] [address] [place] (ABNORMAL) CBC WITH AUTO DIFFERENTIAL (07/26/2022 1:03 PM CDT)Only the most recent of2 resultswithin the time period is included. [facility] Method Time Signature WHITE BLOOD 8.6 4.5 - 07/26/2022 [facility] COUNT 11.0 1:10 PM CDT LABORATORY thou/cu mm RED BLOOD COUNT 3.83 (L) 4.30 - [facility]20[facility] 5.90 1:10 PM CDT LABORATORY mil/cu mm HEMOGLOBIN 10.9 (L) 13.5 - 07/26/2022 [facility] 17.5 g/dL 1:10 PM CDT LABORATORY HEMATOCRIT 33.4 (L) 37.0 - 07/26/2022 [facility] 53.0 % 1:10 PM CDT LABORATORY MCV 87 80 - 100 07/26/2022 [facility] fL 1:10 PM CDT LABORATORY MCH 28.5 26.0 - 07/26/2022 [facility] 34.0 pg 1:10 PM CDT LABORATORY MCHC 32.6 32.0 - 07/26/2022 [facility] 36.0 g/dL 1:10 PM CDT LABORATORY RDW 13.2 11.5 - 07/26/2022 [facility] 15.5 % 1:10 PM CDT LABORATORY PLATELET COUNT 483 (H) 140 - 440 07/26/2022 [facility] thou/cu 1:10 PM CDT LABORATORY mm MPV 9.5 6.5 - 07/26/2022 [facility] 11.0 fL 1:10 PM CDT LABORATORY NRBC 0.0 % 07/26/2022 [facility] 1:10 PM CDT LABORATORY ABS NRBC 0.0 thou /cu 07/26/2022 [facility] mm 1:10 PM CDT LABORATORY % NEUT 70.0 % 07/26/2022 [facility] 1:10 PM CDT LABORATORY % LYMPH 19.1 % 07/26/2022 [facility] 1:10 PM CDT LABORATORY % MONO 5.5 % 07/26/2022 [facility] 1:10 PM CDT LABORATORY % EOS 2.3 % 07/26/2022 [facility] 1:10 PM CDT LABORATORY % BASO 0.5 % 07/26/2022 [facility] 1:10 PM CDT LABORATORY % IMMATURE GRAN 2.6 % 07/26/2022 [facility] (METAS,MYELOS,OK 1:10 PM CDT LABORATORY OS) ABSOLUTE 6.0 1.7 - 7.0 07/26/2022 [facility] NEUTROPHILS thou/cu 1:10 PM CDT LABORATORY mm ABSOLUTE 1.6 0.9 - 2.9 07/26/2022 [facility] LYMPHOCYTES thou/cu 1:10 PM CDT LABORATORY mm ABSOLUTE 0.5 <0.9 07/26/2022 [facility] MONOCYTES thou/cu 1:10 PM CDT LABORATORY mm ABSOLUTE 0.2 <0.5 07/26/2022 [facility] EOSINOPHILS thou/cu 1:10 PM CDT LABORATORY mm ABSOLUTE 0.0 <0.3 07/26/2022 [facility] BASOPHILS thou/cu 1:10 PM CDT LABORATORY mm ABSOLUTE 0.2 <0.3 07/26/2022 [facility] IMMATURE thou/cu 1:10 PM CDT LABORATORY GRANULOCYTES(MET mm ,MYELOS,PROS) Specimen Anatomical Collection Method Collection Time Receive d Time (Source) Location / / Volume Laterality Blood BLOOD SPECIMEN / Butterfly / 07/26/2022 1:03 PM 07/26 1:07 Unknown Unknown CDT PM CDT Neo Dejesus MD HEMATOLOGY Performing Organization Address City/State/ZIP Code Phon e Number [facility] LABORATORY [place]NAL ZIP [address] [place], [place] [id number] [address] [place] (ABNORMAL) Basic Metabolic Panel (07/26/2022 1:03 PM CDT)Only the most recent of 2 resultswithin the time period is included. [facility] Method Time Signature SODIUM 138 135 - 145 07/26/2022 [facility] mmol/L 1:24 PM CDT LABORATORY POTASSIUM 4.3 3.5 - 5.0 07/26/2022 [facility] mmol/L 1:24 PM CDT LABORATORY CHLORIDE 104 98 - 110 07/26/2022 [facility] mmol/L 1:24 PM CDT LABORATORY CO2,TOTAL 27 21 - 31 07/26/2022 [facility] mmol/L 1:24 PM CDT LABORATORY ANION GAP 7 5 - 18 07/26/2022 [facility] 1:24 PM CDT LABORATORY GLUCOSE 135 (H) 65 - 100 07/26/2022 [facility] mg/dL 1:24 PM CDT LABORATORY CALCIUM 9.5 8.5 - 10.5 07/26/2022 [facility] mg/dL 1:24 PM CDT LABORATORY BUN 9 8 - 25 07/26/2022 [facility] mg/dL 1:24 PM CDT LABORATORY CREATININE 0.69 (L) 0.72 - 07/26/2022 [facility] 1.25 mg/dL 1:24 PM CDT LABORATORY BUN/CREAT RATIO 13 10 - 20 07/26/2022 [facility] 1:24 PM CDT LABORATORY eGFR >90 >90 07/26/2022 [facility] mL/min/1.7 1:24 PM CDT LABORATORY 3m2 Comment: As of 2021, eGFR is calcu lated by the CKD-EPI creatinine equation without race adjustment. eGFR can be inf luenced by muscle mass, exercise, and diet. The reported eGFR is an estimation only and is only applicable if the renal function is stable. Specimen Anatomical Collection Method Collection Time Receive d Time (Source) Location / / Volume Laterality Blood BLOOD SPECIMEN / Butterfly / 07/26/2022 1:03 PM 07/26 1:07 Unknown Unknown CDT PM CDT Neo Dejesus MD CHEMISTRY Performing Organization Address City/State/ZIP Code Phon e Number [facility] LABORATORY [place]NAL ZIP [address] [place] [address] ECHO COMPLETE WO CONTRAST (07/14/2022 4:41 PM CDT) P athologist Signature AORTIC VALVE 12 mmHg MEAN PG EJECTION 74 % FRACTION PEAK TR 2.9 m/s VELOCITY LVEDD 4.2 cm Anatomical Region Laterality Modality HEART Ultrasound Specimen (Source) Anatomical Collection Method Collection Time Re ceived Time Location / / Volume Laterality 07/14/2022 4:07 PM CDT Narrative 07/14/2022 4:59 PM CDT ECHOCARDIOGRAM HUGO CASON ?Accessio n#: ?? [id number] : ?1940 81 years Study Date: ?? 07/14/2022 4:07:34 PM Gender: M ? BP: ? 132/62 mmHg Height: 168.00 cm ? BSA: ?1.79 m? ?? Weight: 70.00 kg ?Tech: ? MJW ?Juan lala MD: MIKALA DE GUZMAN Site: ? [facility] Reading Location: [facility] Procedure: 2D, [...] . This study was interpreted [facility] CC: Med/Surg - IP [facility] [place]. ??Final ?? Procedure Note Shantel Mccauley, [facility] - 07/14/2022Formatt ing of this note might be different from the original. ECHOCARDIOGRAM HUGO CASON : 1940 81 years Study Date: 07/14 4:07:34 PM Gender: M BP: 132/62 mmHg Height: 168.00 cm BSA: 1.79 m? ?? Weight: 70.00 kg Tech: DARA Referring MD: MIKALA DE GUZMAN Site: [facility] Reading Location: [facility] Procedure: 2D, Color Doppler [...] . This study was interpreted by an [facility]. CC: Med/Surg - IP [facility] [place]. Final Mikala De Guzman MD ECHO ORD [...] Signature POTASSIUM 3.7 3.5 - 5.0 07/13/2022 [facility] mmol/L 4:27 PM CDT LABORATORY-CENTR AL LABORATORY Specimen Anatomical Collection Method Collection Time Receive d Time (Source) Location / / Volume Laterality Blood BLOOD SPECIMEN / Line/Port / 07/13/2022 3:22 PM 07/13 4:02 Unknown Unknown CDT PM CDT Xi Dunlap MD CHEMISTRY Performing Organization Address City/State/ZIP Code Phon e Number [facility] [address] [place] [address] LABORATORY-CENTRAL 2000 LABORATORY (ABNORMAL) Creatinine TODAY (07/13/2022 3:22 PM CDT) athologist Signature CREATININE 0.80 0.72 - 1.25 07/13/2022 [facility] mg/dL 4:32 PM CDT LABORATORY-CENT RAL LABORATORY eGFR 89 (L) >90 07/13/2022 [facility] mL/min/1.73 4:32 PM CDT LABORATORY-CENT m2 RAL [...] Organization Address City/State/ZIP Code Phon e Number [employer] [address] [place] [address] LABORATORY-CENTRAL 2000 LABORATORY XR C-ARM EQUAL OR [...] For Patients: As a result of the Cures Act, medical imaging exams and procedure reports are released immediately into your electronic medical record. You may view this report before your referring provider. If you have questions, please contact [facility] health care provider. INDICATION: Spinal localization. TECHNIQUE: [...] (07/08/2022 2:45 PM CDT) Analysis Performed At [facility] Time Signature COVID 19 Negative Negative 07/10/2022 [facility] [employer] [facility] 6:32 PM CDT LABORATORY-EVELYNE MOLECULAR TRAL LABORATORY Specimen Anatomical Location / Collection Method Collection Pasha e Received Time (Source) Laterality / Volume Other SPECIMEN FROM Non-Blood / 07/08/2022 2:45 07/09/2022 NASOPHARYNGEAL Unknown PM CDT 12:12 PM CDT STRUCTURE / Unknown Narrative [facility] LABORATORY-CENTRAL LABORAT ORY - 07/10/2022 6:32 [...] Organization Address City/State/ZIP Code Phon e Number [facility] [employer] [address] [place] [address] LABORATORY-CENTRAL 2000 LABORATORY [place] ECG ROUTINE ECG W/LEAST 12 LDS W/I&R (07/08/2022 12:00 AM CDT) Narrative This result has an attachment that is no t available. Terry Junior MD PB - CARDIOVASCULAR SYSTEM S ERVICES (ABNORMAL) LIPID PANEL W REFLEX MEASURED LDL (07/07/2022 11:16 AM CDT) [facility] Method Time Signature CHOLESTEROL,TOTAL 117 100 - 199 07/08/2022 [facility] mg/dL 3:42 PM CDT LABORATORY-EVELYNE TRAL LABORATORY TRIGLYCERIDES 180 (H) <150 07/08/2022 [facility] mg/dL 3:42 PM CDT LABORATORY-EVELYNE TRAL LABORATORY HDL CHOLESTEROL 33 (L) >40 mg/dL 07/08/2022 [facility] 3:42 PM CDT LABORATORY-EVELYNE TRAL LABORATORY NON-HDL 84 <145 07/08/2022 [facility] CHOLESTEROL mg/dl 3:42 PM CDT LABORATORY-EVELYNE TRAL [...] Terry Junior MD CHEMISTRY Performing Organization Address [facility] Phon e Number [employer] [address] [place] [address] [place] [address] LABORATORY-CENTRAL 2000 LABORATORY IRON PLUS IRON BINDING [...] Organization Address City/State/ZIP Code Phon e Number [employer] [address] [place] [address] LABORATORY-CENTRAL 1999 LABORATORY MICROALBUMIN RANDOM URINE (07/07/2022 11:16 AM CDT) P athologist Signature ALB RAND URINE 10.7 mg/L 07/08/2022 [facility] [employer] 3:32 AM CDT LABORATORY-CENT RAL LABORATORY CREATININE,URIN 0.78 g/L 07/08/2022 [facility] [employer] E 3:32 AM CDT LABORATORY-CENT RAL LABORATORY ALBUMIN TO 13.7 <30.0 mg/g 07/08/2022 [facility] CREATININE creat 3:32 AM CDT LABORATORY-CENT RATIO,RAND UR RAL LABORATORY Specimen Anatomical Collection Method Collection Time Receive d Time (Source) Location / / Volume Laterality Urine URINE SPECIMEN / Non-Blood / 07/07/2022 11:16 022 Unknown Unknown AM CDT 11:17 AM CDT Narrative [facility] LABORATORY-CENTRAL LABORAT ORY - 07/08/2022 3:32 AM [...] Organization Address City/State/ZIP Code Phon e Number [employer] [address] [place], [place] [address] [address] LABORATORY-CENTRAL 2000 LABORATORY (ABNORMAL) HEMOGLOBIN A1C MONITORING (POCT) (07/07/2022 11:16 AM CDT) Analysis Performed At Patho logist Time Signature HEMOGLOBIN A1C 7.0 (H) <=6.4 % 07/07/2022 [facility] MONITORING 11:39 AM CDT [facility] Specimen Anatomical Collection Method / Collection Time Recei niels Time (Source) Location / Volume Laterality Blood BLOOD SPECIMEN / Venipuncture / 07/07/2022 11:16 07/07 Unknown Unknown AM CDT 11:17 AM CDT Narrative [facility] - 2021 11:39 AM CDT ? (<=6.9%) [...] Terry Junior MD CHEMISTRY Performing Organization Address City/[facility] Phon e Number [facility] [address] [place] [address] FERRITIN (07/07/2022 11:16 AM CDT) athologist Signature FERRITIN 60.2 22.0 - 07/08/2022 [facility] 275.0 ng/mL 3:41 PM CDT LABORATORY-CENTR AL LABORATORY Specimen Anatomical Collection Method / Collection Time Recei niels Time (Source) Location / Volume Laterality Blood BLOOD SPECIMEN / Venipuncture / 07/07/2022 11:16 07/07 Unknown Unknown AM CDT 11:17 AM CDT Terry Junior MD CHEMISTRY Performing Organization Address [facility]/ZIP [facility] Phon e Number [facility] [address] [place] [address] LABORATORY-CENTRAL 2000 LABORATORY VITAMIN B12 (07/07/2022 11:16 [...] Terry Junior MD CHEMISTRY Performing Organization Address City/[facility]/ZIP [facility] Phon e Number [facility] [address] [place] [address] LABORATORY-CENTRAL 1999 LABORATORY HEPATIC FUNCTION PANEL (07/07/2022 [...] Code Phon e Number [facility] [address] [place] [address] LABORATORY-CENTRAL 2000 LABORATORY from Last 3 Months Insurance Payer Benefit Plan / Subscriber ID Effective Dates Phone Addre ss Type Group MEDICARE PART MEDICARE PART [id number] 2006-[place] A - [place] USE A HB ONLY nt [address] [place] [address] MEDICARE PART MEDICARE PART [id number] 2006-[place]: [place] B - [place] USE B HB ONLY nt [address] [place] [address] MEDICARE PPS HC MEDICARE [id number] 2006-Prese [address] X 2019 PPS nt [address] [place] [address] BLUE CROSS BLUE CROSS [id number] [place] [address] [address] [address] [place], [place] ONLY [id number] BLUE CROSS [place] BLUE CROSS [id number] 2017-Presen [address] [address] [address] [address] [place], [place] ONLY [phone] Advance Directives Latest Code Status on File Code Status Date Activated Date Inactivated Comments Full Code 07/26/2022 12:45 PM 07/30/2022 6:25 PM Code Status Discussion: Other Full Code 07/12/2022 7:48 PM 07/13/2022 6:33 PM Code Status Discussion: Unable to Assess Preferences, Provid er to review later Full Code 12/29/2015 7:10 AM 12/29/2015 11:13 AM Full Code 11/24/2015 7:42 AM 11/24/2015 12:22 PM Full Code 12/03/2013 7:11 AM 12/03/2013 1:25 PM Care Teams Ice Cream Maker Relationship Specialty Start Date End Date Terry Junior MD PCP - General Family Practice 06/16/17 [address] [place] [address] Thomas Nash 07/13/[address] [address] [facility] [place] 07/19/[address] [address]
--- OUTSIDE RECORDS SUMMARY | 2022-08-12 07:37 | XMS_ITS ---
:1940 Author Care Team Providers Name Role Phone PATRICIA SHARMA MD Primary Care Provider [phone] Allergies Code Code System Name Reaction Severity [...] mg tablet Active ? Not av ailable methocarbamol 750 mg tablet Active ? Not available metoprolol succinate ER 100 mg tablet,extended release 24 Active ? Not available hr nitroglycerin 0.4 mg sublingual tablet Active ? Not available oxycodone 10 mg tablet Active ? Not avail able tamsulosin 0.4 mg capsule Active ? Not [...] 0-4.0 ? [facility]: [address] [place] s 06/02/2022 PSA, Serum ? No observation ? ? ? or Plasma recorded. Past Encounters 08/11/2022 Raised Prostate Specific Antigen; Lower Urinary Tract Symptoms Due to Benign Prostatic Hypertrophy; Primary Erectile Dysfunction; Retention of Urine Fitz Preciado MD: [address] [place] [address], Ph. 06/02/2022 Raised Prostate Specific Antigen; Lower Urinary Tract Symptoms Due to Benign Prostatic Hypertrophy; Primary Erectile Dysfunction Fitz Preciado MD: [address] [place] [address], Ph. Social History Tobacco Smoking Status Former Smoker Vaccine List Vaccine Type COVID-19, mRNA, LNP-S, PF, 30 mcg/0.3 mL dose ([employer]) 11/10/2020 12/01/2020 07/02/2021 COVID-19, mRNA, LNP-S, PF, 30 mcg/0.3 mL dose, sunni-sucrose ([employer]) 03/25/2022 pneumococcal conjugate PCV 13 04/20/2016 pneumococcal polysaccharide PPV23 12/13/2013 Plan of Care Reminders Provider Appointments None recorded. ? ? Lab None recorded. ? ? Referral None recorded. ? ? Procedures None recorded. ? ? Surgeries None recorded. ? ? Imaging None recorded. ? ? Vitals 08/11/2022 10:00AM NEW PATIENT 20 Height Weight BMI 5 ft 6 in 154 lbs 24.9 kg/m2 06/02/2022 11:10AM ESTABLISHED 20 Height Weight BMI 5 ft 6 in 154 lbs 24.9 kg/m2
--- OUTSIDE RECORDS SUMMARY | 2022-08-12 07:37 | XMS_ITS | Encounter Summary ---
:1940 Author Organization [facility] Address [address] [place] [address] Care Team Providers Name Role Phone Clinic, [facility] Unavailable Unavail able Terry Junior Primary Care Provider Reason for Referral (Routine) - Closed Specialty Diagnoses / Procedures Referred By Contact Refer red To Contact Procedures Cliff Mitchell MD Discharge [address] [place], [place] [address] Referral ID Status Reason Start Date Expiration Date Visits Requ ested Visits Authorized [id number] Closed 05/05/2018 05/05/2019 1 1 (Routine) - Closed Specialty Diagnoses / Procedures Referred By Contact Refer red To Contact [place]ito Randolph MD Goodwin, Richard L [address] [place] [address] [address] [place] [address] [place], [place] [address] Referral ID Status Reason Start Date Expiration Date Visits Requ ested Visits Authorized [id number] Closed 05/05/2018 05/05/2019 1 1 Question Answer Specify time frame for follow up? As needed (Routine) - Closed Specialty Diagnoses / Procedures Referred By Contact Refer red To Contact Procedures Low Hagen MD Diet: Regular [address] [place], [place] [address] Referral ID Status Reason Start Date Expiration Date Visits Requ ested Visits Authorized [id number] Closed 05/04/2018 05/04/2019 1 1 (Routine) - Closed Specialty Diagnoses / Procedures Referred By Contact Refer red To Contact Procedures Low Hagen MD Discharge Instructions [address] [place], [place] [address] Referral ID Status Reason Start Date Expiration Date Visits Requ ested Visits Authorized [id number] Closed 05/04/2018 05/04/2019 1 1 (Routine) - Closed Specialty Diagnoses / Procedures Referred By Contact Refer red To Contact Procedures Low Hagen MD Discharge Instructions [address] (Sedation/Anesthesia) [address] [place], [place] [address] Referral ID Status Reason Start Date Expiration Date Visits Requ ested Visits Authorized [id number] Closed 05/04/2018 05/04/2019 1 1 (Routine) - Closed Specialty Diagnoses / Procedures Referred By Contact Refer red To Contact Low Hagen MD Tortorelis, Dean G, MD [address] [place], [place] [address] [place] [address] Fax: Referral ID Status Reason Start Date Expiration Date Visits Requ ested Visits Authorized [id number] Closed 05/04/2018 05/04/2019 1 1 Question Answer Specify time frame for follow up? 1 Week Comments Call for appt LOW HAGEN MD [facility] [phone] (Routine) - Closed Specialty Diagnoses / Procedures Referred By Contact Refer red To Contact Procedures Low Hagen MD Notify Provider [address] [place] [address] Referral ID Status Reason Start Date Expiration Date Visits Requ ested Visits Authorized [id number] Closed 05/04/2018 05/04/2019 1 1 (Routine) - Closed Specialty Diagnoses / Procedures Referred By Contact Refer red To Contact Procedures Low Hagen MD Discharge [address] [place] [address] Referral ID Status Reason Start Date Expiration Date Visits Requ ested Visits Authorized [id number] Closed 05/04/2018 05/04/2019 1 1 Reason for Visit Inpatient Admission Specialty Diagnoses / Procedures Referred By Contact Refer red To Contact Procedures [id number] Referral ID Status Reason Start Date Expiration Date Visits Requ ested Visits Authorized [id number] 1 1 Encounter Details Date Type Department Care Team Description 05/04/2018 - Hospital Encounter WLow Pugh Coronary artery 05/05/2018 3300 Ang Nugent MD disease involving N [address] [place] coronary [place] [address] artery [place] [address] [place] heart without [phone] [address] angina pectoris Social History Tobacco Use Types [...] DISCHARGE MEDICATIONS Hugo La Home Medication Instructions MIRA:[id number] Printed on:05/07/18 [id number] Medication Information amLODIPine (NORVASC) 10 mg oral [...] the first 4-5 days following surgery Keep AMRIBEL drain site covered for 2 days---changed and [...] Up Referral Priority: Routine Referred to Provider: TRERY JUNIOR PA-C [facility] Office [phone] UROLOGY d/c note ABOVE NOTE Wilmer HAGEN MD [facility] [phone] documented in this encounter Discharge Instructions Discharge [...] live longer. For further assistanceplease call the [employer] Helpline at [phone] or go to their website [email or web address]. documented in this encounter Medications at Time [...] MD - 05/05/2018 1:20 PM CDT [facility]PITAL SERVICE PROGRESS NOTE [...] amlodipine, lisinopril, metoprolol. restart home meds at sc. 5. HLD: prior to admission statin 6. Benign Prostatic Hypertrophy: prior to admission flomax 7. Clinically stable to sc home. Chapincito Randolph MD [facility] Medicine Service Henrietta Fam RN - 05/05/2018 1:20 PM CDT [place] 1940 [id number] P: Discharge A: Discharged via wheelchair to [...] Amaryl and Metformin and SS insulin. 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 R. [...] MD - 05/04/2018 10:35 AM CDT [facility]PITAL SERVICE PROGRESS NOTE [...] of care, see above Feli Cox PA-C [facility] Medicine Service Patient seen and examined by me. Agree with the PA note. A/P: 77 y.o. with 1. s/p urologic procedure: per urology. 2. CAD: cont BB 3. DM: SSI in adition to po meds. 4. HTN: cont BB, hold parameters for the others. 5. Rest per PA note. Chapincito Randolph MD [facility] Medicine Service documented in this encounter H&P [...] the end of the procedure, a 14 Ben[place] coude, and there was clear urine noted. [...] Low Hagen MD, FACS /CW Dictation ID: [id number] OR Surgeon - Low Hagen MD - 05/04/2018 6:31 PM CDT POST-OPERATIVE NOTE Surgeon(s): Low Hagen MD Inseamer(s): Circulating nurse: Lis Boykin RN medicine technologist: Monica Crespo Private Scrub: Jabier Tao Preoperative Diagnosis: dx: erectile dysfunction Postoperative Diagnosis: ED Procedure(s): ED Complications: None EBL: 10 ml Anesthesia: General Operative Findings: 3 piece IPP placed---22cm cylinder bilateral---no rte's 125cc reservoir-placed ectopically left lower quadrant--krystin pump in scrotum Specimen(s): * No specimens in log * Grafts and/or Implants: Implant Name Type Inv. Item Serial No. Slab Inspector Lot No. [id number] No. Used Titan Assembly Kit [employer] [id number] N/A 1 Titan CL [place] [employer] [id number] N/A 1 Titan Infrapubic Zero Degree Angle Cylinder Set with Pump [employer] [id number] N/A 1 Condition on Discharge from Operating Room: Satisfactory REPORT OF OPERATION/ PROCEDURE Please see dictated operative note. LOW HAGEN MD [facility] [phone] documented in this encounter Plan of Treatment [...] WB 173 (H) 60 - 100 05/05/2018 [facility] METER mg/dL 9:15 AM CDT [facility] Specimen Anatomical Collection Method Collection Time Receive d Time (Source) Location / / Volume Laterality Blood 05/05/2018 8:05 AM 8 9:15 CDT AM CDT Low Hagen MD LAB POINT OF CARE TEST RESUL TS Performing Organization Address City/State/ZIP Code Phon e Number [facility] [address] [address] LABORATORY Electrocardiogram (05/04/2018 5:47 AM CDT) athologist Signature EKG HVI SAE Comment: ?N [facility] ? Test Date: ?2018-05-04 Pat Name: ? ALISACATRACHITOGARETT ANDERSENEEM ?Department: ?? PCC-Admit ? Room: ? 528 Gender: ? M ?Forming Roll Operator: ?? [id number] : ?1940 ? Requested By: ALEJANDRA YANG MD Order Number: [id number] ?Reading : ?? A. MD Tanner ? Measurements Intervals ?[place] ? Rate: ? 75 ? P: ?12 W[place]: ? 150 ?QRS: ?23 QRSD: ? 88 [...] MD EKG ORDERABLE Performing Organization Address City/State/ZIP [facility] e Number [facility] [address] [facility] [place] [address] documented in this encounter Visit Diagnoses Diagnosis Coronary artery disease involving [place] coronary artery of [place] heart without angina pectoris Hypertension, unspecified type [...] - Provider: Evita Liao) 1,000 mg, Intravenous, SOFTWARE CONFIGURATION ANALYST TO OR, 1 dose, Starting Mon05/04/18 at [...] used to soak implants.)0835 (Given - Provider: Lwo Hagen MD - Comment: 30mg gentamicin + [...] Discontinued documented in this encounter Care Teams Chemical Compounder Helper Relationship Specialty Start Date End Date [facility], [facility] PCP - Primary Care Clinic 04/30/18 Terry Casiano PCP - General Family Medicine 04/30/18 documented as of this encounter
== END 2022-07-26 10:08 | disposition home or self-care (01) ==
LOC: AMB 08-12 07:35
PROVIDERS: PCP Family Medicine; Visit Provider Family Medicine
DX: N32.89 Other specified disorders of bladder (principal); R33.9 Retention of urine, unspecified
CPT/HCPCS: A0425; A0428

== ENCOUNTER 2023-09-22 14:00 | Outpatient (RCR) | payer MEDICARE, BC, SELFPAY | END 2023-12-22 11:19 | disposition home or self-care (01) | PROVIDERS: PCP Family Medicine; Visit Provider Family Medicine | DX: R26.9 Unspecified abnormalities of gait and mobility (principal); R26.81 Unsteadiness on feet; M62.81 Muscle weakness (generalized); Z51.89 Encounter for other specified aftercare | CPT/HCPCS: 97110; 97112; 97162 ==

== ENCOUNTER 2025-04-26 03:33 | Emergency (ER) | payer MEDICARE, BC, SELFPAY ==
--- OUTSIDE RECORDS SUMMARY | 2025-04-26 03:34 | XMS_ITS | Clinical Summary ---
Author Organization [facility] Address [address] [place] [address] Care Team Providers Care Podopediatrician Name Role Phone Clinic, [facility] Unavailable Unavailable Terry Junior MD Primary Care Provider Allergies No known active allergies Medications metoprolol succinate, XL, (TOPROL XL) 100 mg oral extended release tablet 24 HR Take 100 mg by mouth at bedtime. Active lisinopril (PRINIVIL) 20 mg oral tablet Take 20 mg by mouth at bedtime. Active amLODIPine (NORVASC) 10 mg oral tablet Take 10 mg by mouth at bedtime. Active metFORMIN (GLUCOPHAGE) 1,000 mg oral tablet Take 1,000 mg by mouth twice a day with breakfast and dinner. Active aspirin 81 mg oral enteric coated tablet Take 81 mg by mouth once daily. Active atorvastatin (LIPITOR) 10 mg oral tablet Take 10 mg by mouth every morning. Active tamsulosin (FLOMAX) 0.4 mg oral capsule Take 0.4 mg by mouth every other day. Active nitroGLYCERIN (NITROSTAT) 0.4 mg sublingual tablet Take 0.4 mg under the tongue every 5 (five) minutes as needed for Chest Pain. Active HYDROcodone-en taminophen (NORCO) 5-325 mg oral tablet Take 1-2 tablets by mouth every 4 (four) hours as needed for Pain. 40 tablet 05/05/2018 12:53 PM CDT 8 Active docusate sodium (COLACE) 100 mg oral capsule Take 1 capsule (100 mg) by mouth twice daily as needed for constipation 60 capsule 8 Active doxycycline monohydrate (ADOXA) 100 mg oral tablet Take 1 tablet (100 mg) by mouth twice a day with breakfast and dinner. 20 tablet 05/05/2018 12:53 PM CDT 8 Active Active Problems Problem Noted Date Diagnosed Date Diabetes mellitus 05/04/2018 Overview (05/04/2018): 130-150 accu check/ A1C6.6-7.4 Coronary artery disease invo [place]ving [place] coronary artery of [place] heart without angina pectoris Hypertension, unspecified type Social History Tobacco Use Types Packs/Day Years Used Date Smoking Tobacco: Former Cigarettes 1 10 1 970 - 1980 Smokeless Tobacco: Never Alcohol Use Standard Drinks/Week Comments No 0 (1 standard drink = 0.6 oz pur e alcohol) Sex and Gender Information Value Date Recorded Sex Assigned at Not on file Legal Sex Male 5:06 AM CDT Gender Identity Not on file Sexual Orientation Not on file Last Filed Vital Signs Vital Sign Reading Time Taken Comments Blood Pressure 119/53 05/05/2018 11:50 AM CDT Pulse 74 05/05/2018 11:50 AM CDT Temperature 37.1 C (98.8 F) 05/05/2018 11:50 AM CDT Respiratory Rate 16 [...] Creatinine 1940 Eye Exam 1940 HgbA1C 1940 Depression Assessment (PHQ-2) 1941 Zoster Vaccine (2 of 3) 11/20/2013 2013 RSV Vaccines (1 - 1-dose 75+ series) 2016 Yearly Review of HCD 03/19/2019 03/19/2018 Adult Tetanus Booster 10/19/2020 10/19/2010 COVID-19 Vaccine ( - 2023- season) 2024 Influenza Vaccine (#1) 2025 6, 09/03/2015, 08/28/2014, Additional history exists Pneumococcal 50+ Years Completed 04/20/2016, 2013 Meningococcal B Vaccine Aged Out No l onger eligible based on patient's age to complete this topic Medical Devices Implanted Type Area Quality Control Technician Device Identifier Shelf Expiration Date Model / Serial / Lot Titan Assembly Kit Implanted:Qty: 1 on 05/04/2018 by Austin Hagen MD at [facility] N/A: Penis [employer] Liza 12/17/2022 [id number] / / [id number] Titan Cl [place] Implanted:Qty: 1 on 05/04/2018 by Austin Hagen MD at [facility] N/A: Pelvis [employer] Liza 02/10/2023 [id number] / / [id number] Titan Infrapubic Zero Degree Angle Cylinder Set With Pump Implanted:Qty: 1 on 05/04/2018 by Austin Hagen MD at [facility] N/A: Penis [employer] Liza 02/04/2023 [id number] / / [id number] Description:bill with the [facility] Insurance MEDICARE PART A & B [facility] [place] Advance Directives For more information, please contact: [phone] * Full Code (Latest Code Status on File) Date Activated Date Inactivated Comments 05/04/2018 9:50 AM 05/05/2018 7:26 PM Question Answer Comments How was code status determined? Physician Determ replaced by [facility] Care Teams Podopediatrician Relationship Specialty Start Date End Date Clinic, [facility] PCP - Primary Care Clinic 04/30/18 Terry Junior MD PCP - General Family Medicine 04/30/18
--- OUTSIDE RECORDS SUMMARY | 2025-04-26 03:34 | XMS_ITS | Clinical Summary ---
Author Organization [facility] Address [address] [place] [id number] Care Team Providers Care Application Support Name Role Phone Terry Junior MD Primary Care Provider [facility] [place] Unavailable Allergies Active Allergy Reactions Criticality Noted Date Comments Sulfamethoxazole-Trimethoprim Dyspnea 2022 Medications aspirin chewable 81 mg chewable tabletIndications: Coronary artery disease due to lipid rich plaque Take 1 tablet by mouth once daily with a meal. 90 tablet 12 07/06/20 18 Active blood-glucose meterIndications:T ype 2 diabetes mellitus without complication, without long-term current use of insulin (HC) Inject subcutaneous. Dispense meter, test strips, lancets covered by pt ins. E11.9 NIDDM type II - Test 2 time/day. High A1C. 1 Device 02/12/20 21 Active lancetsIndications :Type 2 diabetes mellitus without complication, without long-term current use of insulin (HC) Dispense lancets covered by pt ins. E11.9 NIDDM type II - Test 2 time/day. High A1C. 200 Each 3 02/12/20 21 Active cyanocobalamin (Vitamin B-12) 1,000 mcg tabletIndications: Vitamin B12 deficiency Take 1 Tablet (1,000 mcg) by mouth once daily. 90 Tablet 3 07/03/20 21 Active WalkerIndications: Lumbar radiculopathy Walker with front wheels for home use for 3 months. 1 Each 07/13/20 Active docusate (COLACE) 100 mg capsule Take 100 mg by mouth at bedtime if needed for Constipation. 07/18/20 22 Active ammonium lactate 12% (LACHYDRIN) 12 % cream ammonium lactate 12 % topical cream MASSAGE INTO INNER THIGH AND FACE ONCE TO TWICE DAILY Active blood sugar diagnostic (Blood Glucose Test) stripIndications:T ype 2 diabetes mellitus without complication, without long-term current use of insulin (HC) Dispense test strips covered by pt ins. E11.9 NIDDM type II - Test 2 time/day. High A1C. 200 Each 3 09/21/20 23 Active nitroglycerin 0.4 mg sublingual tabletIndications: Coronary artery disease involving assiniboine and sioux heart without angina pectoris, unspecified vessel or lesion type DISSOLVE 1 TABLET UNDER THE TONGUE EVERY 5 MINUTES IF NEEDED FOR CHEST PAIN. MAY REPEAT TWICE. If patient requesting greater than 25 doses in 30 days, to provider to authorize. 25 Tablet 5 01/15/20 25 Active amLODIPine 2.5 mg tabletIndications: Essential hypertension Take 1 Tablet (2.5 mg) by mouth once daily. 90 Tablet 3 02/26/20 25 Active atorvastatin 20 mg tabletIndications: Other hyperlipidemia Take 1 Tablet (20 mg) by mouth at bedtime. 90 Tablet 3 02/26/20 25 Active clopidogreL 75 mg tabletIndications: Coronary artery disease due to lipid rich plaque Take 1 Tablet (75 mg) by mouth once daily in the morning. 90 Tablet 3 02/26/20 25 Active glimepiride 2 mg tabletIndications: Type 2 diabetes mellitus without complication, without long-term current use of insulin (HC) TAKE 1 TABLET TWICE DAILY 180 Tablet 1 02/26/20 25 Active lisinopriL 20 mg tabletIndications: Essential hypertension Take 1 Tablet (20 mg) by mouth once daily. 90 Tablet 3 02/26/20 25 Active metoprolol succinate 100 mg Sustained-Release tabletIndications: Essential hypertension Take 1 Tablet (100 mg) by mouth once daily. 90 Tablet 3 02/26/20 25 Active tamsulosin 0.4 mg capsuleIndications :BPH with urinary obstruction Take 1 Capsule (0.4 mg) by mouth once daily after a meal. 90 Capsule 3 02/26/20 25 Active metFORMIN (GLUCOPHAGE XR) 500 mg Extended-Release tabletIndications: Type 2 diabetes mellitus without complication, without long-term current use of insulin (HC) Take 2 Tablets (1,000 mg) by mouth two times daily with meals. 360 Tablet 1 04/23/20 25 Active metFORMIN 500 mg Extended-Release tabletIndications: Type 2 diabetes mellitus without complication, without long-term current use of insulin (HC) Take 2 Tablets (1,000 mg) by mouth once daily. 360 Tablet 1 02/26/20 25 025 Discontin ued(Reord er (E-cancel not sent)) Active Problems Problem Noted Date Diagnosed Date Lower urinary tract symptoms 02/25/2025 B12 deficiency 10/03/2022 BPH without urinary obstruction 10/03/2022 Spinal stenosis, lumbar chey on, with neurogenic claudication 07/12/2022 Herniation of nucleus pulposus, lumbar, with rad iculopathy 07/12/2022 Anemia of unknown etiology 09/15/2021 Erectile dysfunction 09/04/2017 History of right knee joint replacement 01/20/20 17 Urgency incontinence 05/25/2016 Adenomatous colon polyp 10/22/2015 Overview (10/22/2015): Colonoscopy 09/2015 polyp repeat in 5 years Type 2 diabetes mellitus without complication Hyperlipidemia 08/28/2014 Former smoker 12/03/2013 Onychomycosis 11/13/2012 Hemorrhoidal skin tag 11/13/2012 CAD (coronary artery disease) 05/22/2008 Overview (12/03/2013): -Stenting to mid LAD and mid LCx 06/2008 -PTCA to second OM 06/2008 -Stress Myoview 11/21/2013: Medium sized area of mild reversible ischemia in the anterior wall EF 65% Essential hypertension 06/06/2007 DJD (degenerative joint disease) of knee Resolved Problems Problem Noted Date Diagnosed Date Resolved Date Gross hematuria 07/29/2022 04/23/2024 Coronary artery disease invo lving assiniboine and sioux coronary artery of assiniboine and sioux heart without angina pectoris 07/12/2022 10/03/2022 Type 2 diabetes mellitus wit h hyperglycemia, without long-term current use of insulin 07/12/2022 10/03/2022 Lumbar radiculopathy 04/30/2022 023 Overview (04/30/2022): ~ April 2022: L4-L5 epidural steroid injection by Dr. Sykes. Bilateral lower extremity edema 09/15/2021 10/03/2022 Urinary urgency 07/06/2016 10/03/2022 Angina pectoris 12/03/2013 01/27/2015 Cerumen impaction 05/20/2013 11/17/2015 Inguinal hernia without ment ion of obstruction or gangrene, unilateral or unspecified, (not specified as recurrent) 09/20/2011 11/13/2012 BPH with urinary obstruction 10/19/2010 01/27/2023 Hypertriglyceridemia 05/12/2009 014 Angina 06/26/2008 10/19/2010 ASCVD 06/26/2008 10/19/2010 Overview (06/26/2008): 06/27/08: Angio/PCI: EF 55% Successful 2.75mm x 28mm PROMUS Stent to Mid LAD, post stenosis 0% Successful 3mm x 15mm PROMUS Stent to Mid Circumflex, post stenosis 0% Successful 1.5mm x 6mm PTCA Balloon to 2nd Marginal, post stenosis 20% Mixed hyperlipidemia 06/08/2007 009 Overview (06/26/2008): Basename 06/26/08 0945 CHOL 112 TRIGLYCER* 321H HDL 27L CHOLHDLRA* 4.15 LDLCHOL 21 Unspecified essential hypertension 06/06/2007 10/19/2010 Diabetes mellitus, type 2 08/16/2002 Encounters Date Type Department Care Team Description 04/23/2025 Telephone [facility] [address] [place] [address] Terry Junior MD Medication Management (metFORMIN 500 mg Extended-Release tablet) 02/25/2025 3:20 PM CDT Office Visit [facility] [address] [place] [address] Terry Junior MD Diabetes (Follow up) 02/25/2025 Travel 02/21/2025 4:00 PM CDT Orders Only [facility] [address] [place] [address] Lab, [facility] 02/21/2025 Travel from Last 3 Months Immunizations Immunization Administration Dates Next Due AMB INFLUENZA IIV3 (AGE 65+ YRS) PF (Flu Clinic Only) 07/26/2018,07/26/2018 AMB Influenza, IIV3 (Age >=3 years)(Flu Clinic Only) 10/24/2008 COVID-19 VACCINE SPIKEVAX (M ODERNA 50MCG/0.5ML) 12YO+ PFS 02/25/2025,10/02/2023 COVID-19 vaccine ([employer] NTech 30mcg/0.3mL) 12YO+ BIVALENT PF, MDV 03/17/2023,10/03/2022 COVID-19 vaccine (Pfizer-Bio NTech 30mcg/0.3mL) 12YO+ FINN-SUCROSE PF, MDV 03/25/2022 COVID-19 vaccine ([employer] NTech 30mcg/0.3mL) PF, MDV 07/02/2021 Influenza, High-dose Inactivated 024,07/12/2016,09/03/2015,2013 Influenza, IIV3 (Age 6-35 mos) 10/19/2010 Influenza, IIV3 (Age >=3 years) 10/15/19 14,09/20/2011,08/22/2007,2004,08/28/2003,07/30/2002 Influenza, Inactivated AIIV4 (Age 65+ Years) Preserv Free 10/02/2023,10/03/2022,08/24/2021,2019 Influenza, Inactivated IIV3 (Age 65+ Years) Preserv Free 07/04/2019,07/27/2017 Pneumococcal Conj 20-valent (Prevnar 20) 10/03/2022 Pneumococcal Poly,23-Valent (Pneumovax) 12/13/2013 Pneumococcal conj 13-Valent (Prevnar 13) 04/20/2016 Tdap 05/09/2023,10/19/2010 Zoster (Shingrix-RZV, recombinant) 09/23/2023, Zoster (Zostavax-ZVL, live) 2013 Family History Medical [...] 4 Father (Age 83) Mother (Age 83) [place] Sister 1 Alive Sister 2 Alive Sister 3 Sister 4 Son 1 Alive Son 2 Social History Tobacco Use Types Packs/Day Years Used Date Smoking Tobacco: Former Cigarettes 1 10 1 970 - 1979 Smokeless Tobacco: Never Tobacco Cessation:Counseling Given: No Alcohol Use Standard Drinks/Week Comments No 0 (1 standard drink = 0.6 oz pur e alcohol) PHQ-2 Answer Date Recorded PHQ-2 TOTAL SCORE 0 04/23/2024 Social Connections Answer Date Recorded Frequency of Communication with Friends and Fami ly 0 03/25/2022 Financial Resource Strain Answer Date R ecorded Difficulty of Paying Living Expenses 3 03/25/2022 Difficulty of Paying Living Expenses Not on file 03/25/2022 Food Insecurity Answer Date Recorded Worried About Running Out of Food in the Last Ye ar 1 03/25/2022 Transportation Needs Answer Date Record ed Lack of Transportation (Medical) 1 03/25/2022 Housing Stability Answer Date Recorded Unable to Pay for Housing in the Last Year 1 03/25/2022 Sex and Gender Information Value Date Recorded Sex Assigned at Not on file Legal Sex Male 5:55 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 Gender Identity Not on file Sexual Orientation Not on file 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 Not on file Not on file Obstetrics History Last Filed Vital Signs Vital Sign Reading Time Taken Comments Blood Pressure 118/55 02/25/2025 4:15 PM CDT Pulse 70 02/25/2025 3:17 PM CDT Temperature 36.7 C (98 F) 04/03/2023 3:15 PM CDT Respiratory Rate 14 10/06/2023 3:39 PM PHYSICAL AERODYNAMICIST Oxygen Saturation 98% 02/25/2025 3:17 PM CDT Inhaled Oxygen Concentration - - Weight 68.1 kg (150 lb 3.2 oz) 02/25/2025 3:17 P M CDT Height 165.1 cm (5' 5) 06/26/2024 2:37 PM CDT Body Mass Index 24.99 06/26/2024 2:37 PM CDT Plan of Treatment Health Maintenance Due Date Last Done Comments RSV vaccine for adults or (1 - 1-dose 75+ series) 2016 Depression screening for age 12+ 04/23/2025 04/23/2024, 10/03/2022, 03/25/2022, Additional history exists Medicare Wellness for age 65+ 04/24/2025 04/23/2024, 10/03/2022, 03/25/2021, Additional history exists Influenza Vaccine (#1) 2025 , 10/02/2023, 10/03/2022, Additional history exists BMI (ht and wt on same day) for age 18+ 06/26/2025 06/26/2024, 04/23/2024, 10/02/2023, Additional history exists Tetanus booster 05/09/2033 05/09/2023, 10/19/2010 Pneumococcal series for age 50+ Completed 10/03/2022, 04/20/2016, 12/13/2013, Additional history exists Zoster (shingles) series for age 50+ Completed 09/23/2023, 05/09/2023, 2013 COVID-19 vaccine series Completed 02/26/20, 08/10/2024, 10/02/2023, Additional history exists Hepatitis B series for 19+ Aged Out N o longer eligible based on patient's age to complete this topic Medical Devices Implanted Type Area Adoption Worker Device Identifier Shelf Expiration Date Model / Serial / Lot Lens Iol 19.5 Technis - [id number] Implanted:Qty: 1 on 11/24/2015 by Nik Oconnell MD at [facility] Right: Eye [employer] 09/14/2021 [id number] / [id number] / Lens Iol 19.5 [employer] - [id number] Implanted:Qty: 1 on 12/29/2015 by Nik Oconnell MD at [facility] Left: Eye [employer] 02/27/2019 [id number] / [id number] / Procedures Procedure Name Priority Date/Time Associated Diagnosis Comments HEMOGLOBIN Routine 02/21/2025 4:07 PM CDT Anemia of unknown etiology BASIC METABOLIC PANEL Routine 02/21/2025 4:07 PM CDT Hypertension, unspecified type VITAMIN B12 Routine 02/21/2025 4:07 PM CDT B12 deficiency URINE ALBUMIN TO CREATININE RATIO, RANDOM Routine 02/21/2025 4:06 PM CDT Type 2 diabetes mellitus without complication, without long-term current use of insulin (HC) HEMOGLOBIN A1C MONITORING (POCT) Routine 02/21/2025 4:06 PM CDT Type 2 diabetes mellitus without complication, without long-term current use of insulin (HC) FERRITIN Add On 02/21/2025 12:00 AM CDT Anemia of unknown etiology IRON PLUS IRON BINDING CAP Add On 02/21/2025 12:00 AM CDT Anemia of unknown etiology from Last 3 Months Results * (ABNORMAL) HEMOGLOBIN (02/21/2025 4:07 PM CDT) Pathologist [facility] HEMOGLOBIN 12.7(L) 13.2 - 17.1 g/dL [facility] Blood BLOOD SPECIMEN / Unknown 02/21/2025 4:07 PM CDT 02/21/2025 4:08 PM CDT us Terry Junior MD HEMATOLOGY Final Result [facility] [address] [place] [address], [facility] [address] [place] [address] * VITAMIN B12 (02/21/2025 4:07 PM CDT) Pathologist [facility] VITAMIN B12 603 200 - 1,100 pg/mL [facility] Blood BLOOD SPECIMEN / Unknown 02/21/2025 4:07 PM CDT 02/21/2025 4:08 PM CDT us Terry Junior MD CHEMISTRY Final Result [facility] [address] [place] [address], [facility] [address] [place] [address] * (ABNORMAL) BASIC METABOLIC PANEL (02/21/2025 4:07 PM CDT) GLUCOSE 182(H) 65 - 99 mg/dL [facility] Comment: Fasting reference interval For someone without known diabetes, a glucose value >125 mg/dL indicates that they may have diabetes and this should be confirmed with a follow-up test. UREA NITROGEN (BUN) 26(H) 7 - 25 mg/dL [facility] CREATININE 0.82 0.70 - 1.22 mg/dL [facility] EGFR 87 > OR = 60 mL/min/1.7 3m2 [facility] BUN/CREATININE RATIO 32(H) 6 - 22 (calc) [facility] SODIUM 139 135 - 146 mmol/L [facility] POTASSIUM 4.6 3.5 - 5.3 mmol/L [facility] CHLORIDE 103 98 - 110 mmol/L [facility] CARBON DIOXIDE 25 20 - 32 mmol/L [facility] ELECTROLYTE BALANCE 11 7 - 17 mmol/L (calc) [facility] CALCIUM 9.7 8.6 - 10.3 mg/dL [facility] Blood BLOOD SPECIMEN / Unknown 02/21/2025 4:07 PM CDT 02/21/2025 4:08 PM CDT us Terry Junior MD CHEMISTRY Final Result Performing Organization Address [facility]/ZIP Co de Phone Number [employer] [facility] [address] [place] [address], [place] [phone] [facility] [address] [place] [address] * URINE ALBUMIN TO CREATININE RATIO, RANDOM (02/21/2025 4:06 PM CDT) ALB RAND URINE 23.4 mg/L 02/21/2025 11:26 PM CDT [facility] CREATININE,URIN E 1.32 g/L 02/21/2025 11:26 PM CDT [facility] ALBUMIN TO CREATININE RATIO,RAND UR 17.7 <30.0 mg/g creat 02/21/2025 11:26 PM CDT [facility] Urine URINE SPECIMEN / Unknown Non-Blood / Unknown 02/21/2025 4:06 PM CDT 02/21/2025 4:06 PM CDT Narrative [facility] - 02/21/2025 11:26 PM CDT If Albumin to Creatinine Ratio is elevated, consider the following: Elevations seen with incipient nephropathy associated with diabetes mellitus or hypertension. Stress, exercise,hematuria, and urinary tract infection may also produce elevated results. If clinically indicated, confirm with 24 Hour Albumin to Creatinine Ratio. Terry Junior MD URINE Final Result Performing Organization Address [facility]/ZIP Co de Phone Number [facility] [address] [place] [address], [place] * (ABNORMAL) HEMOGLOBIN A1C MONITORING (POCT) (02/21/2025 4:06 PM CDT) POC HEMOGLOBIN A1C 6.9(H) <6.0 % OF TOTAL HGB [facility] Comment: Any point of care results exhibiting inconsistency with the patient's clinical status should be repeated using a different testing method. Blood BLOOD SPECIMEN / Unknown 02/21/2025 4:06 PM CDT 02/21/2025 4:07 PM CDT us Terry Junior MD CHEMISTRY Final Result [facility] [address] [place] [address], [place] [phone] [facility] [address] [place] [address] * IRON PLUS IRON BINDING CAP (02/21/2025 12:00 AM CDT) IRON, TOTAL 115 50 - 180 mcg/dL [facility] IRON BINDING CAPACITY 357 250 - 425 mcg/dL (calc) [facility] % SATURATION 32 20 - 48 % (calc) [facility] Blood BLOOD SPECIMEN / Unknown 02/21/2025 02/25/2025 5:25 PM CDT us Terry Junior MD CHEMISTRY Final Result Performing Organization Address City/[facility]/ZIP Co de Phone Number [facility] [address] [place] [address], [place] [phone] [facility] [address] [place] [address] * FERRITIN (02/21/2025 12:00 AM CDT) FERRITIN 40 24 - 380 ng/mL [facility] [facility] Blood BLOOD SPECIMEN / Unknown 02/21/2025 02/25/2025 5:25 PM CDT us Terry Junior MD CHEMISTRY Final Result [facility] [address] [place] [address], [place] [phone] [facility] [address] [place] [address] from Last 3 Months Insurance [employer] [place] PB ONLY MEDICARE PART A HB ONLY [employer] [place] [place] BL[place] ONLY MEDICARE PART B HB ONLY [place] BL[place] ONLY MEDICARE [id number] [id number] Advance Directives * Full Code (Latest Code Status on File) Date Activated Date Inactivated Comments 04/03/2023 12:57 PM 04/03/2023 6:54 PM Question Answer Comments Code Status Discussion: Discussed * Full Code Date Activated Date Inactivated Comments 07/26/2022 12:45 PM 07/30/2022 6:25 PM Question Answer Comments Code Status Discussion: Other * Full Code Date Activated Date Inactivated Comments 07/12/2022 7:48 PM 07/13/2022 6:33 PM Question Answer Comments Code Status Discussion: Unable to Assess Preferences, Provider to review later * Full Code Date Activated Date Inactivated Comments 12/29/2015 7:10 AM 12/29/2015 11:13 AM * Full Code Date Activated Date Inactivated Comments 11/24/2015 7:42 AM 11/24/2015 12:22 PM Care Teams Application Support Relationship Specialty Start Date End Date Terry Junior MD [address] [place] [address] PCP - General Family Practice 06/16/[address] [address] 07/13/22
--- NOTE | 2025-04-26 03:38 | ED.GENADULT ---
HPI - General Adult General Time Seen by Provider: 03:38 Date Seen: 04/26/25 Chief complaint: Extremity Pain/Injury, Lower Stated complaint: foot pain Time Seen by Provider: 04/26/25 03:38 Source: patient, family and EMS Mode of arrival: EMS History of Present Illness HPI narrative: Hugo is a 84-year-old male with a past medical history of hypertension, hyperlipidemia, diabetes, coronary artery disease status post stents who presents to the emergency department from home for evaluation of dizziness and foot pain. Patient reports that around 230 this morning he was standing while he was praying when he felt a poke on the inner aspect of his right ankle. Patient states that he felt this something poked him from the carpet. Patient noticed a small area of swelling just inferior to the medial malleolus of his ankle. Patient reports he was concerned for possible blood clot or heart attack. Patient states that shortly after that he started to feel dizzy. Patient took 3 81 mg aspirin. Patient denies any chest pain, shortness of breath, abdominal pain, nausea, vomiting, diarrhea. Denies any paresthesias, fever, chills. Patient reports he no longer feels dizzy, does report that the area on his right foot where he thought maybe was a blood clot has now resolved. Patient denies any trauma or injury, denies any lower extremity edema or calf tenderness. No other complaints. Related Data Home Medications ?Medication ?Instructions ?Recorded ?Confirmed acetaminophen 500 mg capsule 1,000 mg PO Q6H PRN 07/14/22 04/26/25 amlodipine 10 mg tablet 10 mg PO DAILY 07/14/22 04/26/25 atorvastatin 20 mg tablet 20 mg PO HS 07/14/22 04/26/25 blood sugar diagnostic (Contour 07/14/22 04/26/25 Next Test Strips) cyanocobalamin (vitamin B-12) 1,000 mcg PO DAILY 07/14/22 04/26/25 1,000 mcg tablet glimepiride 2 mg tablet 2 mg PO BID 07/14/22 04/26/25 lisinopril 20 mg tablet 20 mg PO HS 07/14/22 04/26/25 methocarbamol 750 mg tablet 750 mg PO Q6H PRN 07/14/22 04/26/25 metoprolol succinate 100 mg 100 mg PO HS 07/14/22 04/26/25 tablet,extended release 24 hr nitroglycerin 0.4 mg sublingual 0.4 mg sublingual Q5M PRN 07/14/22 04/26/25 tablet oxycodone 10 mg tablet 10 mg PO Q4H PRN 07/14/22 04/26/25 tamsulosin 0.4 mg capsule 0.4 mg PO DAILY 07/14/22 04/26/25 ferrous sulfate 325 mg (65 mg 325 mg PO Q OTHER DAY 07/21/22 04/26/25 iron) tablet,delayed release amlodipine 2.5 mg tablet 2.5 mg PO DAILY 04/26/25 04/26/25 clopidogrel 75 mg tablet 75 mg PO QAM 04/26/25 04/26/25 metformin 500 mg tablet,extended 1,000 mg PO DAILY 04/26/25 04/26/25 release 24 hr Previous Rx's ?Medication ?Instructions ?Recorded docusate sodium 100 mg capsule 100 mg PO BID PRN Constipation 30 07/18/22 days #100 caps Allergies Allergy/AdvReac Type Severity Reaction Status Date / Time No Known Drug Allergies Allergy Verified 04/26/25 03:44 Review of Systems Narrative: Past medical history, past surgical history, medications, allergies, family history, and social history were reviewed with the patient. No additional pertinent items. A medically appropriate review of systems was performed with pertinent positives and negatives noted in HPI, all other systems negative. [facility] Medical History Anemia of unknown etiology BPH with urinary obstruction CAD (coronary artery disease) Coronary artery disease involving [place] coronary artery of [place] heart without angina pectoris DJD (degenerative joint disease) of knee Herniation of nucleus pulposus, lumbar Hyperlipidemia Hypertension Loose right total knee arthroplasty Onychomycosis Spinal stenosis, lumbar region with neurogenic claudication Type 2 diabetes mellitus Urinary retention Vitamin B12 deficiency Surgical History H/O inguinal hernia repair H/O right knee surgery History of coronary artery stent placement History of laminectomy History of lumbar discectomy History of tonsillectomy Status post cataract extraction of both eyes with insertion of intraocular lens Social History Highest level of school completed/degree received: Doctoral degree Smoking Status: Never smoker Do you use any of these nicotine containing products: None Second hand tobacco smoke exposure: No How often do you have a drink containing alcohol: never How often do you have six or more drinks on one occasion: Never AUDIT-C Alcohol total score: 0 Non-prescribed substance use: denies use Caffeine: Yes service: No Exam Narrative: Exam Narrative: General: Afebrile, no acute distress HEENT: Normocephalic, atraumatic, conjunctiva normal. MMM Neck: non-tender, supple Cardio: regular rate. regular rhythm Resp: Normal work of breathing, no respiratory distress, lungs clear bilaterally, no wheezing, rhonchi, rales Chest/Back: no visual signs of trauma, no midline tenderness, no CVA tenderness Abdomen: soft, non distension, no tenderness, no peritoneal signs Neuro: alert and fully oriented. CN II-XII grossly intact. Grossly normal strength and sensation in all extremities. MSK: no deformities. Normal range of motion, no lower extremity edema or calf tenderness Integumentary/Skin: no rash visualized, normal color Psych: normal affect, normal behavior Const: Vital Signs, click to edit/add: Vital Signs - 24 hr 04/26/25 03:42 04/26/25 05:16 04/26/25 05:19 Temperature 97.9 F 97.9 F 97.9 F Pulse Rate [Right Pulse Oximeter] 84 81 81 Respiratory Rate 18 18 18 Blood Pressure [Ri ght Upper Arm] 171/83 H 168/68 H 168/68 H Pulse Oximetry 99 99 Oxygen Delivery Me thod Room Air Room Air Course Vital Signs Vital signs: Initial Vital Signs Temperature 97.9 F 04/26/25 03:42 Temperature Source Temporal Artery Scan 04/26/25 03:42 Pulse Rate 84 04/26/25 03:42 Respiratory Rate 18 04/26/25 03:42 Blood Pressure 171/83 H 04/26/25 03:42 Blood Pressure Mean 112 H 04/26/25 03:42 Blood Pressure Position Sitting 04/26/25 03:42 Pulse Oximetry 99 04/26/25 03:42 Oxygen Delivery Method Room Air 04/26/25 03:42 Vital Signs Temperature 97.9 F 04/26/25 03:42 Pulse Rate 84 04/26/25 03:42 Respiratory Rate 18 04/26/25 03:42 Blood Pressure 171/83 H 04/26/25 03:42 Pulse Oximetry 99 04/26/25 03:42 Oxygen Delivery Method Room Air 04/26/25 03:42 Temperature 97.9 F 04/26/25 05:19 Pulse Rate 81 04/26/25 05:19 Respiratory Rate 18 04/26/25 05:19 Blood Pressure 168/68 H 04/26/25 05:19 Pulse Oximetry 99 04/26/25 05:16 Oxygen Delivery Method Room Air 04/26/25 05:16 Medical Decision Making MDM Narrative Medical decision making narrative: Hugo is a 84-year-old male with a past medical history of hypertension, hyperlipidemia, diabetes, coronary artery disease status post stents who presents to the emergency department from home for evaluation of dizziness and foot pain. Upon arrival patient is nontoxic appearing, afebrile, no distress. Upon arrival patient with no specific complaints, does report resolution of symptoms. Patient denies any current weakness, dizziness, chest pain, shortness of breath, no lower extremity edema or calf tenderness, no recent lower extremity trauma. Patient reports he felt a bump and 1 of his veins superficial veins of his foot. Symptoms have improved. Discussed with patient it could be superficial thrombophlebitis, superficial clot, rolling veins, hydration status. Low suspicious for a blood clot/DVT given patient with no lower extremity edema, no calf tenderness, patient reports that was 1 specific area in his foot which has now resolved. Regarding patient's dizziness this has also improved however given cardiac history EKG, comprehensive labs were performed. I reviewed EKG which demonstrates normal sinus rhythm with a ventricular rate of 74 beats per minute, normal axis, QTC 417, no acute ischemic change. Comprehensive labs unremarkable with no leukocytosis white blood cell count 5.4, hemoglobin 12.9, no acute metabolic or electrolyte abnormality, no transaminitis, negative troponin. On re-evaluation patient continues to be resting comfortably, no distress. Patient is nontoxic appearing, remains asymptomatic. Patient provided with reassurance. At this time no emergent indication for hospitalization or further testing. Recommend continue supportive care, close outpatient follow-up, strict return precautions discussed. Patient understands and agrees with the plan. Lab Data Labs: Lab Results 04/26/25 04/26/25 Range/Units 03:51 03:59 WBC 5.45 (4.50-11.00) K/uL RBC 4.53 (4.30-5.90) m/uL Hgb 12.9 L (13.5-17.5) gm/dL Hct 38.6 (37.0-53.0) % MCV 85 (80-100) fL MCH 29 (26-34) pg MCHC 33 (32-36) gm/dL RDW Coeff of [place] 13.1 (11.5-15.5) % Plt Count 180 (140-440) K/uL Neut % (Auto) 59.6 (42.0-72.0) % Lymph % (Auto) 27.7 (20-44) % [place] % (Auto) 8.4 (0.0-11.0) % Eos % (Auto) 3.5 (0.0-7.0) % Baso % (Auto) 0.2 (0.0-3.0) % Neut # (Auto) 3.25 (1.7-7.0) K/uL Lymph # (Auto) 1.51 (0.90-2.90) K/uL [place] # (Auto) 0.50 (0.00-0.90) K/UL Eos # (Auto) 0.19 (0.00-0.50) K/uL Baso # (Auto) 0.01 (0.00-0.30) K/uL Abs Immat Gran (auto) 0.03 (0.00-0.30) K/uL Imm/Tot Granulo (auto) 0.6 % Sodium 138 (135-149) mmol/L Potassium 3.9 (3.6-5.1) mmol/L Chloride 103 (96-114) mmol/L Carbon Dioxide 26 (20-32) mmol/L Anion Gap 9 (7-15) mEq/L BUN 24 (7-30) mg/dL Creatinine 0.7 (0.5-1.5) mg/dL Estimated Creat Clear 50.51 Estimated GFR 91 ml/min Glucose 155 H (60-115) mg/dL Calcium 10.0 (8.4-10.6) mg/dL Total Bilirubin 0.3 (0.1-1.5) mg/dL AST 29 (12-35) U/L ALT 21 (4-50) U/L Alkaline Phosphatase 68 (40-150) U/L Total Protein 7.5 (6.0-8.3) g/dL Albumin 4.4 (3.3-5.0) g/dL POC Troponin I 0.00 L (0.01-0.04) ng/ml Discharge Plan Discharge Clinical Impression: Dizziness, Foot pain Patient Disposition: Home, Self-Care Condition: Improved Additional Instructions: Please follow-up with your primary care provider in the next 3-5 days for further evaluation and follow-up. Please call to schedule an appointment. Please continue on medications. Return to the emergency department if you develop recurrent dizziness, chest pain, shortness of breath, or any worsening symptoms. It was a pleasure taking care of you today. We hope you feel better soon. Prescriptions: No Action amlodipine 2.5 mg tablet 2.5 mg PO DAILY clopidogrel 75 mg tablet 75 mg PO QAM metformin 500 mg tablet extended release 24 hr 1,000 mg PO DAILY methocarbamol 750 mg tablet 750 mg PO Q6H PRN oxycodone 10 mg tablet 10 mg PO Q4H PRN acetaminophen 500 mg capsule 1,000 mg PO Q6H PRN amlodipine 10 mg tablet 10 mg PO DAILY atorvastatin 20 mg tablet 20 mg PO HS (DME) Contour Next Test Strips Strip MISCELLANEOUS Patient Comments: USE 1 STRIP TO CHECK GLUCOSE TWICE DAILY cyanocobalamin (vitamin B-12) 1,000 mcg tablet 1,000 mcg PO DAILY glimepiride 2 mg tablet 2 mg PO BID lisinopril 20 mg tablet 20 mg PO HS metoprolol succinate 100 mg tablet extended release 24 hr 100 mg PO HS nitroglycerin 0.4 mg tablet, sublingual 0.4 mg sublingual Q5M PRN tamsulosin 0.4 mg capsule 0.4 mg PO DAILY docusate sodium 100 mg Capsule 100 mg PO BID PRN (Reason: Constipation) 30 Days Qty: 100 0RF ferrous sulfate 325 mg (65 mg iron) tablet,delayed release (DR/EC) 325 mg PO Q OTHER DAY Follow Up/Referrals: Terry Junior MD [Primary Care Provider, Family Practice] Stand Alone Forms: [employer] Info Instructions
[2025-04-26 03:42] VITALS: BP 171/83; PULSE 84; RESP 18; TEMP 36.6; O2SAT 99; BMI 24.2
[2025-04-26 04:05] LABS: Hematocrit 38.6 % (37.0-53.0); Hemoglobin* 12.9 gm/dL (13.5-17.5); Immature Granulocytes Abs Auto 0.03 K/uL (0.00-0.30); Immature Granulocytes Pct Auto 0.6 %; Lymphocytes Absolute Auto 1.51 K/uL (0.90-2.90); Mean Corpuscular HGB Conc 33 gm/dL (32-36); Mean Corpuscular Hemoglobin 29 pg (26-34); Mean Corpuscular Volume 85 fL (80-100); RDW Coefficient of Variation % 13.1 % (11.5-15.5); Red Blood Count 4.53 m/uL (4.30-5.90); White Blood Count* 5.45 K/uL (4.50-11.00)
[2025-04-26 04:07] LABS: Slide Review Reflex No
[2025-04-26 04:14] LABS: Troponin, Point-of-Care* 0.00 ng/ml (0.01-0.04)
[2025-04-26 04:18] LABS: Albumin* 4.4 g/dL (3.3-5.0); Chloride* 103 mmol/L (96-114); Potassium* 3.9 mmol/L (3.6-5.1); Sodium* 138 mmol/L (135-149)
[2025-04-26 04:21] LABS: Alanine Aminotransferase* 21 U/L (4-50); Alkaline Phosphatase* 68 U/L (40-150); Anion Gap 9 mEq/L (7-15); Aspartate Amino Transferase* 29 U/L (12-35); Bilirubin Total* 0.3 mg/dL (0.1-1.5); Blood Urea Nitrogen* 24 mg/dL (7-30); Calcium* 10.0 mg/dL (8.4-10.6); Carbon Dioxide* 26 mmol/L (20-32); Creatinine* 0.7 mg/dL (0.5-1.5); Est. Creatinine Clearance* 50.51; Estimated Glomerular Filt Rate 91 ml/min; Glucose* 155 mg/dL (60-115); Total Protein* 7.5 g/dL (6.0-8.3)
[2025-04-26 05:16] VITALS: BP 168/68; PULSE 81; RESP 18; TEMP 36.6; O2SAT 99
[2025-04-26 05:19] VITALS: BP 168/68; PULSE 81; RESP 18; TEMP 36.6
== END 2025-04-26 05:19 | disposition home or self-care (01) ==
PROVIDERS: Emergency Provider Emergency Medicine; PCP Family Medicine
DX: R42 Dizziness and giddiness (principal); M79.671 Pain in right foot
CPT/HCPCS: 36415; 80053; 84484; 85025; 93005; 99284; 99285

== ENCOUNTER 2025-04-26 05:57 | Outpatient (CLI) | payer MEDICARE, BC, SELFPAY | END 2025-04-26 05:58 | disposition home or self-care (01) | PROVIDERS: PCP Family Medicine; Visit Provider Orthopaedic Surgery | DX: M79.671 Pain in right foot (principal); R42 Dizziness and giddiness | CPT/HCPCS: A0425; A0427 ==